=== PATIENT | male | born 1980 | race Two or more races ===

== ENCOUNTER 2020-10-25 01:21 | Emergency (ER) | payer MEDICAID, SELFPAY ==
[2020-10-25 01:48] VITALS: BP 99/63; PULSE 76; RESP 16; TEMP 36.9; O2SAT 97; BMI 26.5
--- NOTE | 2020-10-25 02:20 | ED.LOWEXIN ---
HPI - Extremity Injury (Lower) General Chief Complaint: Extremity Injury, Lower Stated Complaint: FOOT PAIN Time Seen by Provider: 10/25/20 02:20 Source: patient History of Present Illness HPI Narrative: This is a 40-year-old male with chronic issues but appears to be a fungal infection involving toes 3 through 5 at the plantar base. He denies any fevers, chills. Related Data Allergies Allergy/AdvReac Type Severity Reaction Status Date / Time No Known Allergies Allergy Unverified 07/12/20 15:32 [No Known Allergies*] Review of Systems Review of Systems: Pertinent positives and negatives as stated in the HPI and 10pt ROS is otherwise negative. PMFSH Past Medical History Source: nursing notes reviewed Medical History No known health problems Social History Social History Alcohol intake: never Smoking Status: Never smoker Use of substances other than those prescribed or required for medical reasons: No Advance Directives: No Physical Exam Vital Signs: Vital Signs: Last Vital Signs Temp 98.4 F 10/25/20 01:48 Pulse 76 10/25/20 01:48 Resp 16 10/25/20 01:48 BP 99/63 10/25/20 01:48 Pulse Ox 97 10/25/20 01:48 Body Mass Index 26.5 Vital Signs: Reviewed GEN: NAD PULM: CTAB, no wheeze, no tachypnea CVS: RRR, no murmurs noted ABD: soft, non-tender, non-distended MSK: no deformities, swelling RIGHT FOOT: neurovasculalrly intact, capillary refill <3s, skin breakdown between and at base of toes 3-5 Course Course Course Narrative: 40M with fungal infection that will require aggressive treatment. Notified by nursing that patient left. Discharge Plan Discharge Clinical Impression: Fungal infection right foot Patient Disposition: Elopement Interventions: ED Discharge Assessment Last Done: 10/25/20 04:19 Discharge Date/Time: 10/25/20 04:10
== END 2020-10-25 04:10 | disposition left against medical advice (07) ==
PROVIDERS: Emergency Provider Student in an Organized Health Care Education/Training Program; PCP Internal Medicine
DX: B35.3 Tinea pedis (principal); M79.671 Pain in right foot
CPT/HCPCS: 99284

== ENCOUNTER 2020-12-03 19:33 | Emergency (ER) | payer MEDICAID, SELFPAY ==
--- NOTE | ~2020-12-03 | XR_ITS ---
EXAMINATION: XR CHEST CLINICAL INFORMATION: Chest pain COMPARISON: None TECHNIQUE: Frontal view of the chest was obtained. FINDINGS: Azygos lobe and fissure. Lungs are clear. No focal consolidation or mass. Normal pulmonary vascularity. No pleural effusion or pneumothorax. Normal heart size. No acute osseous abnormality. XR/XR chest 1V IMPRESSION: No acute pulmonary disease.
--- NOTE | ~2020-12-03 | XR_ITS ---
EXAMINATION: SHOULDER 4 VIEWS, LEFT CLINICAL INFORMATION: Left shoulder pain. COMPARISON: 11/14/2018.. TECHNIQUE: AP views of the left shoulder were obtained in internal and external rotation. In addition, axillary and Y views were obtained. FINDINGS: There are no fractures or dislocations. The humeral head is seated within a well-formed glenoid. The AC joint is intact. XR/XR shoulder LT min 2V IMPRESSION: Unremarkable left shoulder radiographs.
--- NOTE | ~2020-12-03 | CT_ITS ---
EXAMINATION: CT HEAD WITHOUT CONTRAST CLINICAL INFORMATION: Multiple TIA episodes. COMPARISON: 11/28/2018. TECHNIQUE: Contiguous helical images of the brain were obtained without IV contrast. Multiplanar reconstructions were performed. DLP: 711 mGy-cm. FINDINGS: There are no pathologic extra-axial fluid collections. The lateral, third, fourth ventricles are nondilated and concordant with the appearance of the sulci. There is no evidence for acute intraparenchymal hemorrhage or infarct. There is neither mass nor mass effect. There is no shift of midline structures. The paranasal sinuses and mastoid air cells are clear. There are no osseous lesions. CT/CT head/brain wo con IMPRESSION: No evidence for acute intracranial injury. Automated exposure control (Care Dose) Adjustment of the mA and/or kv according to patient size (this includes techniques or standardized protocols for targeted exams where dose is matched to indication / reason for exam; i.e. extremities or head).
[2020-12-03 19:45] VITALS: BP 120/79; PULSE 75; RESP 18; TEMP 36.8; O2SAT 98; BMI 24.7
--- NOTE | 2020-12-03 19:52 | ECG_ITS ---
Test Reason : SEIZURE Blood Pressure : / mmHG Vent. Rate : 067 BPM Atrial Rate : 067 BPM P-R Int : 136 ms QRS Dur : 092 ms QT Int : 388 ms P-R-T Axes : 063 018 025 degrees QTc Int : 409 ms Normal sinus rhythm with sinus arrhythmia Normal ECG When compared with ECG of 29-DEC-2012 00:01, No significant change was found Referred By: Generic ED Physician Electronically Signed By:JOHNNIE MCCARTHY
[2020-12-04 01:22] VITALS: BP 154/85; PULSE 65; RESP 18; TEMP 36.4; O2SAT 100
--- NOTE | 2020-12-04 02:21 | PC.NURSE ---
PT REPORTS THAT LAST YEAR HE HAD AN EPISODE OF RIGHT SIDED NUMBNESS THAT DROPPED HIM TO HIS KNEES, LASTING 1 MINUTE. PT WAS NEVER EVALUATED BY A NEUROLOGIST, AND IS NOT ON ANY SEIZURE MEDICATIONS. THE PAST FEW DAYS, PT HAS EXPERIENCED REPEAT EPISODES OF UNILATERAL WEAKNESS/PARALYSIS, LASTING 1 MINUTE. PT AMBULATORY TO ROOM 11 FROM WAITING ROOM WITH STEADY GAIT. PT SPEAKING IN FULL SENTENCES AND IN NO DISTRESS. PT DENIES HEADACHE OR DYSPNEA. PT HAS STRONG AND EQUAL HAND GRASPS AND PLANTAR FLEXION. EQUAL FACIAL MUSCLES WHEN ASKED TO SMILE, NO FACIAL DROOP.
[2020-12-04 02:36] VITALS: BP 133/95; PULSE 62; RESP 18; O2SAT 100
[2020-12-04 02:40] LABS: Basophils Percent Auto 0.4 % (0-2); Eosinophils Absolute Auto 0.1 X10*3/uL (0.0-0.4); Eosinophils Percent Auto 1.3 % (0-4); Hematocrit 42.5 % (42-52); Hemoglobin 14.2 g/dl (14.0-18.0); Imm Gran Abs Auto 0.02 X10*3/uL (0.00-0.03); Imm Gran Pct Auto 0.4 % (0.0-0.4); Lymphocytes Absolute Auto 1.5 X10*3/uL (1.2-4.9); Lymphocytes Percent Auto 26.4 % (20-40); MANUAL DIFF FLAG NO; Mean Corpuscular HGB Conc 33.4 g/dl (31.0-36.0); Mean Corpuscular Volume 86.7 fL (80-98); Mean Platelet Volume 10.7 fL (9.4-12.4); Monocytes Absolute Auto 0.5 X10*3/uL (0.1-1.2); Monocytes Percent Auto 8.5 % (2-11); Neutrophils Absolute Auto 3.5 X10*3/uL (2.0-8.3); Platelet Count 227 X10*3/uL (160-400); White Blood Count 5.5 X10*3/uL (4.8-10.8)
--- NOTE | 2020-12-04 02:44 | ED.NEUROSD ---
HPI - Neuro Symptoms/Deficit General Chief Complaint: Neuro Symptoms/Deficit Stated Complaint: SEIZURES Time Seen by Provider: 12/04/20 02:33 Source: patient Mode of arrival: ambulatory Limitations: no limitations History of Present Illness HPI Narrative: Patient comes to emergency room complaining of multiple episodes of right upper arm and lower extremity locking and unable to move it. Patient states that he has had multiple episodes over last year, sometimes several times per day, however they usually happen once a day. For the last 3 days, he has had 1 episode per day. Patient states that the patient is under a lot of stress, works for the [employer], works 07:00 to 21:00 almost every day. Patient states these episodes usually last for about 2-3 minutes, then self resolve. At this time, patient states that he feels completely normal. Patient states that earlier today, he had another episode of upper and lower extremity locking, fell on his left shoulder, complaining of localized pain especially in the posterior aspect of the shoulder. Patient states the locking episodes usually happen the right side, but today happened on the left side Related Data Allergies Allergy/AdvReac Type Severity Reaction Status Date / Time No Known Allergies Allergy Verified 12/03/20 19:45 [No Known Allergies*] Review of Systems Review of Systems: Constitutional : No Weight loss, No Fever, No Chills, No Night Sweats, No Fatigue, No Malaise ENT/Mouth : No Hearing loss, No Ear Pain, No Nasal Congestion, No Sinus Pain, No Hoarseness, No sore throat, No Rhinorrhea, No Swallowing Difficulty Eyes: No Eye Pain, No Swelling, No Redness, No Foreign Body, No Discharge, No Vision Changes Cardiovascular : No Chest Pain, No SOB, No Dyspnea on Exertion, No Orthopnea, No Edema, No Palpitations Respiratory : No Cough, No Sputum, No Wheezing, No Smoke Exposure, No Dyspnea Gastrointestinal : No Nausea, No Vomiting, No Diarrhea, No Constipation, occasional right upper quadrant abdominal Pain, No Hematochezia, No Melena Genitourinary : no irregular bleeding, No Dysuria, No Urinary Frequency, No Hematuria, No Urinary Incontinence, No Urgency, No Flank Pain, No Urinary Flow Changes, No Hesitancy Musculoskeletal : Left shoulder pain, No Myalgias, No Joint Swelling Skin : No Skin Lesions, No rash Neuro : No Weakness, No Numbness, multiple episodes of right arm and right leg locking, sometimes left side Psych : History of severe anxiety, No Depression, No SI/HI/AH/VH, No Social Issues, Heme/Lymph: No Bruising, No Bleeding,No Lymphadenopathy Endocrine : No Polyuria, No Polydipsia, No Temperature Intolerance PMF Past Medical History Medical History Anxiety Depression Social History Social History Alcohol intake: current Alcohol intake frequency: a few times a month Smoking Status: Never smoker Use of substances other than those prescribed or required for medical reasons: No Advance Directives: No Advance Directives Information Provided: No Physical Exam Vital Signs: Vital Signs: Last Vital Signs Temp 97.5 F 12/04/20 01:22 Pulse 62 12/04/20 02:36 Resp 18 12/04/20 02:36 BP 133/95 H 12/04/20 02:36 Pulse Ox 100 12/04/20 02:36 Body Mass Index 24.7 Appearance: Alert. Oriented X3. No acute distress. Eyes: Pupils equal, round and reactive to light. ENT: Pharynx normal. Neck: Normal inspection. Neck supple. No lymph nodes noted. No crepitus CVS: Normal heart rate and rhythm. Pulses normal. Normal S1 and S2 Respiratory: No respiratory distress. Breath sounds normal. No Wheezing. No rales Abdomen: Soft and nontender. No rigidity. No distention. good BS x4 Skin: Skin warm and dry. Normal skin color. Normal skin turgor. Extremities: No lower extremity edema. No lower extremity edema. No Lacerations. No Rash. Patient able to flex and extend bilateral extremities, able to abduct both arms/shoulders, mild to moderate pain to palpation over the posterior aspect of the left shoulder Neuro: Oriented X 3. No motor deficit. No sensory deficit. Moving all extermities. No slurred speech. Course Course Course Narrative: I discussed with the patient that his episodes arm locking is likely secondary to anxiety, as they happen along with abdominal pain that starts and resolved at the same time then the locking episodes. Patient does not lose function of his extremities or weakness, only a locking sensation. In the emergency room, patient is completely asymptomatic. Patient started follow-up with his primary care physician. The CT scan is within normal limits, there are no signs of pre views CVA's. Differential diagnosis includes TIA, CVA, but low suspicion for both at this time. Symptoms likely related to anxiety/panic attack MDM - Neuro Symptoms/Deficit Lab Data Result diagrams: 12/04/20 02:30 12/04/20 02:30 Labs: Lab Results 12/04/20 12/04/20 12/04/20 Range/Units 02:30 02:30 02:30 WBC 5.5 (4.8-10.8) X10*3/uL RBC 4.90 (4.60-5.80) X10*6/uL Hgb 14.2 (14.0-18.0) g/dl Hct 42.5 (42-52) % MCV 86.7 (80-98) fL MCH 29.0 (27.0-33.0) pg MCHC 33.4 (31.0-36.0) g/dl RDW 12.0 (11.0-16.0) % Plt Count 227 (160-400) X10*3/uL MPV 10.7 (9.4-12.4) fL Immature Gran % (Auto) 0.4 (0.0-0.4) % Neut % (Auto) 63.0 (45-73) % Lymph % (Auto) 26.4 (20-40) % [place] % (Auto) 8.5 (2-11) % Eos % (Auto) 1.3 (0-4) % Baso % (Auto) 0.4 (0-2) % Lymph # (Auto) 1.5 (1.2-4.9) X10*3/uL [place] # (Auto) 0.5 (0.1-1.2) X10*3/uL Eos # (Auto) 0.1 (0.0-0.4) X10*3/uL Baso # (Auto) 0.0 (0.0-0.2) X10*3/uL Abs Immat Gran (auto) 0.02 (0.00-0.03) X10*3/uL Absolute Neuts (auto) 3.5 (2.0-8.3) X10*3/uL Absolute Nucleated RBC 0.000 (0.0-0.012) X10*3/uL Nucleated RBC % (auto) 0.0 (0.0-0.2) /100WBC Hold Blue Top SEE NOTE Sodium 139 (135-145) mmol/L Potassium 3.9 (3.3-5.1) mmol/L Chloride 104 (96-108) mmol/L Carbon Dioxide 23 (22-29) mmol/L Anion Gap 16 (12-20) BUN 16 (9-16) mg/dL Creatinine 0.86 (0.5-1.4) mg/dL Estim Creat Clear Calc 93.7 Estimated GFR > 60 Random Glucose 96 (60-115) mg/dL Calcium 9.0 (8.4-10.2) mg/dL Troponin I High Sens (<3.5-35.0) ng/L 12/04/20 Range/Units 02:34 WBC (4.8-10.8) X10*3/uL RBC (4.60-5.80) X10*6/uL Hgb (14.0-18.0) g/dl Hct (42-52) % MCV (80-98) fL MCH (27.0-33.0) pg MCHC (31.0-36.0) g/dl RDW (11.0-16.0) % Plt Count (160-400) X10*3/uL MPV (9.4-12.4) fL Immature Gran % (Auto) (0.0-0.4) % Neut % (Auto) (45-73) % Lymph % (Auto) (20-40) % [place] % (Auto) (2-11) % Eos % (Auto) (0-4) % Baso % (Auto) (0-2) % Lymph # (Auto) (1.2-4.9) X10*3/uL [place] # (Auto) (0.1-1.2) X10*3/uL Eos # (Auto) (0.0-0.4) X10*3/uL Baso # (Auto) (0.0-0.2) X10*3/uL Abs Immat Gran (auto) (0.00-0.03) X10*3/uL Absolute Neuts (auto) (2.0-8.3) X10*3/uL Absolute Nucleated RBC (0.0-0.012) X10*3/uL Nucleated RBC % (auto) (0.0-0.2) /100WBC Hold Blue Top Sodium (135-145) mmol/L Potassium (3.3-5.1) mmol/L Chloride (96-108) mmol/L Carbon Dioxide (22-29) mmol/L Anion Gap (12-20) BUN (9-16) mg/dL Creatinine (0.5-1.4) mg/dL Estim Creat Clear Calc Estimated GFR Random Glucose (60-115) mg/dL Calcium (8.4-10.2) mg/dL Troponin I High Sens < 3.5 (<3.5-35.0) ng/L Imaging Data Chest x-ray: Radiologist's impression: Azygos lobe and fissure. Lungs are clear. No focal consolidation or mass. Normal pulmonary vascularity. No pleural effusion or pneumothorax. Normal heart size. No acute osseous abnormality. XR/XR chest 1V IMPRESSION: No acute pulmonary disease. CT scan - head: Radiologist's impression: There are no pathologic extra-axial fluid collections. The lateral, third, fourth ventricles are nondilated and concordant with the appearance of the sulci. There is no evidence for acute intraparenchymal hemorrhage or infarct. There is neither mass nor mass effect. There is no shift of midline structures. The paranasal sinuses and mastoid air cells are clear. There are no osseous lesions. CT/CT head/brain wo con IMPRESSION: No evidence for acute intracranial injury Shoulder x-ray: Radiologist's impression: FINDINGS: There are no fractures or dislocations. The humeral head is seated within a well-formed glenoid. The AC joint is intact. XR/XR shoulder LT min 2V IMPRESSION: Unremarkable left shoulder radiographs. ECG Data Attestation: I personally reviewed and interpreted this ECG as follows: (Sinus rhythm, heart rate 67, no ST segment depression revision, no T-wave inversion. QTC 409) NIH Stroke Scale Level of Consciousness: Alert Level of Consciousness Questions: Answers both questions correctly Level of Consciousness Commands: Performs both tasks correctly Best Gaze: Normal Visual: No visual loss Facial Palsy: Normal Motor Arm (Right): No drift Motor Arm (Left): No drift Motor Leg (Right): No drift Motor Leg (Left): No drift Limb Ataxia: Absent Sensory: Normal Best Language: No aphasia Dysarthia: Normal Extinction and Inattention: No abnormality Score: 0 Discharge Plan Discharge Clinical Impression: Anxiety, Acute pain of left shoulder Patient Disposition: Home, Self-Care Instructions: Anxiety (ED), Shoulder Pain (ED) Additional Instructions: Please follow-up with your primary care physician tomorrow. If you have any worsening or new symptoms, please return to the emergency room or call 911
[2020-12-04 03:07] LABS: Troponin-I High Sensitivity < 3.5 ng/L (<3.5-35.0)
[2020-12-04 03:20] LABS: Anion Gap 16 (12-20); Blood Urea Nitrogen 16 mg/dL (9-16); Carbon Dioxide 23 mmol/L (22-29); Chloride 104 mmol/L (96-108); Creatinine Clr Calc Pharmacy 93.7; Estimated Glomerular Filt Rate > 60; Glucose Random 96 mg/dL (60-115); Potassium 3.9 mmol/L (3.3-5.1); Sodium 139 mmol/L (135-145)
== END 2020-12-04 04:29 | disposition home or self-care (01) ==
PROVIDERS: Emergency Provider Emergency Medicine; PCP Internal Medicine
DX: R56.9 Unspecified convulsions (principal); M25.512 Pain in left shoulder; F41.1 Generalized anxiety disorder; F43.0 Acute stress reaction
CPT/HCPCS: 36415; 70450; 71045; 73030; 80048; 84484; 85025; 93005; 99284

== ENCOUNTER 2020-12-18 11:10 | Outpatient (REF) | payer MEDICAID, SELFPAY ==
[2020-12-18 13:26] LABS: Erythrocyte Sedimentation Rate 2 MM/HR (0-15)
[2020-12-19 07:40] LABS: Syphilis Screen Nonreactive (Nonreactive)
[2020-12-19 09:16] LABS: Lyme Abs Screen <0.90 index
[2020-12-19 14:52] LABS: Anti Nuclear Antibody Screen NEGATIVE (NEGATIVE)
[2020-12-21 06:27] LABS: Aldolase 4.4 U/L (<=8.1)
== END 2020-12-18 11:11 | disposition home or self-care (01) ==
LOC: HO.LAB 11:10
PROVIDERS: PCP Internal Medicine; Visit Provider Psychiatry & Neurology Neurology
DX: G93.40 Encephalopathy, unspecified (principal)
CPT/HCPCS: 36415; 82085; 82550; 85652; 86038; 86039; 86618; 86780

== ENCOUNTER → 2021-01-01 08:54 | Outpatient (BNVA) | payer MEDICAID, SELFPAY | PROVIDERS: PCP Internal Medicine; Visit Provider Physician Assistant ==

== ENCOUNTER 2021-01-03 12:52 | Outpatient (REF) | payer MEDICAID, SELFPAY ==
[2021-01-03 14:44] LABS: Alanine Aminotransferase 34 U/L (0-40); Albumin Level 4.7 g/dL (3.5-5.0); Alkaline Phosphatase 70 U/L (39-117); Anion Gap 11 (12-20); Aspartate Amino Transferase 33 U/L (5-37); Bilirubin Total 0.2 mg/dL (0.0-1.0); Blood Urea Nitrogen 8 mg/dL (9-16); Calcium 9.6 mg/dL (8.4-10.2); Carbon Dioxide 31 mmol/L (22-29); Chloride 102 mmol/L (96-108); Estimated Glomerular Filt Rate > 60; Glucose Random 92 mg/dL (60-115); Phosphorus 3.3 mg/dL (2.7-4.5); Potassium 4.6 mmol/L (3.3-5.1); Sodium 139 mmol/L (135-145); Total Protein 7.2 g/dL (6.5-8.0)
[2021-01-03 15:06] LABS: Vitamin D 25-OH Total 17.7 ng/mL (>30)
[2021-01-04 13:57] LABS: Immunoglobulin A 262 mg/dL (47-310)
[2021-01-04 22:42] LABS: Transglutaminase Ab IgG 1 U/mL
[2021-01-05 10:31] LABS: Calcium (PTHI) 9.8 mg/dL (8.6-10.3); PTHI 53 pg/mL (14-64)
[2021-01-10 15:17] LABS: Endomysial IgA Antibody Negative (Negative)
== END 2021-01-03 12:53 | disposition home or self-care (01) ==
LOC: HO.LAB 12:52
PROVIDERS: PCP Internal Medicine; Visit Provider Internal Medicine
DX: E55.9 Vitamin D deficiency, unspecified (principal); F31.9 Bipolar disorder, unspecified; Z79.899 Other long term (current) drug therapy
CPT/HCPCS: 36415; 80053; 82306; 82784; 83516; 83970; 84100; 86255; 86256; 99202

== ENCOUNTER 2021-01-23 11:28 | Day surgery (SDC) | payer MEDICAID, SELFPAY ==
[2021-01-18 10:20] VITALS: BMI 23.7
--- NOTE | 2021-01-22 08:59 | HO.ANESPROP2 ---
Documented by User: Ludivina Madden 01/22/21 09:00 HPI - Anesthesia Eval Consult details Narrative: 40yo M for Colonoscopy PMFSH Active Problems Active Problems: All Active Problems (Updated 01/03/21 @ 13:24 by Christie Miller DO) Vitamin D deficiency (Acute) Rectal bleeding (Acute) Past Medical History Medical History Anxiety Depression Rectal bleeding Vitamin D deficiency Family History Family History Maternal Grandmother Diabetes Surgical History Surgical History History of surgery on arm Social History Social History Household Members: Family Alcohol intake: never Smoking Status: Never smoker Use of substances other than those prescribed or required for medical reasons: No Advance Directives: No Advance Directives Information Provided: No Current occupational status: employed Current occupation: [employer] Allergies Allergy/AdvReac Type Severity Reaction Status Date / Time No Known Allergies Allergy Verified 01/03/21 13:34 [No Known Allergies*] Home Medications Medication Instructions Recorded Confirmed Last Taken Type cholecalciferol (vitamin D3) 1,250 1,250 mcg PO QWEEK 01/01/21 01/03/21 Unknown History mcg (50,000 unit) capsule gabapentin 100 mg capsule 100 mg PO DAILY 01/01/21 01/03/21 Unknown History hydroxyzine HCl 50 mg tablet 50 mg PO BEDTIME 01/01/21 01/03/21 Unknown History sertraline 25 mg tablet 25 mg PO DAILY 01/01/21 01/03/21 Unknown History topiramate 25 mg tablet 25 mg PO DAILY 01/01/21 01/03/21 Unknown History zolpidem 10 mg tablet 10 mg PO BEDTIME PRN 01/01/21 01/03/21 Unknown History Exam Exam Date and Time: January 22, 2021 0859 Height,Weight and Vital Signs: Height 5 ft 3 in Weight 60.781 kg Narrative Narrative: EKG Vent. Rate : 067 BPM Atrial Rate : 067 BPM P-R Int : 136 ms QRS Dur : 092 ms QT Int : 388 ms P-R-T Axes : 063 018 025 degrees QTc Int : 409 ms Normal sinus rhythm with sinus arrhythmia Normal ECG When compared with ECG of 29-DEC-2012 00:01, No significant change was found Assessment and Plan Assessment Anesthesia Assessment: Chart Reviewed Documented by User: Char mSith 01/23/21 12:11 PMF Past Medical History Medical History Anxiety Depression Rectal bleeding Vitamin D deficiency Family History Family History Maternal Grandmother Diabetes Surgical History Surgical History History of surgery on arm Social History Social History Household Members: Family Alcohol intake: never Smoking Status: Never smoker Use of substances other than those prescribed or required for medical reasons: No Advance Directives: No Advance Directives Information Provided: No Current occupational status: employed Current occupation: [employer] Meds Allergies Allergy/AdvReac Type Severity Reaction Status Date / Time No Known Allergies Allergy Verified 01/03/21 13:34 [No Known Allergies*] Home Medications Medication Instructions Recorded Confirmed Last Taken Type cholecalciferol (vitamin D3) 1,250 1,250 mcg PO QWEEK 01/01/21 01/03/21 Unknown History mcg (50,000 unit) capsule gabapentin 100 mg capsule 100 mg PO DAILY 01/01/21 01/03/21 Unknown History hydroxyzine HCl 50 mg tablet 50 mg PO BEDTIME 01/01/21 01/03/21 Unknown History sertraline 25 mg tablet 25 mg PO DAILY 01/01/21 01/03/21 Unknown History topiramate 25 mg tablet 25 mg PO DAILY 01/01/21 01/03/21 Unknown History zolpidem 10 mg tablet 10 mg PO BEDTIME PRN 01/01/21 01/03/21 Unknown History Exam Airway Mallampati Class: II TM Dist: >3cm Neck ROM: Full Heart: RRr Lungs: CTA Bl Assessment and Plan Assessment Anesthesia Assessment: Anesthesia Plan Discussed and Chart Reviewed Final Anesthetic Review NPO: Yes ASA Class: II Final Preanesthetic Review: No Changes in Pt Med Stat and Consent Obtained/Reviewed Patient Risk: Intermediate Procedure Risk: Intermediate Anesthetic Plan Anesthetic Plan: MAC: Disposition: Standard PACU
[2021-01-23 11:51] VITALS: BP 106/58; PULSE 63; RESP 18; TEMP 36.3; O2SAT 97
[2021-01-23] MEDS: Lactated Ringers 1,000 ML 100 ML IVCONT (12:04)
--- NOTE | 2021-01-23 13:29 | MHC.SHP ---
Pre-Procedural Eval Section B Chief Complaint: bleeding Relevant Family History (Specify if Yes): No Relevant Social History: None Present Medications: see Short Stay Collaborative assessment Medical History: Significant History (Anxiety Depression Rectal bleeding Vitamin D deficiency) History of Previous Operations: Relevant previous surgery/procedure and date(s) (arm surgery) Allergies: Allergies Allergy/AdvReac Type Severity Reaction Status Date / Time No Known Allergies Allergy Verified 01/23/21 13:21 [No Known Allergies*] Review of Systems Sugical H&P ROS: Negative: Constitution, Cardiovascular, Respiratory, Neurological, Psychiatric, Hem-Onc, Allergic/Immunologic, Gastrointestinal, Genitourinary, Musculoskeletal, Integumentary, Endocrine and Eyes/Ears/Nose/Throat Exam Surgical H&P Exam: Normal: HEENT, Normal: Heart, Normal: Lungs, Normal: Extremities, Normal: Abdomen, Normal: Skin and Normal: Neurological Plan Diagnosis/Plan: Unchanged I have reviewed the history and physical and performed a pertinent physical examination on my patient. No changes have occurred unless specified.
--- NOTE | 2021-01-23 14:01 | PM.OP ---
Brief Operative Note Date of Service: 01/23/21 Pre-op diagnosis: rectal bleeding, anal fissure Post-op diagnosis: same Procedure: see op note Surgeon: Cheryl Gr MD Anesthesia: MAC Estimated blood loss (mL): 0 Condition: stable Disposition: PACU
--- NOTE | 2021-01-23 14:02 | W.PM.OPN ---
Operative Note Operative Note Date of Service: 01/23/21 Narrative: Operative Information Procedure Description: Colonoscopy COLONOSCOPY Instrument: Olympus variable stiffness pediatric scope 190L Colonoscopy Monitoring: Vital signs and clinical assessment, continuous EKG monitoring, Pulse oximetry, Carbon Dioxide monitoring and blood pressure monitoring were done throughout the procedure. Colon withdrawal time was [] minutes. Procedure: The patient was placed in the left lateral decubitis position and pre-procedure medications were administered. After a digital rectal examination of the ano-rectum, the video colonoscope was inserted into the rectum and advanced through the colon to the cecum/TI. The colonoscope was slowly withdrawn in a retrograde panoramic fashion and the colon mucosa was carefully examined including a retroflexed view of the rectum. Findings and interventions are described below. Procedure Difficulty:easy Findings: Terminal Ileum-normal, bx taken Cecum:normal Ascending Colon: 15-18 mm semi pedunculated polyp removed with cold snare and x1 clip applied to defect, retrieved with net. Transverse Colon -normal Descending Colon:normal Sigmoid Colon: 10 mm sessile polyp removed with cold snare but not retrieved Rectum: Retroflexion with small internal hemorrhoids, grade I with some red fernando bx taken from right colon, left colon and rectum in different jars Anorectum - normal Colon preparation: [place] Bowel Preparation Scale Right colon; 2 Transverse colon: 2 Left colon; 2 (0 = Unprepared colon segment with mucosa not seen due to solid stool that cannot be cleared. 1 = Portion of mucosa of the colon segment seen, but other areas of the colon segment not well seen due to staining, residual stool and/or opaque liquid. 2 = Minor amount of residual staining, small fragments of stool and/or opaque liquid, but mucosa of colon segment seen well. 3 = Entire mucosa of colon segment seen well with no residual staining, small fragments of stool or opaque liquid) Impression and Post Procedure Diagnosis: polyps internal hemorrhoids Plan: High fiber diet leaflet Avoid straining at stool, epsom salts and sitz bath, anusol supps or cream as needed Repeat Colonoscopy in 1-2 years or earlier if clinically indicated Above findings were reviewed with the patient and relevant handouts were provided if indicated.
[2021-01-23 14:05] VITALS: BP 92/49; PULSE 65; RESP 16; TEMP 36.2; O2SAT 97
[2021-01-23 14:10] VITALS: BP 89/56
[2021-01-23 14:20] VITALS: BP 91/58; PULSE 56; RESP 18; O2SAT 100
[2021-01-23 14:33] VITALS: BP 105/74; PULSE 60; RESP 18; O2SAT 100
== END 2021-01-23 15:00 | disposition home or self-care (01) ==
PROVIDERS: PCP Internal Medicine; Visit Provider Internal Medicine Gastroenterology
PROC: 0DJD8ZZ Inspection of Lower Intestinal Tract, Via Natural or Artificial Opening Endoscopic (ICD-10-PCS; CPT 45378; principal; 2021-01-23 13:10)
DX: K62.5 Hemorrhage of anus and rectum (principal); D12.2 Benign neoplasm of ascending colon; K64.0 First degree hemorrhoids; E55.9 Vitamin D deficiency, unspecified; Z79.899 Other long term (current) drug therapy
CPT/HCPCS: 45385; 45380; 88305

== ENCOUNTER → 2021-02-06 10:37 | Outpatient (BNVA) | payer MEDICAID, SELFPAY | PROVIDERS: PCP Internal Medicine; Visit Provider Physician Assistant ==

== ENCOUNTER → 2021-02-27 09:24 | Outpatient (BNVA) | payer MEDICAID, SELFPAY | PROVIDERS: PCP Internal Medicine; Visit Provider Internal Medicine ==

== ENCOUNTER 2021-03-18 00:02 | Emergency (ER) | payer MEDICAID, SELFPAY ==
--- NOTE | ~2021-03-18 | XR_ITS ---
EXAMINATION: XR SHOULDER, LEFT XR HUMERUS, LEFT CLINICAL INFORMATION: Fall, unable to abduct, mid humerus pain on flexion COMPARISON: 12/04/2020 TECHNIQUE: 3 views of the left shoulder. 2 views of the left humerus. FINDINGS: Glenohumeral alignment is anatomic. No acute fracture is seen. The acromioclavicular joint is intact. Alignment at the elbow appears maintained on these views. No significant focal soft tissue abnormality identified. XR/XR shoulder LT min 2V IMPRESSION: No acute findings identified in the left shoulder or humerus.
--- NOTE | ~2021-03-18 | XR_ITS ---
EXAMINATION: XR FACIAL BONES CLINICAL INFORMATION: Hematoma to left cheek COMPARISON: None TECHNIQUE: 4 views of the facial bones were obtained. FINDINGS: No displaced fracture is seen. Paranasal sinuses and mastoid air cells appear well-aerated. XR/XR facial bones <3V IMPRESSION: No fracture identified.
--- NOTE | ~2021-03-18 | XR_ITS ---
EXAMINATION: XR SHOULDER, LEFT XR HUMERUS, LEFT CLINICAL INFORMATION: Fall, unable to abduct, mid humerus pain on flexion COMPARISON: 12/04/2020 TECHNIQUE: 3 views of the left shoulder. 2 views of the left humerus. FINDINGS: Glenohumeral alignment is anatomic. No acute fracture is seen. The acromioclavicular joint is intact. Alignment at the elbow appears maintained on these views. No significant focal soft tissue abnormality identified. XR/XR humerus LT IMPRESSION: No acute findings identified in the left shoulder or humerus.
[2021-03-18 00:11] VITALS: BP 116/80; PULSE 52; RESP 18; TEMP 36.6; O2SAT 97; BMI 25.7
[2021-03-18 00:38] VITALS: BP 112/78; PULSE 59; RESP 16; TEMP 37.1; O2SAT 100
--- NOTE | 2021-03-18 01:15 | ED_ITS ---
HPI - Fall General Chief Complaint: Fall Stated Complaint: fall @ 630pm Source: patient Mode of arrival: ambulatory Limitations: no limitations History of Present Illness HPI Narrative: 41-year-old male presents with injury sustained from a fall into a [place]. He has scratches on his face, and neck, hematoma to the left cheek and has pain to that left shoulder. He is unable to abduct and adduct and has pain on flexion and extension of the elbow. He does not know when his last Tdap vaccine was given, does not report losing consciousness. States that he was cleaning out his yd and fell over. He does not describe any other injuries or symptoms. MD complaint: fall Onset (ago): hour(s) (6:30 p.m.) Fall from: standing Fall witnessed: yes, by family Place fall occurred: home Loss of consciousness: none Prolonged down time: no Symptoms prior to fall: none Context: tripped/slipped Location of injury: head, face and neck Location of injury - extremities: left: shoulder Severity: moderate Severity scale (1-10): 7 Quality: aching and throbbing Associated symptoms (after fall): denies Related Data Home Medications Medication Instructions Recorded Confirmed gabapentin 100 mg capsule 100 mg PO DAILY 01/01/21 02/27/21 sertraline 25 mg tablet 25 mg PO DAILY 01/01/21 02/27/21 topiramate 25 mg tablet 25 mg PO DAILY 01/01/21 02/27/21 zolpidem 10 mg tablet 10 mg PO BEDTIME PRN 01/01/21 02/27/21 docusate sodium 100 mg capsule 200 mg PO BEDTIME PRN cap 02/27/21 hydroxyzine HCl 50 mg tablet 50 mg PO BEDTIME PRN 02/27/21 02/27/21 methylcellulose (laxative) 500 mg 500 mg PO BID PRN tab 02/27/21 tablet quetiapine 25 mg tablet 25 mg PO BEDTIME 02/27/21 02/27/21 Previous Rx's Medication Instructions Recorded hydrocortisone 2.5 % topical cream 1 appl RI BID PRN #30 g 01/01/21 with perineal applicator cholecalciferol (vitamin D3) 1,250 1,250 mcg PO QWEEK 56 Days #8 cap 02/27/21 mcg (50,000 unit) capsule cholecalciferol (vitamin D3) 50 50 mcg PO DAILY 30 Days #30 cap 02/27/21 mcg (2,000 unit) capsule Allergies Allergy/AdvReac Type Severity Reaction Status Date / Time No Known Allergies Allergy Verified 02/27/21 09:48 [No Known Allergies*] Review of Systems Review of Systems: Constitutional: No Fever, No Chills ENT/Mouth: No Ear Pain, No Hoarseness, No sore throat Eyes: No Eye Pain, No Swelling, No Redness, No Foreign Body Cardiovascular: No Chest Pain, No SOB Respiratory: No Cough, No Dyspnea Gastrointestinal: No Nausea, No Vomiting, No Diarrhea, No abdominal Pain Genitourinary: No Dysuria, No Hematuria Musculoskeletal: positive left shoulder and humerus pain, No Myalgias, No Joint Swelling Skin: Multiple superficial abrasions to face and neck, No deep Skin lacerations, No rash Neuro: No Weakness, No Numbness, No Paresthesias, No Loss of Consciousness, No Dizziness, No Headache Psych: No Anxiety/Panic, No Depression Heme/Lymph: no easy bruising, no Lymphadenopathy Endocrine: No Polyuria, No Polydipsia Yes all other systems are reviewed and are negative [facility] Past Medical History Attestation statement: The following information was validated with the patient. Source: old records reviewed Medical History Anxiety Depression Rectal bleeding Vitamin D deficiency Surgical History H/O colonoscopy History of surgery on arm Family History Family History Maternal Grandmother Diabetes Social History Social History Household Members: Family Alcohol intake: current Alcohol intake frequency: does not drink Smoking Status: Never smoker Advance Directives: No Advance Directives Information Provided: No Current occupational status: employed Current occupation: [employer] Physical Exam Vital Signs: Vital Signs: Last Vital Signs Temp 98.7 F 03/18/21 00:38 Pulse 59 03/18/21 00:38 Resp 16 03/18/21 00:38 BP 112/78 03/18/21 00:38 Pulse Ox 100 03/18/21 00:38 Body Mass Index 25.7 Appearance: Alert. Oriented X3. No acute distress. Head: Hematoma to left cheek, multiple superficial abrasions to face and neck. Normocephalic. No Boo signs noted. Eyes: PERRLA. EOMI. Conjunctiva and sclera normal. Eyelids normal. ENT: TM's Normal. Pharynx normal. Uvula midline. Moist mucous membranes. No trismus noted. No drooling noted. No muffled voice noted. Neck: Normal inspection. Neck supple. No adenopathy. Thyroid Normal. No meningeal signs. No neck mass noted. CVS: Normal heart rate and rhythm. Heart sound normal. No murmurs noted. Pulses equal to all extremities. Respiratory: No respiratory distress. Painless inspiration. Breath sounds normal. No wheezes/rales/rhonchi noted. Chest nontender. No accessory muscle usage noted or decreased air movement noted. Abdomen: Soft and nontender. Bowel sounds normal in all 4 quadrants. No distention noted. No organomegaly noted. No visible injury noted. Back: No CVA tenderness. Full range of motion noted. Skin: Skin warm and dry. Normal skin color. Normal skin turgor. No rashes/lesions/lacerations noted. Extremities: Patient unable to abduct adduct flex and extend left shoulder, has pain on flexion and extension of the elbow, unable to perform passive range of motion. Full range of motion to all other extremities. No injuries noted to the chest or abdomen. Brisk capillary refill and equal pulses to all extr emities Neuro: cranial nerves 2-12 intact, no focal neural deficits, strength 5/5 to all extremities, No motor deficit. No sensory deficit. Course Course Course Narrative: 41-year-old male with no significant past medical history presents with multiple injuries sustained from falling into a [place]. Will order x-rays of facial bones and left shoulder and left humerus. Will update Tdap vaccine and will apply topical antibiotic ointment to superficial abrasions to the face and neck. X-rays negative for acute findings requiring emergent intervention. Highly suspicious physical exam for rotator cuff tear or injury. Will apply sling and have patient follow-up with orthopedics for evaluation of a rotator cuff injury or tear. Patient verbalized understanding of and agrees to plan of care discharge home. MDM - Fall [facility] Narrative Medical decision making narrative: Rotator cuff tear, labrum tear, shoulder dislocation Medical Records Attestation: I reviewed the patient's medical records. Imaging Data Shoulder x-ray: Attestation: I personally reviewed and interpreted this imaging study as follows: Facial bones: Attestation: I personally reviewed and interpreted this imaging study as follows: Discharge Plan Discharge Clinical Impression: Contusion of face Qualifiers: Encounter type: initial encounter Qualified Code(s): S00.83XA - Contusion of other part of head, initial encounter Rotator cuff disorder Qualifiers: Laterality: left Qualified Code(s): M67.912 - Unspecified disorder of synovium and tendon, left shoulder Patient Disposition: Home, Self-Care Instructions: Rotator Cuff Injury (ED), R.I.C.E. Treatment (ED), Facial Contusion (ED) Additional Instructions: You were evaluated for injuries sustained from a fall. X-rays are negative for fracture and dislocation of the left shoulder, x-rays are negative for fracture of the facial bones. Your symptoms are consistent with a rotator cuff injury. Please keep sling in place until you see orthopedics. Please call Orthopedics in the morning and request an appointment for suspected rotator cuff tear. Use Tylenol and Motrin as needed for pain management. Apply ice to help reduce pain and swelling. Thank you for choosing this emergency department for evaluation. Please follow-up with primary care physician as needed. Return to the emergency department for any new, concerning, or worsening symptoms. Prescriptions: No Action zolpidem [Ambien] 10 mg tablet 10 mg PO BEDTIME PRNRF: 0 gabapentin 100 mg capsule 100 mg PO DAILY RF: 0 topiramate 25 mg tablet 25 mg PO DAILY RF: 0 sertraline 25 mg tablet 25 mg PO DAILY RF: 0 hydrocortisone [Proctozone-HC] 2.5 % cream with perineal applicator 1 appl RI BID PRN (Reason: hemorrhoids) Qty: 30 RF: 3 hydroxyzine HCl 50 mg tablet 50 mg PO BEDTIME PRNRF: 0 quetiapine 25 mg tablet 25 mg PO BEDTIME RF: 0 docusate sodium [Colace] 100 mg capsule 200 mg PO BEDTIME PRNRF: 0 Citrucel 500 mg tablet 500 mg PO BID PRNRF: 0 cholecalciferol (vitamin D3) 50 mcg (2,000 unit) capsule 50 mcg PO DAILY 30 Days Qty: 30 RF: 11 cholecalciferol (vitamin D3) 1,250 mcg (50,000 unit) capsule 1,250 mcg PO QWEEK 56 Days Qty: 8 RF: 0 Referrals: Amelia Alvarez PA-C [[facility]] - 2 days (Left rotator cuff injury)
--- NOTE | 2021-03-18 01:46 | PC.NURSE ---
emc closed report given to brenda rhodes. pt waiting imaging pt A+Ox3 PT HAS CALL [facility] IN PLACE.
[2021-03-18] MEDS: Diphth,Pertus(ACell),Tet Adult 0.5 ML SYRINGE IM (01:53)
[2021-03-18] MEDS: Ibuprofen 600 MG TABLET PO (02:10)
== END 2021-03-18 02:22 | disposition home or self-care (01) ==
PROVIDERS: Emergency Provider Student in an Organized Health Care Education/Training Program; PCP Internal Medicine
DX: S00.83XA Contusion of other part of head, initial encounter (principal); S00.81XA Abrasion of other part of head, initial encounter; S10.91XA Abrasion of unspecified part of neck, initial encounter; W17.89XA Other fall from one level to another, initial encounter; M67.912 Unspecified disorder of synovium and tendon, left shoulder; Y93.H2 Activity, gardening and landscaping; Y92.017 Garden or yard in single-family (private) house as the place of occurrence of the external cause; Y99.9 Unspecified external cause status
CPT/HCPCS: 70140; 73030; 73060; 90471; 90715; 99284

== ENCOUNTER 2021-03-21 01:27 | Emergency (ER) | payer MEDICAID, SELFPAY ==
[2021-03-21 01:43] VITALS: BP 116/76; PULSE 73; RESP 20; TEMP 36.2; O2SAT 97; BMI 25.6
--- NOTE | 2021-03-21 02:43 | ED.WEAKNESS ---
HPI - Weakness General Chief complaint: Weakness Stated complaint: Weakness Time Seen by Provider: 03/21/21 02:32 Source: patient Mode of arrival: ambulatory Limitations: no limitations History of Present Illness HPI Narrative: Patient comes emergency room complaining of weakness and diffuse joint pain. Patient states he has been having chronic weakness for several years and diffuse joint pain as well. Patient states that he has been seen multiple times by his primary care physician, Endocrinology, and has an appointment pending with rheumatology. Patient states that the reason he came today was because he could not sleep due to the pain. Patient states that all his joints hurt. Patient denies fever or chills. Related Data Home Medications Medication Instructions Recorded Confirmed gabapentin 100 mg capsule 100 mg PO DAILY 01/01/21 02/27/21 sertraline 25 mg tablet 25 mg PO DAILY 01/01/21 02/27/21 topiramate 25 mg tablet 25 mg PO DAILY 01/01/21 02/27/21 zolpidem 10 mg tablet 10 mg PO BEDTIME PRN 01/01/21 02/27/21 docusate sodium 100 mg capsule 200 mg PO BEDTIME PRN cap 02/27/21 hydroxyzine HCl 50 mg tablet 50 mg PO BEDTIME PRN 02/27/21 02/27/21 methylcellulose (laxative) 500 mg 500 mg PO BID PRN tab 02/27/21 tablet quetiapine 25 mg tablet 25 mg PO BEDTIME 02/27/21 02/27/21 Previous Rx's Medication Instructions Recorded hydrocortisone 2.5 % topical cream 1 appl [place] BID PRN #30 g 01/01/21 with perineal applicator cholecalciferol (vitamin D3) 1,250 1,250 mcg PO QWEEK 56 Days #8 cap 02/27/21 mcg (50,000 unit) capsule cholecalciferol (vitamin D3) 50 50 mcg PO DAILY 30 Days #30 cap 02/27/21 mcg (2,000 unit) capsule Allergies Allergy/AdvReac Type Severity Reaction Status Date / Time No Known Allergies Allergy Verified 03/21/21 01:48 [No Known Allergies*] Review of Systems Review of Systems: Constitutional : No Weight loss, No Fever, No Chills, No Night Sweats, No Fatigue, No Malaise ENT/Mouth : No Hearing loss, No Ear Pain, No Nasal Congestion, No Sinus Pain, No Hoarseness, No sore throat, No Rhinorrhea, No Swallowing Difficulty Eyes: No Eye Pain, No Swelling, No Redness, No Foreign Body, No Discharge, No Vision Changes Cardiovascular : No Chest Pain, No SOB, No Dyspnea on Exertion, No Orthopnea, No Edema, No Palpitations Respiratory : No Cough, No Sputum, No Wheezing, No Smoke Exposure, No Dyspnea Gastrointestinal : No Nausea, No Vomiting, No Diarrhea, No Constipation, No abdominal Pain, No Hematochezia, No Melena Genitourinary : no irregular bleeding, No Dysuria, No Urinary Frequency, No Hematuria, No Urinary Incontinence, No Urgency, No Flank Pain, No Urinary Flow Changes, No Hesitancy Musculoskeletal : Complaining of diffuse joint pain and diffuse muscular pain Skin : No Skin Lesions, No rash Neuro : No Weakness, No Numbness, No Paresthesias, No Loss of Consciousness, No Dizziness, No Headache Psych : No Anxiety/Panic, No Depression, No SI/HI/AH/VH, No Social Issues, Heme/Lymph: No Bruising, No Bleeding,No Lymphadenopathy Endocrine : No Polyuria, No Polydipsia, No Temperature Intolerance [facility] Past Medical History Medical History Anxiety Depression Fibromyalgia Insomnia Rectal bleeding Vitamin D deficiency Surgical History H/O colonoscopy History of surgery on arm Family History Family History Maternal Grandmother Diabetes Social History Social History Household Members: Family Alcohol intake: never Patient Tobacco Use Status: Never used Tobacco Use of substances other than those prescribed or required for medical reasons: No Advance Directives: No Advance Directives Information Provided: No Current occupational status: employed Current occupation: [employer] Physical Exam Vital Signs: Vital Signs: Last Vital Signs Temp 97.2 F 03/21/21 01:43 Pulse 73 03/21/21 01:43 Resp 20 03/21/21 01:43 BP 116/76 03/21/21 01:43 Pulse Ox 97 03/21/21 01:43 Body Mass Index 25.6 Appearance: Alert. Oriented X3. No acute distress. Eyes: Pupils equal, round and reactive to light. ENT: Pharynx normal. Neck: Normal inspection. Neck supple. No lymph nodes noted. No crepitus CVS: Normal heart rate and rhythm. Pulses normal. Normal S1 and S2 Respiratory: No respiratory distress. Breath sounds normal. No Wheezing. No rales Abdomen: Soft and nontender. No rigidity. No distention. good BS x4 Skin: Skin warm and dry. Normal skin color. Normal skin turgor. Extremities: No lower extremity edema. Patient is able to move all of his extremities, normal range of motion. Patient states that moving any joint hurts Neuro: Oriented X 3. No motor deficit. No sensory deficit. Moving all extermities. No slurred speech. Course Course Course Narrative: I discussed the labs with the patient, no acute findings. I also discussed with the patient that once he sees Rheumatology next week, they will likely order more specialized test, it is likely that patient may have a rheumatology condition, and once he has a diagnosis, a more targeted treatment can be given to him. Patient states that he is tired of taking tablets that are not helping him. I offered to increase his dose of gabapentin, patient declined. Patient states that he will wait for his rheumatology consult MDM - Weakness Lab Data Result diagrams: 03/21/21 02:52 03/21/21 02:52 Labs: Lab Results 03/21/21 03/21/21 Range/Units 02:52 02:52 WBC 5.1 (4.8-10.8) X10*3/uL RBC 4.90 (4.60-5.80) X10*6/uL Hgb 14.2 (14.0-18.0) g/dl Hct 41.7 L (42-52) % MCV 85.1 (80-98) fL MCH 29.0 (27.0-33.0) pg MCHC 34.1 (31.0-36.0) g/dl RDW 11.8 (11.0-16.0) % Plt Count 233 (160-400) X10*3/uL MPV 10.4 (9.4-12.4) fL Immature Gran % (Auto) 0.2 (0.0-0.4) % Neut % (Auto) 52.9 (45-73) % Lymph % (Auto) 32.0 (20-40) % Fountain % (Auto) 11.6 H (2-11) % Eos % (Auto) 2.7 (0-4) % Baso % (Auto) 0.6 (0-2) % Lymph # (Auto) 1.6 (1.2-4.9) X10*3/uL Fountain # (Auto) 0.6 (0.1-1.2) X10*3/uL Eos # (Auto) 0.1 (0.0-0.4) X10*3/uL Baso # (Auto) 0.0 (0.0-0.2) X10*3/uL Abs Immat Gran (auto) 0.01 (0.00-0.03) X10*3/uL Absolute Neuts (auto) 2.7 (2.0-8.3) X10*3/uL Absolute Nucleated RBC 0.000 (0.0-0.012) X10*3/uL Nucleated RBC % (auto) 0.0 (0.0-0.2) /100WBC Sodium 139 (135-145) mmol/L Potassium 3.9 (3.3-5.1) mmol/L Chloride 102 (96-108) mmol/L Carbon Dioxide 26 (22-29) mmol/L Anion Gap 15 (12-20) BUN 11 (9-16) mg/dL Creatinine 0.85 (0.5-1.4) mg/dL Estim Creat Clear Calc 90.1 Estimated GFR > 60 Random Glucose 89 (60-115) mg/dL Calcium 9.4 (8.4-10.2) mg/dL Total Bilirubin 0.6 (0.0-1.0) mg/dL Direct Bilirubin 0.3 (0.0-0.5) mg/dL AST 28 (5-37) U/L ALT 19 (0-40) U/L Alkaline Phosphatase 82 (39-117) U/L Total Protein 7.6 (6.5-8.0) g/dL Albumin 4.7 (3.5-5.0) g/dL Discharge Plan Discharge Clinical Impression: Joint pain Qualifiers: Joint pain location: unspecified Qualified Code(s): M25.50 - Pain in unspecified joint Patient Disposition: Home, Self-Care Instructions: Arthralgia (ED) Additional Instructions: Please follow-up with your primary care physician tomorrow. If you have any worsening or new symptoms, please return to the emergency room or call 911 Prescriptions: No Action zolpidem [Ambien] 10 mg tablet 10 mg PO BEDTIME PRNRF: 0 gabapentin 100 mg capsule 100 mg PO DAILY RF: 0 topiramate 25 mg tablet 25 mg PO DAILY RF: 0 sertraline 25 mg tablet 25 mg PO DAILY RF: 0 hydrocortisone [Proctozone-HC] 2.5 % cream with perineal applicator 1 appl UT BID PRN (Reason: hemorrhoids) Qty: 30 RF: 3 hydroxyzine HCl 50 mg tablet 50 mg PO BEDTIME PRNRF: 0 quetiapine 25 mg tablet 25 mg PO BEDTIME RF: 0 docusate sodium [Colace] 100 mg capsule 200 mg PO BEDTIME PRNRF: 0 Citrucel 500 mg tablet 500 mg PO BID PRNRF: 0 cholecalciferol (vitamin D3) 50 mcg (2,000 unit) capsule 50 mcg PO DAILY 30 Days Qty: 30 RF: 11 cholecalciferol (vitamin D3) 1,250 mcg (50,000 unit) capsule 1,250 mcg PO QWEEK 56 Days Qty: 8 RF: 0
[2021-03-21 02:56] LABS: MANUAL DIFF FLAG NO
[2021-03-21 02:57] LABS: Basophils Percent Auto 0.6 % (0-2); Eosinophils Absolute Auto 0.1 X10*3/uL (0.0-0.4); Eosinophils Percent Auto 2.7 % (0-4); Hematocrit 41.7 % (42-52); Hemoglobin 14.2 g/dl (14.0-18.0); Imm Gran Abs Auto 0.01 X10*3/uL (0.00-0.03); Imm Gran Pct Auto 0.2 % (0.0-0.4); Lymphocytes Absolute Auto 1.6 X10*3/uL (1.2-4.9); Mean Corpuscular HGB Conc 34.1 g/dl (31.0-36.0); Mean Corpuscular Volume 85.1 fL (80-98); Mean Platelet Volume 10.4 fL (9.4-12.4); Monocytes Absolute Auto 0.6 X10*3/uL (0.1-1.2); Monocytes Percent Auto 11.6 % (2-11); Neutrophils Absolute Auto 2.7 X10*3/uL (2.0-8.3); Neutrophils Percent Auto 52.9 % (45-73); Platelet Count 233 X10*3/uL (160-400); Red Cell Distribution Width 11.8 % (11.0-16.0); White Blood Count 5.1 X10*3/uL (4.8-10.8)
[2021-03-21 03:43] LABS: Alanine Aminotransferase 19 U/L (0-40); Albumin Level 4.7 g/dL (3.5-5.0); Alkaline Phosphatase 82 U/L (39-117); Anion Gap 15 (12-20); Aspartate Amino Transferase 28 U/L (5-37); Bilirubin Direct 0.3 mg/dL (0.0-0.5); Bilirubin Total 0.6 mg/dL (0.0-1.0); Blood Urea Nitrogen 11 mg/dL (9-16); Calcium 9.4 mg/dL (8.4-10.2); Carbon Dioxide 26 mmol/L (22-29); Chloride 102 mmol/L (96-108); Creatinine Clr Calc Pharmacy 90.1; Estimated Glomerular Filt Rate > 60; Glucose Random 89 mg/dL (60-115); Potassium 3.9 mmol/L (3.3-5.1); Sodium 139 mmol/L (135-145); Total Protein 7.6 g/dL (6.5-8.0)
[2021-03-21] MEDS: traMADoL HCL 50 MG TABLET PO (05:32)
[2021-03-22 05:56] LABS: Lyme Abs Screen <0.90 index
== END 2021-03-21 06:10 | disposition home or self-care (01) ==
PROVIDERS: Emergency Provider Emergency Medicine; PCP Internal Medicine
DX: M25.50 Pain in unspecified joint (principal); R53.1 Weakness; Z79.899 Other long term (current) drug therapy
CPT/HCPCS: 36415; 80048; 80076; 85025; 86617; 86618; 99284

== ENCOUNTER 2021-03-29 10:15 | Outpatient (REF) | payer MEDICAID, SELFPAY ==
[2021-03-29 11:30] LABS: MANUAL DIFF FLAG NO
[2021-03-29 11:42] LABS: Basophils Percent Auto 0.8 % (0-2); Eosinophils Absolute Auto 0.2 X10*3/uL (0.0-0.4); Eosinophils Percent Auto 3.1 % (0-4); Hematocrit 39.9 % (42-52); Hemoglobin 13.1 g/dl (14.0-18.0); Imm Gran Abs Auto 0.02 X10*3/uL (0.00-0.03); Imm Gran Pct Auto 0.4 % (0.0-0.4); Lymphocytes Absolute Auto 1.2 X10*3/uL (1.2-4.9); Lymphocytes Percent Auto 24.1 % (20-40); Mean Corpuscular HGB Conc 32.8 g/dl (31.0-36.0); Mean Corpuscular Volume 88.3 fL (80-98); Mean Platelet Volume 10.9 fL (9.4-12.4); Monocytes Absolute Auto 0.4 X10*3/uL (0.1-1.2); Monocytes Percent Auto 8.3 % (2-11); Neutrophils Percent Auto 63.3 % (45-73); Platelet Count 219 X10*3/uL (160-400); Red Blood Count 4.52 X10*6/uL (4.60-5.80); Red Cell Distribution Width 11.6 % (11.0-16.0); White Blood Count 4.8 X10*3/uL (4.8-10.8)
[2021-03-29 12:02] LABS: Alanine Aminotransferase 23 U/L (0-40); Albumin Level 4.2 g/dL (3.5-5.0); Alkaline Phosphatase 64 U/L (39-117); Anion Gap 13 (12-20); Aspartate Amino Transferase 28 U/L (5-37); Bilirubin Total 0.3 mg/dL (0.0-1.0); Blood Urea Nitrogen 11 mg/dL (9-16); C Reactive Protein 0.04 mg/dL (< or = 0.50); Calcium 9.1 mg/dL (8.4-10.2); Carbon Dioxide 27 mmol/L (22-29); Chloride 105 mmol/L (96-108); Estimated Glomerular Filt Rate > 60; Glucose Random 91 mg/dL (60-115); Potassium 4.5 mmol/L (3.3-5.1); Rheumatoid Factor < 15.0 IU/mL (<15.0); Sodium 140 mmol/L (135-145); Total Protein 6.6 g/dL (6.5-8.0)
[2021-03-29 12:24] LABS: Erythrocyte Sedimentation Rate 2 MM/HR (0-15)
[2021-03-30 06:37] LABS: Lyme Abs Screen <0.90 index
[2021-03-31 23:02] LABS: Cyclic Citrullinated Peptide <16 UNITS
[2021-04-03 13:41] LABS: Anti Nuclear Antibody Screen NEGATIVE (NEGATIVE)
== END 2021-03-29 10:16 | disposition home or self-care (01) ==
LOC: HO.LAB 10:15
PROVIDERS: PCP Internal Medicine; Visit Provider Student in an Organized Health Care Education/Training Program
DX: M25.50 Pain in unspecified joint (principal); M75.82 Other shoulder lesions, left shoulder; Z79.899 Other long term (current) drug therapy
CPT/HCPCS: 36415; 80053; 85025; 85652; 86038; 86039; 86140; 86200; 86431; 86617; 86618; 99202

== ENCOUNTER → 2021-04-05 09:22 | Outpatient (BNVA) | payer MEDICAID, SELFPAY | PROVIDERS: PCP Internal Medicine; Visit Provider Internal Medicine Gastroenterology ==

== ENCOUNTER → 2021-05-02 08:46 | Outpatient (BNVA) | payer MEDICAID, SELFPAY | PROVIDERS: PCP Internal Medicine; Visit Provider Student in an Organized Health Care Education/Training Program | DX: M25.50 Pain in unspecified joint (principal); M79.7 Fibromyalgia | CPT/HCPCS: 99212 ==

== ENCOUNTER 2021-07-03 20:58 | Emergency (ER) | payer MEDICAID, SELFPAY ==
[2021-07-03 21:32] VITALS: BP 117/91; PULSE 62; RESP 18; TEMP 36.8; O2SAT 98; BMI 27.4
--- NOTE | 2021-07-03 22:33 | ED.HA ---
HPI - Headache General Chief Complaint: Headache Stated Complaint: Migraine Source: patient Mode of arrival: ambulatory Limitations: no limitations History of Present Illness HPI Narrative: 41-year-old male presents with multiple complaints. States that he has had migraines and increased pain for approximately a week or more. 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 Does see multiple specialists, pain management, Gastroenterology, Neurology, and was recently diagnosed with fibromyalgia. He has not taking any of the medications that have been prescribed him today because he was at work. MD elicited complaint: headache and migraine Pertinent past history: migraines Onset (ago): week(s) (Several) Onset description: gradually Severity: moderate Quality & Timing: aching, throbbing and progressively worsening Exacerbating factors: exertion Relieving factors: nothing Associated symptoms: neck stiffness and malaise Treatments prior to arrival: none Related Data Home Medications Medication Instructions Recorded Confirmed gabapentin 100 mg capsule 100 mg PO DAILY 01/01/21 05/02/21 sertraline 25 mg tablet 25 mg PO DAILY 01/01/21 05/02/21 topiramate 25 mg tablet 25 mg PO DAILY 01/01/21 05/02/21 zolpidem 10 mg tablet (Ambien) 10 mg PO BEDTIME PRN 01/01/21 05/02/21 docusate sodium 100 mg capsule 200 mg PO BEDTIME PRN cap 02/27/21 05/02/21 (Colace) hydroxyzine HCl 50 mg tablet 50 mg PO BEDTIME PRN 02/27/21 05/02/21 methylcellulose (laxative) 500 mg 500 mg PO BID PRN tab 02/27/21 05/02/21 tablet (Citrucel) quetiapine 25 mg tablet 25 mg PO BEDTIME 02/27/21 05/02/21 gabapentin 600 mg tablet 600 mg PO TID 05/02/21 05/02/21 quetiapine 150 mg tablet,extended 150 mg PO BEDTIME 05/02/21 05/02/21 release 24 hr (Seroquel XR) Previous Rx's Medication Instructions Recorded hydrocortisone 2.5 % topical cream 1 appl [place] BID PRN #30 g 01/01/21 with perineal applicator (Proctozone-HC) cholecalciferol (vitamin D3) 1,250 1,250 mcg PO QWEEK 56 Days #8 cap 02/27/21 mcg (50,000 unit) capsule cholecalciferol (vitamin D3) 50 50 mcg PO DAILY 30 Days #30 cap 02/27/21 mcg (2,000 unit) capsule diclofenac sodium 1 % topical gel 2 g TOPICAL BID PRN #100 g 06/11/21 [id number]-[id number]-[id number] 1 cap PO Q6H PRN #14 cap 07/04/21 50 mg-300 mg-40 mg capsule (Fioricet) Allergies Allergy/AdvReac Type Severity Reaction Status Date / Time No Known Allergies Allergy Verified 07/03/21 21:32 [No Known Allergies*] Review of Systems Review of Systems: Constitutional: No Fever, No Chills ENT/Mouth: No Ear Pain, No Hoarseness, No sore throat Eyes: No Eye Pain, No Swelling, No Redness, No Foreign Body Cardiovascular: No Chest Pain, No SOB Respiratory: No Cough, No Dyspnea Gastrointestinal: No Nausea, No Vomiting, No Diarrhea, No abdominal Pain Genitourinary: No Dysuria, No Hematuria Musculoskeletal: positive diffuse body pain, No Myalgias, No Joint Swelling Skin: No Skin lacerations, No rash Neuro: No Weakness, No Numbness, No Paresthesias, No Loss of Consciousness, No Dizziness, positive Headache Psych: No Anxiety/Panic, No Depression Heme/Lymph: no easy bruising, no Lymphadenopathy Endocrine: No Polyuria, No Polydipsia Yes all other systems are reviewed and are negative [facility] Past Medical History Attestation statement: The following information was validated with the patient. Source: old records reviewed Medical History Anxiety Depression Fibromyalgia Insomnia No known health problems Rectal bleeding Vitamin D deficiency Surgical History H/O colonoscopy History of surgery on arm Family History Family History Maternal Grandmother Diabetes Social History Social History Household Members: Family Alcohol intake: never Patient Tobacco Use Status: Never used Tobacco e-Cigarette/Vaping Use: Never Used Advance Directives: No Advance Directives Information Provided: Yes Current occupational status: employed Current occupation: [employer] Physical Exam Vital Signs: Vital Signs: Last Vital Signs Temp 97.7 F 07/03/21 23:43 Pulse 62 07/04/21 01:01 Resp 16 07/04/21 01:01 BP 108/49 L 07/04/21 01:01 Pulse Ox 99 07/04/21 01:01 Body Mass Index 27.4 Appearance: Alert. Oriented X3. No acute distress. Head: Normal external exam. Normocephalic. Atraumatic. No Boo signs noted. No raccoon eyes noted Eyes: PERRLA. EOMI. Conjunctiva and sclera normal. Eyelids normal. ENT: TM's Normal. Pharynx normal. Uvula midline. Moist mucous membranes. No trismus noted. No drooling noted. No muffled voice noted. Neck: Normal inspection. Neck supple. No adenopathy. Thyroid Normal. No meningeal signs. No neck mass noted. CVS: Normal heart rate and rhythm. Heart sound normal. No murmurs noted. Pulses equal to all extremities. Respiratory: No respiratory distress. Painless inspiration. Breath sounds normal. No wheezes/rales/rhonchi noted. Chest nontender. No accessory muscle usage noted or decreased air movement noted. Abdomen: Soft and nontender. Bowel sounds normal in all 4 quadrants. No distention noted. No organomegaly noted. No visible injury noted. Back: No CVA tenderness. Full range of motion noted. Skin: Skin warm and dry. Normal skin color. Normal skin turgor. No rashes/lesions/lacerations noted. Extremities: No lower extremity edema. Extremities exhibit normal range of motion. Extremities nontender. Neuro: cranial nerves 2-12 intact, no focal neural deficits, strength 5/5 to all extremities, No motor deficit. No sensory deficit. Course Course Course Narrative: 41-year-old male presents with multiple complaints too numerous to list. States that he has had multiple appointments with specialists, Gastroenterology, Neurology, Pain Management, all with no significant findings. Reported that he was recently diagnosed with fibromyalgia, foot fungus, and insomnia. States that stresses of his job have exacerbated his pain, right now describes pain in every part of his body. While he does have significant complaints, every direction towards his chief complaint headache that he has had over the past 2 weeks. He has had multiple CT scans in the past with negative findings, I do not feel that he requires repeat imaging at this time as he does not have any neurological deficits. He does not have any signs or indication of meningitis, no nuchal rigidity, afebrile, and appears nontoxic. Will treat with Toradol, sumatriptan, and fluid resuscitation. Patient states that the treatment was ineffective, will give Fioricet for his headache. Multiple discussions with patient regarding plan, will discharge home and have patient continue to follow-up with specialists as an outpatient. Patient verbalized understanding of and agrees to plan of care discharge home. MDM - Headache Differential Diagnosis Differential diagnosis: Likely migraine, tension headache and headache Medical Records Attestation: I reviewed the patient's medical records. Discharge Plan Discharge Clinical Impression: Fibromyalgia Migraine Qualifiers: Migraine type: unspecified Status migrainosus presence: without status migrainosus Intractability: intractable Qualified Code(s): G43.919 - Migraine, unspecified, intractable, without status migrainosus Patient Disposition: Home, Self-Care Instructions: Migraine Headache (ED), Fibromyalgia (ED) Additional Instructions: Please continue to follow-up with your specialists as an outpatient. Thank you for choosing this emergency department for evaluation. Please follow-up with primary care physician as needed. Return to the emergency department for any new, concerning, or worsening symptoms. Prescriptions: New lsjuluyizn-bylrvuccinveb-jhnu [Fioricet] 50-300-40 mg capsule 1 cap PO Q6H PRN (Reason: migraine headache) Qty: 14 RF: 0 No Action diclofenac sodium 1 % gel 2 g topical BID PRN (Reason: pain) Qty: 100 RF: 1 zolpidem [Ambien] 10 mg tablet 10 mg PO BEDTIME PRNRF: 0 gabapentin 100 mg capsule 100 mg PO DAILY RF: 0 topiramate 25 mg tablet 25 mg PO DAILY RF: 0 sertraline 25 mg tablet 25 mg PO DAILY RF: 0 hydrocortisone [Proctozone-HC] 2.5 % cream with perineal applicator 1 appl [place] BID PRN (Reason: hemorrhoids) Qty: 30 RF: 3 hydroxyzine HCl 50 mg tablet 50 mg PO BEDTIME PRNRF: 0 quetiapine 25 mg tablet 25 mg PO BEDTIME RF: 0 docusate sodium [Colace] 100 mg capsule 200 mg PO BEDTIME PRNRF: 0 Citrucel 500 mg tablet 500 mg PO BID PRNRF: 0 cholecalciferol (vitamin D3) 50 mcg (2,000 unit) capsule 50 mcg PO DAILY 30 Days Qty: 30 RF: 11 cholecalciferol (vitamin D3) 1,250 mcg (50,000 unit) capsule 1,250 mcg PO QWEEK 56 Days Qty: 8 RF: 0 gabapentin 600 mg tablet 600 mg PO TID RF: 0 quetiapine [Seroquel XR] 150 mg tablet extended release 24 hr 150 mg PO BEDTIME RF: 0 Referrals: Jd Marques MD [Physician] - 2 days (Chronic headaches) Stand Alone Forms: Work/School Release
[2021-07-03 23:43] VITALS: BP 121/82; PULSE 62; RESP 17; TEMP 36.5; O2SAT 99
[2021-07-03] MEDS: Ketorolac Tromethamine 15 MG/ML VIAL 30 MG IVPUSH (23:51)
[2021-07-03] MEDS: 0.9 % Sodium Chloride 1,000 ML 999 ML IVCONT (23:52)
--- NOTE | 2021-07-04 00:53 | PC.NURSE ---
Pt c/o bilateral bottom of foot pain and reports his PCP dx him with a fungal infection. Pt requesting possible medication for this. This RN notified DIONY Flores of pt's concerns/requests. Sandra reports pt informed her of this previously.
[2021-07-04] MEDS: Butalb/Acetamin/Caff 50/325/40 TABLET 1 TAB PO (01:00)
[2021-07-04 01:01] VITALS: BP 108/49; PULSE 62; RESP 16; O2SAT 99
== END 2021-07-04 01:51 | disposition home or self-care (01) ==
PROVIDERS: Emergency Provider Internal Medicine; PCP Internal Medicine
DX: G43.919 Migraine, unspecified, intractable, without status migrainosus (principal); M79.7 Fibromyalgia; Z79.899 Other long term (current) drug therapy
CPT/HCPCS: 96361; 96372; 96374; 99284; J1885; J3030

== ENCOUNTER 2021-07-21 20:06 | Emergency (ER) | payer MEDICAID, SELFPAY ==
[2021-07-21 20:10] VITALS: BP 128/75; PULSE 82; RESP 18; TEMP 36.8; O2SAT 98; BMI 23.0
[2021-07-21 20:39] VITALS: BP 104/76; PULSE 82; RESP 18; TEMP 36.6; O2SAT 98
--- NOTE | 2021-07-21 20:39 | ED_ITS ---
HPI - Headache General Chief Complaint: Headache Stated Complaint: Migraine Time Seen by Provider: 07/21/21 20:18 Source: patient and old records reviewed History of Present Illness HPI Narrative: Patient with a history of migraine headaches as well as fibromyalgia, anxiety, insomnia, presents with a headache which has been intractable all day. He states he has been having issues with sleep walking secondary to his zolpidem. 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 It is similar to multiple prior migraines. He was seen here last week and treated with IV fluids and Toradol and sumatriptan without effect. He was eventually given Fioricet which apparently helped. He denies vomiting but does describe nausea and photophobia. No recent fevers chills or illnesses. He has multiple specialists including Rheumatology, Neurology, and the pain specialist at [facility]. He has a therapist. He has a primary. He denies any recent changes in medications. No recent illnesses. No triggers or causative factors that he can think of He has had multiple tests in the past including CT scans and EEGs. All of which have been normal Related Data Home Medications Medication Instructions Recorded Confirmed gabapentin 100 mg capsule 100 mg PO DAILY 01/01/21 05/02/21 sertraline 25 mg tablet 25 mg PO DAILY 01/01/21 05/02/21 topiramate 25 mg tablet 25 mg PO DAILY 01/01/21 05/02/21 zolpidem 10 mg tablet (Ambien) 10 mg PO BEDTIME PRN 01/01/21 05/02/21 docusate sodium 100 mg capsule 200 mg PO BEDTIME PRN cap 02/27/21 05/02/21 (Colace) hydroxyzine HCl 50 mg tablet 50 mg PO BEDTIME PRN 02/27/21 05/02/21 methylcellulose (laxative) 500 mg 500 mg PO BID PRN tab 02/27/21 05/02/21 tablet (Citrucel) quetiapine 25 mg tablet 25 mg PO BEDTIME 02/27/21 05/02/21 gabapentin 600 mg tablet 600 mg PO TID 05/02/21 05/02/21 quetiapine 150 mg tablet,extended 150 mg PO BEDTIME 05/02/21 05/02/21 release 24 hr (Seroquel XR) Previous Rx's Medication Instructions Recorded hydrocortisone 2.5 % topical cream 1 appl [place] BID PRN #30 g 01/01/21 with perineal applicator (Proctozone-HC) cholecalciferol (vitamin D3) 1,250 1,250 mcg PO QWEEK 56 Days #8 cap 02/27/21 mcg (50,000 unit) capsule cholecalciferol (vitamin D3) 50 50 mcg PO DAILY 30 Days #30 cap 02/27/21 mcg (2,000 unit) capsule diclofenac sodium 1 % topical gel 2 g TOPICAL BID PRN #100 g 06/11/21 [id number]-zsvqzhcnalgdj-tbnanzsd 1 cap PO Q6H PRN #14 cap 07/04/21 50 mg-300 mg-40 mg capsule (Fioricet) Allergies Allergy/AdvReac Type Severity Reaction Status Date / Time No Known Allergies Allergy Verified 07/21/21 20:10 [No Known Allergies*] Review of Systems Constitutional: Constitutional: Reports anorexia Eyes: Comments: Photophobia Cardiovascular: Comments: Chest pain Gastrointestinal: Comments: Nausea no vomiting Musculoskeletal: Comments: Left-sided shoulder neck back pain. Left arm pain Neurologic: Comments: Headache without focal weakness numbness or paresthesias Psychiatric: Comments: Anxiety PMFSH Past Medical History Medical History Anxiety Depression Fibromyalgia Insomnia No known health problems Rectal bleeding Vitamin D deficiency Surgical History H/O colonoscopy History of surgery on arm Family History Family History Maternal Grandmother Diabetes Social History Social History Household Members: Family Alcohol intake: never Patient Tobacco Use Status: Never used Tobacco e-Cigarette/Vaping Use: Never Used Advance Directives: No Advance Directives Information Provided: No Current occupational status: employed Current occupation: [employer] Physical Exam Vital Signs: Vital Signs: Last Vital Signs Temp 98 F 07/21/21 22:03 Pulse 82 07/21/21 22:03 Resp 18 07/21/21 22:03 BP 108/68 07/21/21 22:03 Pulse Ox 98 07/21/21 22:03 Body Mass Index 23.0 Const: Other: Awake and alert and anxious. Nontoxic appearing. HENMT: Other: Normocephalic atraumatic Eyes: Other: Pupils equal round reactive to light with extraocular muscles intact Neck: Other: Full range of motion Back/Spine/Pelvis: Other: Left paraspinous muscle spasm and tenderness, especially trapezius Skin: Other: Warm and dry Neuro: Other: Nonfocal Course Course Course Narrative: Migraine headache. Fibromyalgia Given past history of imaging, intracranial pathology has been ruled out. Will treat with IV fluids, IV Toradol, IV Benadryl, IV Reglan. 11:11 p.m.. Patient is feeling much better after treatment. Stable for discharge home Discharge Plan Discharge Clinical Impression: Migraine Patient Disposition: Home, Self-Care Instructions: Migraine Headache (ED) Prescriptions: No Action diclofenac sodium 1 % gel 2 g topical BID PRN (Reason: pain) Qty: 100 RF: 1 devzvfbymy-uuzkswqgiwvdr-wcqc [Fioricet] 50-300-40 mg capsule 1 cap PO Q6H PRN (Reason: migraine headache) Qty: 14 RF: 0 zolpidem [Ambien] 10 mg tablet 10 mg PO BEDTIME PRNRF: 0 gabapentin 100 mg capsule 100 mg PO DAILY RF: 0 topiramate 25 mg tablet 25 mg PO DAILY RF: 0 sertraline 25 mg tablet 25 mg PO DAILY RF: 0 hydrocortisone [Proctozone-HC] 2.5 % cream with perineal applicator 1 appl [place] BID PRN (Reason: hemorrhoids) Qty: 30 RF: 3 hydroxyzine HCl 50 mg tablet 50 mg PO BEDTIME PRNRF: 0 quetiapine 25 mg tablet 25 mg PO BEDTIME RF: 0 docusate sodium [Colace] 100 mg capsule 200 mg PO BEDTIME PRNRF: 0 Citrucel 500 mg tablet 500 mg PO BID PRNRF: 0 cholecalciferol (vitamin D3) 50 mcg (2,000 unit) capsule 50 mcg PO DAILY 30 Days Qty: 30 RF: 11 cholecalciferol (vitamin D3) 1,250 mcg (50,000 unit) capsule 1,250 mcg PO QWEEK 56 Days Qty: 8 RF: 0 gabapentin 600 mg tablet 600 mg PO TID RF: 0 quetiapine [Seroquel XR] 150 mg tablet extended release 24 hr 150 mg PO BEDTIME RF: 0
[2021-07-21] MEDS: Ketorolac Tromethamine 15 MG/ML VIAL 30 MG IVPUSH (20:47)
[2021-07-21] MEDS: 0.9 % Sodium Chloride 1,000 ML 999 ML IV (20:47)
[2021-07-21] MEDS: Metoclopramide HCl 10 MG/2 ML VIAL IVPUSH (20:48)
[2021-07-21] MEDS: diphenhydrAMINE HCL 50 MG/ML VIAL 25 MG IVPUSH (20:49)
--- NOTE | 2021-07-21 20:56 | PC.NURSE ---
Patient arrives to ED with c/o headache. States he has a history of migraines. Patient A+Ox4. IV placed and flushed, meds given per DEC.
[2021-07-21 22:03] VITALS: BP 108/68; PULSE 82; RESP 18; TEMP 36.6; O2SAT 98
--- NOTE | 2021-07-21 23:27 | PC.NURSE ---
pt a&O, no sob or chest pain. Pt reports improvement of headache at this time.
== END 2021-07-21 23:40 | disposition home or self-care (01) ==
PROVIDERS: Emergency Provider Emergency Medicine; PCP Internal Medicine
DX: G43.909 Migraine, unspecified, not intractable, without status migrainosus (principal); M79.7 Fibromyalgia; Z79.899 Other long term (current) drug therapy
CPT/HCPCS: 96361; 96374; 96375; 99284; J1200; J1885; J2765

== ENCOUNTER 2022-01-17 22:05 | Emergency (ER) | payer MEDICAID, SELFPAY ==
--- NOTE | ~2022-01-17 | XR_ITS ---
EXAMINATION: XR LUMBOSACRAL SPINE CLINICAL INFORMATION: Back pain. COMPARISON: 11/24/2019 TECHNIQUE: Three views of the lumbosacral spine. FINDINGS: Mild degenerative disc disease is noted at L4-5 and L5-S1. There is grade 1 anterolisthesis of L5 5 on S1. L5 pars defects bilaterally. No acute fractures. SI joints and hips are unremarkable. Soft tissues are normal. XR/XR lumbar spine 2-3V IMPRESSION: Mild degenerative disc disease in the lower lumbar spine at L4-5 and L5-S1. Grade 1 anterolisthesis of L5 on S1 with bilateral pars defects
--- NOTE | ~2022-01-17 | XR_ITS ---
EXAMINATION: XR SHOULDER, LEFT CLINICAL INFORMATION: Shoulder pain COMPARISON: 03/18/2021 TECHNIQUE: Four views of the left shoulder. FINDINGS: The bones and soft tissues are normal. No fracture. Glenohumeral and acromioclavicular alignment is anatomic with normal joint space. No abnormal soft tissue calcifications. Grashey views are slightly limited by overlying structures including the mandible. XR/XR shoulder LT min 2V IMPRESSION: No acute findings are identified in the left shoulder. Joints appear well-preserved.
--- NOTE | ~2022-01-17 | XR_ITS ---
EXAMINATION: XR WRIST, LEFT CLINICAL INFORMATION: Wrist pain COMPARISON: None TECHNIQUE: PA, lateral, oblique, and scaphoid views of the left wrist. FINDINGS: Mild first CMC osteoarthritis. Nonunited ulnar styloid fracture, chronic. No acute fracture. Alignment is anatomic.. No erosions or abnormal soft tissue calcifications. XR/XR wrist LT 2V IMPRESSION: No acute osseous findings. Mild first CMC osteoarthritis.
[2022-01-17 22:07] VITALS: BP 104/77; PULSE 84; RESP 18; TEMP 36.8; O2SAT 97; BMI 23.0
--- NOTE | 2022-01-17 23:11 | ED.EXTPRO ---
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 States to have left shoulder, left wrist, and lower back pain. MD Complaint: extremity pain Onset (ago): hour(s) (Several hours prior to arrival) Pain Consistency: constant Location: left, upper extremity and other (Lumbar back) Severity scale (1-10): 9 Quality: aching and constant Radiation: none Relieving factors: nothing Exacerbating factors: range of motion, walking, exertion and palpation Associated symptoms: denies other symptoms Related Data Home Medications Medication Instructions Recorded Confirmed gabapentin 100 mg capsule 100 mg PO DAILY 01/01/21 05/02/21 sertraline 25 mg tablet 25 mg PO DAILY 01/01/21 05/02/21 topiramate 25 mg tablet 25 mg PO DAILY 01/01/21 05/02/21 zolpidem 10 mg tablet (Ambien) 10 mg PO BEDTIME PRN 01/01/21 05/02/21 docusate sodium 100 mg capsule 200 mg PO BEDTIME PRN cap 02/27/21 05/02/21 (Colace) hydroxyzine HCl 50 mg tablet 50 mg PO BEDTIME PRN 02/27/21 05/02/21 methylcellulose (laxative) 500 mg 500 mg PO BID PRN tab 02/27/21 05/02/21 tablet (Citrucel) quetiapine 25 mg tablet 25 mg PO BEDTIME 02/27/21 05/02/21 gabapentin 600 mg tablet 600 mg PO TID 05/02/21 05/02/21 quetiapine 150 mg tablet,extended 150 mg PO BEDTIME 05/02/21 05/02/21 release 24 hr (Seroquel XR) Previous Rx's Medication Instructions Recorded hydrocortisone 2.5 % topical cream 1 appl [place] BID PRN #30 g 01/01/21 with perineal applicator (Proctozone-HC) cholecalciferol (vitamin D3) 1,250 1,250 mcg PO QWEEK 56 Days #8 cap 02/27/21 mcg (50,000 unit) capsule cholecalciferol (vitamin D3) 50 50 mcg PO DAILY 30 Days #30 cap 02/27/21 mcg (2,000 unit) capsule diclofenac sodium 1 % topical gel 2 g TOPICAL BID PRN #100 g 06/11/21 aasltrzfkz-vetvcnqgupbgg-aymdcbaw 1 cap PO Q6H PRN #14 cap 07/04/21 50 mg-300 mg-40 mg capsule (Fioricet) cyclobenzaprine 10 mg tablet 10 mg PO TID PRN #14 tab 01/18/22 Allergies Allergy/AdvReac Type Severity Reaction Status Date / Time No Known Allergies Allergy Verified 01/17/22 22:07 [No Known Allergies*] Review of Systems Review of Systems: Constitutional: No Fever, No Chills ENT/Mouth: No Ear Pain, No Hoarseness, No sore throat Eyes: No Eye Pain, No Swelling, No Redness, No Foreign Body Cardiovascular: No Chest Pain, No SOB Respiratory: No Cough, No Dyspnea Gastrointestinal: No Nausea, No Vomiting, No Diarrhea, No abdominal Pain Genitourinary: No Dysuria, No Hematuria Musculoskeletal: positive left shoulder, left arm, and lower back pain, No Myalgias, No Joint Swelling Skin: No Skin lacerations, No rash Neuro: No Weakness, No Numbness, No Paresthesias, No Loss of Consciousness, No Dizziness, No Headache Psych: No Anxiety/Panic, No Depression Heme/Lymph: no easy bruising, no Lymphadenopathy Endocrine: No Polyuria, No Polydipsia Yes all other systems are reviewed and are negative [facility] Past Medical History Attestation statement: The following information was validated with the patient. Source: old records reviewed Medical History Anxiety Depression Fibromyalgia Insomnia No known health problems Rectal bleeding Vitamin D deficiency Surgical History H/O colonoscopy History of surgery on arm Family History Family History Maternal Grandmother Diabetes Social History Social History Household Members: Family Alcohol intake: never Patient Tobacco Use Status: Never used Tobacco e-Cigarette/Vaping Use: Never Used Advance Directives: No Advance Directives Information Provided: No Current occupational status: employed Current occupation: [employer] Physical Exam Vital Signs: Vital Signs: Last Vital Signs Temp 98.2 F 01/17/22 22:07 Pulse 84 01/17/22 22:07 Resp 18 01/17/22 22:07 BP 104/77 01/17/22 22:07 Pulse Ox 97 01/17/22 22:07 BMI result Body Mass Index 23.0 Appearance: Alert. Oriented X3. Moderate distress. Eyes: Pupils equal, round and reactive to light. EOMI. ENT: Pharynx normal. Moist mucous membranes. Neck: Normal inspection. Neck supple. CVS: Normal heart rate and rhythm. Pulses normal. Respiratory: No respiratory distress. Breath sounds normal. Abdomen: Soft and nontender. Skin: Skin warm and dry. Normal skin color. Normal skin turgor. Extremities: No lower extremity edema. Moves all extremities against resistance. Tenderness to the left acromion process and left wrist. Lumbar latissimus Dorsi tenderness bilaterally. Neuro: No motor deficit. No sensory deficit. Cranial nerves 2-12 intact. Course Course Course Narrative: 41-year-old male presents with injury sustained at work. He is taking but soon off the ground and injured his left shoulder left wrist and lower back. Patient has full range of motion no indication of cauda equina, is ambulatory. Denies fevers, chills, and any other concerning symptoms. States to have 10/10 pain. Will order x-rays, and Toradol. X-rays are negative for acute findings. Shows chronic findings of arthritis to the lumbar spine. Detailed discussion with patient regarding plan to follow-up with primary care and pain management. Will give prescription for cyclobenzaprine. She is requesting cyclobenzaprine at this time however he needs to find a ride. Patient able to find a ride home. Order for cyclobenzaprine patient verbalized understanding of and agrees to plan of care discharge home. Patient verbalized understanding of signs and symptoms indicating need for emergent intervention. MDM - Extremity (Nontraumatic) MDM Narrative Medical decision making narrative: Musculoskeletal strain, fracture, tendon or ligament injury Medical Records Attestation: I reviewed the patient's medical records. Imaging Data Lumbar spine, shoulder and wrist x-ray: Attestation: I personally reviewed and interpreted this imaging study as follows: Radiologist's impression: EXAMINATION: XR LUMBOSACRAL SPINE CLINICAL INFORMATION: Back pain. COMPARISON: 11/24/2019 TECHNIQUE: Three views of the lumbosacral spine. FINDINGS: Mild degenerative disc disease is noted at L4-5 and L5-S1. There is grade 1 anterolisthesis of L5 5 on S1. L5 pars defects bilaterally. No acute fractures. SI joints and hips are unremarkable. Soft tissues are normal. XR/XR lumbar spine 2-3V IMPRESSION: Mild degenerative disc disease in the lower lumbar spine at L4-5 and L5-S1. ? Grade 1 anterolisthesis of L5 on S1 with bilateral pars defects EXAMINATION: XR SHOULDER, LEFT CLINICAL INFORMATION: Shoulder pain? COMPARISON: 03/18/2021? TECHNIQUE: Four views of the left shoulder. FINDINGS: The bones and soft tissues are normal. No fracture. Glenohumeral and acromioclavicular alignment is anatomic with normal joint space. No abnormal soft tissue calcifications. Grashey views are slightly limited by overlying structures including the mandible. XR/XR shoulder LT min 2V IMPRESSION: No acute findings are identified in the left shoulder. Joints appear well-preserved. EXAMINATION: XR WRIST, LEFT CLINICAL INFORMATION: Wrist pain? COMPARISON: None? TECHNIQUE: PA, lateral, oblique, and scaphoid views of the left wrist. FINDINGS: Mild first CMC osteoarthritis. Nonunited ulnar styloid fracture, chronic. No acute fracture. Alignment is anatomic.. No erosions or abnormal soft tissue calcifications.? XR/XR wrist LT 2V IMPRESSION: No acute osseous findings. Mild first CMC osteoarthritis. Discharge Plan Discharge Clinical Impression: Musculoskeletal strain, Degeneration, intervertebral disc, lumbar Patient Disposition: Home, Self-Care Instructions: Muscle Strain (ED), Acute Low Back Pain (ED), Back Pain (ED) Additional Instructions: Please follow-up with DR Bautista for degenerative disc disease of the spine. You were evaluated for injury sustained at work. Your x-rays are negative for acute findings requiring emergent intervention. There are no dislocations or fractures. You do have musculoskeletal strains as well as arthritis. Please take cyclobenzaprine as directed. This medication is a muscle relaxer. Do not drive or operate machinery while taking this medication. This medication can delay reaction time, increased risk for falls and cause drowsiness. Thank you for choosing this emergency department for evaluation. Please follow-up with primary care physician as needed. Return to the emergency department for any new, concerning, or worsening symptoms. Prescriptions: New cyclobenzaprine 10 mg tablet 10 mg PO TID PRN (Reason: muscle spasm) Qty: 14 0RF No Action diclofenac sodium 1 % gel 2 g topical BID PRN (Reason: pain) Qty: 100 1RF qunuxnsoni-jluqdmlfdrwve-jzzh [Fioricet] 50-300-40 mg capsule 1 cap PO Q6H PRN (Reason: migraine headache) Qty: 14 0RF zolpidem [Ambien] 10 mg tablet 10 mg PO BEDTIME PRN0RF gabapentin 100 mg capsule 100 mg PO DAILY 0RF topiramate 25 mg tablet 25 mg PO DAILY 0RF sertraline 25 mg tablet 25 mg PO DAILY 0RF hydrocortisone [Proctozone-HC] 2.5 % cream with perineal applicator 1 appl NH BID PRN (Reason: hemorrhoids) Qty: 30 3RF Rx Instructions: apply NH BID prn hydroxyzine HCl 50 mg tablet 50 mg PO BEDTIME PRN0RF quetiapine 25 mg tablet 25 mg PO BEDTIME 0RF docusate sodium [Colace] 100 mg capsule 200 mg PO BEDTIME PRN0RF Citrucel 500 mg tablet 500 mg PO BID PRN0RF cholecalciferol (vitamin D3) 50 mcg (2,000 unit) capsule 50 mcg PO DAILY 30 Days Qty: 30 11RF cholecalciferol (vitamin D3) 1,250 mcg (50,000 unit) capsule 1,250 mcg PO QWEEK 56 Days Qty: 8 0RF gabapentin 600 mg tablet 600 mg PO TID 0RF quetiapine [Seroquel XR] 150 mg tablet extended release 24 hr 150 mg PO BEDTIME 0RF Referrals: William Bautista MD [Physician] - 2 days Stand Alone Forms: Work/School Release Interventions: ED Discharge Assessment Last Done: 01/18/22 01:08 Discharge Date/Time: 01/18/22 01:10
[2022-01-17] MEDS: Ketorolac Tromethamine 60 MG/2 ML VIAL IM (23:45)
[2022-01-18] MEDS: Cyclobenzaprine HCl 10 MG TABLET PO (01:04)
== END 2022-01-18 01:10 | disposition home or self-care (01) ==
PROVIDERS: Emergency Provider Internal Medicine; PCP Internal Medicine
DX: S39.012A Strain of muscle, fascia and tendon of lower back, initial encounter (principal); S46.912A Strain of unspecified muscle, fascia and tendon at shoulder and upper arm level, left arm, initial encounter; S66.912A Strain of unspecified muscle, fascia and tendon at wrist and hand level, left hand, initial encounter; X50.9XXA Other and unspecified overexertion or strenuous movements or postures, initial encounter; M51.36 Other intervertebral disc degeneration, lumbar region; Y93.89 Activity, other specified; Y92.219 Unspecified school as the place of occurrence of the external cause; Y99.0 Civilian activity done for income or pay
CPT/HCPCS: 72100; 73030; 73100; 96372; 99283; 99284; J1885

== ENCOUNTER → 2022-01-20 10:28 | Outpatient (BNVA) | payer OTHER, SELFPAY | PROVIDERS: PCP Internal Medicine; Visit Provider Internal Medicine | DX: M25.512 Pain in left shoulder (principal); M54.50 Low back pain, unspecified | CPT/HCPCS: 99203 ==

== ENCOUNTER → 2022-01-28 07:56 | Outpatient (BNVA) | payer OTHER, SELFPAY | PROVIDERS: PCP Internal Medicine; Visit Provider Internal Medicine | DX: M54.50 Low back pain, unspecified (principal); M79.605 Pain in left leg | CPT/HCPCS: 99213 ==

== ENCOUNTER 2022-01-30 19:12 | Outpatient (REF) | payer OTHER, MEDICAID, SELFPAY ==
--- NOTE | ~2022-01-30 | MR_ITS ---
MR LUMBAR SPINE WITHOUT CONTRAST CLINICAL INFORMATION: Fall with severe pain, 10 out of 10. COMPARISON: Lumbar spine radiographs January 17, 2022 and lumbar spine MRI July 06, 2019. TECHNIQUE: MRI of the lumbar spine was obtained using routine sequences without contrast. FINDINGS: Redemonstrated chronic bilateral L5 pars defects associated with stable grade 1 spondylolytic anterolisthesis of L5 on S1. Stable grade 1 retrolisthesis of L4 on L5. Lumbar alignment is otherwise maintained. Modic type II endplate signal changes at L4-L5 and L5-S1. No bone marrow edema. No acute fractures. Chronic vertebral body height loss at L5 is stable. Mild inferior endplate height loss at L4 is stable. Conus terminates at the T12-L1 level. There are no significant extraspinal soft tissue findings. L1-L2: Disc contour is normal. No central canal stenosis and no foraminal stenosis. L2-L3: Small annular disc bulge and mild bilateral facet arthropathy. No central canal stenosis. There is mild foraminal encroachment bilaterally. L3-L4: Diffuse annular disc bulge and mild bilateral facet arthropathy. No central canal stenosis and no foraminal stenosis. L4-L5: Grade 1 retrolisthesis. Diffuse annular disc bulge with a superimposed broad-based central disc protrusion that mildly indents the ventral thecal sac, decreased in size to prior study. Disc osteophyte and facet arthropathy result in stable mild bilateral foraminal encroachment without exiting nerve root compression. L5-S1: Stable grade 1 spondylolytic anterolisthesis in the setting of chronic bilateral L5 pars defects that along with uncovered disc results in stable moderate bilateral foraminal stenosis with probable mass effect on the exiting L5 nerve roots bilaterally. No central canal stenosis. MR/MR lumbar spine wo con IMPRESSION: - At L5-S1, there is stable grade 1 spondylolytic anterolisthesis in the setting of chronic bilateral L5 pars defects that along with uncovered disc results in stable moderate bilateral foraminal stenosis with probable mass effect on the exiting L5 nerve roots bilaterally. - At L4-L5, the previously seen right paracentral disc protrusion is decreased in size, now mildly indenting the ventral thecal sac without definitely contacting the traversing nerve roots. Stable grade 1 retrolisthesis at this level. - No bone marrow edema to suggest an acute fracture.
== END 2022-01-30 19:13 | disposition home or self-care (01) ==
LOC: HO.MRI 19:12
PROVIDERS: PCP Internal Medicine; Visit Provider Internal Medicine
DX: M54.50 Low back pain, unspecified (principal); R20.0 Anesthesia of skin
CPT/HCPCS: 72148

== ENCOUNTER → 2022-02-11 14:37 | Outpatient (BNVA) | payer OTHER, SELFPAY | PROVIDERS: PCP Internal Medicine; Visit Provider Internal Medicine | DX: M54.9 Dorsalgia, unspecified (principal); M79.605 Pain in left leg | CPT/HCPCS: 99214 ==

== ENCOUNTER 2022-02-20 22:22 | Emergency (ER) | payer MEDICAID, SELFPAY ==
[2022-02-21 00:10] VITALS: BP 135/102; PULSE 77; RESP 20; TEMP 36.6; O2SAT 98; BMI 24.3
--- NOTE | 2022-02-21 02:05 | PC.NURSE ---
Pt frustrated with wait time to see MD. Pt requesting to speak with fruit thinner. This RN at bedside explaining to pt that he is next on the list to be seen. Pt states I want a paper saying I was here but didn't see a doctor because I don't want to be billed. This RN explaining to pt that we are unable to control the wait times as it depends on acuity and volume. Despite pt being next to be seen, pt refusing to wait any longer. Pt directed back to the WR.
[2022-02-21 12:10] LABS: Glucose, Whole Blood 115 mg/dL (60-115)
[2022-02-24 07:55] LABS: Glucose, Whole Blood 115 mg/dL (60-115)
== END 2022-02-21 02:08 | disposition left against medical advice (07) ==
PROVIDERS: Emergency Provider Emergency Medicine
DX: G43.909 Migraine, unspecified, not intractable, without status migrainosus (principal); H53.8 Other visual disturbances; Z79.899 Other long term (current) drug therapy
CPT/HCPCS: 82947; 99282; 99283

== ENCOUNTER → 2022-02-24 09:17 | Outpatient (BNVA) | payer OTHER, SELFPAY | PROVIDERS: Visit Provider Internal Medicine | DX: M51.27 Other intervertebral disc displacement, lumbosacral region (principal) | CPT/HCPCS: 99213 ==

== ENCOUNTER → 2022-03-12 10:02 | Outpatient (BNVA) | payer OTHER, SELFPAY | PROVIDERS: PCP Internal Medicine; Visit Provider Nurse Practitioner Family | DX: M43.06 Spondylolysis, lumbar region (principal); M54.16 Radiculopathy, lumbar region; M47.816 Spondylosis without myelopathy or radiculopathy, lumbar region | CPT/HCPCS: 99202 ==

== ENCOUNTER → 2022-03-13 09:22 | Outpatient (BNVA) | payer OTHER, SELFPAY | PROVIDERS: PCP Internal Medicine; Visit Provider Internal Medicine | DX: M51.27 Other intervertebral disc displacement, lumbosacral region (principal) | CPT/HCPCS: 99213 ==

== ENCOUNTER 2022-08-24 09:04 | Emergency (ER) | payer MEDICAID, SELFPAY ==
[2022-08-24 09:07] VITALS: BP 115/77; PULSE 77; RESP 16; TEMP 36.1; O2SAT 99; BMI 23.8
--- OUTSIDE RECORDS SUMMARY | 2022-08-24 09:43 | XMS_ITS | Continuity of Care Document ---
:1980 Author Organization [facility] Address [address] [place] [id number]- Care Team Providers Name Role Phone Dayanara Duarte MD Primary Care Physician [phone] Encounter [facility] [place] Date(s): 10/06/19 - 10/16/19 [facility] [address] [place] [id number]- [facility] Attending Physician: Leigh Ann Kumar Admitting Physician: Leigh Ann Kumar Referring Physician: Admtr, [id number] Allergies, Adverse Reactions, Alerts Substance Reaction Severity Status NKA Active
--- OUTSIDE RECORDS SUMMARY | 2022-08-24 09:43 | XMS_ITS | Continuity of Care Document ---
:1980 Author Organization [facility] Address [address] [place] [id number]- Care Team Providers Name Role Phone Lavinia HUA, Jack Grant Primary Care Physician [place] [facility] [place]s): 04/16/21 - 05/16/21 [facility] [address] [place] [id number] Attending Physician: Leigh Ann Kumar Admitting Physician: Leigh Ann Kumar Referring Physician: Admtr, [id number] Allergies, Adverse Reactions, Alerts Substance Reaction Severity Status NKA Active Medications Ambien 10 mg oral tablet 1 tablet = 10 mg, By Mouth, Daily at bedtime, PRN as needed for insomnia, 0 Refills, Maintenance, 03/13/20 8:57:00 EDT, Tablet Start Date: 03/13/20 Status: OrderedAtivan 0.5 mg oral tablet 0.5 tablet = 0.25 mg, By Mouth, 2 times a day, 0 Refills, Maintenance, 03/13/20 8:58:00 EDT, Tablet Start Date: 03/13/20 Status: OrderedCalcium Acetate = 2,001 mg, By Mouth, 0 Refills, Maintenance, 04/16/21 11:25:00 EDT, Partial fill upon patient request if the prescription is for a schedule II opioid drug. Start Date: 04/16/21 Status: OrderedGabapentin = 600 mg, By Mouth, 3 times a day, 0 Refills, Maintenance, 04/16/21 11:23:00 EDT, Partial fill upon patient request if the prescription is for a schedule II opioid drug. Start Date: 04/16/21 Status: OrderedSeroquel 150 mg, By Mouth, Daily at bedtime, Refills 0, Maintenance, 04/16/21 11:24:00 EDT, Partial fill uponpatient request if the prescription is for a schedule II opioid drug. Start Date: 04/16/21 Status: Ordered Social History Social History Type Response Smoking Status Never (less than 100 in life time) entered on: 03/13/20 Sex
--- OUTSIDE RECORDS SUMMARY | 2022-08-24 09:43 | XMS_ITS | Continuity of Care Document ---
:1980 Author Organization [facility] Address [address] [id number]- Care Team Providers Name Role Phone Felicia HUA, Dayanara Gaffney Primary Care Physician Encounter [facility] [place] Date(s): 07/12/19 - 11/05/19 [facility] [address] [place] [id number]- [facility] Attending Physician: Katie Valles MD Admitting Physician: Katie Valles MD Referring Physician: Jack Kate MD Allergies, Adverse Reactions, Alerts Substance Reaction Severity Status NKA Active
--- OUTSIDE RECORDS SUMMARY | 2022-08-24 09:43 | XMS_ITS | Continuity of Care Document ---
:1980 Author Organization [facility] Address [address] [place] [id number]- Care Team Providers Name Role Phone Lavinia HUA, Jack Grant Primary Care Physician Encounter [facility] [place] Date(s): 12/12/20 - 01/11/21 [facility] [address] [place] [id number] Allergies, Adverse Reactions, Alerts Substance Reaction Severity [...] 8:58:00 EDT, Tablet Start Date: 03/13/20 Status: Ordered Social History Social History Type Response Smoking Status Never (less than 100 in life time) entered on: 03/13/20 Sex
--- OUTSIDE RECORDS SUMMARY | 2022-08-24 09:43 | XMS_ITS | Continuity of Care Document ---
:1980 Author Organization [facility] Address [address] [place] [address]- Care Team Providers Name Role Phone Lavinia HUA, Jack Grant Primary Care Physician [phone] [id number] Date(s): 03/06/21 - 04/18/21 [facility] [address] [place] [id number] Attending Physician: Katie Valles MD Referring Physician: Jack [...]
--- OUTSIDE RECORDS SUMMARY | 2022-08-24 09:43 | XMS_ITS | Continuity of Care Document ---
:1980 Author Organization [facility] Address [address] [place] [phone]- Care Team Providers Name Role Phone Lavinia HUA, Jack Grant Primary Care Physician Encounter [facility] [place] [facility]CT R [id number] Date(s): 03/15/20 - 04/14/20 [facility] [address] [place] [id number]- [facility] Attending Physician: Leigh Ann Kumar Admitting Physician: AdmtrLeigh Ann Referring Physician: Admtr, [id number] Allergies, Adverse Reactions, [...]
--- OUTSIDE RECORDS SUMMARY | 2022-08-24 09:43 | XMS_ITS | Continuity of Care Document ---
:1980 Author Organization [facility] Address [address] [place] [id number]- Care Team Providers Name Role Phone Jack Kate MD Primary Care Physician Encounter [facility] [place] ACCT R [id number] Date(s): 12/01/19 - 03/15/20 [facility] [address] [place] [phone]- [facility] Attending Physician: Kareem Barbosa MD Admitting Physician: Kareem Barbosa MD Referring Physician: Jack Kate MD Allergies, [...]
--- NOTE | 2022-08-24 09:59 | ED_ITS ---
HPI - General Adult General Chief complaint: Extremity Problem Stated complaint: L side of body is numb Time Seen by Provider: 08/24/22 09:50 Source: patient Mode of arrival: ambulatory Limitations: no limitations History of Present Illness HPI narrative: This is a 42 years old male presented to the emergency department with multiple complain including of a left upper extremity pain tingling. 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 He states that he has been evaluated him multiple specialist including orthopedist the neurologist . however he still has the pain. The patient has been seen in this emergency room in the past, he carry a diagnosis of fibromyalgia and a as anxiety disorder. Onset (ago): month(s) Location: left and upper extremity Radiation: non-radiation Severity: moderate Quality: aching Pain Consistency: constant Relieving factors: none Exacerbating factors: none Related Data Home Medications Medication Instructions Recorded Confirmed gabapentin 100 mg capsule 100 mg PO DAILY 01/01/21 05/02/21 sertraline 25 mg tablet 25 mg PO DAILY 01/01/21 05/02/21 topiramate 25 mg tablet 25 mg PO DAILY 01/01/21 05/02/21 zolpidem 10 mg tablet (Ambien) 10 mg PO BEDTIME PRN 01/01/21 05/02/21 docusate sodium 100 mg capsule 200 mg PO BEDTIME PRN 02/27/21 05/02/21 (Colace) hydroxyzine HCl 50 mg tablet 50 mg PO BEDTIME PRN 02/27/21 05/02/21 methylcellulose (laxative) 500 mg 500 mg PO BID PRN 02/27/21 05/02/21 tablet (Citrucel) quetiapine 25 mg tablet 25 mg PO BEDTIME 02/27/21 05/02/21 gabapentin 600 mg tablet 600 mg PO TID 05/02/21 05/02/21 quetiapine 150 mg tablet,extended 150 mg PO BEDTIME 05/02/21 05/02/21 release 24 hr (Seroquel XR) Previous Rx's Medication Instructions Recorded hydrocortisone 2.5 % topical cream 1 appl HI BID PRN hemorrhoids #30 01/01/21 with perineal applicator grams (Proctozone-HC) cholecalciferol (vitamin D3) 1,250 1,250 mcg PO QWEEK 8 weeks #8 caps 02/27/21 mcg (50,000 unit) capsule cholecalciferol (vitamin D3) 50 50 mcg PO DAILY 30 days #30 caps 02/27/21 mcg (2,000 unit) capsule diclofenac sodium 1 % topical gel 2 g topical BID PRN pain #100 grams 06/11/21 skkhkpfazg-iugtigzserdik-ljmlcqsx 1 cap PO Q6H PRN migraine headache 07/04/21 50 mg-300 mg-40 mg capsule #14 caps (Fioricet) cyclobenzaprine 10 mg tablet 10 mg PO TID PRN muscle spasm #14 01/18/22 tabs naproxen 500 mg tablet (Naprosyn) 500 mg PO BID PRN PAIN #20 tabs 08/24/22 Allergies Allergy/AdvReac Type Severity Reaction Status Date / Time No Known Allergies Allergy Verified 03/12/22 10:13 [No Known Allergies*] Review of Systems Constitutional: Constitutional: Denies fever(s) ENT: Denies vertigo and Denies dizziness Cardiovascular: Cardiovascular: Denies chest pain, Denies syncope and Denies dyspnea Respiratory: Respiratory: Denies cough and Denies dyspnea Gastrointestinal: Gastrointestinal: Denies abdominal pain and Denies vomiting Neurologic: Denies confusion, Denies vertigo, Denies dizziness, Denies syncope and Denies seizure-like activity Psychiatric: Psychiatric: Denies confusion PMFSH Past Medical History Medical History Anxiety Depression Fibromyalgia Insomnia No known health problems Rectal bleeding Vitamin D deficiency Surgical History H/O colonoscopy History of surgery on arm Family History Family History Maternal Grandmother Diabetes Social History Social History Household Members: Family Alcohol intake: never Patient Tobacco Use Status: Never used Tobacco e-Cigarette/Vaping Use: Never Used Advance Directives: No Advance Directives Information Provided: No Current occupational status: employed Current occupation: [employer] Physical Exam ED Vital Signs: Vital Signs - 24 hr 08/24/22 09:07 Temperature 96.9 F Pulse Rate 77 Respiratory Rate 16 Blood Pressure 115/77 Pulse Oximetry 99 Oxygen Delivery Method Room Air BMI result Body Mass Index 23.8 Const Other: He looks well is nontoxic appearing General: No confusion Nutritional Appearance: average body habitus Orientation/consciousness: No confusion HENMT Head: Yes normal to inspection Ears: hearing grossly normal bilaterally General nose exam: Normal external nose present Face and sinus: Yes normal facial exam Mouth: Normal oral and palatal mucosa present Throat: Yes posterior oropharynx normal Neck Neck: Yes normal visual inspection Thyroid: Thyroid normal Chest Chest palpation & inspection: normal inspection of the chest Breast/axilla inspection: normal inspection of the breasts Resp Effort & Inspection: normal respiratory effort Auscultation: clear to auscultation bilaterally Cardio Jugular venous distension: no JVD Rate: regular rate Rhythm: regular rhythm GI Inspection: Yes normal to inspection Palpation (GI): Soft to palpation, not firm, nontender and no guarding Skin General skin exam: no rashes or lesions noted and elasticity normal Lesions: no lesions Rashes: no rashes Neuro Other: He is awake alert oriented x3, cranial nerve 2-12 are intact, as no deficit in strength, no deficit in sensation General: No confusion Course Reevaluation(s) Reevaluation #1: Present patient presented with multiple complain including left upper extremity pain and numbness but this symptoms are been going for months. He is neurologically intact, drove to the emergency department, I do not think we need to do any emergent imaging on this patient he does have a primary care physician he is going to call his PCP tomorrow. I am not comfortable to give any narcotic, I going to send him home with po Ketoralac. Time: 10:05 Discharge Plan Discharge Clinical Impression: Arm pain Patient Disposition: Home, Self-Care Instructions: Arm Pain (ED) Additional Instructions: Follow-up with your primary care physician tomorrow return if you worse any concern Prescriptions: New naproxen [Naprosyn] 500 mg tablet 500 mg PO BID PRN (Reason: PAIN) Qty: 20 0RF No Action diclofenac sodium 1 % gel 2 g topical BID PRN (Reason: pain) Qty: 100 1RF pcmzusdfmb-zenleljrfwlto-djal [Fioricet] 50-300-40 mg capsule 1 cap PO Q6H PRN (Reason: migraine headache) Qty: 14 0RF cyclobenzaprine 10 mg tablet 10 mg PO TID PRN (Reason: muscle spasm) Qty: 14 0RF zolpidem [Ambien] 10 mg tablet 10 mg PO BEDTIME PRN gabapentin 100 mg capsule 100 mg PO DAILY topiramate 25 mg tablet 25 mg PO DAILY sertraline 25 mg tablet 25 mg PO DAILY hydrocortisone [Proctozone-HC] 2.5 % cream with perineal applicator 1 appl HI BID PRN (Reason: hemorrhoids) Qty: 30 3RF Rx Instructions: apply HI BID prn hydroxyzine HCl 50 mg tablet 50 mg PO BEDTIME PRN quetiapine 25 mg tablet 25 mg PO BEDTIME docusate sodium [Colace] 100 mg capsule 200 mg PO BEDTIME PRN Citrucel 500 mg tablet 500 mg PO BID PRN cholecalciferol (vitamin D3) 50 mcg (2,000 unit) capsule 50 mcg PO DAILY 30 Days Qty: 30 11RF cholecalciferol (vitamin D3) 1,250 mcg (50,000 unit) capsule 1,250 mcg PO QWEEK 56 Days Qty: 8 0RF gabapentin 600 mg tablet 600 mg PO TID quetiapine [Seroquel XR] 150 mg tablet extended release 24 hr 150 mg PO BEDTIME Referrals: Jack Kate MD [Primary Care Provider] - 1 day Interventions: ED Discharge Assessment Last Done: 08/24/22 10:41 Discharge Date/Time: 08/24/22 10:47
== END 2022-08-24 10:47 | disposition home or self-care (01) ==
PROVIDERS: Emergency Provider Emergency Medicine; PCP Internal Medicine
DX: M79.602 Pain in left arm (principal); R20.0 Anesthesia of skin
CPT/HCPCS: 99282; 99283

== ENCOUNTER 2022-09-01 16:20 | Outpatient (REF) | payer MEDICAID, SELFPAY ==
--- NOTE | ~2022-09-01 | XR_ITS ---
EXAMINATION: XR SHOULDER, LEFT CLINICAL INFORMATION: Pain. COMPARISON: Radiograph of the left shoulder 01/17/2022. TECHNIQUE: AP external rotation, Grashey, scapular Y, and axillary views of the left shoulder. FINDINGS: The bones and soft tissues are normal. No fracture. Glenohumeral and acromioclavicular alignment is anatomic with normal joint space. No abnormal soft tissue calcifications. XR/XR shoulder LT min 2V IMPRESSION: Normal left shoulder.
== END 2022-09-01 16:21 | disposition home or self-care (01) ==
LOC: HO.XRAY 16:20
PROVIDERS: Visit Provider Emergency Medicine
DX: M25.512 Pain in left shoulder (principal)
CPT/HCPCS: 73030

== ENCOUNTER 2022-09-11 21:42 | Emergency (ER) | payer MEDICAID, SELFPAY ==
--- NOTE | 2022-09-11 | ECG_ITS ---
Test Reason : rib pain Blood Pressure : / mmHG Vent. Rate : 068 BPM Atrial Rate : 068 BPM P-R Int : 138 ms QRS Dur : 084 ms QT Int : 372 ms P-R-T Axes : 071 033 040 degrees QTc Int : 395 ms Normal sinus rhythm with sinus arrhythmia Normal ECG No significant changes seen Referred By: Generic ED Physician Electronically Signed By:BLAINE BURGESS MD
--- NOTE | ~2022-09-11 | XR_ITS ---
EXAMINATION: XR CHEST CLINICAL INFORMATION: Chest pain. COMPARISON: Chest radiograph 12/03/2020. TECHNIQUE: 2 views of the chest were obtained. FINDINGS: No significant abnormality is noted involving the heart, lungs, mediastinum, bony thorax or soft tissues. XR/XR chest 2V IMPRESSION: Unremarkable examination.
[2022-09-11 21:45] VITALS: BP 114/64; PULSE 69; RESP 18; TEMP 36.2; O2SAT 98; BMI 21.0
[2022-09-11 22:05] LABS: MANUAL DIFF FLAG NO
[2022-09-11 22:06] LABS: Basophils Percent Auto 0.4 % (0-2); Eosinophils Absolute Auto 0.1 X10*3/uL (0.0-0.4); Eosinophils Percent Auto 0.8 % (0-4); Hematocrit 40.9 % (42.0-52.0); Hemoglobin 13.8 g/dl (14.0-18.0); Imm Gran Abs Auto 0.01 X10*3/uL (0.00-0.03); Imm Gran Pct Auto 0.1 % (0.0-0.4); Lymphocytes Absolute Auto 1.7 X10*3/uL (1.2-4.9); Lymphocytes Percent Auto 21.8 % (20-40); Mean Corpuscular HGB Conc 33.7 g/dl (31.0-36.0); Mean Corpuscular Hemoglobin 29.3 pg (27.0-33.0); Mean Corpuscular Volume 86.8 fL (80.0-98.0); Mean Platelet Volume 10.3 fL (9.4-12.4); Monocytes Absolute Auto 0.6 X10*3/uL (0.1-1.2); Monocytes Percent Auto 7.7 % (2-11); Neutrophils Absolute Auto 5.2 x10*3/uL (2.0-8.3); Neutrophils Percent Auto 69.2 % (45-73); Platelet Count 291 X10*3/uL (160-400); Red Blood Count 4.71 X10*6/uL (4.60-5.80); White Blood Count 7.6 X10*3/uL (4.8-10.8)
[2022-09-11 22:23] LABS: Alanine Aminotransferase 15 U/L (0-40); Albumin Level 4.6 g/dL (3.5-5.0); Alkaline Phosphatase 57 U/L (39-117); Anion Gap 13 (12-20); Aspartate Amino Transferase 28 U/L (5-37); Bilirubin Total 0.6 mg/dL (0.0-1.0); Blood Urea Nitrogen 16 mg/dL (9-16); Calcium 9.5 mg/dL (8.4-10.2); Carbon Dioxide 26 mmol/L (22-29); Chloride 105 mmol/L (96-108); Creatinine Clr Calc Pharmacy 78.7; Estimated Glomerular Filt Rate > 60; Glucose Random 98 mg/dL (60-115); Potassium 4.1 mmol/L (3.3-5.1); Sodium 140 mmol/L (135-145); Total Protein 7.2 g/dL (6.5-8.0)
[2022-09-11 22:26] LABS: Troponin-I High Sensitivity < 3.5 ng/L (<3.5-35.0)
[2022-09-12 00:21] VITALS: BP 111/76; PULSE 66; RESP 12; TEMP 36.4; O2SAT 98
[2022-09-12] MEDS: Ketorolac Tromethamine 60 MG/2 ML VIAL IM (00:56)
--- NOTE | 2022-09-12 00:58 | ED_ITS ---
HPI - Chest Pain General Chief Complaint: Chest Pain Stated Complaint: left side rib and back pain Time Seen by Provider: 09/12/22 00:40 Source: patient Mode of arrival: ambulatory Limitations: no limitations History of Present Illness HPI narrative: Patient comes to the emergency room complaining of rib pain. Patient denies coughing, no fever chills, no injury. Patient states that he has a lot of chronic pain. Patient states that he has seen multiple specialists and pain management doctors and his pain is still present. Related Data Home Medications Medication Instructions Recorded Confirmed gabapentin 100 mg capsule 100 mg PO DAILY 01/01/21 05/02/21 sertraline 25 mg tablet 25 mg PO DAILY 01/01/21 05/02/21 topiramate 25 mg tablet 25 mg PO DAILY 01/01/21 05/02/21 zolpidem 10 mg tablet (Ambien) 10 mg PO BEDTIME PRN 01/01/21 05/02/21 docusate sodium 100 mg capsule 200 mg PO BEDTIME PRN 02/27/21 05/02/21 (Colace) hydroxyzine HCl 50 mg tablet 50 mg PO BEDTIME PRN 02/27/21 05/02/21 methylcellulose (laxative) 500 mg 500 mg PO BID PRN 02/27/21 05/02/21 tablet (Citrucel) quetiapine 25 mg tablet 25 mg PO BEDTIME 02/27/21 05/02/21 gabapentin 600 mg tablet 600 mg PO TID 05/02/21 05/02/21 quetiapine 150 mg tablet,extended 150 mg PO BEDTIME 05/02/21 05/02/21 release 24 hr (Seroquel XR) Previous Rx's Medication Instructions Recorded hydrocortisone 2.5 % topical cream 1 appl [place] BID PRN hemorrhoids #30 01/01/21 with perineal applicator grams (Proctozone-HC) cholecalciferol (vitamin D3) 1,250 1,250 mcg PO QWEEK 8 weeks #8 caps 02/27/21 mcg (50,000 unit) capsule cholecalciferol (vitamin D3) 50 50 mcg PO DAILY 30 days #30 caps 02/27/21 mcg (2,000 unit) capsule diclofenac sodium 1 % topical gel 2 g topical BID PRN pain #100 grams 06/11/21 mrmxrldxsu-seiznvnsifues-jjdxvxkp 1 cap PO Q6H PRN migraine headache 07/04/21 50 mg-300 mg-40 mg capsule #14 caps (Fioricet) cyclobenzaprine 10 mg tablet 10 mg PO TID PRN muscle spasm #14 01/18/22 tabs naproxen 500 mg tablet (Naprosyn) 500 mg PO BID PRN PAIN #20 tabs 08/24/22 Allergies Allergy/AdvReac Type Severity Reaction Status Date / Time No Known Allergies Allergy Verified 03/12/22 10:13 [No Known Allergies*] Review of Systems Review of Systems: Constitutional : No Weight loss, No Fever, No Chills, No Night Sweats, No Fatigue, No Malaise ENT/Mouth : No Hearing loss, No Ear Pain, No Nasal Congestion, No Sinus Pain, No Hoarseness, No sore throat, No Rhinorrhea, No Swallowing Difficulty Eyes: No Eye Pain, No Swelling, No Redness, No Foreign Body, No Discharge, No Vision Changes Cardiovascular : No Chest Pain, No SOB, No Dyspnea on Exertion, No Orthopnea, No Edema, No Palpitations Respiratory : No Cough, No Sputum, No Wheezing, No Smoke Exposure, No Dyspnea Gastrointestinal : No Nausea, No Vomiting, No Diarrhea, No Constipation, No abdominal Pain, No Hematochezia, No Melena Genitourinary : no irregular bleeding, No Dysuria, No Urinary Frequency, No He maturia, No Urinary Incontinence, No Urgency, No Flank Pain, No Urinary Flow Changes, No Hesitancy Musculoskeletal : No joint pain, No Myalgias, No Joint Swelling, complaining of left-sided rib Skin : No Skin Lesions, No rash Neuro : No Weakness, No Numbness, No Paresthesias, No Loss of Consciousness, No Dizziness, No Headache Psych : No Anxiety/Panic, No Depression, No SI/HI/AH/VH, No Social Issues, Heme/Lymph: No Bruising, No Bleeding,No Lymphadenopathy Endocrine : No Polyuria, No Polydipsia, No Temperature Intolerance [facility] Past Medical History Medical History Anxiety Depression Fibromyalgia Insomnia No known health problems Rectal bleeding Vitamin D deficiency Surgical History H/O colonoscopy History of surgery on arm Family History Family History Maternal Grandmother Diabetes Social History Social History Household Members: Family Alcohol intake: never Patient Tobacco Use Status: Never used Tobacco e-Cigarette/Vaping Use: Never Used Advance Directives: No Advance Directives Information Provided: Yes Current occupational status: employed Current occupation: [employer] Physical Exam Vital Signs: Vital Signs: Last Vital Signs Temp 97.5 F 09/12/22 00:21 Pulse 66 09/12/22 00:21 Resp 12 09/12/22 00:21 BP 111/76 09/12/22 00:21 Pulse Ox 98 09/12/22 00:21 O2 Del Method 09/12/22 00:21 BMI result Body Mass Index 21.0 Const: Other: Appearance: Alert. Oriented X3. No acute distress. Eyes: Pupils equal, round and reactive to light. ENT: Pharynx normal. Neck: Normal inspection. Neck supple. No lymph nodes noted. No crepitus CVS: Normal heart rate and rhythm. Pulses normal. Normal S1 and S2 Respiratory: No respiratory distress. Breath sounds normal. No Wheezing. No rales reproducible pain to palpation on the left side of the ribs Abdomen: Soft and nontender. No rigidity. No distention. Skin: Skin warm and dry. Normal skin color. Normal skin turgor. Extremities: No lower extremity edema. No Lacerations. No Rash Neuro: Oriented X 3. No motor deficit. No sensory deficit. Moving all extremities. No slurred speech. CN 2 through 12 grossly intact Psych: calm, cooperative, normal affect Course Course Course Narrative: Patient's pain likely musculoskeletal, troponin negative, EKG negative, chest x- ray negative. Patient was given 1 dose of IM Toradol. Medications Administered Discontinued Medications Generic Name Dose Route Start Last Admin Trade Name Freq PRN Reason Stop Dose Admin Ketorolac Tromethamine 60 mg 09/12/22 00:50 09/12/22 00:56 Ketorolac Tromethamine 60 Mg/2 Ml Vial IM 09/12/22 00:51 60 mg ONCE ONE Administration MDM - Chest Pain Lab Data Result diagrams: 09/11/22 21:58 09/11/22 21:58 Labs: Lab Results 09/11/22 09/11/22 09/11/22 Range/Units 21:58 21:58 21:58 WBC 7.6 (4.8-10.8) X10*3/uL RBC 4.71 (4.60-5.80) X10*6/uL Hgb 13.8 L (14.0-18.0) g/dl Hct 40.9 L (42.0-52.0) % MCV 86.8 (80.0-98.0) fL MCH 29.3 (27.0-33.0) pg MCHC 33.7 (31.0-36.0) g/dl RDW 12.0 (11.0-16.0) % Plt Count 291 (160-400) X10*3/uL MPV 10.3 (9.4-12.4) fL Immature Gran % (Auto) 0.1 (0.0-0.4) % Neut % (Auto) 69.2 (45-73) % Lymph % (Auto) 21.8 (20-40) % [place] % (Auto) 7.7 (2-11) % Eos % (Auto) 0.8 (0-4) % Baso % (Auto) 0.4 (0-2) % Lymph # (Auto) 1.7 (1.2-4.9) X10*3/uL [place] # (Auto) 0.6 (0.1-1.2) X10*3/uL Eos # (Auto) 0.1 (0.0-0.4) X10*3/uL Baso # (Auto) 0.0 (0.0-0.2) X10*3/uL Abs Immat Gran (auto) 0.01 (0.00-0.03) X10*3/uL Absolute Neuts (auto) 5.2 (2.0-8.3) x10*3/uL Absolute Nucleated RBC 0.000 (0.0-0.012) X10*3/uL Nucleated RBC % (auto) 0.0 (0.0-0.2) /100WBC Sodium 140 (135-145) mmol/L Potassium 4.1 (3.3-5.1) mmol/L Chloride 105 (96-108) mmol/L Carbon Dioxide 26 (22-29) mmol/L Anion Gap 13 (12-20) BUN 16 (9-16) mg/dL Creatinine 0.92 (0.5-1.4) mg/dL Estim Creat Clear Calc 78.7 Estimated GFR > 60 Random Glucose 98 (60-115) mg/dL Calcium 9.5 (8.4-10.2) mg/dL Total Bilirubin 0.6 (0.0-1.0) mg/dL AST 28 (5-37) U/L ALT 15 (0-40) U/L Alkaline Phosphatase 57 (39-117) U/L Troponin I High Sens < 3.5 (<3.5-35.0) ng/L Total Protein 7.2 (6.5-8.0) g/dL Albumin 4.6 (3.5-5.0) g/dL Discharge Plan Discharge Clinical Impression: Costochondritis Patient Disposition: Home, Self-Care Instructions: Costochondritis (ED) Additional Instructions: Please follow-up with your primary care physician tomorrow. If you have any worsening or new symptoms, please return to the emergency room or call 911 Prescriptions: No Action diclofenac sodium 1 % gel 2 g topical BID PRN (Reason: pain) Qty: 100 1RF hhacoyyycr-kvmoxksmmswsv-tyyv [Fioricet] 50-300-40 mg capsule 1 cap PO Q6H PRN (Reason: migraine headache) Qty: 14 0RF cyclobenzaprine 10 mg tablet 10 mg PO TID PRN (Reason: muscle spasm) Qty: 14 0RF naproxen [Naprosyn] 500 mg tablet 500 mg PO BID PRN (Reason: PAIN) Qty: 20 0RF zolpidem [Ambien] 10 mg tablet 10 mg PO BEDTIME PRN gabapentin 100 mg capsule 100 mg PO DAILY topiramate 25 mg tablet 25 mg PO DAILY sertraline 25 mg tablet 25 mg PO DAILY hydrocortisone [Proctozone-HC] 2.5 % cream with perineal applicator 1 appl UT BID PRN (Reason: hemorrhoids) Qty: 30 3RF Rx Instructions: apply [place] BID prn hydroxyzine HCl 50 mg tablet 50 mg PO BEDTIME PRN quetiapine 25 mg tablet 25 mg PO BEDTIME docusate sodium [Colace] 100 mg capsule 200 mg PO BEDTIME PRN Citrucel 500 mg tablet 500 mg PO BID PRN cholecalciferol (vitamin D3) 50 mcg (2,000 unit) capsule 50 mcg PO DAILY 30 Days Qty: 30 11RF cholecalciferol (vitamin D3) 1,250 mcg (50,000 unit) capsule 1,250 mcg PO QWEEK 56 Days Qty: 8 0RF gabapentin 600 mg tablet 600 mg PO TID quetiapine [Seroquel XR] 150 mg tablet extended release 24 hr 150 mg PO BEDTIME
== END 2022-09-12 01:18 | disposition home or self-care (01) ==
PROVIDERS: Emergency Provider Emergency Medicine; PCP Internal Medicine
DX: M94.0 Chondrocostal junction syndrome [Tietze] (principal); R07.81 Pleurodynia; M54.50 Low back pain, unspecified; R07.89 Other chest pain; Z79.899 Other long term (current) drug therapy
CPT/HCPCS: 36415; 71046; 80053; 84484; 85025; 93005; 96372; 99284; J1885

== ENCOUNTER 2022-09-15 16:15 | Emergency (ER) | payer MEDICAID, SELFPAY ==
[2022-09-15 16:42] VITALS: BP 131/77; PULSE 62; RESP 18; TEMP 36.8; O2SAT 99; BMI 21.0
--- NOTE | 2022-09-15 17:59 | ED.GENADULT ---
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 His multiple workup done in the past which was negative no nausea no vomiting no diarrhea no fever Related Data Home Medications Medication Instructions Recorded Confirmed gabapentin 100 mg capsule 100 mg PO DAILY 01/01/21 05/02/21 sertraline 25 mg tablet 25 mg PO DAILY 01/01/21 05/02/21 topiramate 25 mg tablet 25 mg PO DAILY 01/01/21 05/02/21 zolpidem 10 mg tablet (Ambien) 10 mg PO BEDTIME PRN 01/01/21 05/02/21 docusate sodium 100 mg capsule 200 mg PO BEDTIME PRN 02/27/21 05/02/21 (Colace) hydroxyzine HCl 50 mg tablet 50 mg PO BEDTIME PRN 02/27/21 05/02/21 methylcellulose (laxative) 500 mg 500 mg PO BID PRN 02/27/21 05/02/21 tablet (Citrucel) quetiapine 25 mg tablet 25 mg PO BEDTIME 02/27/21 05/02/21 gabapentin 600 mg tablet 600 mg PO TID 05/02/21 05/02/21 quetiapine 150 mg tablet,extended 150 mg PO BEDTIME 05/02/21 05/02/21 release 24 hr (Seroquel XR) Previous Rx's Medication Instructions Recorded hydrocortisone 2.5 % topical cream 1 appl [place] BID PRN hemorrhoids #30 01/01/21 with perineal applicator grams (Proctozone-HC) cholecalciferol (vitamin D3) 1,250 1,250 mcg PO QWEEK 8 weeks #8 caps 02/27/21 mcg (50,000 unit) capsule cholecalciferol (vitamin D3) 50 50 mcg PO DAILY 30 days #30 caps 02/27/21 mcg (2,000 unit) capsule diclofenac sodium 1 % topical gel 2 g topical BID PRN pain #100 grams 06/11/21 lgdoefvdpg-mleytvgkjhuqv-vjsoddpe 1 cap PO Q6H PRN migraine headache 07/04/21 50 mg-300 mg-40 mg capsule #14 caps (Fioricet) cyclobenzaprine 10 mg tablet 10 mg PO TID PRN muscle spasm #14 01/18/22 tabs naproxen 500 mg tablet (Naprosyn) 500 mg PO BID PRN PAIN #20 tabs 08/24/22 Allergies Allergy/AdvReac Type Severity Reaction Status Date / Time No Known Allergies Allergy Verified 03/12/22 10:13 [No Known Allergies*] Review of Systems Review of Systems: Yes all other systems are reviewed and are negative [facility] Past Medical History Medical History Anxiety Depression Fibromyalgia Insomnia No known health problems Rectal bleeding Vitamin D deficiency Surgical History H/O colonoscopy History of surgery on arm Family History Family History Maternal Grandmother Diabetes Social History Social History Household Members: Family Alcohol intake: never Patient Tobacco Use Status: Never used Tobacco e-Cigarette/Vaping Use: Never Used Advance Directives: No Advance Directives Information Provided: Yes Current occupational status: employed Current occupation: [employer] Physical Exam ED Vital Signs: Vital Signs - 24 hr 09/15/22 16:42 09/15/22 20:30 Temperature 98.2 F 98.4 F Pulse Rate 62 68 Respiratory Rate 18 20 Blood Pressure 131/77 119/56 L Pulse Oximetry 99 98 Oxygen Delivery Method Room Air Room Air BMI result Body Mass Index 21.0 Appearance: Alert. Oriented X3. Very dramatic screaming acting up Eyes: PERRLA, No Nystagmus ENT: Pharynx normal. Oral Mucosa moist Neck: Normal inspection. Neck supple. CVS: Normal heart rate and rhythm. Pulses normal. Respiratory: No respiratory distress. Equal air entry bilateral, no wheezing/rales/rhonchi Abdomen: Soft and nontender. Bowel sounds are present, no mass palpable, no CVA tenderness Skin: Skin warm and dry. Normal skin color. Normal skin turgor. Extremities: No lower extremity edema. No calf tenderness Neuro: Oriented X 3. No motor deficit. Medications Administered Discontinued Medications Generic Name Dose Route Start Last Admin Trade Name Freq PRN Reason Stop Dose Admin Dicyclomine HCl 20 mg 09/15/22 18:13 09/15/22 18:42 Dicyclomine Hcl 10 Mg Capsule PO 09/15/22 18:14 20 mg ONCE ONE Administration Lorazepam 1 mg 09/15/22 18:13 09/15/22 18:42 Lorazepam 1 Mg Tablet PO 09/15/22 18:14 1 mg ONCE ONE Administration Medical Decision Making MDM Narrative Medical decision making narrative: Patient responded to p.o. Ativan and Bentyl at time of discharge patient was ambulatory back to normal was upset during stay threatening hospital and staff patient has medication at home and follow with pain clinic had recent labs 09/11 done in the ER which were normal patient advised to follow with pain clinic Lab Data Labs: Lab Results 09/15/22 Range/Units 20:29 Urine Opiates Screen Not Detected (Not Detect) Urine Fentanyl Screen Not Detected (Not Detect) Ur Barbiturates Screen Not Detected (Not Detect) Ur Phencyclidine Scrn Not Detected (Not Detect) Ur Amphetamines Screen Not Detected (Not Detect) U Benzodiazepines Scrn Not Detected (Not Detect) Urine Cocaine Screen Not Detected (Not Detect) U Marijuana (THC) Screen POSITIVE H (Not Detect) Discharge Plan Discharge Clinical Impression: Chronic pain disorder Patient Disposition: Home, Self-Care Instructions: Chronic Pain (ED) Additional Instructions: Continue pain medications as prescribed and follow-up with your pain clinic/PCP Prescriptions: No Action diclofenac sodium 1 % gel 2 g topical BID PRN (Reason: pain) Qty: 100 1RF nedxqoueji-oftwlovaibznp-wrqr [Fioricet] 50-300-40 mg capsule 1 cap PO Q6H PRN (Reason: migraine headache) Qty: 14 0RF cyclobenzaprine 10 mg tablet 10 mg PO TID PRN (Reason: muscle spasm) Qty: 14 0RF naproxen [Naprosyn] 500 mg tablet 500 mg PO BID PRN (Reason: PAIN) Qty: 20 0RF zolpidem [Ambien] 10 mg tablet 10 mg PO BEDTIME PRN gabapentin 100 mg capsule 100 mg PO DAILY topiramate 25 mg tablet 25 mg PO DAILY sertraline 25 mg tablet 25 mg PO DAILY hydrocortisone [Proctozone-HC] 2.5 % cream with perineal applicator 1 appl [place] BID PRN (Reason: hemorrhoids) Qty: 30 3RF Rx Instructions: apply [place] BID prn hydroxyzine HCl 50 mg tablet 50 mg PO BEDTIME PRN quetiapine 25 mg tablet 25 mg PO BEDTIME docusate sodium [Colace] 100 mg capsule 200 mg PO BEDTIME PRN Citrucel 500 mg tablet 500 mg PO BID PRN cholecalciferol (vitamin D3) 50 mcg (2,000 unit) capsule 50 mcg PO DAILY 30 Days Qty: 30 11RF cholecalciferol (vitamin D3) 1,250 mcg (50,000 unit) capsule 1,250 mcg PO QWEEK 56 Days Qty: 8 0RF gabapentin 600 mg tablet 600 mg PO TID quetiapine [Seroquel XR] 150 mg tablet extended release 24 hr 150 mg PO BEDTIME Interventions: ED Discharge Assessment Last Done: 09/15/22 21:19 Discharge Date/Time: 09/15/22 21:20
[2022-09-15] MEDS: LORazepam 1 MG TABLET PO (18:42)
[2022-09-15] MEDS: Dicyclomine HCl 10 MG CAPSULE 20 MG PO (18:42)
--- NOTE | 2022-09-15 18:47 | PC.NURSE ---
pt screaming and threatening about his care , he repetitively was stating this hospital is a joke, im not taking that medication. Security presented to the room secondary to pts aggressive tone and verbal outburts. he eventually took the meds that were prescribed, but required this RN to put them in his mouth as he would not move either arm. he refused water or further care from this am
--- NOTE | 2022-09-15 19:12 | PC.NURSE ---
notified pt was on the floor, provider into assess pt. pt continue to be verbally aggressive with staff and provider. No visible injury. pt is a&o and responding to question appropriately . No Loc
--- NOTE | 2022-09-15 19:14 | PC.NURSE ---
Won Troncoso called reporting pt called 911 and is requesting an ambulance to be transferred to a different facility. MD valderrama.
--- NOTE | 2022-09-15 19:15 | PC.NURSE ---
Pt found on the floor. Registratioin staff reports witnessing pt throw self from the bed. Pt reports unable to move upper extremities or the right leg. Pt reports pain. Aggressive and making verbal threats to staff. MD at the bedside with security and nursing staff. Pt assisted to the bed. Pt reports being injured at work on January 17. 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 Reports I am hurt. at the bedside
--- NOTE | 2022-09-15 19:48 | PC.NURSE ---
Pt ambulating in the bed with no difficulty. Moving all extremities.
--- NOTE | 2022-09-15 19:59 | PC.NURSE ---
Nursing supervisor polishing, Leigh Ann, notified of incident via telephone call.
[2022-09-15 20:30] VITALS: BP 119/56; PULSE 68; RESP 20; TEMP 36.9; O2SAT 98
[2022-09-15 20:57] LABS: Amphetamine Screen Urine Not Detected (Not Detect); Barbiturates, Urine Not Detected (Not Detect); Benzodiazepines Screen Urine Not Detected (Not Detect); Cannabinoid Screen Urine POSITIVE (Not Detect); Cocaine Screen Urine Not Detected (Not Detect); Fentanyl, urine Not Detected (Not Detect); Opiate Screen Urine Not Detected (Not Detect); Phencyclidine Screen Urine Not Detected (Not Detect)
--- NOTE | 2022-09-15 21:18 | PC.NURSE ---
Discharge instructions reviewed with pt. Pt declines to sign discharge documents. Pt ripped discharge packet and threw them all over the room and walked away.
== END 2022-09-15 21:20 | disposition home or self-care (01) ==
PROVIDERS: Emergency Provider Internal Medicine; PCP Internal Medicine
DX: G89.4 Chronic pain syndrome (principal); F12.90 Cannabis use, unspecified, uncomplicated; F41.9 Anxiety disorder, unspecified; Z79.899 Other long term (current) drug therapy
CPT/HCPCS: 80307; 99283

== ENCOUNTER 2022-10-02 08:14 | Outpatient (REF) | payer MEDICAID, SELFPAY ==
--- NOTE | ~2022-10-02 | XR_ITS ---
EXAMINATION: XR SHOULDER, LEFT CLINICAL INFORMATION: Pain COMPARISON: 09/01/2022 TECHNIQUE: Three views of the left shoulder. FINDINGS: No fracture or dislocation. The glenohumeral joint is well aligned. The acromioclavicular joint is intact. The visualized lung is clear. The visualized ribs are intact. XR/XR shoulder LT min 2V IMPRESSION: Normal left shoulder.
== END 2022-10-02 08:15 | disposition home or self-care (01) ==
LOC: HO.HOSX 08:14
PROVIDERS: Visit Provider Physician Assistant
DX: M75.102 Unspecified rotator cuff tear or rupture of left shoulder, not specified as traumatic (principal)
CPT/HCPCS: 73030; 99202

== ENCOUNTER → 2022-10-03 10:55 | Outpatient (BNVA) | payer MEDICAID, SELFPAY | PROVIDERS: PCP Internal Medicine; Referring Provider Internal Medicine; Visit Provider Internal Medicine Gastroenterology | DX: R10.13 Epigastric pain (principal); R63.4 Abnormal weight loss | CPT/HCPCS: 99212 ==

== ENCOUNTER 2022-10-06 09:09 | Outpatient (REF) | payer MEDICAID, SELFPAY ==
[2022-10-06 09:36] LABS: MANUAL DIFF FLAG NO
[2022-10-06 09:46] LABS: Basophils Absolute Auto 0.1 X10*3/uL (0.0-0.2); Basophils Percent Auto 1.1 % (0-2); Eosinophils Absolute Auto 0.3 X10*3/uL (0.0-0.4); Eosinophils Percent Auto 4.9 % (0-4); Hematocrit 43.3 % (42.0-52.0); Hemoglobin 14.2 g/dl (14.0-18.0); Imm Gran Abs Auto 0.01 X10*3/uL (0.00-0.03); Imm Gran Pct Auto 0.2 % (0.0-0.4); Lymphocytes Absolute Auto 1.1 X10*3/uL (1.2-4.9); Mean Corpuscular HGB Conc 32.8 g/dl (31.0-36.0); Mean Corpuscular Hemoglobin 29.3 pg (27.0-33.0); Mean Corpuscular Volume 89.5 fL (80.0-98.0); Mean Platelet Volume 10.4 fL (9.4-12.4); Monocytes Absolute Auto 0.4 X10*3/uL (0.1-1.2); Monocytes Percent Auto 7.1 % (2-11); Neutrophils Absolute Auto 3.7 x10*3/uL (2.0-8.3); Neutrophils Percent Auto 66.7 % (45-73); Platelet Count 258 X10*3/uL (160-400); Red Blood Count 4.84 X10*6/uL (4.60-5.80); Red Cell Distribution Width 12.2 % (11.0-16.0); White Blood Count 5.5 X10*3/uL (4.8-10.8)
[2022-10-06 10:31] LABS: Erythrocyte Sedimentation Rate 2 MM/HR (0-15)
[2022-10-06 10:48] LABS: Appearance Urine Clear; Color Urine Yellow; Glucose Urine UA Negative (Negative); Leukocyte Esterase Urine Negative (Negative); Nitrite Urine Negative (Negative); PH 6.5 (5.0-9.0); Urine Blood Negative (Negative); Urine Ketones Negative (Negative); Urine Protein Negative (Neg-Trace)
[2022-10-06 11:04] LABS: Alanine Aminotransferase 24 U/L (0-40); Albumin Level 4.8 g/dL (3.5-5.0); Alkaline Phosphatase 75 U/L (39-117); Anion Gap 10 (12-20); Aspartate Amino Transferase 23 U/L (5-37); Bilirubin Total 0.6 mg/dL (0.0-1.0); Blood Urea Nitrogen 10 mg/dL (9-16); C Reactive Protein < 0.10 mg/dL (< or = 0.50); Calcium 9.5 mg/dL (8.4-10.2); Carbon Dioxide 29 mmol/L (22-29); Chloride 104 mmol/L (96-108); Estimated Glomerular Filt Rate > 60; Ferritin 63 ng/mL (20-250); Glucose Random 88 mg/dL (60-115); HBS Num1 0.49 mIU/mL (0-7.99); HBc Num1 0.09 S/CO (0.00-0.79); HBsAGNum1 0.34 S/CO (0.00-0.99); Hepatitis A Antibody IgM 0.15 Index (0-0.79); Hepatitis B Core Antibody Nonreactive (Nonreactive); Hepatitis B Surface Antigen Negative (Negative); Lipase 15 U/L (8-78); PSA,Total (Free>4and<10) 0.73 ng/mL (0.00-4.00); Potassium 4.4 mmol/L (3.3-5.1); Sodium 139 mmol/L (135-145); TSH reflex Free T4 0.61 uIU/mL (0.32-4.0); Total Protein 7.3 g/dL (6.5-8.0); Vitamin D 25-OH Total 11.8 ng/mL (>30); ~HepC Num1 0.06 S/CO (0.00-0.79); ~Hepatitis A Antibody IgM Nonreactive (Nonreactive); ~Hepatitis B Surface Antibody NONREACTIVE (Nonreactive); ~Hepatitis C Antibody Nonreactive (Nonreactive)
[2022-10-06 11:11] LABS: Vitamin B12 272 pg/mL (200-900)
[2022-10-06 12:15] LABS: Folate 15.7 ng/mL (> or = 4.0)
[2022-10-07 20:39] LABS: Gliadin Deamidated IgA Ab <1.0 U/mL; Gliadin Deamidated IgG Ab 3.3 U/mL
[2022-10-08 14:38] LABS: Immunoglobulin G 996 mg/dL (600-1640)
[2022-10-09 10:53] LABS: Vitamin K1 155 pg/mL (130-1500)
[2022-10-09 17:14] LABS: Nicotinamide 20 ng/mL; Vit B3 - Nicotinic Acid <20 ng/mL
[2022-10-09 17:29] LABS: Vitamin C 0.7 mg/dL (0.2-2.1)
[2022-10-09 22:19] LABS: Vitamin B5 (Pantothenic Acid) 50 ng/mL (<275)
[2022-10-10 14:39] LABS: Zinc 77 mcg/dL (60-130)
[2022-10-10 17:13] LABS: Histamine Plasma <1.5 ng/mL (< OR = 1.8)
[2022-10-10 20:48] LABS: Vitamin A 56 mcg/dL (38-98)
[2022-10-10 20:53] LABS: Alpha-Tocopherol 11.1 mg/L (5.7-19.9); Beta-Gamma Tocopherol <1.0 mg/L (<=4.3)
[2022-10-12 14:43] LABS: Vitamin B1 9 nmol/L (8-30)
== END 2022-10-06 09:10 | disposition home or self-care (01) ==
LOC: HO.LAB 09:09
PROVIDERS: PCP Internal Medicine; Visit Provider Internal Medicine Gastroenterology
DX: R63.4 Abnormal weight loss (principal); R10.13 Epigastric pain; R30.0 Dysuria; R19.7 Diarrhea, unspecified; K75.81 Nonalcoholic steatohepatitis (NASH); K52.839 Microscopic colitis, unspecified; Z12.5 Encounter for screening for malignant neoplasm of prostate
CPT/HCPCS: 36415; 80053; 81003; 82180; 82306; 82550; 82607; 82728; 82746; 82784; 83088; 83520; 83690; 84153; 84207; 84425; 84443; 84446; 84590; 84591; 84597; 84630; 85025; 85652; 86140; 86258; 86704; 86706; 86709; 86803; 87340

== ENCOUNTER 2022-10-09 10:03 | Day surgery (SDC) | payer MEDICAID, SELFPAY ==
--- NOTE | 2022-10-08 13:54 | P.CONAN_ITS ---
Documented by User: Ludivina Madden NP 10/08/22 13:56 HPI - Anesthesia Eval Consult details Narrative: 42yo M for Upper Endoscopy and Colonoscopy [facility] Active Problems Active Problems: All Active Problems (Updated 10/03/22 @ 11:35 by Cheryl Gr MD) Epigastric abdominal pain (Acute) Weight loss, abnormal (Acute) Painful arc syndrome of left shoulder (Acute) Spondylosis of lumbar spine (Acute) Bilateral lumbar radiculopathy (Acute) Pars defect of lumbar spine (Acute) Rectal bleeding (Acute) Vitamin D deficiency (Acute) Tubular adenoma (Acute) Hemorrhoids (Acute) Polyarthralgia (Acute) Tendinitis of left rotator cuff (Acute) Fibromyalgia (Acute) Past Medical History Medical History (Updated 10/09/22 @ 06:02 by Perla Deleon RN) Anxiety Depression Fibromyalgia Insomnia Rectal bleeding Vitamin D deficiency Family History Family History Maternal Grandmother Diabetes Surgical History Surgical History H/O colonoscopy History of surgery on arm Social History Social History (Updated 10/02/22 @ 09:41 by Radha Webster) Household Members: Family Alcohol intake: never Patient Tobacco Use Status: Never used Tobacco e-Cigarette/Vaping Use: Never Used Are you DNR?: No Advance Directives: No Advance Directives Information Provided: Yes Current occupational status: employed Current occupation: [employer]/ right hand dominant Meds Allergies Allergy/AdvReac Type Severity Reaction Status Date / Time No Known Allergies Allergy Verified 10/03/22 11:03 [No Known Allergies*] Home Medications Medication Instructions Recorded Confirmed Last Taken Type sertraline 25 mg tablet 25 mg PO DAILY 01/01/21 05/02/21 Unknown History topiramate 25 mg tablet 25 mg PO DAILY 01/01/21 05/02/21 Unknown History zolpidem 10 mg tablet (Ambien) 10 mg PO BEDTIME PRN 01/01/21 05/02/21 Unknown History docusate sodium 100 mg capsule 200 mg PO BEDTIME PRN 02/27/21 05/02/21 Unknown History (Colace) hydroxyzine HCl 50 mg tablet 50 mg PO BEDTIME PRN 02/27/21 05/02/21 Unknown History methylcellulose (laxative) 500 mg 500 mg PO BID PRN 02/27/21 05/02/21 Unknown History tablet (Citrucel) gabapentin 600 mg tablet 600 mg PO TID 05/02/21 05/02/21 Unknown History quetiapine 150 mg tablet,extended 150 mg PO BEDTIME 05/02/21 05/02/21 Unknown History release 24 hr (Seroquel XR) baclofen 10 mg tablet 10 mg PO BID PRN muscle spasm 10/03/22 Unknown History clotrimazole 1 % topical cream appl topical 10/03/22 Unknown History duloxetine 30 mg capsule,delayed 30 mg PO DAILY 10/03/22 Unknown History release famotidine 20 mg tablet 20 mg PO BEDTIME 10/03/22 Unknown History methylprednisolone 4 mg tablets in 4 mg PO DIRECTED 10/03/22 Unknown History a dose pack pregabalin 75 mg capsule 75 mg PO BID 10/03/22 Unknown History ramelteon 8 mg tablet (Rozerem) 8 mg PO BEDTIME PRN insomnia 10/03/22 Unknown History sucralfate 1 gram tablet 1 g PO BID 10/03/22 Unknown History terbinafine HCl 250 mg tablet 250 mg PO DAILY 10/03/22 Unknown History Exam Exam Date and Time: October 08, 2022 1354 Pertinent Lab Results Pertinent Lab Results: Laboratory Tests 10/06/22 10/06/22 09:33 09:33 WBC 5.5 Hgb 14.2 Hct 43.3 Plt Count 258 Sodium 139 Potassium 4.4 Chloride 104 Carbon Dioxide 29 BUN 10 Creatinine 0.83 Narrative Narrative: EKG 08/2022 Vent. Rate : 068 BPM ? ? Atrial Rate : 068 BPM ?? P-R Int : 138 ms? QRS Dur : 084 ms ? ? QT Int : 372 ms ? ? ? P-R-T Axes : 071 033 040 degrees ?? QTc Int : 395 ms ? Normal sinus rhythm with sinus arrhythmia Normal ECG No significant changes seen Assessment and Plan Assessment Anesthesia Assessment: Chart Reviewed Documented by User: Araceli Huston MD 10/09/22 10:16 [facility] Past Medical History Medical History (Updated 10/09/22 @ 06:02 by Perla Deleon RN) Anxiety Depression Fibromyalgia Insomnia Rectal bleeding Vitamin D deficiency Functional capacity: independent ambulation Family History Family History Maternal Grandmother Diabetes Family history of problems with anesthesia: No Surgical History Surgical History H/O colonoscopy History of surgery on arm History of Problems with Anesthesia: No Social History Social History (Updated 10/02/22 @ 09:41 by Radha Webster) Household Members: Family Alcohol intake: never Patient Tobacco Use Status: Never used Tobacco e-Cigarette/Vaping Use: Never Used Are you DNR?: No Advance Directives: No Advance Directives Information Provided: Yes Current occupational status: employed Current occupation: [employer]/ right hand dominant Meds Allergies Allergy/AdvReac Type Severity Reaction Status Date / Time No Known Allergies Allergy Verified 10/03/22 11:03 [No Known Allergies*] Home Medications Medication Instructions Recorded Confirmed Last Taken Type sertraline 25 mg tablet 25 mg PO DAILY 01/01/21 05/02/21 Unknown History topiramate 25 mg tablet 25 mg PO DAILY 01/01/21 05/02/21 Unknown History zolpidem 10 mg tablet (Ambien) 10 mg PO BEDTIME PRN 01/01/21 05/02/21 Unknown History docusate sodium 100 mg capsule 200 mg PO BEDTIME PRN 02/27/21 05/02/21 Unknown History (Colace) hydroxyzine HCl 50 mg tablet 50 mg PO BEDTIME PRN 02/27/21 05/02/21 Unknown History methylcellulose (laxative) 500 mg 500 mg PO BID PRN 02/27/21 05/02/21 Unknown History tablet (Citrucel) gabapentin 600 mg tablet 600 mg PO TID 05/02/21 05/02/21 Unknown History quetiapine 150 mg tablet,extended 150 mg PO BEDTIME 05/02/21 05/02/21 Unknown History release 24 hr (Seroquel XR) baclofen 10 mg tablet 10 mg PO BID PRN muscle spasm 10/03/22 Unknown History clotrimazole 1 % topical cream appl topical 10/03/22 Unknown History duloxetine 30 mg capsule,delayed 30 mg PO DAILY 10/03/22 Unknown History release famotidine 20 mg tablet 20 mg PO BEDTIME 10/03/22 Unknown History methylprednisolone 4 mg tablets in 4 mg PO DIRECTED 10/03/22 Unknown History a dose pack pregabalin 75 mg capsule 75 mg PO BID 10/03/22 Unknown History ramelteon 8 mg tablet (Rozerem) 8 mg PO BEDTIME PRN insomnia 10/03/22 Unknown History sucralfate 1 gram tablet 1 g PO BID 10/03/22 Unknown History terbinafine HCl 250 mg tablet 250 mg PO DAILY 10/03/22 Unknown History Exam Airway Mallampati Class: II TM Dist: >3cm Neck ROM: Full Loose/Missing/Broken Teeth: No Heart: RR Lungs: CTA Assessment and Plan Final Anesthetic Review Family History of Problems with Anesthesia: No History of Problems with Anesthesia: No ASA Class: II Final Preanesthetic Review: No Changes in Pt Med Stat and Consent O btained/Reviewed Patient Risk: Low Procedure Risk: Low Anesthetic Plan Anesthetic Plan: MAC: Disposition: Standard PACU
[2022-10-09 10:12] VITALS: BMI 21.0
[2022-10-09] MEDS: Lactated Ringers 1,000 ML 100 ML IVCONT (10:22)
[2022-10-09 10:31] VITALS: BP 116/67; PULSE 85; RESP 18; TEMP 36.7; O2SAT 97
--- NOTE | 2022-10-09 10:53 | MHC.SHP ---
Pre-Procedural Eval Section A Date of Service: 10/09/22 The patient is an INPATIENT: No The History & Physical has been completed within 30 days and I have reviewed it.: Yes Section B Chief Complaint: Abnormal weight loss,Epigastric pain Allergies: Allergies Allergy/AdvReac Type Severity Reaction Status Date / Time No Known Allergies Allergy Verified 10/03/22 11:03 [No Known Allergies*] Plan Diagnosis/Plan: Unchanged I have reviewed the history and physical and performed a pertinent physical examination on my patient. No changes have occurred unless specified.egd, colonoscopy Time Spent With Patient Time: Total time managing care of this patient today ____ minutes.
--- NOTE | 2022-10-09 10:53 | W.PM.OPN ---
Operative Note Operative Note Date of Service: 10/09/22 Narrative: Operative Information Procedure Description: EGD, Colonoscopy Indication: weight loss, abdominal pain Anesthesia: MAC FLEXIBLE TRANSORAL UPPER GASTROINTESTINAL ENDOSCOPY AND COLONOSCOPY PROCEDURE NOTE UPPER ENDOSCOPY Consent: Indications for the procedure and potential complications of bleeding, perforation, reaction to medications and missed diagnosis were discussed with the patient and informed consent was obtained. Instrument: Olympus GIF H 190 J mid size upper endoscope Monitoring: Vital signs and clinical assessment, continuous EKG monitoring, Pulse oximetry, Carbon Dioxide monitoring and blood pressure monitoring were done throughout the procedure. Procedure: The patient was placed in the left lateral decubitis position and pre-procedure medications were administered and a bite block was placed. The endoscope was inserted into the mouth and advanced under direct vision to the third part of duodenum. A careful inspection was made as the upper endoscope was withdrawn including a retroflexed examination of the proximal stomach; Findings and interventions are described below. Findings: Larynx:normal Esophagus: GE junction at 40 cm, diaphragm hiatus at 40 cm, mild esophagitis, bx taken from GEJ and distal esophagus Stomach: Patchy streaky erythema. Biopsies were obtained. Grade 2 flap valve on retroflexed examination of the cardia. Duodenum: Moderate severe erosive duodenitis, bx taken Intervention: Biopsies as noted above COLONOSCOPY Instrument: Olympus variable stiffness pediatric scope 190L Colonoscopy Monitoring: Vital signs and clinical assessment, continuous EKG monitoring, Pulse oximetry, Carbon Dioxide monitoring and blood pressure monitoring were done throughout the procedure. Colon withdrawal time was 8 minutes. Procedure: The patient was placed in the left lateral decubitis position and pre-procedure medications were administered. After a digital rectal examination of the ano-rectum, the video colonoscope was inserted into the rectum and advanced through the colon to the cecum/TI. The colonoscope was slowly withdrawn in a retrograde panoramic fashion and the colon mucosa was carefully examined including a retroflexed view of the rectum. Findings and interventions are described below. Procedure Difficulty:easy Findings: Terminal Ileum-normal, bx taken random colon bx taken Cecum:normal Ascending Colon: normal Transverse Colon -normal Descending Colon:normal Sigmoid Colon: normal Rectum: Retroflexion with small internal hemorrhoids, grade I, 6-8 mm sessile polyp removed with cold forceps Anorectum - normal Colon preparation: [place] Bowel Preparation Scale Right colon; 2 Transverse colon: 2 Left colon; 3 (0 = Unprepared colon segment with mucosa not seen due to solid stool that cannot be cleared. 1 = Portion of mucosa of the colon segment seen, but other areas of the colon segment not well seen due to staining, residual stool and/or opaque liquid. 2 = Minor amount of residual staining, small fragments of stool and/or opaque liquid, but mucosa of colon segment seen well. 3 = Entire mucosa of colon segment seen well with no residual staining, small fragments of stool or opaque liquid) Impression and Post Procedure Diagnosis: Endoscopy Findings: erosive duodenitis gastritis esophagitis Colonoscopy Findings: polyp internal hemorrhoids Plan: Await Pathology results Repeat Colonoscopy in 5 years if adenomatous polyp, 10 yrs if hyperplastic or earlier if clinically indicated High fiber diet leaflet avoid straining at stool, epsom salts and sitz bath, anusol supps or cream trial of PPI If H pylori pos then treat Above findings were reviewed with the patient and relevant handouts were provided if indicated.
--- NOTE | 2022-10-09 10:54 | PC.NURSE ---
patient states he has stopped all medications months ago, due to persistent symptoms and side effects. Will be removed from list.
[2022-10-09 11:37] VITALS: BP 93/54; PULSE 70; RESP 21; TEMP 36.4; O2SAT 98
[2022-10-09 11:52] VITALS: BP 107/64; PULSE 67; RESP 20; TEMP 36.3; O2SAT 99
== END 2022-10-09 12:35 | disposition home or self-care (01) ==
PROVIDERS: PCP Internal Medicine; Visit Provider Internal Medicine Gastroenterology
PROC: (CPT 45380; principal; 2022-10-09 11:40)
DX: R19.4 Change in bowel habit (principal); R63.4 Abnormal weight loss; Z68.23 Body mass index [BMI] 23.0-23.9, adult; K62.1 Rectal polyp; K64.0 First degree hemorrhoids; K59.00 Constipation, unspecified; K62.5 Hemorrhage of anus and rectum; R10.13 Epigastric pain; K29.50 Unspecified chronic gastritis without bleeding; B96.81 Helicobacter pylori [H. pylori] as the cause of diseases classified elsewhere; K29.80 Duodenitis without bleeding; K20.80 Other esophagitis without bleeding; K44.9 Diaphragmatic hernia without obstruction or gangrene; M79.7 Fibromyalgia; G47.00 Insomnia, unspecified; E55.9 Vitamin D deficiency, unspecified
CPT/HCPCS: 45380; 43239; 88305; 88342

== ENCOUNTER 2022-10-15 10:40 | Outpatient (REF) | payer MEDICAID, SELFPAY | END 2022-10-15 10:41 | disposition home or self-care (01) | LOC: HO.CT 10:40 | PROVIDERS: PCP Internal Medicine; Visit Provider Internal Medicine Gastroenterology | DX: Z13.89 Encounter for screening for other disorder (principal) ==

== ENCOUNTER 2022-11-12 07:00 | Outpatient (RCR) | payer MEDICAID, SELFPAY | END 2023-04-07 14:05 | disposition home or self-care (01) | LOC: HO.PT 07:00 | PROVIDERS: PCP Internal Medicine; Visit Provider Physician Assistant | DX: M75.102 Unspecified rotator cuff tear or rupture of left shoulder, not specified as traumatic (principal) | CPT/HCPCS: 97110; 97161 ==

== ENCOUNTER → 2022-11-13 13:28 | Outpatient (BNVA) | payer MEDICAID, SELFPAY | PROVIDERS: PCP Internal Medicine; Visit Provider Physician Assistant | DX: M75.102 Unspecified rotator cuff tear or rupture of left shoulder, not specified as traumatic (principal) | CPT/HCPCS: 99212 ==

== ENCOUNTER 2022-11-14 08:50 | Outpatient (REF) | payer MEDICAID, SELFPAY ==
--- NOTE | ~2022-11-14 | MR_ITS ---
MR CERVICAL SPINE WITHOUT CONTRAST CLINICAL INFORMATION: Left-sided neck pain radiating to the left shoulder and arm. COMPARISON: None available. TECHNIQUE: MRI of the cervical spine was obtained using routine sequences without contrast. FINDINGS: Cervical alignment is normal. The vertebral body heights are maintained. There is mild disc volume loss at C5-C6. There is no bone marrow edema. There are no acute fractures. The craniocervical junction is unremarkable. Cervical arterial flow voids are maintained. There are no significant extraspinal soft tissue findings. There are no cord signal changes. Partially imaged posterior fossa is unremarkable. C2-C3: Disc contour is normal. No central canal stenosis and no foraminal stenosis. C3-C4: Uncovertebral joint spurring and facet arthropathy result in mild left-sided foraminal encroachment. Shallow disc protrusion mildly narrows the central canal. No right foraminal stenosis. C4-C5: A shallow disc protrusion mildly narrows the central canal. Proximal left foraminal disc protrusion results in mild to moderate left-sided foraminal encroachment. C5-C6: Uncovertebral joint spurring and hypertrophic facet arthropathy result in moderate bilateral foraminal stenosis. No central canal stenosis. C6-C7: Slight annular disc bulge. Left-sided uncovertebral joint spurring and hypertrophic facet arthropathy result in moderate left-sided foraminal stenosis. C7-T1: Disc contour is normal. No central canal stenosis and no foraminal stenosis. MR/MR cervical spine wo con IMPRESSION: Multilevel cervical spondylosis: - At C4-C5, a shallow proximal left foraminal disc protrusion results in mild to moderate proximal left-sided foraminal stenosis and a shallow right paracentral disc protrusion mildly narrows the central canal. - At C5-C6, spondylitic changes result in moderate bilateral foraminal stenosis. - At C6-C7, spondylitic changes result in moderate left-sided foraminal stenosis.
== END 2022-11-14 08:51 | disposition home or self-care (01) ==
LOC: HO.MRI 08:50
PROVIDERS: PCP Internal Medicine; Visit Provider Internal Medicine
DX: R20.0 Anesthesia of skin (principal); M54.2 Cervicalgia; M79.7 Fibromyalgia; M54.42 Lumbago with sciatica, left side; M25.512 Pain in left shoulder; Z87.820 Personal history of traumatic brain injury
CPT/HCPCS: 72141

== ENCOUNTER 2022-11-20 19:13 | Outpatient (REF) | payer MEDICAID, SELFPAY | END 2022-11-20 19:14 | disposition home or self-care (01) | LOC: HO.MRI 19:13 | PROVIDERS: Visit Provider Physician Assistant | DX: Z13.89 Encounter for screening for other disorder (principal) ==

== ENCOUNTER → 2022-11-28 09:25 | Outpatient (BNVA) | payer MEDICAID, SELFPAY | PROVIDERS: PCP Internal Medicine; Referring Provider Internal Medicine; Visit Provider Internal Medicine Gastroenterology | DX: K29.80 Duodenitis without bleeding (principal); K29.70 Gastritis, unspecified, without bleeding; K20.90 Esophagitis, unspecified without bleeding; K64.8 Other hemorrhoids; Z86.010 Personal history of colon polyps; Z86.19 Personal history of other infectious and parasitic diseases; Z98.890 Other specified postprocedural states | CPT/HCPCS: 99212 ==

== ENCOUNTER 2022-12-02 18:00 | Outpatient (REF) | payer MEDICAID, SELFPAY ==
--- NOTE | ~2022-12-02 | MR_ITS ---
EXAMINATION: MRI SHOULDER WITHOUT CONTRAST, LEFT CLINICAL INFORMATION: Left shoulder pain. Limited range of motion. COMPARISON: Multiple prior left shoulder radiographs, most recent dated 10/02/2022. TECHNIQUE: Multisequence MR imaging of the left shoulder was obtained without contrast on a high-field strength scanner. FINDINGS: ROTATOR CUFF: Mild supraspinatus and infraspinatus tendinosis without a measurable rotator cuff tendon tear. Degenerative cystic change and marrow edema within the underlying greater tuberosity adjacent to the junctional fibers. No muscle atrophy or fatty infiltration. BICEPS: Normal. CORACOACROMIAL ARCH: The undersurface of the acromion is flat with no subacromial spur. The acromioclavicular joint is normal. LABRUM/CAPSULE: No displaced labral tear. Intact joint capsule. GLENOHUMERAL JOINT/MARROW: Intact articular cartilage. No acute glenohumeral osseous injury. MR/MR shoulder LT wo con IMPRESSION: Mild supraspinatus and infraspinatus tendinosis without a measurable rotator cuff tendon tear. Degenerative cystic change and marrow edema within the underlying greater tuberosity. No displaced labral tear.
== END 2022-12-02 18:01 | disposition home or self-care (01) ==
LOC: HO.MRI 18:00
PROVIDERS: Visit Provider Physician Assistant
DX: M75.82 Other shoulder lesions, left shoulder (principal); M75.102 Unspecified rotator cuff tear or rupture of left shoulder, not specified as traumatic
CPT/HCPCS: 73221

== ENCOUNTER → 2022-12-12 09:32 | Outpatient (BNVA) | payer MEDICAID, SELFPAY | PROVIDERS: PCP Internal Medicine; Visit Provider Physician Assistant | DX: M47.812 Spondylosis without myelopathy or radiculopathy, cervical region (principal) | CPT/HCPCS: 99212 ==

== ENCOUNTER 2022-12-16 08:13 | Outpatient (REF) | payer MEDICAID, SELFPAY ==
[2022-12-17 14:13] LABS: H Pylori Breath Test Negative (Negative)
== END 2022-12-16 08:14 | disposition home or self-care (01) ==
LOC: HO.LNP 08:13
PROVIDERS: PCP Internal Medicine; Referring Provider Internal Medicine; Visit Provider Internal Medicine Gastroenterology
DX: Z11.2 Encounter for screening for other bacterial diseases (principal)
CPT/HCPCS: 83013

== ENCOUNTER → 2023-01-01 09:32 | Outpatient (BNVA) | payer MEDICAID, SELFPAY | PROVIDERS: PCP Internal Medicine; Visit Provider Nurse Practitioner Family | DX: M47.812 Spondylosis without myelopathy or radiculopathy, cervical region (principal); M54.12 Radiculopathy, cervical region; M62.838 Other muscle spasm; M79.7 Fibromyalgia; M43.06 Spondylolysis, lumbar region; M47.816 Spondylosis without myelopathy or radiculopathy, lumbar region; H53.8 Other visual disturbances | CPT/HCPCS: 99212 ==

== ENCOUNTER 2023-01-03 09:18 | Emergency (ER) | payer MEDICAID, SELFPAY ==
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
[2023-01-03 09:19] VITALS: BP 136/96; PULSE 92; RESP 18; TEMP 36.7; O2SAT 97; BMI 25.6
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
--- NOTE | 2023-01-03 10:05 | ECG_ITS ---
Test Reason : pre-syncope Blood Pressure : / mmHG Vent. Rate : 075 BPM Atrial Rate : 075 BPM P-R Int : 140 ms QRS Dur : 094 ms QT Int : 374 ms P-R-T Axes : 067 017 020 degrees QTc Int : 417 ms Normal sinus rhythm Normal ECG When compared with ECG of 11-SEP-2022 21:49, No significant change was found Referred By: Kaur Jacob Electronically Signed By:JOHNNIE MCCARTHY
[2023-01-03] MEDS: diazePAM 2 MG TABLET 5 MG PO (10:16)
[2023-01-03] MEDS: Tetracaine HCl/PF 0.5% Oph Sol 4 ML DROPS 1 DROP EYE-RIGHT (10:17)
[2023-01-03] MEDS: Fluorescein Sodium STRIP 1 STRIP EYE-RIGHT (10:17)
[2023-01-03 10:41] LABS: MANUAL DIFF FLAG NO
[2023-01-03 10:42] LABS: Basophils Percent Auto 0.5 % (0-2); Eosinophils Absolute Auto 0.1 X10*3/uL (0.0-0.4); Eosinophils Percent Auto 0.7 % (0-4); Hematocrit 38.3 % (42.0-52.0); Hemoglobin 12.9 g/dl (14.0-18.0); Imm Gran Abs Auto 0.02 X10*3/uL (0.00-0.03); Imm Gran Pct Auto 0.2 % (0.0-0.4); Lymphocytes Percent Auto 11.6 % (20-40); Mean Corpuscular HGB Conc 33.7 g/dl (31.0-36.0); Mean Corpuscular Hemoglobin 29.3 pg (27.0-33.0); Mean Platelet Volume 10.1 fL (9.4-12.4); Monocytes Absolute Auto 0.7 X10*3/uL (0.1-1.2); Monocytes Percent Auto 7.8 % (2-11); Neutrophils Absolute Auto 6.8 x10*3/uL (2.0-8.3); Neutrophils Percent Auto 79.2 % (45-73); Platelet Count 253 X10*3/uL (160-400); Red Cell Distribution Width 11.5 % (11.0-16.0); White Blood Count 8.6 X10*3/uL (4.8-10.8)
[2023-01-03 10:47] LABS: INTERNATIONAL NORM RATIO 0.9 (0.9-1.1); Prothrombin Time 10.7 SEC (10.0-13.1)
[2023-01-03 11:04] LABS: Troponin-I High Sensitivity 3.7 ng/L (<3.5-35.0)
[2023-01-03 12:08] LABS: Alanine Aminotransferase 18 U/L (0-40); Albumin Level 4.1 g/dL (3.5-5.0); Alkaline Phosphatase 72 U/L (39-117); Anion Gap 16 (12-20); Aspartate Amino Transferase 25 U/L (5-37); Bilirubin Direct 0.2 mg/dL (0.0-0.5); Bilirubin Total 0.5 mg/dL (0.0-1.0); Blood Urea Nitrogen 15 mg/dL (9-16); Calcium 8.9 mg/dL (8.4-10.2); Carbon Dioxide 22 mmol/L (22-29); Chloride 105 mmol/L (96-108); Creatinine Clr Calc Pharmacy 89.2; Estimated Glomerular Filt Rate > 60; Glucose Random 73 mg/dL (60-115); Potassium 4.8 mmol/L (3.3-5.1); Sodium 138 mmol/L (135-145); Total Protein 6.5 g/dL (6.5-8.0)
[2023-01-03] MEDS: iohexoL 350 MG/ML 100 ML INFUS..BTL IV (14:06)
[2023-01-03 14:44] VITALS: BP 133/83; PULSE 76; RESP 16; TEMP 37.3; O2SAT 100
[2023-01-03] MEDS: Acetaminophen 325 MG TABLET 650 MG PO (15:28)
[2023-01-03] MEDS: oxyCODONE HCl Immed Release 5 MG TABLET PO (15:28)
== END 2023-01-03 19:01 | disposition home or self-care (01) ==
PROVIDERS: Physician Assistant; Emergency Provider Emergency Medicine; PCP Internal Medicine
DX: S02.2XXA Fracture of nasal bones, initial encounter for closed fracture (principal); S02.40DA Maxillary fracture, left side, initial encounter for closed fracture; S02.842A Fracture of lateral orbital wall, left side, initial encounter for closed fracture; Y04.2XXA Assault by strike against or bumped into by another person, initial encounter; Y93.89 Activity, other specified; Y92.9 Unspecified place or not applicable; Y99.9 Unspecified external cause status
CPT/HCPCS: 36415; 70486; 70496; 70498; 80048; 80076; 84484; 85025; 85610; 93005; 99284; Q9967

== ENCOUNTER 2023-01-05 12:43 | Emergency (ER) | payer MEDICAID, SELFPAY ==
--- NOTE | ~2023-01-05 | CT_ITS ---
EXAMINATION: CT FACIAL BONES WITHOUT CONTRAST CLINICAL INFORMATION: Left facial numbness. Nasal congestion. COMPARISON: 01/03/2023 TECHNIQUE: Multidetector volumetric imaging of the facial bones performed without IV contrast. Coronal and sagittal reformatted images are obtained and reviewed. This CT examination was performed using dose optimization techniques as appropriate, variously including the following: *Automated exposure control *Adjustment of mA and/or kV according to patient size (this includes techniques or standardized protocols for targeted exams where dose is matched to indication/reason for exam; i.e. extremities or head) *Use of iterative reconstruction technique DLP: 143 mGy-cm FINDINGS: Redemonstration of the nondisplaced fracture at the left aspect of the nasal bone. The fracture along the anterior wall of the left maxillary sinus/left orbital floor is not well seen. No displacement. No new maxillofacial fracture. There is near complete opacification of the left maxillary sinus, similar to the prior. Partially opacified left ethmoid air cells, similar to prior. Occluded left infundibulum. The middle meatus remains patent on the left. Layering fluid in the left sphenoid sinus, similar to prior. The remaining paranasal sinuses appear aerated. Leftward deviation of the nasal septum. The mandibular heads are well-seated in the condylar fossa. The orbits demonstrate a normal appearance bilaterally. The globes are intact, and there are no suspicious findings to suggest retrobulbar hemorrhage. CT/CT facial bones wo IV con IMPRESSION: 1. Redemonstration of the nondisplaced left nasal bone fracture. No new maxillofacial fracture. 2. Unchanged appearance of the paranasal sinuses with near complete opacification of the left maxillary sinus and partial opacification of the left ethmoid air cells and left sphenoid sinus.
[2023-01-05 13:32] VITALS: BP 129/87; PULSE 60; RESP 18; TEMP 36.4; O2SAT 98
--- NOTE | 2023-01-05 13:32 | ED.GENADULT ---
HPI - General Adult General Chief complaint: General Medical Stated complaint: trouble breathing, L side of face numb Time Seen by Provider: 01/05/23 15:09 Source: patient Mode of arrival: ambulatory Limitations: no limitations History of Present Illness HPI narrative: 42yoM who was seen here on 01/03/2023 and diagnosed with nondisplaced fracture involving the left nasal bone and nondisplaced fracture involving the anterior wall/floor of the left maxillary sinuses with opacification of the left ethmoid, maxillary and ethmoid sinuses who is presenting to the ER with complaints of worsening facial pain, nasal congestion, trouble breathing and left facial numbness over the past few days worse today. Reports he is taking his prescribed Tylenol, naproxen, Flexeril and Vicodin although no symptomatic relief. Denies any other injuries complaints or concerns. MD complaint: Persistent facial pain/nasal congestion/trouble breathing from the nose Related Data Home Medications Medication Instructions Recorded Confirmed cholecalciferol (vitamin D3) 50 50 mcg PO DAILY 11/28/22 mcg (2,000 unit) capsule (Vitamin D3) Previous Rx's Medication Instructions Recorded sucralfate 100 mg/mL oral 10 ml PO QID #1,000 mL 11/28/22 suspension (Carafate) acetaminophen 500 mg tablet 500 mg PO Q6H PRN fever or pain 01/03/23 (Tylenol Extra Strength) #14 tabs cyclobenzaprine 5 mg tablet 5 mg PO Q8H PRN pain (scale score 01/03/23 7-10) 5 days #14 tabs hydrocodone 5 mg-acetaminophen 325 1 tab PO Q8H PRN pain #9 tabs 01/03/23 mg tablet lidocaine 5 % topical patch 1 patch topical DAILY PRN pain #30 01/03/23 (Lidoderm) ea naproxen 500 mg tablet 500 mg PO BID PRN pain 10 days #20 01/03/23 tabs hydrocodone 5 mg-acetaminophen 325 1 tab PO Q8H PRN severe pain 01/04/23 mg tablet (scale score 7-10) #9 tabs amoxicillin 875 mg-potassium 1 tab PO BID 10 days #20 tabs 01/05/23 clavulanate 125 mg tablet oxycodone 5 mg tablet 5 mg PO Q6H PRN pain #14 tabs 01/05/23 Allergies Allergy/AdvReac Type Severity Reaction Status Date / Time No Known Allergies Allergy Verified 01/05/23 13:31 [No Known Allergies*] Review of Systems Review of Systems: Constitutional : No Weight loss, No Fever, No Chills, No Night Sweats, No Fatigue, No Malaise ENT/Mouth : No Hearing loss, No Ear Pain, + Nasal Congestion, No Sinus Pain, No Hoarseness, No sore throat, + Rhinorrhea, No Swallowing Difficulty Eyes: No Eye Pain, No Swelling, No Redness, No Foreign Body, No Discharge, No Vision Changes Cardiovascular : No Chest Pain, No SOB, No Dyspnea on Exertion, No Orthopnea, No Edema, No Palpitations Respiratory : No Cough, No Sputum, No Wheezing, No Smoke Exposure, No Dyspnea Gastrointestinal : No Nausea, No Vomiting, No Diarrhea, No Constipation, No abdominal Pain, No Hematochezia, No Melena Genitourinary : no irregular bleeding, No Dysuria, No Urinary Frequency, No Hematuria, No Urinary Incontinence, No Urgency, No Flank Pain, No Urinary Flow Changes, No Hesitancy Musculoskeletal : + facial pain, No joint pain, No Myalgias, No Joint Swelling Skin : No Skin Lesions, No rash Neuro : No Weakness, No Numbness, No Paresthesias, No Loss of Consciousness, No Dizziness, No Headache Psych : No Anxiety/Panic, No Depression, No SI/HI/AH/VH, No Social Issues, Heme/Lymph: No Bruising, No Bleeding,No Lymphadenopathy Endocrine : No Polyuria, No Polydipsia, No Temperature Intolerance Yes all other systems are reviewed and are negative [facility] Past Medical History Attestation statement: The following information was validated with the patient. Source: old records reviewed and nursing notes reviewed Medical History Anxiety Depression Fibromyalgia Insomnia Rectal bleeding Vitamin D deficiency Surgical History H/O colonoscopy History of esophagogastroduodenoscopy (EGD) History of surgery on arm Family History Family History Maternal Grandmother Diabetes Social History Social History Household Members: Family Alcohol intake: never Patient Tobacco Use Status: Never used Tobacco e-Cigarette/Vaping Use: Never Used Current occupational status: employed Current occupation: [employer]/ right hand dominant Physical Exam ED Vital Signs: Vital Signs - 24 hr 01/05/23 13:32 01/05/23 15:11 Temperature 97.5 F 97.0 F Pulse Rate 60 57 Respiratory Rate 18 18 Blood Pressure 129/87 121/87 Pulse Oximetry 98 99 Oxygen Delivery Method Room Air Room Air BMI result Body Mass Index 20.0 vital signs have been reviewed as normal and appeared to be correct. Blood pressure normal. Heart rate normal. Respiration rate normal. Temperature normal. Oxygen saturation normal. Appearance: Alert. Oriented X3. No acute distress. Head: Patient with tenderness palpation over the facial bones/sinuses with soft tissue swelling and ecchymosis noted. The rest of the external exam is within normal limits. No Boo signs or raccoon eyes are noted. Eyes: PERRLA. EOMI. Conjunctiva and sclera normal. Eyelids normal. ENT: EAC normal. TM's Normal. No septal hematoma noted. No hemotympanum noted. Pharynx normal. Uvula midline. Moist mucous membranes. No lesions/ulcerations or masses noted on the tongue. Normal voice. No trismus noted. No drooling noted. No muffled voice noted. Neck: Normal inspection. Neck supple. FROM. No adenopathy. Thyroid Normal. No tracheal deviation noted. No crepitus is noted. No meningeal signs. No neck mass noted. No signs of trauma noted. CVS: Normal heart rate and rhythm. Heart sound normal. Pulses normal throughout. No murmurs/rales/gallops. Respiratory: No respiratory distress. Painless inspiration. Breath sounds normal. No wheezes/rales/rhonchi noted. Chest nontender. No crepitus is noted. No signs of trauma noted. No accessory muscle usage noted or decreased air movement noted. No signs of trauma. Abdomen: Soft and nontender. Bowel sounds normal in all 4 quadrants. No distention noted. No organomegaly noted. No visible injury noted. Back: No CVA tenderness. Full range of motion noted. Nontender. No signs of trauma. Patient neuro intact bilaterally and distally on all 4 extremities. Patient's reflexes intact bilaterally and distally on all 4 extremities. No rashes/lesion/induration/fluctuance or signs of infection noted. Skin: Skin warm and dry. Normal skin color. Normal skin turgor. No rashes/lesions/lacerations noted. Extremities: No lower extremity edema. No calf tenderness is noted. Extremities exhibit normal range of motion and nontender. Neuro: Oriented X 3. No motor deficit. No sensory deficit. Reflexes normal. Normal steady gait. No focal neuro deficits noted. CN's II-XII intact bilaterally? Vascular: + radial pulses/+ 2 distal pedal pulses/+2 dorsalis pedis b/l. Normal cap refill. No cyanosis noted to upper extremity nails and lower extremity toes nails. Course Course Course Narrative: [id number] 42yoM who was seen here on 01/03/2023 and diagnosed with nondisplaced fracture involving the left nasal bone and nondisplaced fracture involving the anterior wall/floor of the left maxillary sinuses with opacification of the left ethmoid, maxillary and ethmoid sinuses who is presenting to the ER with complaints of worsening facial pain, nasal congestion, trouble breathing and left facial numbness over the past few days worse today. Reports he is taking his prescribed Tylenol, naproxen, Flexeril and Vicodin although no symptomatic relief. Denies any other injuries complaints or concerns. Plan: Will obtain CT scan of facial bones. Patient will be sent back to the waiting room to be evaluated in [facility]. Reevaluation(s) Reevaluation #1: Repeat CT scans revealed redemonstration of nondisplaced left nasal bone fracture no new maxillary facial fracture. Along with sinuses with near complete opacification of the left maxillary sinus and partial opacification of the left ethmoid air cells and left sphenoid sinus. Extraocular movements are intact. Therefore at this time will DC home with oxycodone and Augmentin for pain and possible sinusitis with instructions to follow up with maxillofacial surgeon he has an appointment on and instructions return if any new or worsening symptoms. Patient understands agrees with this plan. Time: 15:15 Medical Decision Making Independent Interpretation I performed an independent interpretation of an: CT Scan (I reviewed the CT scan facial bone results myself and scan and agreeable radiologist report patient understands as well) Radiology Impression Discussion of test interpretation with radiology: I have reviewed the radiologist's reading. Radiologist Impression: DLP: 143 mGy-cm FINDINGS: Redemonstration of the nondisplaced fracture at the left aspect of the nasal bone. The fracture along the anterior wall of the left maxillary sinus/left orbital floor is not well seen. No displacement. No new maxillofacial fracture. There is near complete opacification of the left maxillary sinus, similar to the prior. Partially opacified left ethmoid air cells, similar to prior. Occluded left infundibulum. The middle meatus remains patent on the left. Layering fluid in the left sphenoid sinus, similar to prior. The remaining paranasal sinuses appear aerated. Leftward deviation of the nasal septum. The mandibular heads are well-seated in the condylar fossa. The orbits demonstrate a normal appearance bilaterally. The globes are intact, and there are no suspicious findings to suggest retrobulbar hemorrhage. CT/CT facial bones wo IV con IMPRESSION: 1.? Redemonstration of the nondisplaced left nasal bone fracture.? No new maxillofacial fracture. 2.? Unchanged appearance of the paranasal sinuses with near complete opacification of the left maxillary sinus and partial opacification of the left ethmoid air cells and left sphenoid sinus. ? External Record Review Prior ED record visits reviewed and CT imaging. Prescription Management I considered prescription management with: Pain Medication and Antibiotic Will DC home oxycodone and Augmentin for pain and possible sinusitis Discharge Plan Discharge Clinical Impression: Closed fracture nasal bone, Maxillary fracture, Sinusitis Patient Disposition: Home, Self-Care Instructions: Nasal Fracture (ED), Facial Fracture (ED), Sinusitis (ED) Prescriptions: New amoxicillin-pot clavulanate 875-125 mg tablet 1 tab PO BID 10 Days Qty: 20 0RF oxycodone 5 mg tablet 5 mg PO Q6H PRN (Reason: pain) Qty: 14 0RF Rx Instructions: Partial Fill upon patient request. No Action acetaminophen [Tylenol Extra Strength] 500 mg tablet 500 mg PO Q6H PRN (Reason: fever or pain) Qty: 14 0RF lidocaine [Lidoderm] 5 % adhesive patch,medicated 1 patch topical DAILY MDD remove after 12 hours PRN (Reason: pain) Qty: 30 0RF Rx Instructions: leave on most painful area for up to 12 hrs naproxen 500 mg tablet 500 mg PO BID PRN (Reason: pain) 10 Days Qty: 20 0RF cyclobenzaprine 5 mg tablet 5 mg PO Q8H PRN (Reason: pain (scale score 7-10)) 5 Days Qty: 14 0RF hydrocodone-acetaminophen 5-325 mg tablet 1 tab PO Q8H PRN (Reason: pain) Qty: 9 0RF Rx Instructions: Partial Fill upon patient request. hydrocodone-acetaminophen 5-325 mg tablet 1 tab PO Q8H PRN (Reason: severe pain (scale score 7-10)) Qty: 9 0RF Rx Instructions: Partial Fill upon patient request. cholecalciferol (vitamin D3) [Vitamin D3] 50 mcg (2,000 unit) capsule 50 mcg PO DAILY sucralfate [Carafate] 100 mg/mL suspension 10 ml PO QID Qty: 1000 1RF Rx Instructions: swish in mouth and swallow; use after food/drink Referrals: Jack Kate MD [Primary Care Provider] - 1 day
[2023-01-05 15:11] VITALS: BP 121/87; PULSE 57; RESP 18; TEMP 36.1; O2SAT 99
== END 2023-01-05 15:21 | disposition home or self-care (01) ==
LOC: HO.ED 15:20
PROVIDERS: Emergency Provider Student in an Organized Health Care Education/Training Program; PCP Internal Medicine
DX: S02.2XXA Fracture of nasal bones, initial encounter for closed fracture (principal); S02.40DA Maxillary fracture, left side, initial encounter for closed fracture; R06.02 Shortness of breath; J32.0 Chronic maxillary sinusitis; X58.XXXA Exposure to other specified factors, initial encounter; Y93.9 Activity, unspecified; Y92.9 Unspecified place or not applicable; Y99.9 Unspecified external cause status; Z79.899 Other long term (current) drug therapy
CPT/HCPCS: 70486; 99282; 99284

== ENCOUNTER 2023-01-11 19:13 | Emergency (ER) | payer MEDICAID, SELFPAY ==
--- NOTE | ~2023-01-11 | XR_ITS ---
EXAMINATION: XR HAND, LEFT CLINICAL INFORMATION: Pain in the middle digit. COMPARISON: Left wrist 01/17/2022. Left hand and wrist 03/02/2013 TECHNIQUE: PA, lateral, and oblique views of the left hand. FINDINGS: No acute osseous abnormality. No acute fracture or dislocation. 2 mm periarticular calcification at the DIP joint of the middle digit at the radial side of the bone is chronic. 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 No soft tissue abnormality. XR/XR hand LT 2V IMPRESSION: 1. No acute abnormality of the hand. 2. Chronic periarticular calcification at the DIP joint of the middle digit.
[2023-01-11 19:15] VITALS: BP 144/83; PULSE 66; RESP 18; TEMP 36.5; O2SAT 100; BMI 25.6
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
== END 2023-01-11 19:37 | disposition home or self-care (01) ==
LOC: HO.ED 19:37
PROVIDERS: Emergency Provider Emergency Medicine Emergency Medical Services
DX: S62.603A Fracture of unspecified phalanx of left middle finger, initial encounter for closed fracture (principal); M79.642 Pain in left hand; Y04.8XXA Assault by other bodily force, initial encounter; Y93.9 Activity, unspecified; Y92.9 Unspecified place or not applicable; Y99.9 Unspecified external cause status; Z79.899 Other long term (current) drug therapy
CPT/HCPCS: 29130; 73120; 99282; 99283

== ENCOUNTER → 2023-01-20 14:09 | Outpatient (BNVA) | payer MEDICAID, SELFPAY | PROVIDERS: Visit Provider Physician Assistant | DX: S62.632A Displaced fracture of distal phalanx of right middle finger, initial encounter for closed fracture (principal) | CPT/HCPCS: 99212 ==

== ENCOUNTER 2023-01-28 12:03 | Outpatient (REF) | payer MEDICAID, SELFPAY ==
--- NOTE | 2023-01-28 08:45 | EMG_ITS ---
Please see scanned EMG / Nerve Conduction Report. MTDD
== END 2023-01-28 12:04 | disposition home or self-care (01) ==
LOC: HO.NEURO 12:03
PROVIDERS: Visit Provider Nurse Practitioner Family
DX: M54.12 Radiculopathy, cervical region (principal)
CPT/HCPCS: 95886; 95910

== ENCOUNTER → 2023-02-13 13:26 | Outpatient (BNVA) | payer MEDICAID, SELFPAY | PROVIDERS: Visit Provider Physician Assistant | DX: M54.12 Radiculopathy, cervical region (principal) | CPT/HCPCS: 99202 ==

== ENCOUNTER → 2023-04-17 08:58 | Outpatient (BNVA) | payer MEDICAID, SELFPAY | PROVIDERS: Visit Provider Internal Medicine Gastroenterology | DX: K64.9 Unspecified hemorrhoids (principal); D36.9 Benign neoplasm, unspecified site | CPT/HCPCS: 99212 ==

== ENCOUNTER → 2023-04-27 09:19 | Outpatient (BNVA) | payer MEDICAID, SELFPAY | PROVIDERS: Visit Provider Anesthesiology | DX: M47.812 Spondylosis without myelopathy or radiculopathy, cervical region (principal); M54.12 Radiculopathy, cervical region; M62.838 Other muscle spasm; M79.7 Fibromyalgia; M43.06 Spondylolysis, lumbar region; M47.816 Spondylosis without myelopathy or radiculopathy, lumbar region | CPT/HCPCS: 99212 ==

== ENCOUNTER 2023-05-03 07:17 | Emergency (ER) | payer MEDICAID, SELFPAY ==
[2023-05-03 07:41] VITALS: BP 111/35; PULSE 53; RESP 18; TEMP 36.1; O2SAT 98; BMI 24.8
--- NOTE | 2023-05-03 08:13 | ED.BACK ---
HPI - Back Pain/Injury General Chief Complaint: Back Pain/Injury Stated Complaint: back pain/ finger fractured? Time Seen by Provider: 05/03/23 08:00 Source: patient Mode of arrival: ambulatory Limitations: no limitations History of Present Illness HPI Narrative: 43-year-old male came in for evaluation of left middle finger pain and back pain. Patient is complaining of lower back pain radiates down to the left lower extremities which is an old work-related injury, the patient had MRI/x-ray of the lumbar back which showed L4/L5 protruded disc, patient declined any strenuous activity or heavy lifting, able still to ambulate with left side pain and numbness, able to ambulate on both toes and heels, no urinary or stool incontinence patient stated that ever since he hurt his back he had time when the pain is exacerbated then improve after 2-3 days. Patient also injured his left middle finger 2 weeks ago now is complaining of left middle finger pain specially when he make a fist with the left hand. Related Data Home Medications Medication Instructions Recorded Confirmed cetirizine 10 mg tablet 10 mg PO QAM 04/17/23 terbinafine HCl 250 mg tablet 250 mg PO DAILY 04/17/23 Previous Rx's Medication Instructions Recorded acetaminophen 500 mg tablet 500 mg PO Q6H PRN fever or pain 01/03/23 (Tylenol Extra Strength) #14 tabs cyclobenzaprine 5 mg tablet 5 mg PO Q8H PRN pain (scale score 01/03/23 7-10) 5 days #14 tabs hydrocodone 5 mg-acetaminophen 325 1 tab PO Q8H PRN pain #9 tabs 01/03/23 mg tablet lidocaine 5 % topical patch 1 patch topical DAILY PRN pain #30 01/03/23 (Lidoderm) ea naproxen 500 mg tablet 500 mg PO BID PRN pain 10 days #20 01/03/23 tabs hydrocodone 5 mg-acetaminophen 325 1 tab PO Q8H PRN severe pain 01/04/23 mg tablet (scale score 7-10) #9 tabs oxycodone 5 mg tablet 5 mg PO Q6H PRN pain #14 tabs 01/05/23 cholecalciferol (vitamin D3) 50 50 mcg PO DAILY #90 caps 04/17/23 mcg (2,000 unit) capsule (Vitamin D3) psyllium husk 3.4 gram/5.4 gram 1 tbsp PO BID #660 grams 04/17/23 oral powder (Metamucil) Allergies Allergy/AdvReac Type Severity Reaction Status Date / Time No Known Allergies Allergy Verified 05/03/23 07:56 [No Known Allergies*] Review of Systems Review of Systems: All other systems are reviewed and are negative Constitutional: Reports as per HPI and Reports no additional constitutional complaints Eyes: Reports as per HPI and Reports no additional eye complaints Reports system reviewed and no additional complaints, except as documented Cardiovascular: Reports as per HPI and Reports no additional cardiovascular complaints Respiratory: Reports as per HPI and Reports no additional respiratory complaints Gastrointestinal: Reports as per HPI and Reports no additional gastrointestinal complaints Genitourinary: Reports no additional female genitourinary complaints Musculoskeletal: Reports no additional musculoskeletal complaints Skin/Breast: Reports system reviewed and no additional complaints, except as docu Psychiatric: Reports no additional psychiatric complaints Endocrine: Reports no additional endocrine complaints Hematologic/Lymphatic: Reports no additional hematologic/lymphatic complaints Allergic/Immunologic: Reports no additional allergic/immunologic complaints Reports system reviewed and no additional complaints, except as documented and Reports Abnormal speech present [facility] Past Medical History Medical History Anxiety Depression Fibromyalgia Insomnia Rectal bleeding Vitamin D deficiency Surgical History H/O colonoscopy History of esophagogastroduodenoscopy (EGD) History of surgery on arm Family History Family History Maternal Grandmother Diabetes Colon cancer Maternal Aunt Colon cancer Sister Colon polyp Social History Social History Household Members: Family Alcohol intake: never Patient Tobacco Use Status: Never used Tobacco Smoked in Last 30 Days: No e-Cigarette/Vaping Use: Never Used Use of substances other than those prescribed or required for medical reasons: No Advance Directives: No Advance Directives Information Provided: Yes Current occupational status: employed Current occupation: [employer]/ right hand dominant Physical Exam Vital Signs: Vital Signs: Last Vital Signs Temp 97.9 F 05/03/23 08:36 Pulse 62 05/03/23 08:36 Resp 17 05/03/23 08:36 BP 113/72 05/03/23 08:36 Pulse Ox 99 05/03/23 08:36 O2 Del Method Room Air 05/03/23 08:36 BMI result Body Mass Index 24.8 Vital signs have been reviewed as appeared to be correct. Blood pressure normal. Heart rate normal. Respiration rate normal. Temperature normal. Oxygen saturation normal. Appearance: Alert. Oriented X3. No acute distress. Head: Normal external exam. Normocephalic. Atraumatic. No Boo signs noted. No raccoon eyes noted Eyes: PERRLA. EOMI. Conjunctiva and sclera normal. Eyelids normal. ENT: TM's Normal. Pharynx normal. Uvula midline. Moist mucous membranes. No trismus noted. No drooling noted. No muffled voice noted. Neck: Normal inspection. Neck supple. FROM. No adenopathy. Thyroid Normal. No meningeal signs. No neck mass noted. CVS: Normal heart rate and rhythm. Heart sound normal. No murmurs noted. Pulses normal throughout. Respiratory: No respiratory distress. Painless inspiration. Breath sounds normal. No wheezes/rales/rhonchi noted. Chest nontender. No accessory muscle usage noted or decreased air movement noted. Abdomen: Soft and nontender. Bowel sounds normal in all 4 quadrants. No distention noted. No organomegaly noted. No visible injury noted. Back: No CVA tenderness. Full range of motion noted. Skin: Skin warm and dry. Normal skin color. Normal skin turgor. No rashes/lesions/lacerations noted. Extremities: Left hand: No deformity or step-off, mild tenderness over proximal phalanx. Neuro: Oriented X 3. Cranial nerve exam: II-XII are grossly intact No motor deficit. No sensory deficit. Reflexes normal. Able to ambulate on both toes and heels. Course Course Course Narrative: 1. Left middle finger fracture (old) patient was advised to follow-up with Dr. Rob. 2. Lumbar radiculopathy with no neuro deficit, no symptoms consistent with cauda equina syndrome. Medications Administered Discontinued Medications Generic Name Dose Route Start Last Admin Trade Name Freq PRN Reason Stop Dose Admin Ketorolac Tromethamine 30 mg 05/03/23 08:10 05/03/23 08:19 Ketorolac Tromethamine 30 Mg/Ml Vial IM 05/03/23 08:11 30 mg ONCE ONE Administration Morphine Sulfate 2 mg 05/03/23 08:10 05/03/23 08:19 Morphine Sulfate 2 Mg/Ml Cartridge IM 05/03/23 08:11 2 mg ONCE ONE Administration Protocol Prednisone 40 mg 05/03/23 08:10 05/03/23 08:20 Prednisone 20 Mg Tablet PO 05/03/23 08:11 40 mg ONCE ONE Administration Medical Decision Making Differential Diagnosis Differential Diagnoses: The differential diagnosis associated with the presentation includes (Lumbar radiculopathy, muscular pain, cauda equina, left middle finger fracture.) Independent Interpretation I performed an independent interpretation of an: Plain X-Ray (Left hand:1. Small avulsion fracture fragment along the proximal end distal phalanx third digit. 2. There is an old ulnar styloid process fracture. ) Radiology Impression Discussion of test interpretation with radiology: I have reviewed the radiologist's reading. Discharge Plan Discharge Clinical Impression: Fracture of distal phalanx of left middle finger, Acute lumbar radiculopathy Patient Disposition: Home, Self-Care Instructions: Lumbar Radiculopathy (ED) Prescriptions: No Action acetaminophen [Tylenol Extra Strength] 500 mg tablet 500 mg PO Q6H PRN (Reason: fever or pain) Qty: 14 0RF lidocaine [Lidoderm] 5 % adhesive patch,medicated 1 patch topical DAILY MDD remove after 12 hours PRN (Reason: pain) Qty: 30 0RF Rx Instructions: leave on most painful area for up to 12 hrs naproxen 500 mg tablet 500 mg PO BID PRN (Reason: pain) 10 Days Qty: 20 0RF cyclobenzaprine 5 mg tablet 5 mg PO Q8H PRN (Reason: pain (scale score 7-10)) 5 Days Qty: 14 0RF hydrocodone-acetaminophen 5-325 mg tablet 1 tab PO Q8H PRN (Reason: pain) Qty: 9 0RF Rx Instructions: Partial Fill upon patient request. hydrocodone-acetaminophen 5-325 mg tablet 1 tab PO Q8H PRN (Reason: severe pain (scale score 7-10)) Qty: 9 0RF Rx Instructions: Partial Fill upon patient request. oxycodone 5 mg tablet 5 mg PO Q6H PRN (Reason: pain) Qty: 14 0RF Rx Instructions: Partial Fill upon patient request. terbinafine HCl 250 mg tablet 250 mg PO DAILY cetirizine 10 mg tablet 10 mg PO QAM cholecalciferol (vitamin D3) [Vitamin D3] 50 mcg (2,000 unit) capsule 50 mcg PO DAILY Qty: 90 2RF Metamucil 3.4 gram/5.4 gram powder 1 tbsp PO BID Qty: 660 3RF Rx Instructions: mix into at least 8 oz of water or juice before administering Referrals: Jack Kate MD [Primary Care Provider] - Desiree Rob MD [Physician] -
[2023-05-03 08:36] VITALS: BP 113/72; PULSE 62; RESP 17; TEMP 36.6; O2SAT 99
== END 2023-05-03 09:12 | disposition home or self-care (01) ==
PROVIDERS: Emergency Provider Emergency Medicine; PCP Internal Medicine
DX: S62.633A Displaced fracture of distal phalanx of left middle finger, initial encounter for closed fracture (principal); M54.16 Radiculopathy, lumbar region; X50.0XXA Overexertion from strenuous movement or load, initial encounter; X50.9XXA Other and unspecified overexertion or strenuous movements or postures, initial encounter; Y93.9 Activity, unspecified; Y92.9 Unspecified place or not applicable; Y99.9 Unspecified external cause status; Z79.899 Other long term (current) drug therapy
CPT/HCPCS: 29130; 73130; 96372; 99284; J1885; J2270

== ENCOUNTER 2023-05-05 07:06 | Outpatient (REF) | payer MEDICAID, SELFPAY ==
--- NOTE | ~2023-05-05 | FL_ITS ---
EXAMINATION: XR FLUOROSCOPY WITH IMAGES CLINICAL INFORMATION: Spondylosis without myelopathy COMPARISON: None available. TECHNIQUE: Fluoroscopy Supervised By: Dr. William Bautista. Fluoroscopy Time: 0.5 minutes. Cumulative Dose: 7.83 mGy. DAP: 0.0835 Gycm2. Images: 6. FINDINGS: Images demonstrate needles superimposing over the region of the articular pillars in the cervical spine. Images demonstrate contrast over the lateral aspect of the cervical spine FL/FL guidance in treatment room IMPRESSION: Imaging assistance provided during a fluoroscopic procedure
== END 2023-05-05 07:07 | disposition home or self-care (01) ==
LOC: CF 07:06
PROVIDERS: PCP Internal Medicine; Visit Provider Anesthesiology
DX: M47.812 Spondylosis without myelopathy or radiculopathy, cervical region (principal); M54.12 Radiculopathy, cervical region; M62.838 Other muscle spasm
CPT/HCPCS: 64490; 64491; J3301

== ENCOUNTER 2023-05-05 09:55 | Outpatient (AMB) | payer MEDICAID, SELFPAY ==
--- NOTE | 2023-05-05 10:00 | MHC.OFFVIS ---
Intake Vital Signs 05/05/23 10:01 05/05/23 12:00 Height 5 ft 2 in 5 ft 2 in Weight 140 lb 140 lb BMI 25.6 25.6 BP 104/80 110/74 Blood Pressure Location Lt brachial Lt brachial Position Sitting Sitting Respiration 16 16 Pulse 57 84 Pulse Source Pulse Oximeter Pulse Oximeter Pulse Oximetry (%) 98 99 Oxygen Delivery Method Room Air Room Air Comment Pre-op Post-op Intake Visit Reasons: L C3-C4-C5-C6 THERAPEUTIC MBB/LOCAL Allergies No Known Allergies [No Known Allergies*] Allergy (Verified 05/05/23 10:00) PFSH Medical History Anxiety Depression Fibromyalgia Insomnia Rectal bleeding Vitamin D deficiency Surgical History H/O colonoscopy History of esophagogastroduodenoscopy (EGD) History of surgery on arm Family History Maternal Grandmother Diabetes Colon cancer Maternal Aunt Colon cancer Sister Colon polyp Social History Household Members: Family Alcohol intake: never Patient Tobacco Use Status: Never used Tobacco e-Cigarette/Vaping Use: Never Used Current occupational status: employed Current occupation: [employer]/ right hand dominant Physical Exam Vital Signs: Last Vital Signs Pulse 84 05/05/23 12:00 Resp 16 05/05/23 12:00 BP 110/74 05/05/23 12:00 Pulse Ox 99 05/05/23 12:00 Oxygen Delivery Method Room Air 05/05/23 12:00 BMI result Body Mass Index 25.6 Results Reviewed Results Reviewed: 05/05/23 10:03 Lidocaine HCl 2 % MPF [Xylocaine 2 % MPF] 5 ml .ROUTE .STK-MED ONE Triamcinolone Acetonide [Kenalog-40] 40 mg .ROUTE .STK-MED ONE Assessment & Plan Assessment & Plan (1) Cervical spondylosis: Code(s): M47.812 - Spondylosis without myelopathy or radiculopathy, cervical region (2) Cervical radiculopathy: Code(s): M54.12 - Radiculopathy, cervical region (3) Muscle spasms of neck: Code(s): M62.838 - Other muscle spasm (4) Fibromyalgia: Code(s): M79.7 - Fibromyalgia (5) Pars defect of lumbar spine: Code(s): M43.06 - Spondylolysis, lumbar region (6) Spondylosis of lumbar spine: Code(s): M47.816 - Spondylosis without myelopathy or radiculopathy, lumbar region (7) Spondylosis of cervical region without myelopathy or radiculopathy: Code(s): M47.812 - Spondylosis without myelopathy or radiculopathy, cervical region Plan: Left C3- C4- C5- C6 therapeutic medial branch block. ?Informed consent was explained to the patient. All questions were explained and answered.? The patient was taken inside the operating room where he was positioned prone on the operating table. Time-out was performed delineating correct site, side, the nature of the procedure, patient's allergy, preoperative antibiotic if needed.? All operating room staff was participating in OR time-out procedure. The back of the neck and upper thorax were prepped with ChloraPrep and draped with sterile towels.? ? Sterilely draped C-arm was brought over the operating field and sq picture of? C3-C4-C5- C6 vertebrae were delineated on the screen.? Points of interest were delineated as lateral masses on the left of the vertebrae as above. The waste of each lateral mass was chosen as the target of the tip of the needles on AP view, lateral veiw was used as a safety view for the tips of the needles position.?? The projections of the point of interest to the skin were injected with the small amount of local anesthetic lidocaine 2% 1-1.5 cc.? After that 22 gauge 3and 1/2 inch? spinal needles were driven to the point of interest in tunnel vision fashion. After needles gently contacted the bone at the point of interests the needle was injected with small amount of the contrast .No intravascular spread was detected the injection did not demonstrate intravascular or intrathecal spread. Injection of ropivacaine 0.5%-1cc mixed with kenalog was performed at each needle location. Total dose of kenalog was 40 mg. ? Upon completion of the injections the needles were removed and sterile dressing was applied, the patient was taken? outside of the operating room to recovery room where he recovered uneventfully. Plan Patient is being referred back to Dr. Ortez at [facility] per his request to further evaluate for cervical spondylosis with left sided radiculopathy. He declined all interventional treatment options through our office today. Patient is very upset and frustrated for dealing with his chronic pain that has been exacerbated by work related injury last year and year long awaiting for back surgery approval from his Worker's Comp insurance. I recommended this patient to have C3-C4- C5-C6 left-sided medial branch block. Conversation was prolonged and very tense. The patient was frequently interrupting and raising his voice. However finally he agreed to go for the injection he was offered by me. We will seek insurance approval for this procedure. This will not be workman's comp insurance. Orders: Orders FL guidance in treatment room Today M47.812 - Spondylosis without myelopathy or radiculopathy, cervical region Coding Level of Care Code Procedure Only Diagnoses Cervical spondylosis M47.812 Cervical radiculopathy M54.12 Muscle spasms of neck M62.838 Fibromyalgia M79.7 Pars defect of lumbar spine M43.06 Spondylosis of lumbar spine M47.816 Spondylosis of cervical region without myelopathy or radiculopathy M47.812
[2023-05-05 10:01] VITALS: BP 104/80; PULSE 57; RESP 16; O2SAT 98; BMI 25.6
[2023-05-05 12:00] VITALS: BP 110/74; PULSE 84; RESP 16; O2SAT 99; BMI 25.6
== END 2023-05-05 11:25 | disposition home or self-care (01) ==
LOC: HO.PMCPRC 09:55
PROVIDERS: PCP Internal Medicine; Visit Provider Anesthesiology
DX: M47.812 Spondylosis without myelopathy or radiculopathy, cervical region (principal)
CPT/HCPCS: 64490; 64491

== ENCOUNTER 2023-05-11 11:17 | Outpatient (AMB) | payer MEDICAID, SELFPAY ==
[2023-05-11 11:21] VITALS: BP 115/66; PULSE 53; BMI 24.9
--- NOTE | 2023-05-11 11:21 | A.OFFVIS_ITS ---
Intake Vital Signs 05/11/23 11:21 Height 5 ft 2 in Weight 136 lb BMI 24.9 BP 115/66 Blood Pressure Location Rt brachial Position Sitting Pulse 53 Intake Visit Reasons: Hemorrhoids Intake Note: Patient referred for bleeding hemorrhoids. Patient gets yearly colonoscopies and hx of polyps. Patient has noticed bleeding gets worse when drinks beers. Recent H.pilori test was negative. Reports family hx of colon ca. [employer] Supervisor Required: No Accompanied by: Self / Same As Patient Allergies No Known Allergies [No Known Allergies*] Allergy (Verified 05/11/23 11:24) HPI HPI Comments History of Present Illness Details Patient complains of anorectal discomfort and bright red blood per rectum. He has had recent colonoscopy demonstrating internal hemorrhoids and a tubular polyp which was excised . Because of persistence of symptoms, he presents here for further evaluation. Patient is tolerating his diet. He is having otherwise regular bowel habits although he is occasionally constipated. He denies any anal receptive practices. Chart was reviewed patient evaluated [facility] Medical History Anxiety Depression Fibromyalgia Insomnia Rectal bleeding Vitamin D deficiency Surgical History H/O colonoscopy History of esophagogastroduodenoscopy (EGD) History of surgery on arm Family History Maternal Grandmother Diabetes Colon cancer Maternal Aunt Colon cancer Sister Colon polyp Social History Household Members: Family Alcohol intake: never Patient Tobacco Use Status: Never used Tobacco e-Cigarette/Vaping Use: Never Used Current occupational status: employed Current occupation: [employer]/ right hand dominant Physical Exam Vital Signs: Last Vital Signs Pulse 53 05/11/23 11:21 BP 115/66 05/11/23 11:21 BMI result Body Mass Index 24.9 Chest Other: Chest breath sounds bilaterally, HS 1 in 2 GI Other: Abdomen soft, benign. Rectal exam demonstrates internal and hemorrhoids. Rectal exam was deferred secondary to patient's discomfort. No fissures or other pathology demonstrated Auscultation: normoactive bowel sounds Assessment & Plan Assessment & Plan (1) Rectal bleeding: Comment: High-fiber diet avoid straining- stool softeners, Proctozone Code(s): K62.5 - Hemorrhage of anus and rectum Plan Risks, benefits, alternatives were hemorrhoidectomy reviewed with the patient a nd included but not limited to bleeding, infection, recurrence, numbness, pain, scarring, incontinence and the patient wishes to proceed. All questions were answered. Arrangements will be made for this. He will receive a mini bowel prep day prior. Coding Level of Care Code New Pt Level 4 (85290) Diagnoses Rectal bleeding K62.5
== END 2023-05-11 11:51 | disposition home or self-care (01) ==
PROVIDERS: PCP Internal Medicine; Referring Provider Internal Medicine Gastroenterology; Visit Provider Surgery
DX: K62.5 Hemorrhage of anus and rectum (principal)
CPT/HCPCS: 99204

== ENCOUNTER → 2023-05-11 11:17 | Outpatient (BNVA) | payer MEDICAID, SELFPAY | PROVIDERS: PCP Internal Medicine; Referring Provider Internal Medicine Gastroenterology; Visit Provider Surgery | DX: K62.5 Hemorrhage of anus and rectum (principal); K64.4 Residual hemorrhoidal skin tags; K64.8 Other hemorrhoids | CPT/HCPCS: 99202 ==

== ENCOUNTER 2023-05-15 13:58 | Outpatient (AMB) | payer MEDICAID, SELFPAY ==
[2023-05-15 14:01] VITALS: BMI 24.9
--- NOTE | 2023-05-15 14:01 | A.OFFVIS_ITS ---
Intake Vital Signs 05/15/23 14:01 Height 5 ft 2 in Weight 136 lb BMI 24.9 Intake Visit Reasons: FC-Fx of distal phalanx of left middle finger Intake Note: Isis 43 year old right hand dominant male who presents today for an ER follow up of left middle finger. Patient reports being seen for a his finger here and was referred to OT. He was not able to attend OT due to work schedule. He recently pinched his finger in a drawer at work. He has constant pain with numbness and tingling. He will have swelling at his PIP joint. He is not able to bend at DIP and partially bend at his PIP joint. Hx of fibromyalgia. Allergies No Known Allergies [No Known Allergies*] Allergy (Verified 05/15/23 14:10) HPI FC-Fx of distal phalanx of left middle finger HPI Details 43-year-old male who presents to the office today for an ER follow-up of left middle finger injury. He states a few months ago he had a fracture along the DIP joint and recently he smacked his finger on a hard object and c/o worsening pain and swelling with increased activity. He was working with OT when he initially injured the finger but states the ROM never full came back. He returns today for re-eval . [facility], [facility] Medical History Anxiety Depression Fibromyalgia Insomnia Vitamin D deficiency Surgical History H/O colonoscopy History of esophagogastroduodenoscopy (EGD) History of surgery on arm Family History Maternal Grandmother Diabetes Colon cancer Maternal Aunt Colon cancer Sister Colon polyp Social History Household Members: Family Alcohol intake: never Patient Tobacco Use Status: Never used Tobacco e-Cigarette/Vaping Use: Never Used Current occupational status: employed Current occupation: [employer]/ right hand dominant Review of Systems Const All systems reviewed & are unremarkable except as noted in HPI and below Physical Exam Vital Signs: BMI result Body Mass Index 24.9 Extrem Other: Left middle finger: Normal to inspection. He does have some tenderness over the middle phalanx but he does not have any swelling, no open wounds. He can bend the ring finger 90 degrees at MCP, 90 degrees at the PIP but he does have difficulty bringing DIP into flexion. NVI. Results Reviewed Results Reviewed: xrays of the left hand obtained in the ED negative for acute fracture or dislocation. Assessment & Plan Assessment & Plan (1) Fracture of distal phalanx of left middle finger: Code(s): S62.633A - Displaced fracture of distal phalanx of left middle finger, initial encounter for closed fracture Plan He did have x-rays of his left hand on May 03 which did not show obvious fracture of the left middle finger. I did offer him new x-rays today due to his pain but he deferred on this today. I did encourage him to work on ROM exercises. We did demonstrate this in the office today and he can increase activity as tolerated and see me back if symptoms are a concern to him. He is content with this plan. Orders: Orders XR hand LT min 3V 05/15/23 M79.642 - Pain in left hand Patient Instructions: Scribed for Jorge Bermudez PA-C, by Med [facility] medical secretary, on 05/15/2023 at 2:00 PM SHELLY. Heather, Jorge Bermudez PA-C, have personally reviewed and agree with the information entered by the scribe. Coding Level of Care Code Est Pt Level 3 (08983) Diagnoses Fracture of distal phalanx of left middle finger S62.633A
== END 2023-05-15 15:10 | disposition home or self-care (01) ==
PROVIDERS: PCP Internal Medicine; Visit Provider Physician Assistant
DX: S62.633A Displaced fracture of distal phalanx of left middle finger, initial encounter for closed fracture (principal)
CPT/HCPCS: 99213

== ENCOUNTER 2023-05-15 13:58 | Outpatient (REF) | payer MEDICAID, SELFPAY | END 2023-05-15 13:59 | disposition home or self-care (01) | LOC: HO.HOSX 13:58 | PROVIDERS: PCP Internal Medicine; Visit Provider Physician Assistant | DX: S62.633A Displaced fracture of distal phalanx of left middle finger, initial encounter for closed fracture (principal) | CPT/HCPCS: 99213 ==

== ENCOUNTER 2023-06-10 15:47 | Emergency (ER) | payer MEDICAID, SELFPAY ==
--- NOTE | ~2023-06-10 | XR_ITS ---
EXAMINATION: XR CHEST CLINICAL INFORMATION: Shortness of breath. COMPARISON: 09/11/2022 TECHNIQUE: 2 views of the chest were obtained. FINDINGS: The cardiomediastinal silhouette is normal. There is no focal lung consolidation or pleural effusion. The bony structures and soft tissues are unremarkable. XR/XR chest 2V IMPRESSION: No active cardiopulmonary disease.
--- NOTE | ~2023-06-10 | CT_ITS ---
EXAMINATION: CT ABDOMEN AND PELVIS WITHOUT CONTRAST CLINICAL INFORMATION: Right lower chest/flank pain. Rule out kidney stone. COMPARISON: 11/24/2019 TECHNIQUE: Multidetector volumetric imaging was performed from the superior aspect of the liver through the pubic symphysis. Sagittal and coronal reformatted images were obtained on the technologist's workstation. This CT examination was performed using dose optimization techniques as appropriate, variously including the following: *Automated exposure control *Adjustment of mA and/or kV according to patient size (this includes techniques or standardized protocols for targeted exams where dose is matched to indication/reason for exam; i.e. extremities or head) *Use of iterative reconstruction technique DLP: 353 mGy-cm FINDINGS: LUNG BASES: The visualized lung bases are unremarkable. LIVER, GALLBLADDER, AND BILIARY TREE: The liver is normal in size, shape, and attenuation. No focal hepatic lesion or biliary ductal dilatation is present. The gallbladder is unremarkable with no evidence of radiopaque gallstones, gallbladder wall thickening, or obvious pericholecystic inflammatory changes. PANCREAS: Unremarkable. SPLEEN: Unremarkable. ADRENAL GLANDS: Unremarkable. KIDNEYS AND URETERS: The kidneys are normal in size, shape, and attenuation. No hydronephrosis or hydroureter. Right midpole 0.2 cm calculus is 8 cm from the posterior axillary line. Left upper pole 0.3 cm calculus is 5.5 cm from the posterior axillary line. BLADDER: Unremarkable. GASTROINTESTINAL TRACT: The stomach is unremarkable. Normal caliber of the small bowel. There is no obstruction. Mild wall thickening of the proximal small bowel in the left upper quadrant. No colonic wall thickening or inflammation. Normal appendix. No free air or free fluid. ABDOMINAL WALL: No significant hernia is appreciated. LYMPH NODES: Normal. VASCULAR: Unremarkable. PELVIC VISCERA: The prostate and seminal vesicles are unremarkable. OSSEOUS STRUCTURES: No acute or suspicious osseous abnormality. Bilateral L5 pars defects with grade 1 anterolisthesis of L5 on S1. CT/CT abdomen pelvis wo IV con IMPRESSION: 1. No hydronephrosis. Nonobstructing bilateral renal calculi. 2. Mild wall thickening of the proximal small bowel in the left upper quadrant, suggestive of enteritis. Fleischner guidelines were followed.
[2023-06-10 16:39] VITALS: BP 128/78; PULSE 68; RESP 16; TEMP 36.8; O2SAT 98; BMI 24.8
--- NOTE | 2023-06-10 16:39 | ED.ABDPAIN ---
HPI - Abdominal Pain General Chief Complaint: General Medical Stated Complaint: flank pain Time Seen by Provider: 06/10/23 20:41 Source: patient Mode of arrival: ambulatory Limitations: no limitations History of Present Illness HPI narrative: 43-year-old male patient history of fibromyalgia, depression, anxiety left sided nerve compression status post recent nerve block who presents emergency department for evaluation of sudden onset right lower chest and flank pain which began last night . Patient states that he was awoken from sleep last night secondary to pain in his right lower chest and right upper abdominal area he states the pain was a sharp, stabbing pain which was intermittent. He states the pain would last 30-60 minutes resolved and then come back after about 30 minutes. He states the pain was 10/10 at its worst. Patient also developed a nonproductive cough since onset of the pain. He had associated nausea but he states that he has chronic nausea secondary to H pylori. He denied vomiting. He has noted urinary hesitancy but no frequency urgency or dysuria patient states this is 1st episode of this type of pain. Related Data Home Medications Medication Instructions Recorded Confirmed cetirizine 10 mg tablet 10 mg PO QAM 04/17/23 terbinafine HCl 250 mg tablet 250 mg PO DAILY 04/17/23 Previous Rx's Medication Instructions Recorded acetaminophen 500 mg tablet 500 mg PO Q6H PRN fever or pain 01/03/23 (Tylenol Extra Strength) #14 tabs cyclobenzaprine 5 mg tablet 5 mg PO Q8H PRN pain (scale score 01/03/23 7-10) 5 days #14 tabs lidocaine 5 % topical patch 1 patch topical DAILY PRN pain #30 01/03/23 (Lidoderm) ea cholecalciferol (vitamin D3) 50 50 mcg PO DAILY #90 caps 04/17/23 mcg (2,000 unit) capsule (Vitamin D3) psyllium husk 3.4 gram/5.4 gram 1 tbsp PO BID #660 grams 04/17/23 oral powder (Metamucil) Allergies Allergy/AdvReac Type Severity Reaction Status Date / Time No Known Allergies Allergy Verified 05/15/23 14:10 [No Known Allergies*] Review of Systems Review of Systems Yes all other systems are reviewed and are negative PMFSH Past Medical History PMFSH Narrative: Past medical history: Reviewed below, left neck ?pinched nerve ?status post recent nerve block. 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 He states that he vapes marijuana to help control his chronic pain. Medical History Anxiety Depression Fibromyalgia Insomnia Vitamin D deficiency Surgical History H/O colonoscopy History of esophagogastroduodenoscopy (EGD) History of surgery on arm Rectal bleeding Family History Family History Maternal Grandmother Diabetes Colon cancer Maternal Aunt Colon cancer Sister Colon polyp Social History Social History Household Members: Family Alcohol intake: never Patient Tobacco Use Status: Never used Tobacco e-Cigarette/Vaping Use: Never Used Advance Directives: No Advance Directives Information Provided: No Current occupational status: employed Current occupation: [employer]/ right hand dominant Physical Exam ED Vital Signs: Vital Signs - 24 hr 06/10/23 16:39 06/10/23 20:00 06/10/23 22:00 Temperature 98.3 F 98.4 F 97.8 F Pulse Rate 68 77 58 Respiratory Rate 16 16 16 Blood Pressure 128/78 122/85 100/68 Pulse Oximetry 98 100 99 Oxygen Delivery Method Room Air Room Air Room Air BMI result Body Mass Index 24.8 Vital signs were normal Exam: General: Awake, alert in no distress Head: Normocephalic, atraumatic EENT: PERRL, Lids normal, sclera normal, conjunctiva normal, nose normal , ears normal, throat without erythema or exudates Neck: Supple, no adenopathy, trachea midline and nontender Lung: breath sounds symmetric, no wheezing, rales or rhonchi Chest: symmetric movement, nontender Heart: regular rate and rhythm, normal S1, S2 no murmurs or rubs Abdomen: soft, right upper quadrant tender, nondistended, normal bowel sounds Back: no vertebral tenderness, moderate right CVAT Extremities: no deformities, moves all extremities symmetrically Skin: no rashes, no lesion, normal color and warmth Neuro: Awake, alert, oriented, normal speech, cranial nerves intact, moves all extremities symmetrically Psych: Pleasant, cooperative Course Course Course Narrative: RME: 43yo M w/PMHx fibromyalgia, c/o SOB this morning w/chest congestion and feeling like he cant catch his breath. Admits to right side/flank pain. Also reports bloody BMs x years, is currently be worked up for this, gets yearly colonoscopies. denies N/V, hematuria. EKG, labs, UA, CXR ordered Full HPI, ROS and PE to be performed by primary ED provider. Medical Decision Making Medical Decision Making [facility] Narrative: 43-year-old male with history of fibromyalgia, depression, anxiety, chronic neck pain who presents emergency department for evaluation of sudden onset left lower chest/flank pain that began last night, pain woke him up from sleep. The pain is been intermittent , she and severe pain. Patient also developed a nonproductive cough at the same time as the onset of the pain. Patient's vital signs were unremarkable. Physical exam did reveal right-sided CVA tenderness and right upper quadrant tenderness. Following evaluation was ordered: CBC, CMP, lipase, urinalysis, chest x-ray, CT scan of the abdomen pelvis without IV contrast. The patient states that at this time he does not need any pain medications, he did take some ibuprofen prior to coming to emergency department. 2256: Patient's laboratory evaluation was unremarkable. Chest x-ray revealed no findings to explain the patient's chest pain or shortness of breath CT scan of the abdomen pelvis with IV contrast did not reveal a clear cause of his pain, there is no evidence for renal colic or ureteral stones. There was a reading of enteritis but this does not fit the clinical picture-the patient has no nausea, vomiting, fever, chills or diarrhea. Patient's pain is most likely caused by pleurisy this with the patient. I try to discuss this with the patient but he refused to listen and stated the following below: He is very upset that he waited a long time and there was no definitive answer on the studies. He told me that he hates this hospital and then every time he comes this hospital we can find anything wrong with him. He also states that many people got into the emergency department before him any knows that the replying favor its. I tried to discuss this with the patient but he became upset and just demanded his discharge instructions and states that it probably back later tonight with the same symptoms and we will be able to help him. The patient refused to wait for his paperwork and left the emergency department. Differential Diagnosis Differential Diagnoses: The differential diagnosis associated with the presentation includes Differential diagnosis includes was not limited to pneumonia, pneumothorax, renal colic, ureteral stone, herpes zoster, cholecystitis, appendicitis, UTI Admission/Observation Consideration of admission/observation: Escalation of care including admission/observation considered Lab Data MDM Lab Attestation statement: I reviewed the patient's lab results. My interpretation patient's laboratory evaluation is as follows: CBC was normal. CMP was normal. Lipase was normal. Urinalysis was negative . PT/INR was normal 06/10/23 17:08 06/10/23 17:08 Labs: Lab Results 06/10/23 06/10/23 06/10/23 Range/Units 17:08 17:08 17:08 WBC 6.8 (4.8-10.8) X10*3/uL RBC 4.72 (4.60-5.80) X10*6/uL Hgb 13.9 L (14.0-18.0) g/dl Hct 42.1 (42.0-52.0) % MCV 89.2 (80.0-98.0) fL MCH 29.4 (27.0-33.0) pg MCHC 33.0 (31.0-36.0) g/dl RDW 12.3 (11.0-16.0) % Plt Count 270 (160-400) X10*3/uL MPV 10.0 (9.4-12.4) fL Immature Gran % (Auto) 0.3 (0.0-0.4) % Neut % (Auto) 67.0 (45-73) % Lymph % (Auto) 23.4 (20-40) % [place] % (Auto) 7.9 (2-11) % Eos % (Auto) 1.0 (0-4) % Baso % (Auto) 0.4 (0-2) % Lymph # (Auto) 1.6 (1.2-4.9) X10*3/uL [place] # (Auto) 0.5 (0.1-1.2) X10*3/uL Eos # (Auto) 0.1 (0.0-0.4) X10*3/uL Baso # (Auto) 0.0 (0.0-0.2) X10*3/uL Abs Immat Gran (auto) 0.02 (0.00-0.03) X10*3/uL Absolute Neuts (auto) 4.5 (2.0-8.3) x10*3/uL Absolute Nucleated RBC 0.000 (0.0-0.012) X10*3/uL Nucleated RBC % (auto) 0.0 (0.0-0.2) /100WBC PT 10.8 L (11.1-13.3) SEC INR 0.9 (0.9-1.1) Sodium 141 (135-145) mmol/L Potassium 4.5 (3.3-5.1) mmol/L Chloride 107 (96-108) mmol/L Carbon Dioxide 28 (22-29) mmol/L Anion Gap 11 L (12-20) BUN 13 (9-16) mg/dL Creatinine 0.94 (0.5-1.4) mg/dL Estim Creat Clear Calc 83.2 Estimated GFR > 60 Random Glucose 87 (60-115) mg/dL Calcium 9.9 D (8.4-10.2) mg/dL Total Bilirubin 0.4 (0.0-1.0) mg/dL Direct Bilirubin 0.1 (0.0-0.5) mg/dL AST 28 (5-37) U/L ALT 20 (0-40) U/L Alkaline Phosphatase 57 (39-117) U/L Troponin I High Sens (<3.5-35.0) ng/L Total Protein 7.5 (6.5-8.0) g/dL Albumin 4.6 (3.5-5.0) g/dL Lipase 20 (8-78) U/L Urine Color Urine Appearance Urine pH (5.0-9.0) Ur Specific Sherman (1.005-1.025) Urine Protein (Neg-Trace) mg/dL Urine Glucose (UA) (Negative) mg/dL Urine Ketones (Negative) mg/dL Urine Blood (Negative) Urine Nitrite (Negative) Ur Leukocyte Esterase (Negative) 06/10/23 06/10/23 Range/Units 17:08 17:08 WBC (4.8-10.8) X10*3/uL RBC (4.60-5.80) X10*6/uL Hgb (14.0-18.0) g/dl Hct (42.0-52.0) % MCV (80.0-98.0) fL MCH (27.0-33.0) pg MCHC (31.0-36.0) g/dl RDW (11.0-16.0) % Plt Count (160-400) X10*3/uL MPV (9.4-12.4) fL Immature Gran % (Auto) (0.0-0.4) % Neut % (Auto) (45-73) % Lymph % (Auto) (20-40) % [place] % (Auto) (2-11) % Eos % (Auto) (0-4) % Baso % (Auto) (0-2) % Lymph # (Auto) (1.2-4.9) X10*3/uL [place] # (Auto) (0.1-1.2) X10*3/uL Eos # (Auto) (0.0-0.4) X10*3/uL Baso # (Auto) (0.0-0.2) X10*3/uL Abs Immat Gran (auto) (0.00-0.03) X10*3/uL Absolute Neuts (auto) (2.0-8.3) x10*3/uL Absolute Nucleated RBC (0.0-0.012) X10*3/uL Nucleated RBC % (auto) (0.0-0.2) /100WBC PT (11.1-13.3) SEC INR (0.9-1.1) Sodium (135-145) mmol/L Potassium (3.3-5.1) mmol/L Chloride (96-108) mmol/L Carbon Dioxide (22-29) mmol/L Anion Gap (12-20) BUN (9-16) mg/dL Creatinine (0.5-1.4) mg/dL Estim Creat Clear Calc Estimated GFR Random Glucose (60-115) mg/dL Calcium (8.4-10.2) mg/dL Total Bilirubin (0.0-1.0) mg/dL Direct Bilirubin (0.0-0.5) mg/dL AST (5-37) U/L ALT (0-40) U/L Alkaline Phosphatase (39-117) U/L Troponin I High Sens 6.1 D (<3.5-35.0) ng/L Total Protein (6.5-8.0) g/dL Albumin (3.5-5.0) g/dL Lipase (8-78) U/L Urine Color Yellow Urine Appearance Clear Urine pH 6.5 (5.0-9.0) Ur Specific Sherman >= 1.030 H (1.005-1.025) Urine Protein Trace (Neg-Trace) mg/dL Urine Glucose (UA) Negative (Negative) mg/dL Urine Ketones Trace (Negative) mg/dL Urine Blood Negative (Negative) Urine Nitrite Negative (Negative) Ur Leukocyte Esterase Negative (Negative) Independent Interpretation I performed an independent interpretation of an: Plain X-Ray Radiology Impression Discussion of test interpretation with radiology: I have reviewed the radiologist's reading. Radiologist Impression: R chest 2V IMPRESSION: No active cardiopulmonary disease. Dictated By:Lobo Nielson CT abdomen pelvis wo IV con IMPRESSION: 1. No hydronephrosis. Nonobstructing bilateral renal calculi. 2. Mild wall thickening of the proximal small bowel in the left upper quadrant, suggestive of enteritis. Fleischner guidelines were followed. Dictated By:Benito Pena MD Discharge Plan Discharge Clinical Impression: Pleurisy Patient Disposition: Home, Self-Care Instructions: Pleurisy (ED) Additional Instructions: Your complete blood count, comprehensive metabolic panel, urinalysis and lipase were all normal. Your chest x-ray revealed no findings to explain your right-sided chest pain or shortness of breath. The CT scan of your abdomen pelvis was normal as well, you had an incidental finding enteritis your left side of your abdomen, this is not significant since you do not have fever, chills, nausea, vomiting or diarrhea. Your presentation is consistent with pleurisy which is inflammation of the lining of the lungs. This makes short of breath and gives you chest pain. This is usually treated with anti-inflammatory medicines such as ibuprofen and Tylenol. Take ibuprofen 200 mg pills, 2 pills every 6 hours as needed for pain or fever. Take Tylenol (acetaminophen) 500 mg pills, 2 pills every 6 hours as needed for pain or fever. Follow-up with your doctor in 2 days. Please return to the emergency department if your symptoms get worse or if you develop any symptoms that are concerning to you. Prescriptions: No Action acetaminophen [Tylenol Extra Strength] 500 mg tablet 500 mg PO Q6H PRN (Reason: fever or pain) Qty: 14 0RF lidocaine [Lidoderm] 5 % adhesive patch,medicated 1 patch topical DAILY MDD remove after 12 hours PRN (Reason: pain) Qty: 30 0RF Rx Instructions: leave on most painful area for up to 12 hrs cyclobenzaprine 5 mg tablet 5 mg PO Q8H PRN (Reason: pain (scale score 7-10)) 5 Days Qty: 14 0RF terbinafine HCl 250 mg tablet 250 mg PO DAILY cetirizine 10 mg tablet 10 mg PO QAM cholecalciferol (vitamin D3) [Vitamin D3] 50 mcg (2,000 unit) capsule 50 mcg PO DAILY Qty: 90 2RF Metamucil 3.4 gram/5.4 gram powder 1 tbsp PO BID Qty: 660 3RF Rx Instructions: mix into at least 8 oz of water or juice before administering
--- NOTE | 2023-06-10 16:44 | ECG_ITS ---
Test Reason : FLANK PAIN Blood Pressure : / mmHG Vent. Rate : 071 BPM Atrial Rate : 071 BPM P-R Int : 140 ms QRS Dur : 080 ms QT Int : 412 ms P-R-T Axes : 078 035 041 degrees QTc Int : 447 ms Poor data quality, interpretation may be adversely affected Normal sinus rhythm Normal ECG When compared with ECG of 03-JAN-2023 10:25, No significant change was found Referred By: Kaur Jacob Electronically Signed By:ARIELLA MARTIN
--- NOTE | 2023-06-10 17:13 | MHC.EDTECH ---
PATIENT EKG TAKEN AND WAS READ BY PROVIDER ,URINE SAMPLE COLLECTED AND BLOOD DRAWN SENT TO LAB .
[2023-06-10 17:15] LABS: MANUAL DIFF FLAG NO
[2023-06-10 17:18] LABS: Basophils Percent Auto 0.4 % (0-2); Eosinophils Absolute Auto 0.1 X10*3/uL (0.0-0.4); Hematocrit 42.1 % (42.0-52.0); Hemoglobin 13.9 g/dl (14.0-18.0); Imm Gran Abs Auto 0.02 X10*3/uL (0.00-0.03); Imm Gran Pct Auto 0.3 % (0.0-0.4); Lymphocytes Absolute Auto 1.6 X10*3/uL (1.2-4.9); Lymphocytes Percent Auto 23.4 % (20-40); Mean Corpuscular Hemoglobin 29.4 pg (27.0-33.0); Mean Corpuscular Volume 89.2 fL (80.0-98.0); Monocytes Absolute Auto 0.5 X10*3/uL (0.1-1.2); Monocytes Percent Auto 7.9 % (2-11); Neutrophils Absolute Auto 4.5 x10*3/uL (2.0-8.3); Platelet Count 270 X10*3/uL (160-400); Red Blood Count 4.72 X10*6/uL (4.60-5.80); Red Cell Distribution Width 12.3 % (11.0-16.0); White Blood Count 6.8 X10*3/uL (4.8-10.8)
[2023-06-10 17:22] LABS: Appearance Urine Clear; Color Urine Yellow; Glucose Urine UA Negative (Negative); INTERNATIONAL NORM RATIO 0.9 (0.9-1.1); Leukocyte Esterase Urine Negative (Negative); Nitrite Urine Negative (Negative); PH 6.5 (5.0-9.0); Prothrombin Time 10.8 SEC (11.1-13.3); Specific Gravity - Urine >= 1.030 (1.005-1.025); Urine Blood Negative (Negative); Urine Ketones Trace mg/dL (Negative); Urine Protein Trace mg/dL (Neg-Trace)
[2023-06-10 17:32] LABS: Alanine Aminotransferase 20 U/L (0-40); Albumin Level 4.6 g/dL (3.5-5.0); Alkaline Phosphatase 57 U/L (39-117); Anion Gap 11 (12-20); Aspartate Amino Transferase 28 U/L (5-37); Bilirubin Direct 0.1 mg/dL (0.0-0.5); Bilirubin Total 0.4 mg/dL (0.0-1.0); Blood Urea Nitrogen 13 mg/dL (9-16); Calcium 9.9 mg/dL (8.4-10.2); Carbon Dioxide 28 mmol/L (22-29); Chloride 107 mmol/L (96-108); Creatinine Clr Calc Pharmacy 83.2; Estimated Glomerular Filt Rate > 60; Glucose Random 87 mg/dL (60-115); Lipase 20 U/L (8-78); Potassium 4.5 mmol/L (3.3-5.1); Sodium 141 mmol/L (135-145); Total Protein 7.5 g/dL (6.5-8.0)
[2023-06-10 17:40] LABS: Troponin-I High Sensitivity 6.1 ng/L (<3.5-35.0)
[2023-06-10 20:00] VITALS: BP 122/85; PULSE 77; RESP 16; TEMP 36.9; O2SAT 100
[2023-06-10 22:00] VITALS: BP 100/68; PULSE 58; RESP 16; TEMP 36.6; O2SAT 99
== END 2023-06-10 23:20 | disposition home or self-care (01) ==
PROVIDERS: Physician Assistant; Emergency Provider Emergency Medicine Emergency Medical Services; PCP Internal Medicine
DX: R09.1 Pleurisy (principal); R10.9 Unspecified abdominal pain; R07.89 Other chest pain; Z79.899 Other long term (current) drug therapy
CPT/HCPCS: 36415; 71046; 74176; 80048; 80076; 81003; 83690; 84484; 85025; 85610; 93005; 99284

== ENCOUNTER 2023-06-13 10:18 | Emergency (ER) | payer MEDICAID, SELFPAY ==
[2023-06-13 10:25] VITALS: BP 104/73; PULSE 90; RESP 26; TEMP 36.4; O2SAT 100; BMI 21.3
--- NOTE | 2023-06-13 10:31 | ED_ITS ---
HPI - SOB/Dyspnea General Chief Complaint: Dyspnea Stated Complaint: cough diff breathing Time Seen by Provider: 06/13/23 10:24 Source: patient and old records reviewed Mode of arrival: ambulatory Limitations: no limitations History of Present Illness HPI Narrative: 43 yo male wiht PMH of anxiety, depression, bipolar, fibromyalgia who notes he takes no medications right now and is getting established with prescriber after seeing [facility] he was seen here on 06/10 for dyspnea with R sided pain - normal EKG, negative CXR and negative CT scan other than enteritis - trop was flat and labs stable. He comes back with persistent dyspnea but no fevers/cough/chest pain and feels very anxious that he cannot catch his breath or take a full breath. He has not traveled or had clots before and he states his anxiety is through the roof. No hx of asthma does not smoke. He also has a hx of hemorrhoids and notes bleeding and some clots with BM just had CT scan and normal CBC MD elicited complaint: shortness of breath and anxiety Onset (ago): week(s) (1) Context: other (stress) Timing: constant Severity: severe Exacerbating factors: stress Relieving factors: nothing Known history of: other (anxiety) Associated symptoms: other (blood in stools) Treatment prior to arrival: none Related Data Home Medications Medication Instructions Recorded Confirmed cetirizine 10 mg tablet 10 mg PO QAM 04/17/23 terbinafine HCl 250 mg tablet 250 mg PO DAILY 04/17/23 Previous Rx's Medication Instructions Recorded acetaminophen 500 mg tablet 500 mg PO Q6H PRN fever or pain 01/03/23 (Tylenol Extra Strength) #14 tabs cyclobenzaprine 5 mg tablet 5 mg PO Q8H PRN pain (scale score 01/03/23 7-10) 5 days #14 tabs lidocaine 5 % topical patch 1 patch topical DAILY PRN pain #30 01/03/23 (Lidoderm) ea cholecalciferol (vitamin D3) 50 50 mcg PO DAILY #90 caps 04/17/23 mcg (2,000 unit) capsule (Vitamin D3) psyllium husk 3.4 gram/5.4 gram 1 tbsp PO BID #660 grams 04/17/23 oral powder (Metamucil) hydroxyzine HCl 50 mg tablet 50 mg PO TID PRN anxiety #30 tabs 06/13/23 Allergies Allergy/AdvReac Type Severity Reaction Status Date / Time No Known Allergies Allergy Verified 05/15/23 14:10 [No Known Allergies*] Review of Systems Review of Systems: Constitutional : No Fever, No Chills ENT/Mouth : No sore throat, No Rhinorrhea, No Swallowing Difficulty Eyes: No Eye Pain, No Swelling, No Redness Cardiovascular : No Chest Pain, positive SOB, No Orthopnea, no Edema Respiratory : No Cough, No Sputum, No Wheezing, positive dyspnea Gastrointestinal : No Nausea, No Vomiting, No Diarrhea, No abdominal Pain, pos Hematochezia, No Melena Genitourinary : No Dysuria, No Urinary Frequency, No Hematuria Musculoskeletal : No joint pain, No Myalgias Skin : No Skin Lesions, No rash Neuro : No Weakness, No Numbness, No Dizziness, No Headache Psych : pos Anxiety/Panic, No Depression All other systems reviewed and are negative [facility] Past Medical History Attestation statement: The following information was validated with the patient. Medical History Anxiety Depression Fibromyalgia Insomnia Vitamin D deficiency Surgical History H/O colonoscopy History of esophagogastroduodenoscopy (EGD) History of surgery on arm Rectal bleeding Family History Family History Maternal Grandmother Diabetes Colon cancer Maternal Aunt Colon cancer Sister Colon polyp Social History Social History Household Members: Family Alcohol intake: never Patient Tobacco Use Status: Never used Tobacco Smoked in Last 30 Days: No e-Cigarette/Vaping Use: Never Used Use of substances other than those prescribed or required for medical reasons: No Advance Directives: No Advance Directives Information Provided: No Current occupational status: employed Current occupation: [employer]/ right hand dominant Physical Exam Vital Signs: Vital Signs: Last Vital Signs Temp 97.5 F 06/13/23 10:25 Pulse 90 06/13/23 10:25 Resp 26 H 06/13/23 10:25 BP 104/73 06/13/23 10:25 Pulse Ox 100 06/13/23 10:25 O2 Del Method Room Air 06/13/23 10:25 BMI result Body Mass Index 21.3 Appearance: Alert. Oriented X3. Mild acute distress. very anxious, almost tearful Eyes: Pupils equal, round and reactive to light. ENT: Pharynx normal. Neck: Normal inspection. Neck supple. CVS: Normal heart rate and rhythm. Pulses normal. Respiratory: No respiratory distress. Breath sounds normal. hyperventilating 100% RA Abdomen: Soft and nontender. Skin: Skin warm and dry. Normal skin color. Normal skin turgor. Extremities: No lower extremity edema. No calf ttp Neuro: Oriented X 3. No motor deficit. No sensory deficit. Course Course Course Narrative: H/H stable much more calm feels better stable for DC Medications Administered Discontinued Medications Generic Name Dose Route Start Last Admin Trade Name Freq PRN Reason Stop Dose Admin Hydroxyzine HCl 25 mg 06/13/23 10:30 06/13/23 10:36 Hydroxyzine Hcl 25 Mg Tablet PO 06/13/23 10:31 25 mg ONCE ONE Administration Lorazepam 1 mg 06/13/23 10:30 06/13/23 10:36 Lorazepam 1 Mg Tablet PO 06/13/23 10:31 1 mg ONCE ONE Administration Medical Decision Making Medical Decision Making [facility] Narrative: 43 yo male wiht PMH of anxiety, depression, bipolar, fibromyalgia here with c/o anxiety and feels he cannot catch his breath just had ACS workup that was negative and CXR that was negative he denies infectious symptoms he is PERC negative doubt VTE, he also c/o blood in stool with BM hx of hemorrhoids just had CT scan and CBC will repeat CBC - his symptoms seem more anxiety driven will dose with ativan and atarax and reassess he has a prescriber appointment getting set up and is involved with [facility]. Differential Diagnosis Differential Diagnoses: The differential diagnosis associated with the presentation includes anxiety, clear lungs doubt asthma, just had full ACS workup no CP, just had normal CXR doubt pneumonia, PERC negative doubt PE, PO medications ordered. Admission/Observation Consideration of admission/observation: Escalation of care including admission/observation considered H/H stable, medications worked can follow up as outpatient Lab Data [facility] Lab Attestation statement: I reviewed the patient's lab results. 06/13/23 11:23 Labs: Lab Results 06/13/23 Range/Units 11:23 WBC 3.9 L (4.8-10.8) X10*3/uL RBC 4.60 (4.60-5.80) X10*6/uL Hgb 13.8 L (14.0-18.0) g/dl Hct 40.5 L (42.0-52.0) % MCV 88.0 (80.0-98.0) fL MCH 30.0 (27.0-33.0) pg MCHC 34.1 (31.0-36.0) g/dl RDW 12.2 (11.0-16.0) % Plt Count 246 (160-400) X10*3/uL MPV 9.8 (9.4-12.4) fL Absolute Nucleated RBC 0.000 (0.0-0.012) X10*3/uL Nucleated RBC % (auto) 0.0 (0.0-0.2) /100WBC Radiology Impression Discussion of test interpretation with radiology: I have reviewed the radiologist's reading. External Record Review External record reviewed: Inpatient record and Office record Prescription Management I considered prescription management with: Other Discharge Plan Discharge Clinical Impression: Panic attack, Bleeding hemorrhoids Patient Disposition: Home, Self-Care Instructions: Hemorrhoids (ED), Panic Attack (ED) Additional Instructions: please follow up with your primary care doctor about your bleeding - make sure you are using a stool softener over the counter - return for pain, dizziness, worsening bleeding please follow up with your mental health providers this week the medications might make you sleepy do not swim or drive while taking the medication Prescriptions: New hydroxyzine HCl 50 mg tablet 50 mg PO TID PRN (Reason: anxiety) Qty: 30 0RF No Action acetaminophen [Tylenol Extra Strength] 500 mg tablet 500 mg PO Q6H PRN (Reason: fever or pain) Qty: 14 0RF lidocaine [Lidoderm] 5 % adhesive patch,medicated 1 patch topical DAILY MDD remove after 12 hours PRN (Reason: pain) Qty: 30 0RF Rx Instructions: leave on most painful area for up to 12 hrs cyclobenzaprine 5 mg tablet 5 mg PO Q8H PRN (Reason: pain (scale score 7-10)) 5 Days Qty: 14 0RF terbinafine HCl 250 mg tablet 250 mg PO DAILY cetirizine 10 mg tablet 10 mg PO QAM cholecalciferol (vitamin D3) [Vitamin D3] 50 mcg (2,000 unit) capsule 50 mcg PO DAILY Qty: 90 2RF Metamucil 3.4 gram/5.4 gram powder 1 tbsp PO BID Qty: 660 3RF Rx Instructions: mix into at least 8 oz of water or juice before administering
[2023-06-13] MEDS: LORazepam 1 MG TABLET PO (10:36)
[2023-06-13] MEDS: hydrOXYzine HCL 25 MG TABLET PO (10:36)
--- NOTE | 2023-06-13 11:25 | PC.NURSE ---
pt comes back from the waiting room with difficulty breathing/SOB. reports that this has been going on for three days and he was treated here three days ago for the same thing. pt reports a hx of BPD and that yesterday at their PCP appt their doc said they were in a manic stage. Pt was unable to catch his breath, PO ativan and atarax given which resulted in decrease in diff breathing and pt was able to rest. blood draw pending
[2023-06-13 11:27] LABS: Hematocrit 40.5 % (42.0-52.0); Hemoglobin 13.8 g/dl (14.0-18.0); Mean Corpuscular HGB Conc 34.1 g/dl (31.0-36.0); Mean Platelet Volume 9.8 fL (9.4-12.4); Platelet Count 246 X10*3/uL (160-400); Red Cell Distribution Width 12.2 % (11.0-16.0); White Blood Count 3.9 X10*3/uL (4.8-10.8)
== END 2023-06-13 12:21 | disposition home or self-care (01) ==
PROVIDERS: Emergency Provider Emergency Medicine; PCP Internal Medicine
DX: F41.0 Panic disorder [episodic paroxysmal anxiety] (principal); K64.9 Unspecified hemorrhoids; R06.02 Shortness of breath; F41.9 Anxiety disorder, unspecified; Z79.899 Other long term (current) drug therapy
CPT/HCPCS: 36415; 85027; 99283

== ENCOUNTER 2023-06-25 07:21 | Day surgery (SDC) | payer MEDICAID, SELFPAY ==
--- NOTE | 2023-06-24 09:36 | HO.ANESPROP2 ---
Documented by User: Ludivina Madden NP 06/24/23 09:40 HPI - Anesthesia Eval Consult details Narrative: 43yo M for EUA,Hemorrhoidectomy,lithotomy [facility] [place] ED 05/2023 with SOB r/t anxiety. [facility] Active Problems Active Problems: All Active Problems (Updated 06/14/23 @ 00:06 by Background Daemon) Spondylosis of cervical region without myelopathy or radiculopathy (Acute) Closed fracture of distal phalanx of middle finger (Acute) Blurred vision, left eye (Acute) Muscle spasms of neck (Acute) Cervical radiculopathy (Acute) Cervical spondylosis (Acute) Tubular adenoma (Acute) Hemorrhoids (Acute) Polyarthralgia (Acute) Tendinitis of left rotator cuff (Acute) Fibromyalgia (Acute) Pars defect of lumbar spine (Acute) Bilateral lumbar radiculopathy (Acute) Spondylosis of lumbar spine (Acute) Painful arc syndrome of left shoulder (Acute) Weight loss, abnormal (Acute) Epigastric abdominal pain (Acute) Rectal bleeding (Acute) Vitamin D deficiency (Acute) Past Medical History Medical History Anxiety Depression Fibromyalgia Hx of bipolar disorder Insomnia Left varicocele Vitamin D deficiency Family History Family History Maternal Grandmother Diabetes Colon cancer Maternal Aunt Colon cancer Sister Colon polyp Family history of problems with anesthesia: No Surgical History Surgical History H/O colonoscopy History of esophagogastroduodenoscopy (EGD) History of surgery on arm Rectal bleeding History of Problems with Anesthesia: No Social History Social History Household Members: Family Alcohol intake: never Patient Tobacco Use Status: Never used Tobacco e-Cigarette/Vaping Use: Never Used Use of substances other than those prescribed or required for medical reasons: No Are you DNR?: No Advance Directives: No Advance Directives Information Provided: Yes Current occupational status: employed Current occupation: [employer]/ right hand dominant Meds Allergies Allergy/AdvReac Type Severity Reaction Status Date / Time No Known Allergies Allergy Verified 06/25/23 07:51 [No Known Allergies*] Home Medications Medication Instructions Recorded Confirmed Last Taken Type cetirizine 10 mg tablet 10 mg PO QAM 04/17/23 06/25/23 Unknown History melatonin 3 mg tablet 6 mg PO DAILY 06/25/23 06/25/23 Unknown History risperidone 0.5 mg tablet 0.5 mg PO BID 06/25/23 06/25/23 Unknown History Exam Exam Date and Time: June 24, 2023 0936 Pertinent Lab Results Pertinent Lab Results: Laboratory Tests 06/10/23 06/13/23 17:08 11:23 WBC 3.9 L Hgb 13.8 L Hct 40.5 L Plt Count 246 Sodium 141 Potassium 4.5 Chloride 107 Carbon Dioxide 28 BUN 13 Creatinine 0.94 Narrative Narrative: EKG 06/10/23 Vent. Rate : 071 BPM ? ? Atrial Rate : 071 BPM ?? P-R Int : 140 ms? QRS Dur : 080 ms ? ? QT Int : 412 ms ? ? ? P-R-T Axes : 078 035 041 degrees ?? QTc Int : 447 ms ? Poor data quality, interpretation may be adversely affected Normal sinus rhythm Normal ECG When compared with ECG of 03-JAN-2023 10:25, No significant change was found Assessment and Plan Assessment Anesthesia Assessment: Chart Reviewed Final Anesthetic Review Family History of Problems with Anesthesia: No History of Problems with Anesthesia: No Documented by User: Taz Kaamra MD 06/25/23 08:30 [facility] Past Medical History Medical History Anxiety Depression Fibromyalgia Hx of bipolar disorder Insomnia Left varicocele Vitamin D deficiency Family History Family History Maternal Grandmother Diabetes Colon cancer Maternal Aunt Colon cancer Sister Colon polyp Surgical History Surgical History H/O colonoscopy History of esophagogastroduodenoscopy (EGD) History of surgery on arm Rectal bleeding Social History Social History Household Members: Family Alcohol intake: never Patient Tobacco Use Status: Never used Tobacco e-Cigarette/Vaping Use: Never Used Use of substances other than those prescribed or required for medical reasons: No Are you DNR?: No Advance Directives: No Advance Directives Information Provided: Yes Current occupational status: employed Current occupation: [employer]/ right hand dominant Meds Allergies Allergy/AdvReac Type Severity Reaction Status Date / Time No Known Allergies Allergy Verified 06/25/23 07:51 [No Known Allergies*] Home Medications Medication Instructions Recorded Confirmed Last Taken Type cetirizine 10 mg tablet 10 mg PO QAM 04/17/23 06/25/23 Unknown History melatonin 3 mg tablet 6 mg PO DAILY 06/25/23 06/25/23 Unknown History risperidone 0.5 mg tablet 0.5 mg PO BID 06/25/23 06/25/23 Unknown History Exam Airway Mallampati Class: I TM Dist: >3cm Neck ROM: Full Loose/Missing/Broken Teeth: Yes Assessment and Plan Assessment Anesthesia Assessment: Anesthesia Plan Discussed Final Anesthetic Review NPO: Yes ASA Class: II Final Preanesthetic Review: No Changes in Pt Med Stat, Meds/Allgs Chart Reviewed, Consent Obtained/Reviewed and Anes Risks/Benef Reviewed Patient Risk: Low Procedure Risk: Low Anesthetic Plan Anesthetic Plan: MAC: Disposition: Standard PACU
--- NOTE | 2023-06-24 20:42 | MHC.SHP ---
Pre-Procedural Eval Section A Date of Service: 06/24/23 The patient is an INPATIENT: No Changes since office visit: No Cold of Flu in the past 2 weeks, No New Medical Problems, No Changes in Medication and No Patient answered all questions The History & Physical has been completed within 30 days and I have reviewed it.: Yes Section B Chief Complaint: Hemorrhage of anus and rectum Allergies: Allergies Allergy/AdvReac Type Severity Reaction Status Date / Time No Known Allergies Allergy Verified 05/15/23 14:10 [No Known Allergies*] Plan I have reviewed the history and physical and performed a pertinent physical examination on my patient. No changes have occurred unless specified. Time Spent With Patient Time: Total time managing care of this patient today ____ minutes.
[2023-06-25] VITALS (7 sets, daily range): BP systolic 104–120; BP diastolic 60–79; PULSE 63–72; RESP 15–19; TEMP 36.1–36.4; O2SAT 98–100; BMI 22.1
[2023-06-25] MEDS: Lactated Ringers 1,000 ML 100 ML IVCONT (08:22)
--- NOTE | 2023-06-25 09:21 | P.OP_ITS ---
Operative Note Operative Note Date of Service: 06/25/23 Narrative: Preoperative diagnosis: [] Symptomatic hemorrhoids Postop diagnosis: [] Same Procedure [] hemorrhoidectomy Surgeon: [] [employer]: [] Type of Anesthesia: [] General Indication for surgery: [] Symptomatic hemorrhoids. Intraoperative findings demonstrated a moderately sized and internal and external hemorrhoids. Also in the right lateral position, there is a question of a soft tissue swelling/mass which was also excised suggestive of a lipoma. Findings: [] Patient brought to the operating room, placed on the operative table in supine position, after adequate level of general anesthesia was induced , patient was placed in lithotomy position, and the anorectal area was prepped and draped in usual sterile fashion. Rectal exam followed by anal retractor were placed. Hemorrhoidal areas of the cyst for 7 o'clock position were infiltrated with 1% lidocaine/0.5% Marcaine with epinephrine and uneventfully double fire ligature transected. Further exam under anesthesia demonstrated the left lateral distal rectal submucosal mass. This measured approximately 2 x 2 cm. This is also uneventfully excised using double firing of ligature and sent to pathology for permanent specimen taken. Wounds were irrigated, secured hemostasis, and sterile dressing followed by mesh underwear were placed. Sponge, needle, and instrument counts reported correct. Patient tolerated the procedure well and emerged anesthesia stable condition. EBL minimal
[2023-06-25] MEDS: Acetaminophen 325 MG TABLET 975 MG PO (09:39)
[2023-06-25] MEDS: oxyCODONE HCl Immed Release 5 MG TABLET PO (09:39)
== END 2023-06-25 10:45 | disposition home or self-care (01) ==
PROVIDERS: PCP Internal Medicine; Visit Provider Surgery
PROC: (CPT 46946; principal; 2023-06-25 08:30)
DX: K64.8 Other hemorrhoids (principal); K64.4 Residual hemorrhoidal skin tags; K62.89 Other specified diseases of anus and rectum; Z86.010 Personal history of colon polyps; Z83.71 Family history of colonic polyps; E55.9 Vitamin D deficiency, unspecified; F32.A Depression, unspecified; F41.1 Generalized anxiety disorder; Z79.899 Other long term (current) drug therapy
CPT/HCPCS: 46946; 45171; 88304; J0690; J1100; J2250; J2405; J3010

== ENCOUNTER → 2023-06-25 07:21 | Outpatient (BNV) | payer MEDICAID, SELFPAY | PROVIDERS: PCP Internal Medicine; Visit Provider Surgery | DX: K64.8 Other hemorrhoids (principal) | CPT/HCPCS: 46255 ==

== ENCOUNTER 2023-06-26 20:29 | Emergency (ER) | payer MEDICAID, SELFPAY ==
[2023-06-26 20:52] VITALS: BP 96/61; PULSE 87; RESP 18; TEMP 36.3; O2SAT 95; BMI 22.1
--- NOTE | 2023-06-26 23:54 | ED_ITS ---
HPI - General Adult General Chief complaint: General Medical Stated complaint: Pain post op Time Seen by Provider: 06/26/23 23:38 Source: patient Limitations: no limitations History of Present Illness HPI narrative: Patient presents with rectal pain. Patient had a hemorrhoidectomy yesterday. Since then he has had severe pain. Pain medication prescribed as not been providing with any relief. He is taking stool softeners. The pain is worse with movement, sitting, palpation. The pain does not radiate. Not associated with nausea vomiting. Pain is sharp and severe Related Data Home Medications Medication Instructions Recorded Confirmed cetirizine 10 mg tablet 10 mg PO QAM 04/17/23 06/25/23 melatonin 3 mg tablet 6 mg PO DAILY 06/25/23 06/25/23 risperidone 0.5 mg tablet 0.5 mg PO BID 06/25/23 06/25/23 Previous Rx's Medication Instructions Recorded acetaminophen 500 mg tablet 500 mg PO Q6H PRN fever or pain 01/03/23 (Tylenol Extra Strength) #14 tabs cyclobenzaprine 5 mg tablet 5 mg PO Q8H PRN pain (scale score 01/03/23 7-10) 5 days #14 tabs lidocaine 5 % topical patch 1 patch topical DAILY PRN pain #30 01/03/23 (Lidoderm) ea cholecalciferol (vitamin D3) 50 50 mcg PO DAILY #90 caps 04/17/23 mcg (2,000 unit) capsule (Vitamin D3) hydroxyzine HCl 50 mg tablet 50 mg PO TID PRN anxiety #30 tabs 06/13/23 hydrocodone 5 mg-acetaminophen 325 1 tab PO Q4-6H PRN pain #30 tabs 06/25/23 mg tablet hydromorphone 2 mg tablet 2 mg PO Q6H PRN pain #10 tabs 06/26/23 (Dilaudid) Allergies Allergy/AdvReac Type Severity Reaction Status Date / Time No Known Allergies Allergy Verified 06/25/23 07:51 [No Known Allergies*] Review of Systems Review of Systems: CONSTITUTIONAL: Denies weight loss, fever and chills. HEENT: Denies changes in vision and hearing. RESPIRATORY: Denies SOB and cough. CV: Denies palpitations no CP. GI: Denies abdominal pain, nausea, vomiting and diarrhea. : Denies dysuria and urinary frequency. MSK: Denies myalgia and joint pain. SKIN: Denies rash and pruritus. NEUROLOGICAL: Denies headache and syncope. PSYCHIATRIC: Denies recent changes in mood. Denies anxiety and depression. All other ROS are negative unless in HPI PMFSH Past Medical History Medical History Anxiety Depression Fibromyalgia Hx of bipolar disorder Insomnia Left varicocele Vitamin D deficiency Surgical History H/O colonoscopy History of esophagogastroduodenoscopy (EGD) History of surgery on arm Rectal bleeding Family History Family History Maternal Grandmother Diabetes Colon cancer Maternal Aunt Colon cancer Sister Colon polyp Social History Social History Household Members: Family Alcohol intake: never Patient Tobacco Use Status: Never used Tobacco e-Cigarette/Vaping Use: Never Used Advance Directives: No Advance Directives Information Provided: Yes Current occupational status: employed Current occupation: [employer]/ right hand dominant Physical Exam ED Vital Signs: Vital Signs - 24 hr 06/26/23 20:52 Temperature 97.4 F Pulse Rate 87 Respiratory Rate 18 Blood Pressure 96/61 Pulse Oximetry 95 Oxygen Delivery Method Room Air BMI result Body Mass Index 22.1 GEN: Well developed, no acute distress, alert, oriented HEENT: Normocephalic, atraumatic, normal external ears, nose appears normal Eyes: Normal to appearance Neck: Supple, no lymphadenopathy Respiratory: Talks in complete sentences, no respiratory distress Extremities: No clubbing cyanosis or edema Neurologic: No focal neurologic deficits, cranial nerves 2-12 intact, gait normal Skin: No rash Medical Decision Making Medical Decision Making MDM Narrative: Patient presents with postoperative rectal pain from hemorrhoidectomy. Will switch him to Dilaudid orally. He will continue stool softeners. Will follow up with his surgeon early next week. It is too early for postoperative infection. He is aware that pain will be severe postoperatively. External Record Review External record reviewed: Other (Surgical record) Prescription Management I considered prescription management with: Pain Medication and Antibiotic Discharge Plan Discharge Clinical Impression: Anal or rectal pain Patient Disposition: Home, Self-Care Instructions: Rectal Pain (ED) Prescriptions: New hydromorphone [Dilaudid] 2 mg tablet 2 mg PO Q6H PRN (Reason: pain) Qty: 10 0RF Rx Instructions: Partial Fill upon patient request. No Action acetaminophen [Tylenol Extra Strength] 500 mg tablet 500 mg PO Q6H PRN (Reason: fever or pain) Qty: 14 0RF lidocaine [Lidoderm] 5 % adhesive patch,medicated 1 patch topical DAILY MDD remove after 12 hours PRN (Reason: pain) Qty: 30 0RF Rx Instructions: leave on most painful area for up to 12 hrs cyclobenzaprine 5 mg tablet 5 mg PO Q8H PRN (Reason: pain (scale score 7-10)) 5 Days Qty: 14 0RF hydroxyzine HCl 50 mg tablet 50 mg PO TID PRN (Reason: anxiety) Qty: 30 0RF risperidone 0.5 mg Tablet 0.5 mg PO BID melatonin 3 mg Tablet 6 mg PO DAILY hydrocodone-acetaminophen 5-325 mg tablet 1 tab PO Q4-6H PRN (Reason: pain) Qty: 30 0RF Rx Instructions: Partial Fill upon patient request. cetirizine 10 mg tablet 10 mg PO QAM cholecalciferol (vitamin D3) [Vitamin D3] 50 mcg (2,000 unit) capsule 50 mcg PO DAILY Qty: 90 2RF Referrals: Shashank Abarca MD [Physician] - 3 days
[2023-06-27] MEDS: HYDROmorphone HCl 2 MG TABLET PO
== END 2023-06-27 00:02 | disposition home or self-care (01) ==
PROVIDERS: Emergency Provider Emergency Medicine; PCP Internal Medicine
DX: K62.89 Other specified diseases of anus and rectum (principal); G89.18 Other acute postprocedural pain; Z79.899 Other long term (current) drug therapy
CPT/HCPCS: 99283

== ENCOUNTER 2023-06-30 08:27 | Outpatient (AMB) | payer MEDICAID, SELFPAY ==
--- NOTE | 2023-06-30 08:35 | A.OFFVIS_ITS ---
Intake Vital Signs 06/30/23 08:39 Height 5 ft 3 in Weight 129 lb BMI 22.8 BP 120/79 Blood Pressure Location Rt brachial Position Standing Pulse 80 Intake Visit Reasons: S/P hemorrhoidectomy, pain post op Intake Note: Patient walked in this morning. Hemorrhoidectomy on 06-25-23. C/o severe pain. Rx pain meds not helping. C/o constipation. Had a bleeding episode this morning while trying to have a BM. Reports currently taking colace and miralax. Unable to sit or lay. Hasn't been able to sleep for the past 3days with pain. Would like to get stronger pain meds. 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 Required: No Accompanied by: Self / Same As Patient Allergies No Known Allergies [No Known Allergies*] Allergy (Verified 06/30/23 08:42) Medication List - Last Reconciled 06/30/23 by Shashank Abarca MD acetaminophen (Tylenol Extra Strength) 500 mg PO Q6H PRN cetirizine 10 mg PO QAM cholecalciferol (vitamin D3) (Vitamin D3) 50 mcg PO DAILY cyclobenzaprine 5 mg PO Q8H PRN 5 days hydrocodone-acetaminophen 5-325 mg 1 tab PO Q4-6H PRN hydromorphone (Dilaudid) 2 mg PO Q6H PRN hydroxyzine HCl 50 mg PO TID PRN lidocaine 5% (Lidoderm) 1 patch topical DAILY PRN MDD remove after 12 hours melatonin 6 mg PO DAILY risperidone 0.5 mg PO BID HPI HPI Comments History of Present Illness Details Patient presents for follow-up. He is having marked incisional discomfort but otherwise doing okay. He is increasing his activity level. Advancing his diet. Had some hard stool which he is taking stool softeners [facility] Medical History Anxiety Depression Fibromyalgia Hx of bipolar disorder Insomnia Left varicocele Vitamin D deficiency Surgical History (Updated 06/30/23 @ 09:12 by Shashank Abarca MD) H/O colonoscopy History of esophagogastroduodenoscopy (EGD) History of hemorrhoidectomy (06/25/23) History of surgery on arm Rectal bleeding Family History Maternal Grandmother Diabetes Colon cancer Maternal Aunt Colon cancer Sister Colon polyp Social History Household Members: Family Alcohol intake: never Patient Tobacco Use Status: Never used Tobacco e-Cigarette/Vaping Use: Never Used Current occupational status: employed Current occupation: [employer]/ right hand dominant Physical Exam Vital Signs: Last Vital Signs Pulse 80 06/30/23 08:39 BP 120/79 06/30/23 08:39 BMI result Body Mass Index 22.8 GI Other: Abdomen soft. Hemorrhoidal wounds healing uneventfully. No evidence of any infection. Assessment & Plan Assessment & Plan (1) Hemorrhoids: Comment: Likely cause for rectal bleeding, Maintain high-fiber diet, avoid straining, Anusol cream Code(s): K64.9 - Unspecified hemorrhoids Plan Patient has been given local instructions including Sitz baths, stool softeners, analgesics, and will see me as directed or p.r.n.. Medications: New hydromorphone (Dilaudid) Partial Fill upon patient request. 2 mg PO Q4-6H PRN 60 tabs 0RF pain Coding Level of Care Code Global (63119) Diagnoses Hemorrhoids K64.9
[2023-06-30 08:39] VITALS: BP 120/79; PULSE 80; BMI 22.8
== END 2023-06-30 09:00 | disposition home or self-care (01) ==
PROVIDERS: PCP Internal Medicine; Visit Provider Surgery
DX: K64.9 Unspecified hemorrhoids (principal)
CPT/HCPCS: 99024

== ENCOUNTER → 2023-06-30 08:27 | Outpatient (BNVA) | payer MEDICAID, SELFPAY | PROVIDERS: PCP Internal Medicine; Visit Provider Surgery ==

== ENCOUNTER 2023-07-07 09:03 | Outpatient (AMB) | payer MEDICAID, SELFPAY ==
[2023-07-07 09:11] VITALS: BP 120/73; BMI 22.8
--- NOTE | 2023-07-07 09:11 | MHC.OFFVIS ---
Intake Vital Signs 07/07/23 09:11 Height 5 ft 3 in Weight 129 lb BMI 22.8 BP 120/73 Blood Pressure Location Rt brachial Position Sitting Intake Visit Reasons: S/P hemorrrhoidectomy Intake Note: Patient here s/o hemorrhoidectomy. Was seen at the ER yesterday due to severe pain. C/o pain that sometimes feels like stabbing. Taking rx pain med as needed. Epson salt bath helped last night. 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 Required: No Accompanied by: Self / Same As Patient Allergies No Known Allergies [No Known Allergies*] Allergy (Verified 07/07/23 09:13) Medication List - Last Reconciled 07/07/23 by Shashank Abarca MD acetaminophen (Tylenol Extra Strength) 500 mg PO Q6H PRN cetirizine 10 mg PO QAM cholecalciferol (vitamin D3) (Vitamin D3) 50 mcg PO DAILY cyclobenzaprine 5 mg PO Q8H PRN 5 days docusate sodium (Colace) 100 mg PO BID hydrocodone-acetaminophen 5-325 mg 1 tab PO Q4-6H PRN hydromorphone (Dilaudid) 2 mg PO Q6H PRN hydromorphone (Dilaudid) 2 mg PO Q4-6H PRN hydromorphone (Dilaudid) 2 mg PO Q4-6H PRN hydroxyzine HCl 50 mg PO TID PRN lidocaine 5% (Lidoderm) 1 patch topical DAILY PRN MDD remove after 12 hours melatonin 6 mg PO DAILY polyethylene glycol 3350 (Miralax) 17 grams PO BID risperidone 0.5 mg PO BID HPI HPI Comments History of Present Illness Details Patient presents status post an episode of very hard/constipated stool passing through and developing severe incisional pain at his hemorrhoidectomy site. He had no bleeding or any other associated symptoms. In the meantime he was tolerating his diet. This was his only episode of hard stool. He was seen by his primary care physician and no acute pathology was demonstrated on their evaluation. He was given local instructions including Sitz baths and topical xylocaine PFSH Medical History Left varicocele Hx of bipolar disorder Insomnia Fibromyalgia Vitamin D deficiency Anxiety Depression Surgical History History of hemorrhoidectomy (06/25/23) History of esophagogastroduodenoscopy (EGD) H/O colonoscopy History of surgery on arm Rectal bleeding Family History Maternal Grandmother Diabetes Colon cancer Maternal Aunt Colon cancer Sister Colon polyp Social History Household Members: Family Alcohol intake: never Patient Tobacco Use Status: Never used Tobacco e-Cigarette/Vaping Use: Never Used Current occupational status: employed Current occupation: [employer] (formerly [employer])/ right hand dominant Physical Exam Vital Signs: Last Vital Signs BP 120/73 07/07/23 09:11 BMI result Body Mass Index 22.8 GI Other: Abdomen soft benign. Rectal exam demonstrates well-healed hemorrhoid wounds. No evidence of any infection , discharge or purulence. Assessment & Plan Assessment & Plan (1) Hemorrhoids: Comment: Likely cause for rectal bleeding, Maintain high-fiber diet, avoid straining, Anusol cream Code(s): K64.9 - Unspecified hemorrhoids Plan Patient was reassured. We are trying to wean off narcotics and will give him a script for Motrin 800 mg. He has been given local instructions which he should continue. Patient will follow-up p.r.n.. Medications: New ibuprofen 800 mg PO Q8H PRN 40 tabs 0RF pain Coding Level of Care Code Global (73001) Diagnoses Hemorrhoids K64.9
== END 2023-07-07 09:20 | disposition home or self-care (01) ==
PROVIDERS: PCP Internal Medicine; Visit Provider Surgery
DX: K64.9 Unspecified hemorrhoids (principal)
CPT/HCPCS: 99024

== ENCOUNTER → 2023-07-07 09:03 | Outpatient (BNVA) | payer MEDICAID, SELFPAY | PROVIDERS: PCP Internal Medicine; Visit Provider Surgery ==

== ENCOUNTER 2023-07-08 13:22 | Outpatient (AMB) | payer MEDICAID, SELFPAY ==
--- NOTE | 2023-07-08 13:48 | A.OFFVIS_ITS ---
Intake Vital Signs 07/08/23 13:51 Height 5 ft 3 in Weight 132 lb BMI 23.4 BP 109/64 Blood Pressure Location Rt brachial Position Sitting Respiration 16 Pulse 78 Pulse Source Pulse Oximeter Pulse Oximetry (%) 98 Oxygen Delivery Method Room Air Intake Visit Reasons: Post op Allergies No Known Allergies [No Known Allergies*] Allergy (Verified 07/08/23 13:52) HPI HPI Comments History of Present Illness Details Jorgito is back in my office after therapeutic C3-C4 C5-C6 left-sided medial branch block which resulted in no pain improvement he reported that after the injection the pain became slightly better for few days however came back to the baseline soon after the procedure. I explained to the patient that I am willing to form transforaminal epidural steroid injection C6-C7 as it was recommended by his neurosurgeon. I answered him that personally I did not see the reason to perform such a procedure however if he feels that it is necessary I will be willing to complete this injection. Alternatively to treat this patient's pain I offered him to perform a trial of spinal cord stimulation. Psychological evaluation will be required if he decides to go for the trial. I am contemplating [employer] device for this patient. He will give us a call about his decision. Prior: presents in my office with complains on cervicalgia with pain radiating into the right shoulder and upper forearm but not below the level of the elbow. He denies pain radiation into the forearm wrist hand or fingers. He denies weakness or numbness in the left upper extremity. He was referred to this office with the recommendations to perform C6-C7 transforaminal epidural steroid injection. He went for EMG after the referral and the EMG demonstrated normal nerve conduction which is - impossible with radiculopathy. On physical exam also there was significant evidence of facet joint arthropathy is below and no evidence of radiculopathy: Spurling test is negative and Lhermitte test is negative. At the same time attention is attracted with pressurized speech of the patient, agitated facial expression, frequent interruptions during conversation and raising his voice. I was present in the office with my central office maintainer Elana Lay to document this patient's behavior. Prior: history of chronic pain syndrome with L5 pars defect with mass effect and bilateral L5 nerve roots, presents with left sided neck pain with radiculopathy. Patient was initially seen in our office by Evelyn DELA CRUZ last year in February and was recently referred for cervical spine evaluation by our orthopedic colleagues. 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 Patient presents today very upset and frustrating with dealing chronic daily pain and awaiting for Worker?s Comp to approve for his back surgery per neurosurgical consultation with Dr. Ortez at [facility] since last year. Patient reports multiple visits to ER and pain management specialists and continues to be in significant pain. During today's visit, patient was very upset, aggressive, and hyperventilating with increased anxiety and hostility as he states he has been to multiple different ERs and this has been very ineffective and very dramatic for him. Patient reports vision changes on the left side with blurry vision and pain with chewing for the past 3 days. 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 Patient presents with limited neck movements on the left side with pain radiating to her left shoulder and left lateral upper arm with numbness and tingling sensations. Reports significant muscle spasms and tenderness that radiates up to his left side of his head and face. He denies shoulder pain but has difficulty reaching his back side pocket and slight pain with overhead reaches. Denies bladder or bowel incontinence or saddle anesthesia. Reports left upper arm pain with decreased senior cytotechnologist strength. Patient completed 4 sessions of physical therapy with minimal improvement. We briefly discussed interventional treatment options, including diagnostic vs therapeutic injections for potential longer term options to manage his cervical axial and radicular pain. Patient refused interventional treatments options, declined injections, reports ?I had injections in the past, they don?t work. I need you to fix me, fix me now. I am tired of living in pain like this.? 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 I cannot go on living like this.? Reports depressive thoughts without SI/HI. Patient conveyed to me that he has an upcoming appointment with a psychologist or mental health therapist. Patient has tried to manage his pain in the past with diclofenac gel, Fioricet, cyclobenzaprine, naproxen, gabapentin, Tylenol and toradol with continued pain. He reports most of these medications he tried only for a few days and he stopped them due to ineffectiveness. Cervical spine MRI was completed on 11/14/22 and is noted below. Results were discussed with patient. Patient requests referral to Dr. Ortez at this time. [facility] 03/12/22: Jorgito is a very pleasant 42 year old male who presents to the office with complaints of low back pain. He is accompanied by his . He reports a history of chronic intermittent back pain which was exacerbated after a work related injury that occurred about two months ago. He was referred for a possible injection after an evaluation through workman's comp. He also reports that he was referred to Dr. Ortez at [facility] for evaluation. He reports low back pain which travels across the low back and travels laterally down BLE into feet, L>R, with associated numbness and tingling. He feels as though his left leg constantly falls asleep . He reports an occasional limp with the LLE and associated weakness when pain is severe. He denies any saddle anesthesia or bowel/bladder dysfunction. He reports pain onset was sudden, constant and rates the pain a 4-10/10. He states the pain is interfering with sleep, activities of daily living and he cannot function normally. He reports modifying his activity due to pain especially limiting the amount he lifts. He reports walking quite frequently while at work which also exacerbates his pain. The patient reports the pain in terms of tissue damage as throbbing, sharp, cramping, tingling as well as heavy, tiring and tight. He has tried oral prednisone, flexeril, gabapentin, NSAIDS, heat/ice and tylenol with minimal effect. Denies any previous back injections or surgery. He had a lumbar spine xray and MRI, report dictated below. [facility] Medical History Left varicocele Hx of bipolar disorder Insomnia Fibromyalgia Vitamin D deficiency Anxiety Depression Surgical History History of hemorrhoidectomy (06/25/23) History of esophagogastroduodenoscopy (EGD) H/O colonoscopy History of surgery on arm Rectal bleeding Family History Maternal Grandmother Diabetes Colon cancer Maternal Aunt Colon cancer Sister Colon polyp Social History Household Members: Family Alcohol intake: never Patient Tobacco Use Status: Never used Tobacco e-Cigarette/Vaping Use: Never Used Current occupational status: employed Current occupation: [employer]/ right hand dominant Review of Systems Const All systems reviewed & are unremarkable except as noted in HPI and below Neuro Denies confusion Psych Denies confusion Physical Exam Vital Signs: Last Vital Signs Pulse 78 07/08/23 13:51 Resp 16 07/08/23 13:51 BP 109/64 07/08/23 13:51 Pulse Ox 98 07/08/23 13:51 Oxygen Delivery Method Room Air 07/08/23 13:51 BMI result Body Mass Index 23.4 Const General: healthy appearing, no acute distress, alert, awake, anxious and well groomed; No cooperative or confusion Nutritional Appearance: average body habitus and well nourished Orientation/consciousness: patient oriented x3 and No confusion HEENT Head: Yes normal to inspection, Yes normocephalic and Yes atraumatic Ears: hearing grossly normal bilaterally Face and sinus: Yes normal facial exam and Yes face symmetric Eyes General: appearance normal, both eyes and all related structures Visual Donald: normal visual donald by confrontation Pupils: Equal, round and reactive pupils present EOM: EOMs intact bilaterally Neck Other: Limited exam due to patient's uncooperative and dismissive attitude. Patient presents decreased cervical ROM in all planes/especially with left lateral rotation. Reports increased pain with cervical extension and flexion. Patient demonstrated 5/5 right and 4/5 right motor strength of bilateral upper extremities. 2 + radial pulses. Significant tightness throughout left upper trapezius as well as TTP throughout bilateral upper trapezius muscles. Neck: Yes normal visual inspection, Yes supple and Yes no JVD Resp Effort & Inspection: normal respiratory effort, able to speak in complete sentences and no audible wheezes Neuro General: patient oriented x3, moves all extremities, Normal light touch and pain sensation and No confusion Cranial nerves: Yes Equal, round and reactive pupils present, Yes Bilaterally intact EOM present and Yes Nystagmus not present Gait exam (Neuro): Normal gait present Motor exam (neuro): no tremor noted, Normal motor muscle tone present throughout and Motor abnormalities not present Extrem General: Yes capillary refill normal, Yes no clubbing, cyanosis or edema and Yes no calf tenderness Psych Appearance: grossly normal and well kempt Speech and movement: Normal speech and movement present and Clear speech present Affect: normal affect Attitude: cooperative Thought process: Normal thought process present Thought content: Normal thought content present, suicidality and Depressive thoughts present Insight: Fair insight present (Psych) Judgement: Fair judgement present (Psych) Results Reviewed Results Reviewed: ELECTROMYOGRAPHY 01/28/2023. All nerve conduction studies are within normal limits. The muscle scoring table definition stored in the current test does not match the sentence generator set up. The sentence caudad not been generated. Impression: Normal motor and sensory nerve conduction study in the left upper extremity with no evidence of carpal tunnel syndrome or ulnar nerve entrapment. Normal EMG of the left C5-T1 innervated muscles. MR CERVICAL SPINE WITHOUT CONTRAST 11/14/22 CLINICAL INFORMATION: Left-sided neck pain radiating to the left shoulder and arm. FINDINGS: Cervical alignment is normal. The vertebral body heights are maintained. There is mild disc volume loss at C5-C6. There is no bone marrow edema. There are no acute fractures. The craniocervical junction is unremarkable. Cervical arterial flow voids are maintained. There are no significant extraspinal soft tissue findings. There are no cord signal changes. Partially imaged posterior fossa is unremarkable. C2-C3: Disc contour is normal. No central canal stenosis and no foraminal stenosis. C3-C4: Uncovertebral joint spurring and facet arthropathy result in mild left-sided foraminal encroachment. Shallow disc protrusion mildly narrows the central canal. No right foraminal stenosis. C4-C5: A shallow disc protrusion mildly narrows the central canal. Proximal left foraminal disc protrusion results in mild to moderate left-sided foraminal encroachment. C5-C6: Uncovertebral joint spurring and hypertrophic facet arthropathy result in moderate bilateral foraminal stenosis. No central canal stenosis. C6-C7: Slight annular disc bulge. Left-sided uncovertebral joint spurring and hypertrophic facet arthropathy result in moderate left-sided foraminal stenosis. C7-T1: Disc contour is normal. No central canal stenosis and no foraminal stenosis. IMPRESSION: Multilevel cervical spondylosis: - At C4-C5, a shallow proximal left foraminal disc protrusion results in mild to moderate proximal left-sided foraminal stenosis and a shallow right paracentral disc protrusion mildly narrows the central canal. - At C5-C6, spondylitic changes result in moderate bilateral foraminal stenosis. - At C6-C7, spondylitic changes result in moderate left-sided foraminal stenosis. MRI of the left shoulder, obtained 12/02/2022 1. Mild supraspinatus and infraspinatus tendinosis without a measurable rotator cuff tendon tear. Degenerative cystic change and marrow edema within the underlying greater tuberosity. 2. No displaced labral tear. Assessment & Plan Assessment & Plan (1) Cervical spondylosis: Code(s): M47.812 - Spondylosis without myelopathy or radiculopathy, cervical region (2) Cervical radiculopathy: Code(s): M54.12 - Radiculopathy, cervical region (3) Muscle spasms of neck: Code(s): M62.838 - Other muscle spasm (4) Fibromyalgia: Code(s): M79.7 - Fibromyalgia (5) Pars defect of lumbar spine: Code(s): M43.06 - Spondylolysis, lumbar region (6) Spondylosis of lumbar spine: Code(s): M47.816 - Spondylosis without myelopathy or radiculopathy, lumbar region (7) Spondylosis of cervical region without myelopathy or radiculopathy: Code(s): M47.812 - Spondylosis without myelopathy or radiculopathy, cervical region Plan: Plan Patient is being referred back to Dr. Ortez at [facility] per his request to further evaluate for cervical spondylosis with left sided radiculopathy. He declined all interventional treatment options through our office today. Patient is frustrated for dealing with his chronic pain that has been exacerbated by work related injury last year and year long awaiting for back surgery approval from his Worker's Comp insurance. Instead I offered him left C3-C4- C5_C6 medial branch block. Unfortunately patient reported very minimal pain relief for 1st today's after the procedure. I explained to the patient that if he wants to I can perform C6-C7 transforaminal epidural steroid injection on the left even though the EMG is negative for radiculopathy. He has MRI is not also very impressive with only moderate cervical foraminal stenosis at the level of C6-C7. That will be decision for him to consider. He will give us a call and report which IV new he wants to pursue. I warned him that his ability to withstand the trial of spinal cord stimulator Get Fractal depends on his ability to pass through psychological evaluation. He is currently under care of psychologist and psychiatrist and he will request his psychiatrist to issue for him the summary of his psychiatric care. Coding Level of Care Code Est Pt Level 4 (42720) Diagnoses Cervical spondylosis M47.812 Cervical radiculopathy M54.12 Muscle spasms of neck M62.838 Fibromyalgia M79.7 Pars defect of lumbar spine M43.06 Spondylosis of lumbar spine M47.816 Spondylosis of cervical region without myelopathy or radiculopathy M47.812
[2023-07-08 13:51] VITALS: BP 109/64; PULSE 78; RESP 16; O2SAT 98; BMI 23.4
== END 2023-07-08 14:26 | disposition home or self-care (01) ==
PROVIDERS: PCP Internal Medicine; Visit Provider Anesthesiology
DX: M47.812 Spondylosis without myelopathy or radiculopathy, cervical region (principal); M54.12 Radiculopathy, cervical region; M62.838 Other muscle spasm; M79.7 Fibromyalgia; M43.06 Spondylolysis, lumbar region; M47.816 Spondylosis without myelopathy or radiculopathy, lumbar region
CPT/HCPCS: 99214

== ENCOUNTER → 2023-07-08 13:22 | Outpatient (BNVA) | payer MEDICAID, SELFPAY | PROVIDERS: PCP Internal Medicine; Visit Provider Anesthesiology | DX: M47.812 Spondylosis without myelopathy or radiculopathy, cervical region (principal); M54.12 Radiculopathy, cervical region; M62.838 Other muscle spasm; M79.7 Fibromyalgia; M43.06 Spondylolysis, lumbar region; M47.816 Spondylosis without myelopathy or radiculopathy, lumbar region | CPT/HCPCS: 99212 ==

== ENCOUNTER 2023-12-25 08:22 | Outpatient (REF) | payer MEDICAID, SELFPAY ==
--- NOTE | ~2023-12-25 | XR_ITS ---
EXAMINATION: XR ELBOW, LEFT CLINICAL INFORMATION: Pain in left elbow COMPARISON: None available. TECHNIQUE: AP, lateral, and oblique views of the left elbow. FINDINGS: The bones are intact. No fracture or joint effusion. Alignment is anatomic. Joint spaces are maintained. There is mild soft tissue swelling over the olecranon which could represent olecranon bursitis.. XR/XR elbow LT min 3V IMPRESSION: 1. No bony abnormality. 2. Question of mild olecranon bursitis.
== END 2023-12-25 08:23 | disposition home or self-care (01) ==
LOC: HO.HOSX 08:22
PROVIDERS: PCP Internal Medicine; Visit Provider Physician Assistant
DX: M25.522 Pain in left elbow (principal); M79.642 Pain in left hand; R22.32 Localized swelling, mass and lump, left upper limb
CPT/HCPCS: 73080; 99212

== ENCOUNTER 2023-12-25 08:22 | Outpatient (AMB) | payer MEDICAID, SELFPAY ==
--- NOTE | 2023-12-25 08:28 | MHC.OFFVIS ---
Intake Vital Signs 12/25/23 08:40 Height 5 ft 3 in Weight 132 lb BMI 23.4 Intake Visit Reasons: New Prob- left hand and elbow pain Intake Note: Isis 43 year old right hand dominant male presents today for an evaluation of left elbow pain. Patient reports ongoing elbow pain that has been getting worse. States pain radiates up his arm into his shoulder as well as numbness in his hand. He has a lump on elbow that is tender to the touch. Limited ROM. Denies any traumatic injury. No other tx. 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 Allergies No Known Allergies [No Known Allergies*] Allergy (Verified 12/25/23 08:40) HPI New Prob- left hand and elbow pain HPI Details 43-year-old right hand dominant male who presents to the office today for evaluation of left hand and elbow pain. He states he has severe worsening pain and limited ROM in his elbow which radiates up to his arm and shoulder. He also c/o numbness and tenderness to touch in his left hand. He also experiences difficulty moving his hand. He denies any traumatic injury and has not had any treatment in the past. He has a history of fibromyalgia and compressed nerve in his back. [facility], [facility] Medical History Left varicocele Hx of bipolar disorder Insomnia Fibromyalgia Vitamin D deficiency Anxiety Depression Surgical History History of hemorrhoidectomy (06/25/23) History of esophagogastroduodenoscopy (EGD) H/O colonoscopy History of surgery on arm Rectal bleeding Family History Maternal Grandmother Diabetes Colon cancer Maternal Aunt Colon cancer Sister Colon polyp Social History Household Members: Family Alcohol intake: never Patient Tobacco Use Status: Never used Tobacco e-Cigarette/Vaping Use: Never Used Current occupational status: employed Current occupation: [employer]/ right hand dominant Review of Systems Const All systems reviewed & are unremarkable except as noted in HPI and below Physical Exam Vital Signs: BMI result Body Mass Index 23.4 Const General: cooperative and no acute distress Orientation/consciousness: patient oriented x3 Resp Effort & Inspection: normal respiratory effort and able to speak in complete sentences Cardio Peripheral pulses: Peripheral pulses 2+ throughout Neuro General: patient oriented x3 Extrem Other: Left elbow: Normal to inspection. He has full ROM. No pain with supination or pronation. [place] sized mass with tenderness over the lateral epicondyle of the elbow of unknown origin. NVI. Results Reviewed Results Reviewed: X-rays of the left elbow obtained in the office today are negative for any acute or chronic abnormalities. Assessment & Plan Assessment & Plan (1) Mass of left elbow: Code(s): R22.32 - Localized swelling, mass and lump, left upper limb Plan I did discuss with the patient the recommendations from the pain management and neurospine about their recommendations to help with his numbness and tingling; which he is not interested in at this time. I also ordered an MRI of the left elbow to further evaluate the etiology of the mass to determine the next step in her treatment. He is content with this plan. Orders: Orders XR elbow LT min 3V 12/25/23 M25.522 - Pain in left elbow MR elbow LT wo/w con 12/25/23 R22.32 - Localized swelling, mass and lump, left upper limb Patient Instructions: Scribed for Jorge Bermudez PA-C, by [facility] medical management trainer, on 12/25/2023 at 8:30 AM SHELLY. Jorge Romero PA-C, have personally reviewed and agree with the information entered by the scribe. Coding Level of Care Code New Pt Level 3 (12662) Diagnoses Mass of left elbow R22.32
[2023-12-25 08:40] VITALS: BMI 23.4
== END 2023-12-25 09:15 | disposition home or self-care (01) ==
PROVIDERS: PCP Internal Medicine; Visit Provider Physician Assistant
DX: R22.32 Localized swelling, mass and lump, left upper limb (principal)
CPT/HCPCS: 99213

== ENCOUNTER 2024-01-04 08:03 | Outpatient (REF) | payer MEDICAID, SELFPAY ==
--- NOTE | ~2024-01-04 | MR_ITS ---
EXAMINATION: MR ELBOW WITHOUT AND WITH CONTRAST, LEFT CLINICAL INFORMATION: Left elbow lump/mass. Localized swelling. COMPARISON: Left elbow radiographs dated 12/25/2023. TECHNIQUE: Multisequence MR imaging of the left elbow was obtained before and after the IV administration of 6 mL Gadavist contrast on a high-field strength scanner. FINDINGS: ULNAR COLLATERAL LIGAMENT: Intact. COMMON FLEXOR TENDON: Intact. RADIAL COLLATERAL LIGAMENT: Intact. COMMON EXTENSOR TENDON: Intact. BICEPS/TRICEPS TENDON: Intact distal biceps tendon. Minimal distal triceps tendinosis without a measurable tear. ARTICULAR CARTILAGE/BONE: No marrow edema or evidence of acute osseous injury. No fracture or dislocation. Intact articular cartilage. No osteochondral lesion. No post contrast marrow enhancement. ULNAR NERVE: Intact. JOINT FLUID/SOFT TISSUES: No soft tissue mass or fluid collection. Specifically, no mass or fluid collection in the region of the overlying skin marker. No evidence of olecranon bursitis. MR/MR elbow LT wo/w con IMPRESSION: 1. No soft tissue mass, fluid collection, or post contrast enhancement in the region of the overlying skin marker. No evidence of olecranon bursitis. 2. Minimal distal triceps tendinosis without a measurable tendon tear.
[2024-01-04] MEDS: gadobutroL 7.5 ML VIAL IVPUSH (08:54)
== END 2024-01-04 08:04 | disposition home or self-care (01) ==
LOC: HO.MRI 08:03
PROVIDERS: PCP Internal Medicine; Visit Provider Physician Assistant
DX: R22.32 Localized swelling, mass and lump, left upper limb (principal)
CPT/HCPCS: 73223; A9585

== ENCOUNTER 2024-01-15 08:31 | Outpatient (AMB) | payer MEDICAID, SELFPAY ==
--- NOTE | 2024-01-15 08:32 | A.OFFVIS_ITS ---
Intake Intake Visit Reasons: tele- MRI review lt elbow Intake Note: Isis 43 year old male scheduled for a telephone visit to discuss MRI of left elbow. Patient reports no change in symptoms, states constant pain that is always there. Allergies No Known Allergies [No Known Allergies*] Allergy (Verified 01/15/24 08:35) HPI tele- MRI review lt elbow HPI Details 43 yo male presents via telehealth for M RI review left elbow. He states the pain is constant and interferes with his daily activities. He likes to stay active because it helps with his fibromyalgia. [facility] Medical History Left varicocele Hx of bipolar disorder Insomnia Fibromyalgia Vitamin D deficiency Anxiety Depression Surgical History History of hemorrhoidectomy (06/25/23) History of esophagogastroduodenoscopy (EGD) H/O colonoscopy History of surgery on arm Rectal bleeding Family History Maternal Grandmother Diabetes Colon cancer Maternal Aunt Colon cancer Sister Colon polyp Social History Household Members: Family Alcohol intake: never Patient Tobacco Use Status: Never used Tobacco e-Cigarette/Vaping Use: Never Used Current occupational status: employed Current occupation: [employer]/ right hand dominant Physical Exam Resp Effort & Inspection: normal respiratory effort and able to speak in complete sentences Results Reviewed Results Reviewed: MR elbow LT wo/w con IMPRESSION: 1. No soft tissue mass, fluid collection, or post contrast enhancement in the region of the overlying skin marker. No evidence of olecranon bursitis. 2. Minimal distal triceps tendinosis without a measurable tendon tear. Assessment & Plan Assessment & Plan (1) Left elbow tendonitis: Code(s): M77.8 - Other enthesopathies, not elsewhere classified Plan: We discussed findings on the MRI which are negative for lipoma or mass of the elbow. I feel this is primarily tendonitis in nature. We discussed modification of activity which he states is difficult for him. I offered an injection to the left elbow which he is interested in but I did explain he should take two weeks at least, of avoiding pushing or pulling activities of the left elbow. He can still work out, but avoid aggrivating factors. He is content with this plan and will make a f/u appt to discuss injection further. Telehealth Telehealth Location of provider rendering services: practice address Location of patient: address on file Patient Identification confirmed using: Name, : Yes Telehealth method: voice only Patient verbally consented to treatment: Yes Patient verbally consented to billing insurance company: Yes Patient informed of any privacy concerns related to visit: Yes Minutes spent on Phone/Video with Pt.: 12 Coding Level of Care Code Tele Est Pt Level 3 (32337) Diagnoses Left elbow tendonitis M77.8
== END 2024-01-15 08:52 | disposition home or self-care (01) ==
LOC: HO.HOS 08:31
PROVIDERS: PCP Internal Medicine; Visit Provider Physician Assistant
DX: M77.8 Other enthesopathies, not elsewhere classified (principal)
CPT/HCPCS: 99213

== ENCOUNTER → 2024-01-15 08:31 | Outpatient (BNVA) | payer MEDICAID, SELFPAY | PROVIDERS: PCP Internal Medicine; Visit Provider Physician Assistant ==

== ENCOUNTER 2024-01-27 23:47 | Emergency (ER) | payer MEDICAID, SELFPAY ==
--- NOTE | ~2024-01-27 | CT_ITS ---
EXAMINATION: CT ABDOMEN AND PELVIS WITHOUT CONTRAST CLINICAL INFORMATION: Abdominal pain. COMPARISON: None available. TECHNIQUE: Multidetector volumetric imaging was performed from the superior aspect of the liver through the pubic symphysis. Sagittal and coronal reformatted images were obtained on the technologist's workstation. This CT examination was performed using dose optimization techniques as appropriate, variously including the following: *Automated exposure control *Adjustment of mA and/or kV according to patient size (this includes techniques or standardized protocols for targeted exams where dose is matched to indication/reason for exam; i.e. extremities or head) *Use of iterative reconstruction technique DLP: 428 mGy-cm FINDINGS: LUNG BASES: There is mild scarring at the right lung base. LIVER, GALLBLADDER, AND BILIARY TREE: The liver is normal in size, shape, and attenuation. No focal hepatic lesion or biliary ductal dilatation is present. The gallbladder is unremarkable with no evidence of radiopaque gallstones, gallbladder wall thickening, or obvious pericholecystic inflammatory changes. PANCREAS: Unremarkable. SPLEEN: Unremarkable. ADRENAL GLANDS: Unremarkable. KIDNEYS AND URETERS: The kidneys are normal in size, shape, and attenuation. There are 1 to 2 mm calculi upper pole left kidney and midpole right kidney. There is no hydronephrosis. BLADDER: Unremarkable. GASTROINTESTINAL TRACT: The small and large bowel are unremarkable. The appendix is unremarkable. ABDOMINAL WALL: No significant hernia is appreciated. LYMPH NODES: Normal. VASCULAR: Unremarkable. PELVIC VISCERA: Unremarkable. OSSEOUS STRUCTURES: There is moderate L4-L5 disc degenerative change. There is grade 1 anterolisthesis L5 over S1 with bilateral L5 spondylolysis. There is [id number] L4-L5 and L5-S1 neuroforaminal narrowing. CT/CT abdomen pelvis wo IV con IMPRESSION: 1. There are tiny bilateral renal calculi. There is no hydronephrosis. 2. No acute intra-abdominal process. 3. There is grade 1 anterolisthesis L5 over S1 with bilateral L5 spondylolysis. There is moderate L4-L5 disc degenerative change. Fleischner guidelines were followed.
[2024-01-27 23:50] VITALS: BP 128/57; PULSE 66; RESP 20; TEMP 36.6; O2SAT 99; BMI 24.8
[2024-01-28 00:18] LABS: Basophils Absolute Auto 0.1 X10*3/uL (0.0-0.2); Eosinophils Absolute Auto 0.1 X10*3/uL (0.0-0.4); Eosinophils Percent Auto 2.6 % (0-4); Hematocrit 40.7 % (42.0-52.0); Hemoglobin 13.4 g/dl (14.0-18.0); Imm Gran Abs Auto 0.01 X10*3/uL (0.00-0.03); Imm Gran Pct Auto 0.2 % (0.0-0.4); Lymphocytes Percent Auto 39.1 % (20-40); MANUAL DIFF FLAG NO; Mean Corpuscular HGB Conc 32.9 g/dl (31.0-36.0); Mean Corpuscular Hemoglobin 28.7 pg (27.0-33.0); Mean Corpuscular Volume 87.2 fL (80.0-98.0); Mean Platelet Volume 9.7 fL (9.4-12.4); Monocytes Absolute Auto 0.4 X10*3/uL (0.1-1.2); Monocytes Percent Auto 7.7 % (2-11); Neutrophils Absolute Auto 2.5 x10*3/uL (2.0-8.3); Neutrophils Percent Auto 49.4 % (45-73); Platelet Count 232 X10*3/uL (160-400); Red Blood Count 4.67 X10*6/uL (4.60-5.80); Red Cell Distribution Width 12.2 % (11.0-16.0); White Blood Count 5.1 X10*3/uL (4.8-10.8)
[2024-01-28 00:33] LABS: Alanine Aminotransferase 16 U/L (0-40); Albumin Level 4.2 g/dL (3.5-5.0); Alkaline Phosphatase 70 U/L (39-117); Anion Gap 10 (12-20); Aspartate Amino Transferase 20 U/L (5-37); Bilirubin Direct 0.1 mg/dL (0.0-0.5); Bilirubin Total 0.3 mg/dL (0.0-1.0); Blood Urea Nitrogen 15 mg/dL (9-16); Calcium 9.6 mg/dL (8.4-10.2); Carbon Dioxide 29 mmol/L (22-29); Chloride 107 mmol/L (96-108); Creatinine Clr Calc Pharmacy 66.3; Estimated Glomerular Filt Rate > 60; Glucose Random 97 mg/dL (60-115); Potassium 3.9 mmol/L (3.3-5.1); Sodium 142 mmol/L (135-145); Total Protein 7.4 g/dL (6.5-8.0)
--- NOTE | 2024-01-28 00:52 | ED_ITS ---
HPI - Abdominal Pain General Chief Complaint: Abdominal Pain Stated Complaint: Abd pain Time Seen by Provider: 01/28/24 00:37 Source: patient Mode of arrival: ambulatory Limitations: no limitations History of Present Illness HPI narrative: 43-year-old male came in for evaluation of left-sided abdominal pain since early this morning. Pain is mostly on the left lower quadrant radiates to the left flank and down to the left testicle, no hematuria or dark urine but having difficulty urinating all day today, patient had similar pain in the past with history of kidney stone, no nausea, no vomiting, no fever, no chills. Reports no surgical abdominal history. Related Data Home Medications ?Medication ?Instructions ?Recorded ?Confirmed cetirizine 10 mg tablet 10 mg PO QAM 04/17/23 06/25/23 melatonin 3 mg tablet 6 mg PO DAILY 06/25/23 06/25/23 risperidone 0.5 mg tablet 0.5 mg PO BID 06/25/23 06/25/23 dextroamphetamine-amphetamine 5 mg 1 tab PO QAM 01/15/24 tablet Previous Rx's ?Medication ?Instructions ?Recorded acetaminophen 500 mg tablet 500 mg PO Q6H PRN fever or pain 01/03/23 (Tylenol Extra Strength) #14 tabs cyclobenzaprine 5 mg tablet 5 mg PO Q8H PRN pain (scale score 01/03/23 7-10) 5 days #14 tabs lidocaine 5 % topical patch 1 patch topical DAILY PRN pain #30 01/03/23 (Lidoderm) ea cholecalciferol (vitamin D3) 50 50 mcg PO DAILY #90 caps 04/17/23 mcg (2,000 unit) capsule (Vitamin D3) hydroxyzine HCl 50 mg tablet 50 mg PO TID PRN anxiety #30 tabs 06/13/23 hydrocodone 5 mg-acetaminophen 325 1 tab PO Q4-6H PRN pain #30 tabs 06/25/23 mg tablet docusate sodium 100 mg capsule 100 mg PO BID #60 caps 06/30/23 (Colace) hydromorphone 2 mg tablet 2 mg PO Q4-6H PRN pain #30 tabs 06/30/23 (Dilaudid) hydromorphone 2 mg tablet 2 mg PO Q4-6H PRN pain #60 tabs 06/30/23 (Dilaudid) polyethylene glycol 3350 17 gram 17 g PO BID #100 ea 06/30/23 oral powder packet (Miralax) ibuprofen 800 mg tablet 800 mg PO Q8H PRN pain #40 tabs 07/07/23 ibuprofen 800 mg tablet 800 mg PO Q8H PRN pain #14 tabs 01/28/24 oxycodone 5 mg tablet 5 mg PO Q8H PRN pain #7 tabs 01/28/24 Allergies Allergy/AdvReac Type Severity Reaction Status Date / Time No Known Allergies Allergy Verified 01/27/24 23:50 [No Known Allergies*] Review of Systems Review of Systems All other systems are reviewed and are negative Constitutional: Reports as per HPI and Reports no additional constitutional complaints Eyes: Reports as per HPI and Reports no additional eye complaints Reports system reviewed and no additional complaints, except as documented Cardiovascular: Reports as per HPI and Reports no additional cardiovascular complaints Respiratory: Reports as per HPI and Reports no additional respiratory complaints Gastrointestinal: Reports as per HPI and Reports no additional gastrointestinal complaints Genitourinary: Reports no additional female genitourinary complaints Musculoskeletal: Reports no additional musculoskeletal complaints Skin/Breast: Reports system reviewed and no additional complaints, except as docu Psychiatric: Reports no additional psychiatric complaints Endocrine: Reports no additional endocrine complaints Hematologic/Lymphatic: Reports no additional hematologic/lymphatic complaints Allergic/Immunologic: Reports no additional allergic/immunologic complaints Reports system reviewed and no additional complaints, except as documented and Reports Abnormal speech present [facility] Past Medical History Medical History Left varicocele Hx of bipolar disorder Insomnia Fibromyalgia Vitamin D deficiency Anxiety Depression Surgical History History of hemorrhoidectomy (06/25/23) History of esophagogastroduodenoscopy (EGD) H/O colonoscopy History of surgery on arm Rectal bleeding Family History Family History Maternal Grandmother Diabetes Colon cancer Maternal Aunt Colon cancer Sister Colon polyp Social History Social History Household Members: Family Alcohol intake: never Patient Tobacco Use Status: Never used Tobacco e-Cigarette/Vaping Use: Never Used Advance Directives: No Advance Directives Information Provided: No Current occupational status: employed Current occupation: [employer]/ right hand dominant Physical Exam ED Vital Signs: Vital Signs - 24 hr 01/27/24 23:50 Temperature 98 F Pulse Rate 66 Respiratory Rate 20 Blood Pressure 128/57 L Pulse Oximetry 99 Oxygen Delivery Method Room Air BMI result Body Mass Index 24.8 Vital signs have been reviewed and appear to be correct. Blood pressure elevated. Heart rate normal. Respiratory rate normal. Temperature normal. Oxygen saturation normal. Appearance: Alert. Oriented X3. No acute distress. Head: Normal external exam. Normocephalic. Atraumatic. No Boo signs noted. No raccoon eyes noted Eyes: PERRLA. EOMI. Conjunctiva and sclera normal. Eyelids normal. ENT: TM's Normal. Pharynx normal. Uvula midline. Moist mucous membranes. No trismus noted. No drooling noted. No muffled voice noted. Neck: Normal inspection. Neck supple. FROM. No adenopathy. Thyroid Normal. No meningeal signs. No neck mass noted. CVS: Normal heart rate and rhythm. Heart sound normal. No murmurs noted. Pulses normal throughout. Respiratory: No respiratory distress. Painless inspiration. Breath sounds normal. No wheezes/rales/rhonchi noted. Chest nontender. No accessory muscle usage noted or decreased air movement noted. Abdomen: Soft, left lower quadrant abdominal tenderness, no rebound tenderness, no guarding. Bowel sounds normal in all 4 quadrants. No distention noted. No organomegaly noted. No visible injury noted. Back: L CVA tenderness. Full range of motion noted. exam: No testicular swelling or tenderness, intact cremasteric reflex bilaterally. Skin: Skin warm and dry. Normal skin color. Normal skin turgor. No rashes/lesions/lacerations noted. Extremities: No lower extremity edema. Extremities exhibit normal range of motion. Extremities nontender. Neuro: Oriented X 3. Cranial nerve exam: II-XII are grossly intact No motor deficit. No sensory deficit. Reflexes normal. Course Reevaluation(s) Reevaluation #1: Feels better with IV fluids, morphine, Toradol, CT is revealing no kidney stone or hydronephrosis may have passed it while in the ED. Time: 02:08 Medical Decision Making Differential Diagnosis Differential Diagnoses: The differential diagnosis associated with the presentation includes (Acute appendicitis, acute colitis, acute diverticulitis, renal colic, kidney stones, electrolyte derangement, severe anemia, UTI, pyelonephritis.) Admission/Observation Consideration of admission/observation: Escalation of care including admission/observation considered Lab Data MDM Lab Attestation statement: I reviewed the patient's lab results. 01/28/24 00:14 01/28/24 00:14 Labs: Lab Results 01/28/24 01/28/24 Range/Units 00:14 01:02 WBC 5.1 (4.8-10.8) X10*3/uL RBC 4.67 (4.60-5.80) X10*6/uL Hgb 13.4 L (14.0-18.0) g/dl Hct 40.7 L (42.0-52.0) % MCV 87.2 (80.0-98.0) fL MCH 28.7 (27.0-33.0) pg MCHC 32.9 (31.0-36.0) g/dl RDW 12.2 (11.0-16.0) % Plt Count 232 (160-400) X10*3/uL MPV 9.7 (9.4-12.4) fL Immature Gran % (Auto) 0.2 (0.0-0.4) % Neut % (Auto) 49.4 (45-73) % Lymph % (Auto) 39.1 (20-40) % [place] % (Auto) 7.7 (2-11) % Eos % (Auto) 2.6 (0-4) % Baso % (Auto) 1.0 (0-2) % Lymph # (Auto) 2.0 (1.2-4.9) X10*3/uL [place] # (Auto) 0.4 (0.1-1.2) X10*3/uL Eos # (Auto) 0.1 (0.0-0.4) X10*3/uL Baso # (Auto) 0.1 (0.0-0.2) X10*3/uL Abs Immat Gran (auto) 0.01 (0.00-0.03) X10*3/uL Absolute Neuts (auto) 2.5 (2.0-8.3) x10*3/uL Absolute Nucleated RBC 0.000 (0.0-0.012) X10*3/uL Nucleated RBC % (auto) 0.0 (0.0-0.2) /100WBC Sodium 142 (135-145) mmol/L Potassium 3.9 (3.3-5.1) mmol/L Chloride 107 (96-108) mmol/L Carbon Dioxide 29 (22-29) mmol/L Anion Gap 10 L (12-20) BUN 15 (9-16) mg/dL Creatinine 1.18 (0.5-1.4) mg/dL Estim Creat Clear Calc 66.3 Estimated GFR > 60 Random Glucose 97 (60-115) mg/dL Calcium 9.6 (8.4-10.2) mg/dL Total Bilirubin 0.3 (0.0-1.0) mg/dL Direct Bilirubin 0.1 (0.0-0.5) mg/dL AST 20 (5-37) U/L ALT 16 (0-40) U/L Alkaline Phosphatase 70 (39-117) U/L Total Protein 7.4 (6.5-8.0) g/dL Albumin 4.2 (3.5-5.0) g/dL Urine Color Yellow Urine Appearance Clear Urine pH 6.0 (5.0-9.0) Ur Specific [place] 1.025 (1.005-1.025) Urine Protein Trace (Neg-Trace) mg/dL Urine Glucose (UA) Negative (Negative) mg/dL Urine Ketones Negative (Negative) mg/dL Urine Blood Large (3+) H (Negative) Urine Nitrite Negative (Negative) Ur Leukocyte Esterase Negative (Negative) Urine RBC >20 H (0-2) /HPF Urine WBC 0-5 (0-5) /HPF Ur Squamous Epith Cells 0-2 (0-2) /HPF Urine Bacteria None Seen (None Seen) Hyaline Casts 0-2 (0-2) /LPF Independent Interpretation I performed an independent interpretation of an: CT Scan (Abdomen pelvis:1. There are tiny bilateral renal calculi. There is no hydronephrosis. 2. No acute intra-abdominal process. 3. There is grade 1 anterolisthesis L5 over S1 with bilateral L5 spondylolysis. There is moderate L4-L5 disc degenerative change. ) Radiology Impression Discussion of test interpretation with radiology: I have reviewed the radiologist's reading. Medications Administered Discontinued Medications Generic Name Dose Route Start Last Admin Trade Name Freq PRN Reason Stop Dose Admin Sodium Chloride 1,000 mls @ 999 mls/hr 01/28/24 02:08 01/28/24 02:21 Ns IV 01/28/24 03:08 999 mls/hr .Q1H1M ONE Administration Ketorolac Tromethamine 30 mg 01/28/24 00:46 01/28/24 01:45 Ketorolac Tromethamine 30 Mg/Ml Vial IVPUSH 01/28/24 00:47 30 mg ONCE ONE Administration Morphine Sulfate 1 mg 01/28/24 00:46 01/28/24 01:45 Morphine Sulfate 2 Mg/Ml Cartridge IVPUSH 01/28/24 00:47 1 mg ONCE ONE Administration Protocol Discharge Plan Discharge Clinical Impression: Hematuria, Acute left flank pain Patient Disposition: Home, Self-Care Instructions: Flank Pain (ED) Prescriptions: New ibuprofen 800 mg tablet 800 mg PO Q8H PRN (Reason: pain) Qty: 14 0RF oxycodone 5 mg tablet 5 mg PO Q8H PRN (Reason: pain) Qty: 7 0RF Rx Instructions: Partial Fill upon patient request. No Action polyethylene glycol 3350 [Miralax] 17 gram powder in packet 17 g PO BID Qty: 100 0RF docusate sodium [Colace] 100 mg capsule 100 mg PO BID Qty: 60 0RF acetaminophen [Tylenol Extra Strength] 500 mg tablet 500 mg PO Q6H PRN (Reason: fever or pain) Qty: 14 0RF lidocaine [Lidoderm] 5 % adhesive patch,medicated 1 patch topical DAILY MDD remove after 12 hours PRN (Reason: pain) Qty: 30 0RF Rx Instructions: leave on most painful area for up to 12 hrs cyclobenzaprine 5 mg tablet 5 mg PO Q8H PRN (Reason: pain (scale score 7-10)) 5 Days Qty: 14 0RF hydroxyzine HCl 50 mg tablet 50 mg PO TID PRN (Reason: anxiety) Qty: 30 0RF risperidone 0.5 mg Tablet 0.5 mg PO BID melatonin 3 mg Tablet 6 mg PO DAILY hydrocodone-acetaminophen 5-325 mg tablet 1 tab PO Q4-6H PRN (Reason: pain) Qty: 30 0RF Rx Instructions: Partial Fill upon patient request. cetirizine 10 mg tablet 10 mg PO QAM cholecalciferol (vitamin D3) [Vitamin D3] 50 mcg (2,000 unit) capsule 50 mcg PO DAILY Qty: 90 2RF ibuprofen 800 mg tablet 800 mg PO Q8H PRN (Reason: pain) Qty: 40 0RF hydromorphone [Dilaudid] 2 mg tablet 2 mg PO Q4-6H PRN (Reason: pain) Qty: 60 0RF Rx Instructions: Partial Fill upon patient request. hydromorphone [Dilaudid] 2 mg tablet 2 mg PO Q4-6H PRN (Reason: pain) Qty: 30 0RF Rx Instructions: Partial Fill upon patient request. dextroamphetamine-amphetamine 5 mg tablet 1 tab PO QAM Referrals: Jack Kate MD [Primary Care Provider] - Print Language: Bulgarian
[2024-01-28 01:09] LABS: Appearance Urine Clear; Color Urine Yellow; Glucose Urine UA Negative (Negative); Leukocyte Esterase Urine Negative (Negative); Nitrite Urine Negative (Negative); Specific Gravity - Urine 1.025 (1.005-1.025); UMIC TRIGGER UACC YES; Urine Blood Large (3+) (Negative); Urine Ketones Negative (Negative); Urine Protein Trace mg/dL (Neg-Trace)
[2024-01-28 01:14] LABS: Bacteria Urine None Seen (None Seen); Hyaline Casts Urine 0-2 /LPF (0-2); RBC Urine >20 /HPF (0-2); Squamous Epithelial Cell Urine 0-2 /HPF (0-2); WBC Urine 0-5 /HPF (0-5)
[2024-01-28] MEDS: Ketorolac Tromethamine 30 MG/ML VIAL IVPUSH (01:45)
[2024-01-28] MEDS: Morphine Sulfate 2 MG/ML CARTRIDGE 1 MG IVPUSH (01:45)
[2024-01-28] MEDS: 0.9 % Sodium Chloride 1,000 ML 999 ML IV (02:21)
[2024-01-28 06:09] VITALS: BP 116/79; PULSE 60; RESP 14; TEMP 36.5; O2SAT 97
[2024-01-28 06:43] VITALS: BP 116/79; PULSE 60; RESP 14; TEMP 36.5; O2SAT 97
== END 2024-01-28 06:45 | disposition home or self-care (01) ==
PROVIDERS: Emergency Provider Emergency Medicine; PCP Internal Medicine
DX: R10.9 Unspecified abdominal pain (principal); R31.9 Hematuria, unspecified
CPT/HCPCS: 36415; 74176; 80048; 80076; 81001; 85025; 96361; 96374; 96375; 99284; 99285; J1885; J2270

== ENCOUNTER 2024-02-04 17:40 | Emergency (ER) | payer MEDICAID, SELFPAY ==
--- NOTE | ~2024-02-04 | XR_ITS ---
EXAMINATION: XR SHOULDER, LEFT CLINICAL INFORMATION: Shoulder pain with limited range of motion COMPARISON: 10/02/2022 TECHNIQUE: AP external rotation, Grashey, scapular Y, and axillary views of the left shoulder. FINDINGS: The bones and soft tissues are normal. No fracture. Glenohumeral and acromioclavicular alignment is anatomic with normal joint space. No abnormal soft tissue calcifications. XR/XR shoulder LT min 2V IMPRESSION: Normal left shoulder.
[2024-02-04 17:52] VITALS: BP 151/94; PULSE 75; RESP 18; TEMP 36.3; O2SAT 98; BMI 26.7
--- NOTE | 2024-02-04 17:52 | ED.ABDPAIN ---
HPI - Abdominal Pain General Chief Complaint: Abdominal Pain Stated Complaint: Lt arm/neck pain & abd pain Time Seen by Provider: 02/04/24 18:56 Source: patient Mode of arrival: ambulatory Limitations: no limitations History of Present Illness HPI narrative: Patient with chronic flank pain with history of nonobstructive kidney stones was seen here multiple times last visit was 01/28/24 which showed nonobstructive kidney stones prescribed oxycodone since medicines not working also complaining of left shoulder pain which goes back for years had MRI done on 12/18 which showed rotator cuff tendinitis patient denied any pain in the past but has records which showed patient had MRI of the shoulder cervical spine and elbow. Patient has been seen by pain clinic and not happy with their management has seen orthopedics last visit was in December denies any direct trauma no nausea no vomiting Related Data Home Medications ?Medication ?Instructions ?Recorded ?Confirmed cetirizine 10 mg tablet 10 mg PO QAM 04/17/23 06/25/23 melatonin 3 mg tablet 6 mg PO DAILY 06/25/23 06/25/23 risperidone 0.5 mg tablet 0.5 mg PO BID 06/25/23 06/25/23 dextroamphetamine-amphetamine 5 mg 1 tab PO QAM 01/15/24 tablet Previous Rx's ?Medication ?Instructions ?Recorded acetaminophen 500 mg tablet 500 mg PO Q6H PRN fever or pain 01/03/23 (Tylenol Extra Strength) #14 tabs cyclobenzaprine 5 mg tablet 5 mg PO Q8H PRN pain (scale score 01/03/23 7-10) 5 days #14 tabs lidocaine 5 % topical patch 1 patch topical DAILY PRN pain #30 01/03/23 (Lidoderm) ea cholecalciferol (vitamin D3) 50 50 mcg PO DAILY #90 caps 04/17/23 mcg (2,000 unit) capsule (Vitamin D3) hydroxyzine HCl 50 mg tablet 50 mg PO TID PRN anxiety #30 tabs 06/13/23 hydrocodone 5 mg-acetaminophen 325 1 tab PO Q4-6H PRN pain #30 tabs 06/25/23 mg tablet docusate sodium 100 mg capsule 100 mg PO BID #60 caps 06/30/23 (Colace) hydromorphone 2 mg tablet 2 mg PO Q4-6H PRN pain #30 tabs 06/30/23 (Dilaudid) hydromorphone 2 mg tablet 2 mg PO Q4-6H PRN pain #60 tabs 06/30/23 (Dilaudid) polyethylene glycol 3350 17 gram 17 g PO BID #100 ea 06/30/23 oral powder packet (Miralax) ibuprofen 800 mg tablet 800 mg PO Q8H PRN pain #40 tabs 07/07/23 ibuprofen 800 mg tablet 800 mg PO Q8H PRN pain #14 tabs 01/28/24 oxycodone 5 mg tablet 5 mg PO Q8H PRN pain #7 tabs 01/28/24 cyclobenzaprine 10 mg tablet 10 mg PO Q8H #20 tabs 02/04/24 Allergies Allergy/AdvReac Type Severity Reaction Status Date / Time No Known Allergies Allergy Verified 02/04/24 17:52 [No Known Allergies*] Review of Systems Review of Systems Yes all other systems are reviewed and are negative PMFSH Past Medical History Medical History Left varicocele Hx of bipolar disorder Insomnia Fibromyalgia Vitamin D deficiency Anxiety Depression Surgical History History of hemorrhoidectomy (06/25/23) History of esophagogastroduodenoscopy (EGD) H/O colonoscopy History of surgery on arm Rectal bleeding Family History Family History Maternal Grandmother Diabetes Colon cancer Maternal Aunt Colon cancer Sister Colon polyp Social History Social History Household Members: Family Alcohol intake: never Patient Tobacco Use Status: Never used Tobacco Smoked in Last 30 Days: No e-Cigarette/Vaping Use: Never Used Use of substances other than those prescribed or required for medical reasons: No Advance Directives: No Advance Directives Information Provided: No Current occupational status: employed Current occupation: [employer]/ right hand dominant Physical Exam ED Vital Signs: Vital Signs - 24 hr 02/04/24 17:52 02/04/24 19:04 02/04/24 20:03 Temperature 97.4 F 97.8 F 97.8 F Pulse Rate 75 63 63 Respiratory Rate 18 16 16 Blood Pressure 151/94 H 108/80 108/80 Pulse Oximetry 98 100 100 Oxygen Delivery Method Room Air Room Air Room Air BMI result Body Mass Index 26.7 Appearance: Alert. Oriented X3. No acute distress. Eyes: PERRLA, No Nystagmus ENT: Pharynx normal. Oral Mucosa moist Neck: Normal inspection. Neck supple. CVS: Normal heart rate and rhythm. Pulses normal. Respiratory: No respiratory distress. Equal air entry bilateral, no wheezing/rales/rhonchi Abdomen: Soft and nontender. Bowel sounds are present, no mass palpable, no CVA tenderness diffuse lower back tenderness Skin: Skin warm and dry. Normal skin color. Normal skin turgor. Extremities: No lower extremity edema. No calf tenderness left rotator cuff tender to touch increased pain on external rotation and abduction neurovascular intact Neuro: Oriented X 3. No motor deficit. No sensory deficit.No cerebellar signs , cranial nerves II-XII intact Course Course Course Narrative: This is a Rapid Medical Examination (RME) in triage, full HPI, ROS, assessment and plan per primary provider in the Main ED. 43 yo male with history of cervical spondylosis, cervical radiculopathy, fibromyalgia, tendonitis of left rotator cuff who presents to the ER for ongoing pain w/ urination, left sided abdominal pain along with left sided neck pain/left shoulder pain for the last 4 days. He was seen here on 01/[address] scan showing tiny stones within the bilateral kidneys without hydro, +microscopic hematuria. Plan: repeat UA and labs, XR shoulder, limited ROM, seems muscular Medical Decision Making Medical Decision Making [facility] Narrative: Patient has chronic shoulder pain and upper back pain and lower back pain had multiple evaluations by the Orthopedics and a pain clinic at this time patient has musculoskeletal pain will give him sling advised to follow with Orthopedics/physical therapist for further management Patient got upset with the provider and the nursing as no further management was done today all the patient's advised to follow-up with ortho and physical therapy patient asking for stronger pain medication discharge patient home advised to follow with pain clinic narcotic abuse suspected Differential Diagnosis Differential Diagnoses: The differential diagnosis associated with the presentation includes Rotator cuff tendinitis/chronic pain syndrome Lab Data [facility] Lab Attestation statement: I reviewed the patient's lab results. 02/04/24 18:03 02/04/24 18:03 Labs: Lab Results 02/04/24 Range/Units 18:03 WBC 5.6 (4.8-10.8) X10*3/uL RBC 4.64 (4.60-5.80) X10*6/uL Hgb 13.6 L (14.0-18.0) g/dl Hct 39.7 L (42.0-52.0) % MCV 85.6 (80.0-98.0) fL MCH 29.3 (27.0-33.0) pg MCHC 34.3 (31.0-36.0) g/dl RDW 12.1 (11.0-16.0) % Plt Count 231 (160-400) X10*3/uL MPV 10.6 (9.4-12.4) fL Immature Gran % (Auto) 0.4 (0.0-0.4) % Neut % (Auto) 61.2 (45-73) % Lymph % (Auto) 27.5 (20-40) % Mitchell % (Auto) 8.1 (2-11) % Eos % (Auto) 2.3 (0-4) % Baso % (Auto) 0.5 (0-2) % Lymph # (Auto) 1.5 (1.2-4.9) X10*3/uL Mitchell # (Auto) 0.5 (0.1-1.2) X10*3/uL Eos # (Auto) 0.1 (0.0-0.4) X10*3/uL Baso # (Auto) 0.0 (0.0-0.2) X10*3/uL Abs Immat Gran (auto) 0.02 (0.00-0.03) X10*3/uL Absolute Neuts (auto) 3.4 (2.0-8.3) x10*3/uL Absolute Nucleated RBC 0.000 (0.0-0.012) X10*3/uL Nucleated RBC % (auto) 0.0 (0.0-0.2) /100WBC Sodium 141 (135-145) mmol/L Potassium 3.7 (3.3-5.1) mmol/L Chloride 105 (96-108) mmol/L Carbon Dioxide 28 (22-29) mmol/L Anion Gap 12 (12-20) BUN 12 (9-16) mg/dL Creatinine 0.87 (0.5-1.4) mg/dL Estim Creat Clear Calc 97.1 Estimated GFR > 60 Random Glucose 107 (60-115) mg/dL Calcium 9.2 (8.4-10.2) mg/dL Magnesium 2.6 (1.6-2.6) mg/dL Total Bilirubin 0.3 (0.0-1.0) mg/dL Direct Bilirubin 0.1 (0.0-0.5) mg/dL AST 25 (5-37) U/L ALT 26 (0-40) U/L Alkaline Phosphatase 66 (39-117) U/L Total Protein 7.2 (6.5-8.0) g/dL Albumin 4.3 (3.5-5.0) g/dL Medications Administered Discontinued Medications Generic Name Dose Route Start Last Admin Trade Name Freq PRN Reason Stop Dose Admin Cyclobenzaprine HCl 10 mg 02/04/24 19:29 02/04/24 19:49 Cyclobenzaprine Hcl 10 Mg Tablet PO 02/04/24 19:30 Not Given ONCE ONE Ketorolac Tromethamine 60 mg 02/04/24 19:29 02/04/24 19:49 Ketorolac Tromethamine 60 Mg/2 Ml Vial IM 02/04/24 19:30 Not Given ONCE ONE Discharge Plan Discharge Clinical Impression: Tendinitis of left rotator cuff, Chronic flank pain Patient Disposition: Home, Self-Care Instructions: Rotator Cuff Tendinitis (ED), Chronic Pain (ED) Additional Instructions: Your pain in left shoulder is from rotator cuff tendinitis follow with Orthopedics /physical therapy wear the sling for support, apply ice Your pain in the flank areas chronic likely musculoskeletal you had a CT scan done on 01/27 which did not show any obstructive kidney stone You need to follow with your PCP and Pain Clinic Take muscle relaxants as prescribed Prescriptions: New cyclobenzaprine 10 mg tablet 10 mg PO Q8H Qty: 20 0RF No Action polyethylene glycol 3350 [Miralax] 17 gram powder in packet 17 g PO BID Qty: 100 0RF docusate sodium [Colace] 100 mg capsule 100 mg PO BID Qty: 60 0RF acetaminophen [Tylenol Extra Strength] 500 mg tablet 500 mg PO Q6H PRN (Reason: fever or pain) Qty: 14 0RF lidocaine [Lidoderm] 5 % adhesive patch,medicated 1 patch topical DAILY MDD remove after 12 hours PRN (Reason: pain) Qty: 30 0RF Rx Instructions: leave on most painful area for up to 12 hrs cyclobenzaprine 5 mg tablet 5 mg PO Q8H PRN (Reason: pain (scale score 7-10)) 5 Days Qty: 14 0RF hydroxyzine HCl 50 mg tablet 50 mg PO TID PRN (Reason: anxiety) Qty: 30 0RF ibuprofen 800 mg tablet 800 mg PO Q8H PRN (Reason: pain) Qty: 14 0RF oxycodone 5 mg tablet 5 mg PO Q8H PRN (Reason: pain) Qty: 7 0RF Rx Instructions: Partial Fill upon patient request. risperidone 0.5 mg Tablet 0.5 mg PO BID melatonin 3 mg Tablet 6 mg PO DAILY hydrocodone-acetaminophen 5-325 mg tablet 1 tab PO Q4-6H PRN (Reason: pain) Qty: 30 0RF Rx Instructions: Partial Fill upon patient request. cetirizine 10 mg tablet 10 mg PO QAM cholecalciferol (vitamin D3) [Vitamin D3] 50 mcg (2,000 unit) capsule 50 mcg PO DAILY Qty: 90 2RF ibuprofen 800 mg tablet 800 mg PO Q8H PRN (Reason: pain) Qty: 40 0RF hydromorphone [Dilaudid] 2 mg tablet 2 mg PO Q4-6H PRN (Reason: pain) Qty: 60 0RF Rx Instructions: Partial Fill upon patient request. hydromorphone [Dilaudid] 2 mg tablet 2 mg PO Q4-6H PRN (Reason: pain) Qty: 30 0RF Rx Instructions: Partial Fill upon patient request. dextroamphetamine-amphetamine 5 mg tablet 1 tab PO QAM Referrals: Clayton Alfredo MD [Physician] - 1 week Interventions: ED Discharge Assessment Last Done: 02/04/24 20:03 Discharge Date/Time: 02/04/24 20:05 Print Language: [place]ese
[2024-02-04 18:13] LABS: Basophils Percent Auto 0.5 % (0-2); Eosinophils Absolute Auto 0.1 X10*3/uL (0.0-0.4); Eosinophils Percent Auto 2.3 % (0-4); Hematocrit 39.7 % (42.0-52.0); Hemoglobin 13.6 g/dl (14.0-18.0); Imm Gran Abs Auto 0.02 X10*3/uL (0.00-0.03); Imm Gran Pct Auto 0.4 % (0.0-0.4); Lymphocytes Absolute Auto 1.5 X10*3/uL (1.2-4.9); Lymphocytes Percent Auto 27.5 % (20-40); MANUAL DIFF FLAG NO; Mean Corpuscular HGB Conc 34.3 g/dl (31.0-36.0); Mean Corpuscular Hemoglobin 29.3 pg (27.0-33.0); Mean Corpuscular Volume 85.6 fL (80.0-98.0); Mean Platelet Volume 10.6 fL (9.4-12.4); Monocytes Absolute Auto 0.5 X10*3/uL (0.1-1.2); Monocytes Percent Auto 8.1 % (2-11); Neutrophils Absolute Auto 3.4 x10*3/uL (2.0-8.3); Neutrophils Percent Auto 61.2 % (45-73); Platelet Count 231 X10*3/uL (160-400); Red Blood Count 4.64 X10*6/uL (4.60-5.80); Red Cell Distribution Width 12.1 % (11.0-16.0); White Blood Count 5.6 X10*3/uL (4.8-10.8)
[2024-02-04 18:27] LABS: Alanine Aminotransferase 26 U/L (0-40); Albumin Level 4.3 g/dL (3.5-5.0); Alkaline Phosphatase 66 U/L (39-117); Anion Gap 12 (12-20); Aspartate Amino Transferase 25 U/L (5-37); Bilirubin Direct 0.1 mg/dL (0.0-0.5); Bilirubin Total 0.3 mg/dL (0.0-1.0); Blood Urea Nitrogen 12 mg/dL (9-16); Calcium 9.2 mg/dL (8.4-10.2); Carbon Dioxide 28 mmol/L (22-29); Chloride 105 mmol/L (96-108); Creatinine Clr Calc Pharmacy 97.1; Estimated Glomerular Filt Rate > 60; Glucose Random 107 mg/dL (60-115); Magnesium 2.6 mg/dL (1.6-2.6); Potassium 3.7 mmol/L (3.3-5.1); Sodium 141 mmol/L (135-145); Total Protein 7.2 g/dL (6.5-8.0)
[2024-02-04 19:04] VITALS: BP 108/80; PULSE 63; RESP 16; TEMP 36.6; O2SAT 100
--- NOTE | 2024-02-04 19:55 | PC.NURSE ---
Patient is alert and oriented x3, VSS. Patient reports pain in left shoulder 9/10 at present. This RN discussed discharge disposition/instructions with patient who verbalized understanding of discharge instructions including referral to ortho specialist and PT, use of ice and Flexeril to assist in pain m management. This RN attempted to apply a sling and medicate patient with flexeril 10 mg and Toradol IM, patient refused stating that he tried multiple medications in the past including opioids with minimal relief in pain. This RN reminded patient that prescription for Flexeril 10 mg Q 8H sent to his pharmacy. Patient refused to sign discharge paperwork and left. Nancy, charge entry and Dr. Conroy made aware.
[2024-02-04 20:03] VITALS: BP 108/80; PULSE 63; RESP 16; TEMP 36.6; O2SAT 100
== END 2024-02-04 20:05 | disposition home or self-care (01) ==
PROVIDERS: Physician Assistant; Emergency Provider Internal Medicine; PCP Internal Medicine
DX: M75.32 Calcific tendinitis of left shoulder (principal); M25.512 Pain in left shoulder; R10.9 Unspecified abdominal pain; Z79.899 Other long term (current) drug therapy
CPT/HCPCS: 36415; 73030; 80048; 80076; 83735; 85025; 99283; 99284

== ENCOUNTER 2024-02-06 09:10 | Emergency (ER) | payer MEDICAID, SELFPAY ==
--- NOTE | ~2024-02-06 | CT_ITS ---
EXAMINATION: CT CERVICAL SPINE WITHOUT CONTRAST CLINICAL INFORMATION: Neck pain radiating to left arm. COMPARISON: CT imaging of cervical spine from 02/27/2017. MRI cervical spine from 11/14/2022. CT angiography of the neck from 03/05/2023. TECHNIQUE: Noncontrast multidetector CT imaging examination of the cervical spine is performed. The axial images and multiplanar reformatted images are reviewed. This is performed as an emergency examination. This CT examination was performed using dose optimization techniques as appropriate, variously including the following: *Automated exposure control *Adjustment of mA and/or kV according to patient size (this includes techniques or standardized protocols for targeted exams where dose is matched to indication/reason for exam; i.e. extremities or head) *Use of iterative reconstruction technique DLP: 343 mGy-cm FINDINGS: There is normal lordotic curvature and mild levocurvature of the cervical spine. The craniocervical junction is normal. The cervical vertebra have normal density, height and alignment. No fractures in the anterior or posterior elements. No prevertebral edema or soft tissue hematoma. The facet joints are normal. There are no vertebral endplate erosions. No syndesmophyte formation. No evidence of an inflammatory spondyloarthropathy. The dens is intact. C2-C3 and C3-C4 unremarkable. At C4-C5, there appears to be a chronic small central disc protrusion without significant spinal canal or neural foraminal stenosis. At C5-C6, there is [id number]-[id number] degenerative narrowing of the disc height, minimal disc bulge, small vertebral osteophytes and uncovertebral joint hypertrophy resulting in mild left and moderate right neural foraminal stenosis. At C6-C7, there is minimal narrowing of the disc height, small vertebral osteophytes and mild hypertrophy of uncovertebral joints. There is mild left neural foraminal stenosis but no spinal canal stenosis at this level. The C7-T1 level is unremarkable. No evidence of paraspinal fluid collection or soft tissue mass. Thyroid gland is normal. An azygos fissure is seen within the right lung apex. CT/CT cervical spine wo IV con IMPRESSION: * Chronic degenerative arthropathy within the cervical spine. * No acute imaging abnormalities. No fracture or malalignment. No evidence of any significant spinal canal stenosis.
[2024-02-06 09:26] VITALS: BP 124/89; PULSE 81; RESP 16; TEMP 36.5; O2SAT 97; BMI 24.8
--- NOTE | 2024-02-06 09:35 | ED_ITS ---
HPI - Extremity Problem General Chief complaint: Extremity Injury, Upper Stated complaint: l shoulder pain Time Seen by Provider: 02/06/24 09:35 Source: patient Mode of arrival: ambulatory Limitations: no limitations History of Present Illness HPI Narrative: Patient is a 43-year-old male with history of chronic left-sided neck and shoulder pain presenting to the emergency department with ongoing left shoulder pain radiating down left arm since Thursday. He was seen in this emergency department for similar symptoms on and prescribed cyclobenzaprine and oxycodone. Patient states that he has not even taken all of the prescribed medications because they are doing little to relieve his pain. States he is unable to sleep due to pain. Denies any recent fall or other trauma. States he has previously had MRI of C-spine and left shoulder. MD Complaint: joint pain Onset (ago): day(s) Pain Consistency: constant Location: left and upper extremity Severity scale (1-10): 10 Quality: sharp Radiation: distal Relieving factors: nothing Associated symptoms: denies other symptoms Related Data Home Medications ?Medication ?Instructions ?Recorded ?Confirmed cetirizine 10 mg tablet 10 mg PO QAM 04/17/23 06/25/23 melatonin 3 mg tablet 6 mg PO DAILY 06/25/23 06/25/23 risperidone 0.5 mg tablet 0.5 mg PO BID 06/25/23 06/25/23 dextroamphetamine-amphetamine 5 mg 1 tab PO QAM 01/15/24 tablet Previous Rx's ?Medication ?Instructions ?Recorded acetaminophen 500 mg tablet 500 mg PO Q6H PRN fever or pain 01/03/23 (Tylenol Extra Strength) #14 tabs cyclobenzaprine 5 mg tablet 5 mg PO Q8H PRN pain (scale score 01/03/23 7-10) 5 days #14 tabs lidocaine 5 % topical patch 1 patch topical DAILY PRN pain #30 01/03/23 (Lidoderm) ea cholecalciferol (vitamin D3) 50 50 mcg PO DAILY #90 caps 04/17/23 mcg (2,000 unit) capsule (Vitamin D3) hydroxyzine HCl 50 mg tablet 50 mg PO TID PRN anxiety #30 tabs 06/13/23 hydrocodone 5 mg-acetaminophen 325 1 tab PO Q4-6H PRN pain #30 tabs 06/25/23 mg tablet docusate sodium 100 mg capsule 100 mg PO BID #60 caps 06/30/23 (Colace) hydromorphone 2 mg tablet 2 mg PO Q4-6H PRN pain #30 tabs 06/30/23 (Dilaudid) hydromorphone 2 mg tablet 2 mg PO Q4-6H PRN pain #60 tabs 06/30/23 (Dilaudid) polyethylene glycol 3350 17 gram 17 g PO BID #100 ea 06/30/23 oral powder packet (Miralax) ibuprofen 800 mg tablet 800 mg PO Q8H PRN pain #40 tabs 07/07/23 ibuprofen 800 mg tablet 800 mg PO Q8H PRN pain #14 tabs 01/28/24 oxycodone 5 mg tablet 5 mg PO Q8H PRN pain #7 tabs 01/28/24 cyclobenzaprine 10 mg tablet 10 mg PO Q8H #20 tabs 02/04/24 lidocaine 5 % topical patch 1 patch topical DAILY #15 ea 02/06/24 oxycodone 5 mg tablet 5 mg PO Q6H PRN severe pain (scale 02/06/24 score 7-10) #12 tabs prednisone 20 mg tablet 40 mg (2 x 20 mg) PO DAILY #10 tabs 02/06/24 Allergies Allergy/AdvReac Type Severity Reaction Status Date / Time No Known Allergies Allergy Verified 02/06/24 09:29 [No Known Allergies*] Review of Systems Review of Systems: As per HPI. Yes all other systems are reviewed and are negative Constitutional: Constitutional: Reports as per HPI [facility] Past Medical History Medical History Left varicocele Hx of bipolar disorder Insomnia Fibromyalgia Vitamin D deficiency Anxiety Depression Surgical History History of hemorrhoidectomy (06/25/23) History of esophagogastroduodenoscopy (EGD) H/O colonoscopy History of surgery on arm Rectal bleeding Family History Family History Maternal Grandmother Diabetes Colon cancer Maternal Aunt Colon cancer Sister Colon polyp Social History Social History Household Members: Family Alcohol intake: never Patient Tobacco Use Status: Never used Tobacco e-Cigarette/Vaping Use: Never Used Advance Directives: No Advance Directives Information Provided: No Current occupational status: employed Current occupation: [employer]/ right hand dominant Physical Exam Vital Signs: Vital Signs: Last Vital Signs Temp 97.7 F 02/06/24 09:26 Pulse 81 02/06/24 09:26 Resp 16 02/06/24 09:26 BP 124/89 02/06/24 09:26 Pulse Ox 97 02/06/24 09:26 O2 Del Method Room Air 02/06/24 09:26 BMI result Body Mass Index 24.8 Vital signs have been reviewed and appear to be correct. Blood pressure normal. Heart rate normal. Respiratory rate normal. Temperature normal. Oxygen saturation normal. Const: General: cooperative, healthy appearing and no acute distress Orientation/consciousness: oriented to person, oriented to place, oriented to time and patient oriented x3 Limitations: no limitations HEENT: Head: Yes normocephalic and Yes atraumatic Ears: external ears normal General nose exam: Normal external nose present Face and sinus: Yes face symmetric Mouth: oropharynx normal and moist mucous membranes Throat: Yes uvula midline Eyes: Pupils: Equal, round and reactive pupils present Neck: Neck: Yes normal visual inspection and Yes supple Resp: Effort & Inspection: normal respiratory effort and able to speak in complete sentences Auscultation: clear to auscultation bilaterally Cardio: Rate: regular rate Rhythm: regular rhythm Heart sounds: S1 normal heart sound present and S2 normal heart sound present GI: Palpation (GI): Soft to palpation and nontender Auscultation: normoactive bowel sounds : General: Yes no CVA tenderness Back/Spine/Pelvis: Back: no CVA tenderness Cervical Spine: cervical muscular tenderness (left), pain with cervical ROM, cervical spasm (left), No Cervical spine tenderness and No step off deformity Thoracic/Lumbar Spine: thoracic and lumbar spine normal to inspection, No thoracic spinal tenderness and No lumbar spinal tenderness Skin: General skin exam: elasticity normal and turgor normal Neuro: General: oriented to person, oriented to place, oriented to time, patient oriented x3, moves all extremities, no focal motor deficits and CN's II- XI intact bilaterally Cranial nerves: Yes Equal, round and reactive pupils present Cognition (Neuro): normal cognition Motor exam (neuro): 5/5 motor strength present throughout, Normal motor muscle tone present throughout and Motor abnormalities not present Extrem: General: Yes full ROM, Yes normal exam except as noted, Yes no pedal edema and Yes no calf tenderness Left upper extremity: shoulder/upper arm Details: inspection abnormal, axillary nerve sensory function normal and normal ROM Psych: Mental Status: mental status grossly normal Affect: normal affect Thought process: Normal thought process present Medications Administered Discontinued Medications Generic Name Dose Route Start Last Admin Trade Name Iris PRN Reason Stop Dose Admin Ketorolac Tromethamine 30 mg 02/06/24 10:02/06/24 10:23 Ketorolac Tromethamine 30 Mg/Ml Vial IM 02/06/24 10:05 30 mg ONCE ONE Administration Prednisone 50 mg 02/06/24 10:02/06/24 10:24 Prednisone 10 Mg Tablet PO 02/06/24 10:05 50 mg ONCE ONE Administration Medical Decision Making Medical Decision Making [facility] Narrative: Patient is a 43-year-old male with history of chronic left-sided neck and shoulder pain presenting to the emergency department with ongoing left shoulder pain radiating down left arm since Thursday. On exam patient is awake, A+Ox3, VS WNL, afebrile, normal neurological exam without focal deficits, physical exam findings as above. Given reported symptoms and physical exam findings, initial differential includes cervical radiculopathy, degenerative disease, disc protrusion. CT notable for chronic degenerative changes, no acute abnormalities. My interpretation is in agreement with the radiologist's interpretation. Results discussed with patient and all questions answered. Will treat patient with course of prednisone, advised him to alternate Tylenol and ibuprofen in addition to using the cyclobenzaprine and oxycodone previously prescribed. Will prescribe additional short course of oxycodone. Instructed patient to keep follow-up appointment with Orthopedics on the . Return precautions discussed at bedside. Patient verbalized understanding of and agreement with plan. Differential Diagnosis Differential Diagnoses: The differential diagnosis associated with the presentation includes As per MDM Independent Interpretation I performed an independent interpretation of an: CT Scan Interpretation: CT c-spine shows chronic degenerative arthropathy without acute abnormality Radiology Impression Discussion of test interpretation with radiology: I have reviewed the radiologist's reading. Radiologist Impression: CT/CT cervical spine wo IV con IMPRESSION: * Chronic degenerative arthropathy within the cervical spine. * No acute imaging abnormalities. No fracture or malalignment. No evidence of any significant spinal canal stenosis. External Record Review External record reviewed: Inpatient record, Office record and Outpatient record Prescription Management I considered prescription management with: Pain Medication and Other Discharge Plan Discharge Clinical Impression: Cervical radiculopathy Patient Disposition: Home, Self-Care Instructions: Cervical Radiculopathy (ED) Additional Instructions: You were evaluated in the emergency department today for neck and shoulder pain which is chronic in nature. We recommend that you continue taking the previously prescribed cyclobenzaprine and oxycodone. We also recommend that you take 600 mg ibuprofen or 650 mg Tylenol every 6 hours for pain. If necessary, you should alternate these medications every 3 hours. For example, at 9:00 a.m. take Tylenol, then at noon take ibuprofen, then at 3:00 p.m. take Tylenol, then at 6:00 p.m. take ibuprofen, etc.. You are also being prescribed a course of prednisone to decrease inflammation. You are being prescribed topical lidocaine patches which you can wear for up to 12 hours in a 24 hour period. Do not apply heat directly over the patches. Please keep your follow-up appointment with Dr. Alfredo. Return to the emergency department with new weakness, numbness, tingling, fevers or any other concerning symptoms. Prescriptions: New prednisone 20 mg tablet 40 mg PO DAILY Qty: 10 0RF lidocaine 5 % adhesive patch,medicated 1 patch topical DAILY Qty: 15 0RF Rx Instructions: leave on most painful area for up to 12 hrs oxycodone 5 mg tablet 5 mg PO Q6H PRN (Reason: severe pain (scale score 7-10)) Qty: 12 0RF Rx Instructions: Partial Fill upon patient request. No Action polyethylene glycol 3350 [Miralax] 17 gram powder in packet 17 g PO BID Qty: 100 0RF docusate sodium [Colace] 100 mg capsule 100 mg PO BID Qty: 60 0RF acetaminophen [Tylenol Extra Strength] 500 mg tablet 500 mg PO Q6H PRN (Reason: fever or pain) Qty: 14 0RF lidocaine [Lidoderm] 5 % adhesive patch,medicated 1 patch topical DAILY MDD remove after 12 hours PRN (Reason: pain) Qty: 30 0RF Rx Instructions: leave on most painful area for up to 12 hrs cyclobenzaprine 5 mg tablet 5 mg PO Q8H PRN (Reason: pain (scale score 7-10)) 5 Days Qty: 14 0RF hydroxyzine HCl 50 mg tablet 50 mg PO TID PRN (Reason: anxiety) Qty: 30 0RF ibuprofen 800 mg tablet 800 mg PO Q8H PRN (Reason: pain) Qty: 14 0RF oxycodone 5 mg tablet 5 mg PO Q8H PRN (Reason: pain) Qty: 7 0RF Rx Instructions: Partial Fill upon patient request. cyclobenzaprine 10 mg tablet 10 mg PO Q8H Qty: 20 0RF risperidone 0.5 mg Tablet 0.5 mg PO BID melatonin 3 mg Tablet 6 mg PO DAILY hydrocodone-acetaminophen 5-325 mg tablet 1 tab PO Q4-6H PRN (Reason: pain) Qty: 30 0RF Rx Instructions: Partial Fill upon patient request. cetirizine 10 mg tablet 10 mg PO QAM cholecalciferol (vitamin D3) [Vitamin D3] 50 mcg (2,000 unit) capsule 50 mcg PO DAILY Qty: 90 2RF ibuprofen 800 mg tablet 800 mg PO Q8H PRN (Reason: pain) Qty: 40 0RF hydromorphone [Dilaudid] 2 mg tablet 2 mg PO Q4-6H PRN (Reason: pain) Qty: 60 0RF Rx Instructions: Partial Fill upon patient request. hydromorphone [Dilaudid] 2 mg tablet 2 mg PO Q4-6H PRN (Reason: pain) Qty: 30 0RF Rx Instructions: Partial Fill upon patient request. dextroamphetamine-amphetamine 5 mg tablet 1 tab PO QAM Referrals: Clayton Alfredo MD [Physician] - Print Language: Khmer
[2024-02-06] MEDS: Ketorolac Tromethamine 30 MG/ML VIAL IM (10:23)
[2024-02-06] MEDS: predniSONE 10 MG TABLET 50 MG PO (10:24)
[2024-02-06 12:35] VITALS: BP 130/60; PULSE 66; RESP 14; TEMP 36.8; O2SAT 98
== END 2024-02-06 17:10 | disposition home or self-care (01) ==
PROVIDERS: Emergency Provider Emergency Medicine Emergency Medical Services; PCP Internal Medicine
DX: M54.12 Radiculopathy, cervical region (principal); M54.2 Cervicalgia
CPT/HCPCS: 72125; 96372; 99283; 99284; J1885

== ENCOUNTER 2024-02-22 14:22 | Outpatient (AMB) | payer MEDICAID, SELFPAY ==
--- NOTE | 2024-02-22 14:26 | A.OFFVIS_ITS ---
Vital Signs 02/22/24 14:27 Height 5 ft 3 in Weight 140 lb BMI 24.8 Intake Visit Reasons: ov- Tendinitis of left rotator cuff Intake Note: Jorgito is a 42 year old right male who presents today for a follow up of his left shoulder pain. Patient reports still having pain on his left shoulder. Patient reports that he has had pain in the left shoulder that radiates down the arm to the elbow. He has numbness, tingling and weakness in the finger tips. His pain increases with all movement and has limited ROM above the head and behind the back. When he looks to his left with his head/necks and feels a shooting pain down the while arm. He is given muscle relaxer and tramadol in the ED which only helps him fall asleep but once he starts moving he feels the pain . Allergies No Known Allergies [No Known Allergies*] Allergy (Verified 02/06/24 09:29) HPI HPI ov- Tendinitis of left rotator cuff: Details: Jorgito is a 42 year old right male who presents today for a follow up of his left shoulder pain. Patient reports still having pain on his left shoulder. Patient reports that he has had pain in the left shoulder that radiates down the arm to the elbow. He has numbness, tingling and weakness in the finger tips. His pain increases with all movement and has limited ROM above the head and behind the back. When he looks to his left with his head/necks and feels a shooting pain down the while arm. He is given muscle relaxer and tramadol in the ED which only helps him fall asleep but once he starts moving he feels the pain . [facility] Medical History Left varicocele Hx of bipolar disorder Insomnia Fibromyalgia Vitamin D deficiency Anxiety Depression Surgical History History of hemorrhoidectomy (06/25/23) History of esophagogastroduodenoscopy (EGD) H/O colonoscopy History of surgery on arm Rectal bleeding Family History Maternal Grandmother Diabetes Colon cancer Maternal Aunt Colon cancer Sister Colon polyp Social History Household Members: Family Alcohol intake: never Patient Tobacco Use Status: Never used Tobacco e-Cigarette/Vaping Use: Never Used Current occupational status: employed Current occupation: [email or web address]/ right hand dominant Physical Exam Vital Signs: BMI result Body Mass Index 24.8 Extrem Other: + Spurlings left no focal weakness unremarkable shoulder exam Results Reviewed Results Reviewed: I personally reviewed the MR images. - At C4-C5, a shallow proximal left foraminal disc protrusion results in mild to moderate proximal left-sided foraminal stenosis and a shallow right paracentral disc protrusion mildly narrows the central canal. Assessment & Plan Assessment & Plan (1) Cervical spondylosis: Code(s): M47.812 - Spondylosis without myelopathy or radiculopathy, cervical region Category: Medical Plan: Jorgito describes worsening numbness and tingling in the left upper extremity. This is reproducible with Spurling's maneuver. His MRI from 15 months ago shows moderate left-sided foraminal stenosis. I recommend he consult with Dr. Cruz as it appears he is having radicular pain that has been worsening over the past year. Furthermore he reports that cervical spine injections were very helpful but only for a few hours. (2) Cervical radiculopathy: Code(s): M54.12 - Radiculopathy, cervical region Category: Medical Plan: Orders: Referrals Neuro Spine Referral M54.12 - Radiculopathy, cervical region Coding Level of Care Code Est Pt Level 4 (69062) Diagnoses Cervical spondylosis M47.812 Cervical radiculopathy M54.12
[2024-02-22 14:27] VITALS: BMI 24.8
== END 2024-02-22 15:44 | disposition home or self-care (01) ==
PROVIDERS: PCP Internal Medicine; Visit Provider Orthopaedic Surgery
DX: M47.812 Spondylosis without myelopathy or radiculopathy, cervical region (principal); M54.12 Radiculopathy, cervical region
CPT/HCPCS: 99213

== ENCOUNTER → 2024-02-22 14:22 | Outpatient (BNVA) | payer MEDICAID, SELFPAY | PROVIDERS: PCP Internal Medicine; Visit Provider Orthopaedic Surgery | DX: M47.22 Other spondylosis with radiculopathy, cervical region (principal) | CPT/HCPCS: 99212 ==

== ENCOUNTER 2024-02-26 13:51 | Outpatient (AMB) | payer MEDICAID, SELFPAY ==
--- NOTE | 2024-02-26 14:10 | HO.SPINEOV ---
Intake Visit Reasons: Cervical radiculopathy Intake Note: Mr. Valenzuela is here today c/o neck pain. 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 He is a very nice 43-year-old male who presents to the office today for evaluation of left arm pain. The symptoms began last year, and were at the time more subtle and just tolerable. He had underwent an MRI showing some degenerative disc disease. He had some injections done at the pain management Center, underwent PT, acupuncture etc.. Everything was basically manageable but sometime around 4-6 weeks ago the intensity of the pain ramped up significantly. Specifically the pain intensity went from manageable to almost unbearable. Can no longer sleep. If he moves his head even a little bit to the left the pain is like a lightening bolt going down his arm. It goes into his index and middle finger. His whole hand feels numb. He is also getting feelings of weakness in his left arm as well. He is very frustrated because he has been to the emergency room numerous times. He has been trialed on prednisone, anti-inflammatories, muscle relaxers, gabapentin etc. all without any improvement. 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 He is here today to discuss possible surgical options. PMH: He is reasonably healthy, history of fibromyalgia, anxiety depression, PTSD. He had history of surgery on his right arm where he had repair of a tendon at his right elbow. Other than that denies any history of heart attacks, strokes, bleeding disorders, kidney disorders, liver disease, previous cervical spine surgery etc.. Social hx: He does not smoke does not drink use any recreational drugs Medications: Adderall, vitamin-D, rdrd-sew-qtswrww pain medications as needed. Allergies: None Physical exam: He has tremendous amount of pain, positive Spurling sign down the left arm, very difficult to examine his left arm secondary to pain and discomfort. He may have some weakness of his left biceps which I would rate as 4- out of 5. He has an absent biceps reflex and an equivocal left triceps reflex. No Preciado's sign. Imaging review: Cervical MRI done at [place] last year as well as cervical CT done this year were reviewed. Previous cervical MRI did show left-sided foraminal stenosis at C5-6 into a lesser degree C6-7. CT done is nondiagnostic for this purpose, there is some slight crowding of the foramen but there is no way to see if there is a disc herniation. Impression: 43-year-old male with on and off left arm pain for the last year so, with a tremendous increase in the pain level over the last 4-6 weeks. It sounds like a C6 or C7 dermatome distribution. He has done conservative treatment over the last year which unfortunately has not been helpful and he is in worse position than he was even a year ago after all that effort. He is demonstrating some weakness in his arm with reflex changes. I am going to order an urgent MRI because his last 1 was a year old. It sounds like he is got an acute herniated disc. He can not sleep and this is severely affecting his ability to be functional and continue to work. I will call him with the results of the MRI. It sounds like he is going to need surgery. Thank you for allowing us to care for your patient. The total time spent with this visit with this patient was 45 minutes reviewing history, physical exam, cervical CT and MRI imaging review, and implementation of treatment plan or further diagnostic testing Won Cruz MD,PhD [facility] Orders: Orders MR cervical spine wo con Today M54.12 - Radiculopathy, cervical region Coding Level of Care Code New Pt Level 4 (95622) Diagnoses Cervical radiculopathy M54.12
== END 2024-02-26 15:00 | disposition home or self-care (01) ==
PROVIDERS: PCP Internal Medicine; Referring Provider Orthopaedic Surgery; Visit Provider Physician Assistant
DX: M54.12 Radiculopathy, cervical region (principal)
CPT/HCPCS: 99204

== ENCOUNTER → 2024-02-26 13:51 | Outpatient (BNVA) | payer MEDICAID, SELFPAY | PROVIDERS: PCP Internal Medicine; Visit Provider Physician Assistant | DX: M54.12 Radiculopathy, cervical region (principal); M48.02 Spinal stenosis, cervical region | CPT/HCPCS: 99212 ==

== ENCOUNTER 2024-03-02 19:43 | Outpatient (REF) | payer MEDICAID, SELFPAY ==
--- NOTE | ~2024-03-02 | MR_ITS ---
EXAMINATION: MR CERVICAL SPINE WITHOUT CONTRAST CLINICAL INFORMATION: Left arm radiculopathy. COMPARISON: MRI dated 11/14/2022. TECHNIQUE: Multiplanar, multisequential imaging of the cervical spine was performed without contrast. Slightly limited study with motion artifacts. FINDINGS: VERTEBRAL BODIES AND PARASPINAL SOFT TISSUES: The marrow signal is within normal limits. Dazo-pc-kwdrpahr loss of disc height again evident at the C5-C6 and C6-C7 levels with reduced intradiscal signal. No compression fractures or subluxations are seen. The paraspinal soft tissues are normal. The vertebral artery flow-voids are maintained. The imaged lung apices are grossly clear. CERVICOMEDULLARY JUNCTION AND VISUALIZED POSTERIOR FOSSA: The craniovertebral junction and imaged portions of the brain parenchyma appear normal. No cord signal abnormality or syrinx is seen. SPINAL LEVELS: C2-C3: No disc pathology. No central canal stenosis or foraminal narrowing. C3-C4: Very mild disc bulge without central canal stenosis or significant foraminal encroachment. C4-C5: Mild posterior subluxation and disc bulge. Previous small right paracentral disc protrusion has resorbed. No central canal stenosis. Patent neural foramina. C5-C6: Loss of disc height and mild retrosubluxation with a shallow disc-osteophyte complex. Stable mild bilateral foraminal narrowing. C6-C7: Mild disc bulge and uncovertebral joint spurring without central canal stenosis. Severe left foraminal encroachment due to a focal left posterolateral disc protrusion, more conspicuous on the current study compared to previous imaging. C7-T1: No disc pathology. No central canal stenosis or significant foraminal narrowing. MR/MR cervical spine wo con IMPRESSION: Further mild disc degeneration at the C6-C7 level with left-sided uncovertebral joint spurring and a focal left posterolateral disc protrusion resulting in significant left foraminal encroachment, slightly worsened from prior imaging. Mild cervical spondylosis elsewhere is similar to prior imaging. Previous small right paracentral disc protrusion at the C4-C5 level has resorbed.
== END 2024-03-02 19:44 | disposition home or self-care (01) ==
LOC: HO.MRI 19:43
PROVIDERS: PCP Internal Medicine; Visit Provider Physician Assistant
DX: M54.12 Radiculopathy, cervical region (principal)
CPT/HCPCS: 72141

== ENCOUNTER 2024-03-07 14:21 | Outpatient (AMB) | payer MEDICAID, SELFPAY ==
--- NOTE | 2024-03-07 14:30 | A.SPINEOV_ITS ---
Intake Visit Reasons: Discuss Surgery Intake Note: Mr. Valenzuela is here today to discuss suregery. 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 This shows left C6-7 foraminal narrowing secondary to disc osteophyte complex. The patient has been through conservative management in the form of physical therapy, anti-inflammatories and Tylenol. The left arm pain has been getting worse over time. It has been almost a year now he has been trying to wait this out and doing the conservative treatments. I reviewed his imaging with Dr. Cruz, we are willing to offer the patient a C6-7 total disc arthroplasty. Pt was given risk and benefits of surgery including but not limited to infection, hematoma , nerve injury,durotomy, weakness,bowel/bladder injury, persistent pain, vocal hoarseness as well as the option to continue with conservative treatment and patient wishes to proceed with surgery. Pt is aware they should stop their motrin, aspirin 7 days prior to surgery. All questions were answered to the best of our ability. If there is anything about this patients medical history that we have overlooked or concerns you have about us proceeding with surgery we would appreciate any input you can offer. Total amount of time spent in this visit was 20 minutes in discussion of symptoms, cervical imaging results and subsequent plan of care Won Cruz MD,PhD [facility] Coding Level of Care Code Est Pt Level 3 (56627) Diagnoses Cervical radiculopathy M54.12
== END 2024-03-07 15:04 | disposition home or self-care (01) ==
PROVIDERS: PCP Internal Medicine; Visit Provider Physician Assistant
DX: M54.12 Radiculopathy, cervical region (principal)
CPT/HCPCS: 99213

== ENCOUNTER → 2024-03-07 14:21 | Outpatient (BNVA) | payer MEDICAID, SELFPAY | PROVIDERS: PCP Internal Medicine; Visit Provider Physician Assistant | DX: M54.12 Radiculopathy, cervical region (principal) | CPT/HCPCS: 99212 ==

== ENCOUNTER 2024-03-17 06:14 | Day surgery (SDC) | payer MEDICAID, SELFPAY ==
[2024-03-15 12:58] VITALS: BMI 24.8
[2024-03-17] VITALS (8 sets, daily range): BP systolic 113–139; BP diastolic 68–95; PULSE 50–76; RESP 14–18; TEMP 36.1–36.3; O2SAT 96–100
--- NOTE | ~2024-03-17 | FL_ITS ---
EXAMINATION: XR FLUOROSCOPY WITH IMAGES CLINICAL INFORMATION: C6-C7 total cervical disc arthroplasty. COMPARISON: None available. TECHNIQUE: Fluoroscopy Supervised By: Dr. Elan Cruz. Fluoroscopy Time: 7.6 seconds. Cumulative Dose: 3.2600 mGy. DAP: 0.3886 Gy-cm2. Images: 2. FINDINGS: Intraoperative fluoroscopy and spot films were performed during a procedure in the OR. There is an anterior device which appears to be at the C6-C7 level although I cannot be certain of this secondary to coning of the radiographs. Please see Dr. Elan Cruz' report for complete details. FL/FL guidance in OR IMPRESSION: Intraoperative fluoroscopy and spot films were obtained. Please see Dr. Elan Cruz' report for complete details.
[2024-03-17] MEDS: Lactated Ringers 1,000 ML 100 ML IVCONT (06:34)
[2024-03-17] MEDS: Gabapentin 300 MG CAPSULE PO (06:34)
[2024-03-17] MEDS: methocarbamoL 750 MG TABLET PO (06:34)
--- NOTE | 2024-03-17 07:00 | P.HPSUR_ITS ---
Pre-Procedural Eval Section A - 24 Hr Update-Section A only Date of Service: 03/17/24 The patient is an INPATIENT: No Changes since office visit: No Cold of Flu in the past 2 weeks, No New Medical Problems, No Changes in Medication and No Patient answered all questions The patient has been examined within 24 hours of the surgical procedure. The History & Physical has been completed within 30 days and I have reviewed it.: No Section B - Complete if H&P > 30 days Chief Complaint: Radiculopathy, cervical region Allergies: Allergies Allergy/AdvReac Type Severity Reaction Status Date / Time No Known Allergies Allergy Verified 02/26/24 14:10 [No Known Allergies*] Review of Systems Sugical H&P ROS: Negative: Constitution, Cardiovascular, Respiratory, Neurological, Psychiatric, Hem-Onc, Allergic/Immunologic, Gastrointestinal, Genitourinary, Musculoskeletal, Integumentary, Endocrine and Eyes/Ears/ Nose/Throat Exam Surgical H&P Exam: Not Evaluated: HEENT, Not Evaluated: Heart, Not Evaluated: Lungs, Not Evaluated: Extremities, Not Evaluated: Abdomen, Not Evaluated: Skin and Not Evaluated: Neurological Plan Diagnosis/Plan: Unchanged C6-7 total disk arthroplasty Time Spent With Patient Time: Total time managing care of this patient today __6__ minutes.
--- NOTE | 2024-03-17 07:15 | P.CONAN_ITS ---
Documented by User: Ludivina Madden NP 03/16/24 08:37 HPI - Anesthesia Eval Consult details Narrative: 44yo M for C6-7 Total Cervical Disc Arthroplasty s/p 05/2023 hemorrhoidectomy 05/2023 with GA-LMA 4 PMFSH Active Problems Active Problems: All Active Problems Left elbow tendonitis (Acute) Mass of left elbow (Acute) Spondylosis of cervical region without myelopathy or radiculopathy (Acute) Closed fracture of distal phalanx of middle finger (Acute) Blurred vision, left eye (Acute) Muscle spasms of neck (Acute) Cervical radiculopathy (Acute) Cervical spondylosis (Acute) Epigastric abdominal pain (Acute) Weight loss, abnormal (Acute) Painful arc syndrome of left shoulder (Acute) Spondylosis of lumbar spine (Acute) Bilateral lumbar radiculopathy (Acute) Pars defect of lumbar spine (Acute) Fibromyalgia (Acute) Tendinitis of left rotator cuff (Acute) Polyarthralgia (Acute) Hemorrhoids (Acute) Tubular adenoma (Acute) Rectal bleeding (Acute) Vitamin D deficiency (Acute) Past Medical History Medical History (Updated 03/15/24 @ 12:21 by Franny Varela RN) Back pain Arthritis PTSD (post-traumatic stress disorder) Left varicocele Hx of bipolar disorder Insomnia Fibromyalgia Vitamin D deficiency Anxiety Depression Family History Family History Maternal Grandmother Diabetes Colon cancer Maternal Aunt Colon cancer Sister Colon polyp Family history of problems with anesthesia: No Surgical History Surgical History History of hemorrhoidectomy (06/25/23) History of esophagogastroduodenoscopy (EGD) H/O colonoscopy History of surgery on arm Rectal bleeding History of Problems with Anesthesia: No Social History Social History Household Members: Family Are you a primary animal care supervisor to a significant other at home: No Do you presently have visiting nurse or other home services: No Alcohol intake: never Patient Tobacco Use Status: Never used Tobacco e-Cigarette/Vaping Use: Never Used Use of substances other than those prescribed or required for medical reasons: No Are you DNR?: No Advance Directives: No Advance Directives Information Provided: Yes Advance Directives on File: No Recently lost weight without trying: No Eating poorly because of decreased appetite: No Nutrition Risks: No Nutritional Risk Current occupational status: employed Current occupation: [employer]/ right hand dominant Meds Allergies Allergy/AdvReac Type Severity Reaction Status Date / Time No Known Allergies Allergy Verified 02/26/24 14:10 [No Known Allergies*] Home Medications ?Medication ?Instructions ?Recorded ?Confirmed ?Last Taken ?Type dextroamphetamine-amphetamine 5 mg 1 tab PO BID 03/15/24 03/15/24 Unknown History tablet Exam Height,Weight and Vital Signs: Height 5 ft 3 in Weight 63.503 kg Pertinent Lab Results Pertinent Lab Results: Laboratory Tests 02/04/24 18:03 WBC 5.6 Hgb 13.6 L Hct 39.7 L Plt Count 231 Sodium 141 Potassium 3.7 Chloride 105 Carbon Dioxide 28 BUN 12 Creatinine 0.87 Narrative Narrative: EKG 05/2023 Vent. Rate : 071 BPM Atrial Rate : 071 BPM P-R Int : 140 ms QRS Dur : 080 ms QT Int : 412 ms P-R-T Axes : 078 035 041 degrees QTc Int : 447 ms Poor data quality, interpretation may be adversely affected Normal sinus rhythm Normal ECG When compared with ECG of 03-JAN-2023 10:25, No significant change was found Assessment and Plan Assessment Anesthesia Assessment: Chart Reviewed Final Anesthetic Review Family History of Problems with Anesthesia: No History of Problems with Anesthesia: No Documented by User: Nathalie Lopez DO 03/17/24 07:26 [facility] Past Medical History Medical History (Updated 03/15/24 @ 12:21 by Franny Varela RN) Back pain Arthritis PTSD (post-traumatic stress disorder) Left varicocele Hx of bipolar disorder Insomnia Fibromyalgia Vitamin D deficiency Anxiety Depression Family History Family History Maternal Grandmother Diabetes Colon cancer Maternal Aunt Colon cancer Sister Colon polyp Family history of problems with anesthesia: No Surgical History Surgical History History of hemorrhoidectomy (06/25/23) History of esophagogastroduodenoscopy (EGD) H/O colonoscopy History of surgery on arm Rectal bleeding History of Problems with Anesthesia: No Social History Social History Household Members: Family Are you a primary animal care supervisor to a significant other at home: No Do you presently have visiting nurse or other home services: No Alcohol intake: never Patient Tobacco Use Status: Never used Tobacco e-Cigarette/Vaping Use: Never Used Use of substances other than those prescribed or required for medical reasons: No Are you DNR?: No Advance Directives: No Advance Directives Information Provided: Yes Advance Directives on File: No Recently lost weight without trying: No Eating poorly because of decreased appetite: No Nutrition Risks: No Nutritional Risk Current occupational status: employed Current occupation: [employer]/ right hand dominant Meds Allergies Allergy/AdvReac Type Severity Reaction Status Date / Time No Known Allergies Allergy Verified 02/26/24 14:10 [No Known Allergies*] Home Medications ?Medication ?Instructions ?Recorded ?Confirmed ?Last Taken ?Type dextroamphetamine-amphetamine 5 mg 1 tab PO BID 03/15/24 03/15/24 Unknown History tablet Exam Exam Date and Time: March 17, 2024 0715 Height,Weight and Vital Signs: Height 5 ft 3 in Weight 63.503 kg Height 5 ft 3 in Weight 63.503 kg Vital Signs Temperature 97 F 03/17/24 06:18 Pulse Rate 55 03/17/24 06:18 Respiratory Rate 18 03/17/24 06:18 Blood Pressure 113/68 03/17/24 06:18 Pulse Oximetry 97 03/17/24 06:18 Oxygen Delivery Method Room Air 03/17/24 06:18 Temperature 97 F 03/17/24 06:18 Pulse Rate 55 03/17/24 06:18 Respiratory Rate 18 03/17/24 06:18 Blood Pressure 113/68 03/17/24 06:18 Pulse Oximetry 97 03/17/24 06:18 Oxygen Delivery Method Room Air 03/17/24 06:18 Airway Mallampati Class: I TM Dist: >3cm Neck ROM: Limited Loose/Missing/Broken Teeth: No (patient denies any loose or broken teeth) Heart: S1S2 Lungs: CTAB Assessment and Plan Assessment Anesthesia Assessment: Anesthesia Plan Discussed and Chart Reviewed Final Anesthetic Review Family History of Problems with Anesthesia: No History of Problems with Anesthesia: No NPO: Yes ASA Class: II Final Preanesthetic Review: No Changes in Pt Med Stat, Meds/Allgs Chart Reviewed, Consent Obtained/Reviewed and Anes Risks/Benef Reviewed Patient Risk: Low Procedure Risk: Intermediate Anesthetic Plan Anesthetic Plan: GA and Agree w/ Assess. and Plan Disposition: Standard PACU
--- NOTE | 2024-03-17 07:31 | PM.DS ---
DS: Providers Provider Date of Service: 03/17/24 Date of discharge: 03/17/24 Primary care physician: Jack Kate MD Admitting clinician: Elan Cruz DS: Diagnosis Discharge Diagnosis (1) Cervical radiculopathy: Status: Acute DS: Summary Time Attestation Discharge Coordination Time (in mins): 4 Quality: Safe Use of Opioids Does Pt have an Active Cancer Diagnosis on the Problem List?: No Quality: Stroke Does the patient have a stroke diagnosis?: No Physical Exam Vital Signs: Vital Signs: Last Vital Signs Temp 97 F 03/17/24 06:18 Pulse 55 03/17/24 06:18 Resp 18 03/17/24 06:18 BP 113/68 03/17/24 06:18 Pulse Ox 97 03/17/24 06:18 O2 Del Method Room Air 03/17/24 06:18 BMI result Body Mass Index 24.8 Discharge Plan Discharge Patient Disposition: Home, Self-Care Referrals: Jack Kate MD [Primary Care Provider] - 1 Week Discharge Medications: New oxycodone 5 mg tablet 5 mg PO Q4H PRN (Reason: pain) Qty: 20 0RF Rx Instructions: Partial Fill upon patient request. docusate sodium [Colace] 100 mg capsule 100 mg PO BID Qty: 20 0RF Continued dextroamphetamine-amphetamine 5 mg tablet 1 tab PO BID cholecalciferol (vitamin D3) [Vitamin D3] 50 mcg (2,000 unit) capsule 50 mcg PO DAILY Qty: 90 2RF Discharge Orders: Discharge Order (Routine); Ordered 03/17/24 Ordered By: Won Marshall Diet: Advance to usual diet Activity on Discharge: As tolerated Activity Restrictions/Additional Instructions: After your spinal surgery we ask you to observe the following restrictions/guidelines: Activity: It is normal to feel some discomfort as you increase your activity, but that will improve with time. We ask you avoid heavy lifting or acitivities that cause pain. As a general rule, 8lbs is a safe limit for lifting right after surgery. Walk as much as you feel comfortable but not to exhaustion. You will feel extra tired the first few days after surgery. Stay well hydrated. It is OK to walk up and down stairs You may return to driving when you are off narcotics (such as vicodin, oxycodone, dilaudid, etc), and you are back to normal functional capacity. If you have any concerns please check with office before driving. Return to work is specific to each patient and each surgery, so please speak with your doctor/PA at first follow up. Please bring paperwork such as FMLA at that time if you need it filled out. Medications: For optimum pain control, it is best to start with a combination of 500 mg of Tylenol every 4 hours with 600 mg of Motrin every 8 hours, and use narcotics as needed in between for breakthrough pain. We will give you a short supply of narcotics after surgery (usually one weeks worth). If you need more please call the office but do not use more than prescribed. You will need to give our office 48 hours notice if you need narcotics refilled and we do not fill narcotics on weekends or evenings. If you are on a narcotic, it is a good idea to take a stool softener such as colace or senna to avoid constipation If you take blood thinner such as aspirin, Plavix, Coumadin, Effient, Eliquis etc for conditions such as Afib, DVT, Pulmonary embolus, coronary disease, stents etc please speak with your surgeon about specific details as to when you can resume these medications. You can resume NSAIDs on post op day 1 (eg: Motrin, Naproxen, etc). Follow up: Please call the office, , after surgery to arrange a 3 week follow up for wound check. Wound Care: You may remove your dressing on the first day after surgery. ?You may ?leave open to air. Please do not remove the steri strips underneath. they will fall off on their own in one week. IT IS NORMAL FOR THE WOUND TO OOZE OR BE BLOODY FOR A FEW DAYS AFTER SURGERY. ?IF THIS HAPPENS JUST PLACE NEW DRESSING OVER IT TO AVOID STAINING CLOTHES. You may shower on post op day # 1 We ask that you do not let the water soak the wound. If it does get wet, just towel dry lightly. Please do not scrub your incision or place any type of chemical/ointment on the wound. No tub baths, pools or jacuzzis for one month. If you have any leaking or redness from your wound, or fevers, please call office Print Language: Cambodian
--- NOTE | 2024-03-17 08:56 | W.PM.OPN ---
Operative Note Operative Note Date of Service: 03/17/24 Narrative: Preoperative Diagnosis: Cervical radiculopathy, left side Procedure: C6-7 total disc arthropathy Informed Consent was obtained for this operation. I have explained the nature, purpose and benefits of the operation. I have discussed the risks and benefit of the operation including possible complications or adverse events with patient/family. Alternative(s) were discussed with the patient with their relative benefits and risks as well as the consequences of not accepting the operation were included in obtaining consent. Surgeon: BLAISE KO MD, PHD Procedure Assisted By: morteza Ballard Description of Procedure: The patient is suffering from left cervical radiculopathy. MRI shows foraminal stenosis with compression of the C7 nerve root. He was offered a total disc arthropathy. The procedure complications were explained. The patient was consented. The patient was brought to the operating room and endotracheally intubated. The patient was put in supine position with slight extension of the neck. Prep and drape was done followed by timeout. A mid cervical incision was made followed by opening of the platysma. The prevertebral fascia was reached following the natural planes while the physician office administrative assistant provided manual retraction. The prevertebral fascia was opened to expose the disc space. A spinal needle was placed in the disk space to confirm the correct level with xray. The longus colli muscles were released bilaterally and a self retaining retractor was inserted. Two [place] pins were placed in the C6-7 vertebral bodies parallel to the endplate and distraction was give over the interspace. The discectomy was completed toward the posterior annulus of the disc. The microscope was brought in. The remainder of the discectomy was completed. The posterior ligament was opened and resected to expose the underlying dura. A bilateral foraminotomy was done to decompress the exiting nerve roots. A 15 x 14 x 5 mm height trial was inserted an x-ray confirmed correct position. Trial was removed and replaced with the artificial disc from sentinel spine with the following measurements : 15 mm x 40 mm x 5 mm height. Final x-rays in AP and lateral projection showed good position of the implant. The [place] pins were removed. Hemostasis was done. The physician office administrative assistant closed the incision in 2 layers with a 3-0 Vicryl. Steri-Strips used to approximate incision. An OpSite with Tegaderm was used to cover the incision. All sponge and needle counts were correct. Patient was extubated and transported in stable is to recovery room. Anesthesia: General Estimated Blood Loss (ml): Minimal Duration of Surgery: 45 minutes Postoperative Plan: Discharge home Complications: None
[2024-03-17] MEDS: oxyCODONE HCl Immed Release 5 MG TABLET PO (09:35)
== END 2024-03-17 11:05 | disposition home or self-care (01) ==
PROVIDERS: PCP Internal Medicine; Visit Provider Neurological Surgery
PROC: (CPT 22856; principal; 2024-03-17 07:30)
DX: M54.12 Radiculopathy, cervical region (principal)
CPT/HCPCS: 22856; C1776; J0131; J0690; J1100; J1596; J1885; J2250; J2405; J2704; J3010

== ENCOUNTER → 2024-03-17 06:14 | Outpatient (BNV) | payer MEDICAID, SELFPAY | PROVIDERS: PCP Internal Medicine; Visit Provider Physician Assistant | DX: M54.12 Radiculopathy, cervical region (principal) | CPT/HCPCS: 22856; 99499 ==

== ENCOUNTER 2024-04-07 09:44 | Outpatient (AMB) | payer MEDICAID, SELFPAY ==
--- NOTE | 2024-04-07 10:08 | HO.SPINEOV ---
Intake Visit Reasons: 1st post op Intake Note: Mr. Valenzuela is here today for his 1st post-op. Fisher Scallop Required: No Allergies No Known Allergies [No Known Allergies*] Allergy (Verified 02/26/24 14:10) Assessment & Plan Assessment & Plan (1) Status post cervical spinal arthrodesis: Code(s): Z98.1 - Arthrodesis status Category: Surgical Plan Procedure: C6-7 total disc arthroplasty Jorgito comes in today for his 1st postoperative visit. He reports he is satisfied with the surgery and feels much better than he did pre-operatively. The patient reports he is up, walking around, and completing the majority of his ADLs. He reports that he no longer suffers from his left-sided shooting radiculopathy. He still reports mild pain, with good relief with pain medication. He has several questions about returning to work during this visit all of which I answered to the best of my ability. 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 No new neurological deficits. Patient is able to ambulate well, rises from a seated position without difficulty. Incision site is closed, well healing, with no signs of drainage. We will follow-up with the patient in 6 weeks for their 2nd postoperative visit. At that time we will get x-rays to review with the patient. Leoncio Cruz MD,PhD [facility] Coding Level of Care Code Global (77932) Diagnoses Status post cervical spinal arthrodesis Z98.1
== END 2024-04-07 10:54 | disposition home or self-care (01) ==
PROVIDERS: PCP Internal Medicine; Visit Provider Physician Assistant
DX: Z98.1 Arthrodesis status (principal)
CPT/HCPCS: 99024

== ENCOUNTER → 2024-04-07 09:44 | Outpatient (BNVA) | payer MEDICAID, SELFPAY | PROVIDERS: PCP Internal Medicine; Visit Provider Physician Assistant | DX: Z98.1 Arthrodesis status (principal) | CPT/HCPCS: 99212 ==

== ENCOUNTER 2024-04-14 20:29 | Emergency (ER) | payer MEDICAID, SELFPAY ==
--- NOTE | ~2024-04-14 | XR_ITS ---
EXAMINATION: XR HAND, LEFT CLINICAL INFORMATION: Pain and swelling. COMPARISON: None available. TECHNIQUE: PA, lateral, and oblique views of the left hand. FINDINGS: Bony alignment and mineralization are normal. There is a neutral ulnar variance. No fracture or dislocation is seen. There is mild osteoarthritic change of the first carpometacarpal joint. The proximal and distal carpal rows are intact. No focal bone erosion is seen. There is a well-corticated accessory ossification center or chronic avulsion fragment adjacent to the ulnar styloid. No focal soft tissue swelling, gas or foreign body is seen. XR/XR hand LT 2V IMPRESSION: 1. No fracture, dislocation or unusual bony erosion is seen. 2. There is mild osteoarthritic change of the left first carpometacarpal joint.
[2024-04-14 20:34] VITALS: BP 116/76; PULSE 90; RESP 18; TEMP 36.7; O2SAT 98; BMI 23.0
--- NOTE | 2024-04-14 20:36 | ED_ITS ---
HPI - Extremity Injury (Upper) General Chief Complaint: Extremity Injury, Upper Stated Complaint: swollen left thumb Time Seen by Provider: 04/14/24 21:46 Source: patient Mode of arrival: ambulatory Limitations: no limitations History of Present Illness HPI narrative: Patient is a 44-year-old male right-hand dominant who presents emergency department for evaluation of left thumb pain and swelling with onset of symptoms yesterday. Reports gradual progressing. He denies any known precipitating injury. Denies fevers, chills, known insect bites, abrasions, rashes. Related Data Home Medications ?Medication ?Instructions ?Recorded ?Confirmed dextroamphetamine-amphetamine 5 mg 1 tab PO BID 03/15/24 03/15/24 tablet Previous Rx's ?Medication ?Instructions ?Recorded cholecalciferol (vitamin D3) 50 50 mcg PO DAILY #90 caps 04/17/23 mcg (2,000 unit) capsule (Vitamin D3) docusate sodium 100 mg capsule 100 mg PO BID #20 caps 03/17/24 (Colace) oxycodone 5 mg tablet 5 mg PO Q8H PRN pain #10 tabs 04/07/24 Allergies Allergy/AdvReac Type Severity Reaction Status Date / Time No Known Allergies Allergy Verified 04/14/24 20:35 [No Known Allergies*] Review of Systems 2 Review of Systems: Yes all other systems are reviewed and are negative PMFSH Past Medical History Attestation statement: The following information was validated with the patient. Source: old records reviewed Medical History Back pain Arthritis PTSD (post-traumatic stress disorder) Left varicocele Hx of bipolar disorder Insomnia Fibromyalgia Vitamin D deficiency Anxiety Depression Surgical History History of hemorrhoidectomy (06/25/23) History of esophagogastroduodenoscopy (EGD) H/O colonoscopy History of surgery on arm Rectal bleeding Family History Family History Maternal Grandmother Diabetes Colon cancer Maternal Aunt Colon cancer Sister Colon polyp Social History Social History Household Members: Family Are you a primary doggy daycare activities director to a significant other at home: No Do you presently have visiting nurse or other home services: No Alcohol intake: never Patient Tobacco Use Status: Never used Tobacco e-Cigarette/Vaping Use: Never Used Advance Directives: No Advance Directives Information Provided: No Do you have a plan to hurt others: No Plan Current occupational status: employed Current occupation: [employer]/ right hand dominant Physical Exam 2 Vital Signs: Vital Signs: Last Vital Signs Temp 97.8 F 04/14/24 22:27 Pulse 63 04/14/24 22:27 Resp 18 04/14/24 22:27 BP 110/63 04/14/24 22:27 Pulse Ox 98 04/14/24 22:27 O2 Del Method Room Air 04/14/24 22:27 BMI result Body Mass Index 23.0 Appearance: Alert.?Oriented to person, place and time. No acute distress.?Normal affect. Neck: Normal inspection.? Neck supple.?? CVS: Heart sounds normal. Normal heart rate and rhythm.? Pulses normal.?? Respiratory: No respiratory distress.? Lung sounds clear to auscultation bilaterally?? Abdomen: Soft and non-tender. Normoactive bowel sounds. Skin: Skin warm and dry.? Normal skin color.?? Extremities: Localized swelling, mild erythema without warmth to the base of the left thumb. Tenderness upon palpation of the carpometacarpal joint, increased pain with abduction against resistance, decreased range to saddle joint Neuro: Moves all extremities spontaneously. Sensation intact bilaterally. Ambulates with normal steady gait. Course Course Course Narrative: This is a Rapid Medical Exam performed in triage by Kaur Jacob PA-C. Full HPI, ROS and PE to be performed by primary ED provider. 44 year-old M w/ PMHx spinal fusion presenting to the ED c/o left thumb pain and swelling with decreased ROM secondary to pain x today. States it has been gradually worsening. Admits to cleaning pool today & unsure if got bit by something PE: L thumb with swelling & erythema, ttp. mild limited ROM Plan: Labs, XR Medical Decision Making Medical Decision Making MDM Narrative: Patient is a 44-year-old male who presents emergency department for evaluation of left thumb pain as per HPI. Overall he is well-appearing, nontoxic, afebrile without tachycardia. XR revealing degenerative changes of the left thumb carpometacarpal carpal joint where he has localized point tenderness, been he has increased pain with range, I suspect pain secondary to arthritic changes verses tendinitis/tenosynovitis, positive Ken test. There is mild erythema but no warmth, no fevers chills to suggest septic joint. Suspect less likely a gouty arthritis. Discussed conservative treatment including rest, ice, acetaminophen/ibuprofen, thumb spica splint and follow-up with his primary care provider as scheduled in 4 days. Discussed worrisome signs and symptoms that would warrant re-evaluation in the emergency department. All questions answered. Stable for discharge Differential Diagnosis Differential Diagnoses: The differential diagnosis associated with the presentation includes (See narrative above) Lab Data MDM Lab Attestation statement: I reviewed the patient's lab results. CBC is without leukocytosis or left shift. Mild normocytic anemia that does not meet transfusion criteria. CMP within normal range. CRP and ESR within normal range. 04/14/24 21:28 04/14/24 21:28 Labs: Lab Results 04/14/24 Range/Units 21:28 WBC 5.8 (4.8-10.8) X10*3/uL RBC 4.48 L (4.60-5.80) X10*6/uL Hgb 13.3 L (14.0-18.0) g/dl Hct 38.2 L (42.0-52.0) % MCV 85.3 (80.0-98.0) fL MCH 29.7 (27.0-33.0) pg MCHC 34.8 (31.0-36.0) g/dl RDW 11.8 (11.0-16.0) % Plt Count 234 (160-400) X10*3/uL MPV 10.2 (9.4-12.4) fL Immature Gran % (Auto) 0.2 (0.0-0.4) % Neut % (Auto) 60.7 (45-73) % Lymph % (Auto) 29.9 (20-40) % [place] % (Auto) 6.4 (2-11) % Eos % (Auto) 1.9 (0-4) % Baso % (Auto) 0.9 (0-2) % Lymph # (Auto) 1.7 (1.2-4.9) X10*3/uL [place] # (Auto) 0.4 (0.1-1.2) X10*3/uL Eos # (Auto) 0.1 (0.0-0.4) X10*3/uL Baso # (Auto) 0.1 (0.0-0.2) X10*3/uL Abs Immat Gran (auto) 0.01 (0.00-0.03) X10*3/uL Absolute Neuts (auto) 3.5 (2.0-8.3) x10*3/uL Absolute Nucleated RBC 0.000 (0.0-0.012) X10*3/uL Nucleated RBC % (auto) 0.0 (0.0-0.2) /100WBC ESR 4 (0-15) MM/HR Sodium 143 (135-145) mmol/L Potassium 3.8 (3.3-5.1) mmol/L Chloride 106 (96-108) mmol/L Carbon Dioxide 29 (22-29) mmol/L Anion Gap 12 (12-20) BUN 12 (9-16) mg/dL Creatinine 0.88 (0.5-1.4) mg/dL Estim Creat Clear Calc 88.0 Estimated GFR > 60 Random Glucose 81 (60-115) mg/dL Calcium 9.6 (8.4-10.2) mg/dL C-Reactive Protein < 0.10 (< or = 0.50) mg/dL Independent Interpretation I performed an independent interpretation of an: Plain X-Ray (No acute fracture) Radiology Impression Discussion of test interpretation with radiology: I have reviewed the radiologist's reading. Radiologist Impression: XR/XR hand LT 2V IMPRESSION: 1. No fracture, dislocation or unusual bony erosion is seen. 2. There is mild osteoarthritic change of the left first carpometacarpal joint. Prescription Management I considered prescription management with: Pain Medication Discharge Plan Discharge Clinical Impression: Degenerative arthritis of left hand Patient Disposition: Home, Self-Care Instructions: Arthritis (ED) Additional Instructions: As discussed, your imaging today shows arthritis to the joint where your thumb connects to your hand which is the location of your pain. You can take ibuprofen 200 mg, 3 tablets (600mg) every 6-8 hours as needed for pain, in addition to Tylenol 500 mg, 2 tablets (1,000mg) every 4-6 hours as needed for pain, but not to exceed 3 doses daily (3,000mg).? Wear thumb spica splint as provided. Follow-up with your primary care provider as scheduled on 04/19/2024. You may return back to emergency department any new or worsening symptoms or concerns such as severe worsening pain, swelling, redness that may extend up the arm, fevers, chills. Prescriptions: No Action dextroamphetamine-amphetamine 5 mg tablet 1 tab PO BID docusate sodium [Colace] 100 mg capsule 100 mg PO BID Qty: 20 0RF cholecalciferol (vitamin D3) [Vitamin D3] 50 mcg (2,000 unit) capsule 50 mcg PO DAILY Qty: 90 2RF oxycodone 5 mg tablet 5 mg PO Q8H PRN (Reason: pain) Qty: 10 0RF Rx Instructions: Partial Fill upon patient request. Referrals: Jack Kate MD [Primary Care Provider] - Print Language: Yoruba
[2024-04-14 21:31] LABS: MANUAL DIFF FLAG NO
[2024-04-14 21:33] LABS: Basophils Absolute Auto 0.1 X10*3/uL (0.0-0.2); Basophils Percent Auto 0.9 % (0-2); Eosinophils Absolute Auto 0.1 X10*3/uL (0.0-0.4); Eosinophils Percent Auto 1.9 % (0-4); Hematocrit 38.2 % (42.0-52.0); Hemoglobin 13.3 g/dl (14.0-18.0); Imm Gran Abs Auto 0.01 X10*3/uL (0.00-0.03); Imm Gran Pct Auto 0.2 % (0.0-0.4); Lymphocytes Absolute Auto 1.7 X10*3/uL (1.2-4.9); Lymphocytes Percent Auto 29.9 % (20-40); Mean Corpuscular HGB Conc 34.8 g/dl (31.0-36.0); Mean Corpuscular Hemoglobin 29.7 pg (27.0-33.0); Mean Corpuscular Volume 85.3 fL (80.0-98.0); Mean Platelet Volume 10.2 fL (9.4-12.4); Monocytes Absolute Auto 0.4 X10*3/uL (0.1-1.2); Monocytes Percent Auto 6.4 % (2-11); Neutrophils Absolute Auto 3.5 x10*3/uL (2.0-8.3); Neutrophils Percent Auto 60.7 % (45-73); Platelet Count 234 X10*3/uL (160-400); Red Blood Count 4.48 X10*6/uL (4.60-5.80); Red Cell Distribution Width 11.8 % (11.0-16.0); White Blood Count 5.8 X10*3/uL (4.8-10.8)
[2024-04-14 21:46] LABS: Anion Gap 12 (12-20); Blood Urea Nitrogen 12 mg/dL (9-16); C Reactive Protein < 0.10 mg/dL (< or = 0.50); Calcium 9.6 mg/dL (8.4-10.2); Carbon Dioxide 29 mmol/L (22-29); Chloride 106 mmol/L (96-108); Estimated Glomerular Filt Rate > 60; Glucose Random 81 mg/dL (60-115); Potassium 3.8 mmol/L (3.3-5.1); Sodium 143 mmol/L (135-145)
[2024-04-14 22:19] LABS: Erythrocyte Sedimentation Rate 4 MM/HR (0-15)
[2024-04-14 22:27] VITALS: BP 110/63; PULSE 63; RESP 18; TEMP 36.6; O2SAT 98
[2024-04-14 23:00] VITALS: BP 110/63; PULSE 63; RESP 18; TEMP 36.6; O2SAT 98
== END 2024-04-14 23:00 | disposition home or self-care (01) ==
PROVIDERS: Physician Assistant; Emergency Provider Internal Medicine; PCP Internal Medicine
DX: M19.042 Primary osteoarthritis, left hand (principal)
CPT/HCPCS: 29130; 36415; 73120; 80048; 85025; 85652; 86140; 99283

== ENCOUNTER 2024-04-25 14:27 | Outpatient (AMB) | payer MEDICAID, SELFPAY ==
--- NOTE | 2024-04-25 14:47 | A.SPINEOV_ITS ---
Intake Visit Reasons: 2 weeks evaluation Intake Note: Mr. Nicolas Rucker is here today for a 2 week evaluation. Cardiovascular Radiologic Technologist Required: No Allergies No Known Allergies [No Known Allergies*] Allergy (Verified 04/25/24 14:47) Assessment & Plan Assessment & Plan (1) S/P cervical spinal fusion: Code(s): Z98.1 - Arthrodesis status Category: Medical Plan Jorgito did show for his appointment today, however he was supposed to have a 6 week follow-up and not a 2 week follow-up. I did provide him with the continuation letter for his leave from work as he reports he still has quite a bit of inflammation around the incision site and is slowly beginning to have strength back in his arms. We will follow up with him again in 4 weeks. Coding Level of Care Code Global (91427) Diagnoses S/P cervical spinal fusion Z98.1
== END 2024-04-25 15:09 | disposition home or self-care (01) ==
PROVIDERS: PCP Internal Medicine; Visit Provider Physician Assistant
DX: Z98.1 Arthrodesis status (principal)
CPT/HCPCS: 99024

== ENCOUNTER → 2024-04-25 14:27 | Outpatient (BNVA) | payer MEDICAID, SELFPAY | PROVIDERS: PCP Internal Medicine; Visit Provider Physician Assistant | DX: Z47.89 Encounter for other orthopedic aftercare (principal); Z98.1 Arthrodesis status | CPT/HCPCS: 99212 ==

== ENCOUNTER 2024-05-02 10:59 | Emergency (ER) | payer MEDICAID, SELFPAY ==
[2024-05-02 11:26] VITALS: BP 122/72; PULSE 70; RESP 18; TEMP 36.8; O2SAT 97; BMI 25.0
--- NOTE | 2024-05-02 13:41 | ED_ITS ---
HPI - General Adult General Chief complaint: General Medical Stated complaint: Nose bleed/ Black dot on nose Time Seen by Provider: 05/02/24 12:51 Source: patient and RN notes reviewed Mode of arrival: ambulatory Limitations: no limitations History of Present Illness ED Provider: Chayito Barger PA-C HPI narrative: This is a 44-year-old male, with no known medical problems, who presents [facility] located within [facility] department with nasal concerns. Patient states that he noticed a ?black dot? on the right external narewhich she thought was a blackhead or pimple. He states that he tried popping this area however this did not resolve. He states that he has slight discoloration to his skin which he is concerned about. He also states that he has had increased pressure and pain inside his nose and throughout his face. He also states that he has been smelling foul his nostrils. He denies any fevers, chills, severe headache, chest pain, shortness breath, abdominal pain, nausea, vomiting or diarrhea. He is hoping to follow-up with ear nose and throat, states that he fractured his nose last year and did not follow-up with any specialist. No other complaints or concerns at this time. MD complaint: Nasal concerns Onset (ago): day(s) Severity: moderate Relieving factors: none Exacerbating factors: none Associated symptoms: denies other symptoms Treatments prior to arrival: none Related Data Home Medications ?Medication ?Instructions ?Recorded ?Confirmed dextroamphetamine-amphetamine 5 mg 1 tab PO BID 03/15/24 03/15/24 tablet Previous Rx's ?Medication ?Instructions ?Recorded cholecalciferol (vitamin D3) 50 50 mcg PO DAILY #90 caps 04/17/23 mcg (2,000 unit) capsule (Vitamin D3) docusate sodium 100 mg capsule 100 mg PO BID #20 caps 03/17/24 (Colace) oxycodone 5 mg tablet 5 mg PO Q8H PRN pain #10 tabs 04/07/24 amoxicillin 875 mg-potassium 1 tab PO BID 7 days #14 tabs 05/02/24 clavulanate 125 mg tablet Allergies Allergy/AdvReac Type Severity Reaction Status Date / Time No Known Allergies Allergy Verified 05/02/24 11:28 [No Known Allergies*] Review of Systems Review of Systems: Yes all other systems are reviewed and are negative Constitutional: Constitutional: Reports as per HPI [facility] Past Medical History Medical History Back pain Arthritis PTSD (post-traumatic stress disorder) Left varicocele Hx of bipolar disorder Insomnia Fibromyalgia Vitamin D deficiency Anxiety Depression Surgical History History of hemorrhoidectomy (06/25/23) History of esophagogastroduodenoscopy (EGD) H/O colonoscopy History of surgery on arm Rectal bleeding Family History Family History Maternal Grandmother Diabetes Colon cancer Maternal Aunt Colon cancer Sister Colon polyp Social History Social History Household Members: Family Are you a primary account executive healthcare to a significant other at home: No Do you presently have visiting nurse or other home services: No Alcohol intake: never Patient Tobacco Use Status: Never used Tobacco e-Cigarette/Vaping Use: Never Used Advance Directives: No Advance Directives Information Provided: Yes Do you have a plan to hurt others: No Plan Current occupational status: employed Current occupation: [employer]/ right hand dominant Physical Exam ED Vital Signs: Vital Signs - 24 hr 05/02/24 11:26 05/02/24 13:50 Temperature 98.3 F 98.3 F Pulse Rate 70 70 Respiratory Rate 18 18 Blood Pressure 122/72 122/72 Pulse Oximetry 97 97 Oxygen Delivery Method Room Air Room Air BMI result Body Mass Index 25.0 Const General: cooperative, comfortable and no acute distress Orientation/consciousness: patient oriented x3 Limitations: no limitations HENMT Other: Tenderness palpation along the maxillary sinuses. Nasal turbinates are patent, no erythema No overlying skin changes to the nose. There is a 1 mm round non indurated hypopigmented lesion on the external right nare Head: Yes normal to inspection, Yes normocephalic and Yes atraumatic Ears: hearing grossly normal bilaterally General nose exam: Normal external nose present Face and sinus: Yes normal facial exam Mouth: Normal oral and palatal mucosa present, oropharynx normal and moist mucous membranes Throat: Yes posterior oropharynx normal Eyes General: appearance normal, both eyes and all related structures Eyelids: Yes eyelids normal Conjunctivae: conjunctivae normal Sclerae: sclerae normal Pupils: Equal, round and reactive pupils present EOM: EOMs intact bilaterally Neck Neck: Yes normal visual inspection, Yes full ROM and Yes no lymphadenopathy Lymphatic: no lymphadenopathy noted Chest Chest palpation & inspection: normal inspection of the chest Resp Effort & Inspection: normal respiratory effort and able to speak in complete sentences Auscultation: clear to auscultation bilaterally, no crackles, no rales, no rhonchi and no wheezes Cardio Rate: regular rate Rhythm: regular rhythm Heart sounds: S1 normal heart sound present and S2 normal heart sound present GI Inspection: Yes normal to inspection Skin General skin exam: no rashes or lesions noted Trauma: no lacerations or abrasions Wounds: no wounds Neuro General: patient oriented x3 and moves all extremities Cranial nerves: Yes Equal, round and reactive pupils present Extrem General: Yes normal to inspection Right upper extremity: normal to inspection Left upper extremity: normal to inspection Right lower extremity: normal to inspection Left lower extremity: normal to inspection Medical Decision Making Medical Decision Making MDM Narrative: This is a 44-year-old male who presents emergency department with complaints of sinus pain, foul odor to nasal passages. On arrival, vital signs within normal limits. He is tenderness palpation along the maxillary sinuses. Given symptoms, findings consistent with sinusitis. Discussed findings with patient, and will treat with course of Augmentin. He is nontoxic-appearing, stable, under no distress at this time. Will follow-up with ear nose and throat, he understands and agrees with plan. He was given return precautions. Patient stable for discharge Differential Diagnosis Differential Diagnoses: The differential diagnosis associated with the presentation includes Sinusitis, viral syndrome, URI, nasal polyp Discharge Plan Discharge Clinical Impression: Sinusitis Patient Disposition: Home, Self-Care Instructions: Sinusitis (ED) Additional Instructions: You were seen in the emergency department today. You are exhibiting the start of a sinusitis. This is a bacterial infection that can cause you to have pain, and abnormal smells in your nose. Please take prescribed antibiotic as directed. Follow-up with the sugarcane research technician. Call today to make an appointment. If any new or worsening symptoms occur including but not limited to fevers, chills, worsening pain, please return for re-evaluation. Prescriptions: New amoxicillin-pot clavulanate 875-125 mg tablet 1 tab PO BID 7 Days Qty: 14 0RF No Action dextroamphetamine-amphetamine 5 mg tablet 1 tab PO BID docusate sodium [Colace] 100 mg capsule 100 mg PO BID Qty: 20 0RF cholecalciferol (vitamin D3) [Vitamin D3] 50 mcg (2,000 unit) capsule 50 mcg PO DAILY Qty: 90 2RF oxycodone 5 mg tablet 5 mg PO Q8H PRN (Reason: pain) Qty: 10 0RF Rx Instructions: Partial Fill upon patient request. Referrals: Deni John [Physician] - Interventions: ED Discharge Assessment Last Done: 05/02/24 13:50 Discharge Date/Time: 05/02/24 13:51 Print Language: Macedonian
[2024-05-02 13:50] VITALS: BP 122/72; PULSE 70; RESP 18; TEMP 36.8; O2SAT 97
== END 2024-05-02 13:51 | disposition home or self-care (01) ==
PROVIDERS: Emergency Provider Emergency Medicine; PCP Internal Medicine
DX: J32.9 Chronic sinusitis, unspecified (principal); Z79.899 Other long term (current) drug therapy
CPT/HCPCS: 99282; 99283

== ENCOUNTER 2024-05-24 10:10 | Outpatient (AMB) | payer MEDICAID, SELFPAY ==
--- NOTE | 2024-05-24 10:11 | MHC.OFFVIS ---
Vital Signs 05/24/24 10:13 Height 5 ft 3 in Weight 140 lb BMI 24.8 Intake Visit Reasons: New Prob- L thumb arthritis Intake Note: Jorgito is a 44 yo right hand dominant male who presents today with a new problem; left thumb pain, possible arthritis. Patient denies numbness, tingling, and locking on fingers. Patient states the base of the left thumb swells up and becomes painful. He was given a brace at the ED that helps him. Patient describes pain as 10 on a 0-10 pain scale. He is not taking anything for pain. Patient states he has always had problems with this hand. He recently had surgery on his neck that helped some of his finger pains. Allergies No Known Allergies [No Known Allergies*] Allergy (Verified 05/24/24 10:13) HPI HPI New Prob- L thumb arthritis: Details: Jorgito is a 44 year old right hand dominant man who presents with complaints of pain at the base of the left thumb. He complains of pain in the base of his left thumb, along with some swelling. His symptoms began ~4-5 weeks ago when he was prepping for dinner in the kitchen with his . For several hours he was grasping meet with his left hand to then place a shish kabob secure through the meat. This was repeated over and over during that day, and his thumb was feeling worse and worse. He denied having any pain in this area prior to this episode. He denies any falls, or injuries at the time. He was seen in the ED on 04/14/24 and given a thumb brace. He says this has been somewhat helpful. He denies any numbness, tingling, locking, or catching at this time. He says he used to have issues with numbness to his entire left upper extremity that radiated from his neck, but this has improved since his c-spine surgery on 03/17/24. He has a Hx of Fibromyalgia, bipolar disorder, anxiety, & PTSD. He says he works for the [employer] at the [employer] and does frequent driving at work, and stays active at the gym with weightlifting. He says when he is lifting weights at time he has to keep his thumb extended instead of making a fist to board certified arts therapist. [facility] Medical History Back pain Arthritis PTSD (post-traumatic stress disorder) Left varicocele Hx of bipolar disorder Insomnia Fibromyalgia Vitamin D deficiency Anxiety Depression Surgical History History of hemorrhoidectomy (06/25/23) History of esophagogastroduodenoscopy (EGD) H/O colonoscopy History of surgery on arm Rectal bleeding Family History Maternal Grandmother Diabetes Colon cancer Maternal Aunt Colon cancer Sister Colon polyp Social History (Updated 05/24/24 @ 10:14 by SANDHYA Crow) Household Members: Family Are you a primary respiratory care instructor to a significant other at home: No Do you presently have visiting nurse or other home services: No Alcohol intake: never Patient Tobacco Use Status: Never used Tobacco e-Cigarette/Vaping Use: Never Used Current occupational status: employed 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 Review of Systems Const All systems reviewed & are unremarkable except as noted in HPI and below Physical Exam Vital Signs: BMI result Body Mass Index 24.8 Const General: cooperative, healthy appearing and no acute distress Orientation/consciousness: patient oriented x3 HEENT Head: Yes normocephalic and Yes atraumatic Eyes EOM: EOMs intact bilaterally Resp Effort & Inspection: normal respiratory effort and able to speak in complete sentences Cardio Jugular venous distension: no JVD Skin General skin exam: turgor normal Rashes: no rashes Neuro General: patient oriented x3 Extrem Other: Evaluation of Left Upper Extremity: The patient is alert, oriented, and in no acute distress Neuro: Median, Ulnar, Radial nerves motor and sensory intact and sensation is normal to the tips of all digits Vascular: Cap refill brisk ROM: He can make a fist and extend all his digits No locking or catching Skin: No lacerations or abrasions. General: No Ecchymosis. No Erythema or evidence of infection. Most tender over the left basal joint Also Tender over the EPL tendon as it passes over the basal joint Some swelling over the EPL tendon as it passes over the basal joint Good active extension of the thumb, with good function of the EPL and EPB tendons. No pain with resisted thumb extension No tenderness over the MCP joint No tenderness over the a1 ioana No 1st dorsal compartment tenderness Radiographs: 3 views of the left hand from 04/14/24 were reviewed by me today in clinic. They show an old healed ulnar styloid fracture. Some early arthritic changes in the basal joint. Psych Appearance: grossly normal Affect: normal affect Attitude: cooperative Assessment & Plan Assessment & Plan (1) Pain of left thumb: Code(s): M79.645 - Pain in left finger(s) Category: Medical (2) Fibromyalgia: Code(s): M79.7 - Fibromyalgia Category: Medical (3) S/P cervical spinal fusion: Code(s): Z98.1 - Arthrodesis status Category: Surgical Plan Assessment & Plan: 1. Left basal joint arthralgia Likely from overuse after a day of cooking & repetitive gripping activities about 4 weeks ago. I educated him about this condition I discussed non-operative treatment options I am not recommending an injection at this time, as it is possible this is related to an injury and an injection would impact his healing. I discussed activity modification, they should limit or avoid any heavy or repetitive pinching, gripping, or lifting activities He was fitted for a comfort cool brace to wear with daily activity Of note, He has a hx of Fibromyalgia and underwent C-spine surgery on 03/17/24 for neck pain & numbness which radiated down his left arm into his fingers. This numbness has resolved following surgery He will follow-up in 4-6 weeks to see how he is doing, with X-rays, 3V attn l thumb if he still has pain. We may consider a possible injection at next appointment if his symptoms have not improved. Scribed for Desiree Rob MD by Broderick Mckeon, medical coding auditor, on 05/24/24 at 10:50 AM, EST. Coding Level of Care Code New Pt Level 3 (05393) Diagnoses Pain of left thumb M79.645 Fibromyalgia M79.7 S/P cervical spinal fusion Z98.1
[2024-05-24 10:13] VITALS: BMI 24.8
== END 2024-05-24 11:11 | disposition home or self-care (01) ==
PROVIDERS: PCP Internal Medicine; Visit Provider Orthopaedic Surgery
DX: M18.12 Unilateral primary osteoarthritis of first carpometacarpal joint, left hand (principal); M79.7 Fibromyalgia; Z98.1 Arthrodesis status
CPT/HCPCS: 99203

== ENCOUNTER → 2024-05-24 10:10 | Outpatient (BNVA) | payer MEDICAID, SELFPAY | PROVIDERS: PCP Internal Medicine; Visit Provider Orthopaedic Surgery | DX: M79.645 Pain in left finger(s) (principal); M79.7 Fibromyalgia; Z98.1 Arthrodesis status | CPT/HCPCS: 99202 ==

== ENCOUNTER 2024-05-25 13:18 | Outpatient (REF) | payer MEDICAID, SELFPAY ==
--- NOTE | ~2024-05-25 | XR_ITS ---
EXAMINATION: XR CERVICAL SPINE CLINICAL INFORMATION: Arthrodesis status. COMPARISON: Fluoroscopic images of 03/17/2024, MR cervical spine of 03/02/2024. TECHNIQUE: 4 views of the cervical spine. FINDINGS: There is an interdisc device at C6-C7. Moderate degenerative changes with loss of disc space height at C5-C6. Mild retrolisthesis C3 on C4, and C4 on C5 with extension and flexion. XR/XR cervical spine 4V IMPRESSION: 1. Interdisc device at C6-C7. 2. Moderate degenerative disc disease at C5-C6.
== END 2024-05-25 13:19 | disposition home or self-care (01) ==
LOC: HO.HOSX 13:18
PROVIDERS: PCP Internal Medicine; Visit Provider Neurological Surgery
DX: Z98.1 Arthrodesis status (principal)
CPT/HCPCS: 72050; 99212

== ENCOUNTER 2024-05-25 13:18 | Outpatient (AMB) | payer MEDICAID, SELFPAY ==
--- NOTE | 2024-05-25 13:38 | A.SPINEOV_ITS ---
Intake Visit Reasons: 2nd post op with xrays Intake Note: Mr. Nicolas Rucker is here today for his 2nd post op visit with xrays. Manager Business Planning Required: No Allergies No Known Allergies [No Known Allergies*] Allergy (Verified 05/25/24 13:48) Assessment & Plan Assessment & Plan (1) Status post cervical spinal arthrodesis: Code(s): Z98.1 - Arthrodesis status Category: Surgical Plan Dear colleague On 05/25/2024, I saw for postoperative visit Jorgito Rucker. He is status post total disc arthropathy C6-7 for left cervical radiculopathy. He had a complete recovery. He wants to return to work. X-rays obtained today show good position of the artificial disc with flexion-extension. I wrote him a return to work note without restrictions. He will have another postoperative visit in 6 months. Thank you for allowing me take care of your patient. Elan Cruz MD, PhD Spine Fellowship Trained Neurosurgeon Director, [facility] Orders: Orders XR cervical spine 4V Today Z98.1 - Arthrodesis status Coding Level of Care Code Est Pt Level 2 (03260) Diagnoses Status post cervical spinal arthrodesis Z98.1
== END 2024-05-25 14:02 | disposition home or self-care (01) ==
PROVIDERS: PCP Internal Medicine; Referring Provider Internal Medicine; Visit Provider Neurological Surgery
DX: Z98.1 Arthrodesis status (principal)
CPT/HCPCS: 99024

== ENCOUNTER 2024-10-28 11:31 | Outpatient (AMB) | payer MEDICAID, SELFPAY ==
--- NOTE | 2024-10-28 11:32 | A.SPINEOV_ITS ---
Intake Visit Reasons: 3rd post op 6 month Intake Note: Mr. Nicolas Rucker is here today for his 3rd post op/6 month F/u. Quality Assurance Engineer Required: No Allergies No Known Allergies [No Known Allergies*] Allergy (Verified 10/28/24 11:33) Assessment & Plan Assessment & Plan (1) Status post cervical spinal arthrodesis: Code(s): Z98.1 - Arthrodesis status Category: Medical Plan Mr Deanne Rucker came back in for a 6 month checkup. He is doing excellent, his symptoms have gone, he has returned to full activities in his working 2 jobs. He is very pleased that he had the surgery done. No issues at this time, he can follow up as needed. Total amount of time spent in this visit was 10 minutes in discussion of symptoms, [] imaging results and subsequent plan of care Won Cruz MD,PhD [facility] Coding Level of Care Code Est Pt Level 2 (79610) Diagnoses Status post cervical spinal arthrodesis Z98.1
== END 2024-10-28 13:08 | disposition home or self-care (01) ==
PROVIDERS: PCP Internal Medicine; Visit Provider Physician Assistant
DX: Z98.1 Arthrodesis status (principal)
CPT/HCPCS: 99212

== ENCOUNTER 2024-12-03 12:18 | Outpatient (REF) | payer MEDICAID, SELFPAY ==
--- NOTE | ~2024-12-03 | XR_ITS ---
CLINICAL HISTORY: R44.8 FACIAL PRESSURE Radiographs of the sinuses, 3 views Comparison: None Findings: No fracture or dislocation. The paranasal sinuses and mastoid air cells are clear. Bone mineralization is normal. No soft tissue swelling. Impression: No radiographic evidence of sinusitis. This document has been electronically signed by: Jessika Crawford MD on 12/03/2024 13:11:44
--- OUTSIDE RECORDS SUMMARY | 2024-12-03 12:20 | XMS_ITS | Encounter Summary ---
Author Organization [employer] Address [address] [place] [address] Care Team Providers Care Painter Plate Name Role Phone Jack Mccauley MD Primary Care Provide r Reason for Visit * Reason Comments Walk-In Sore throat/ nose bl eeding Encounter Details Date Type Department Care Team ([facility] st Contact Info) Description 12/03/2024 11:20 AM EST Office Visit [facility] [address] [place] [address] Sore throat (Primary Dx); Facial pressure Social History Tobacco Use Types Packs/Day Years Used Date Smoking Tobacco: Never Passive Smoke Exposure: Never Smokeless Tobacco: Never Depression Answer Date Recorded Patient Health Questionnaire-9 Score 2 06/11/2023 Housing Stability Answer Date Recorded What is your housing situation today? I do not have housing (Staying with others, in a hotel, in a skilled nursing, living outside on the street, on a beach, in a car, or in a park 06/02/[address] you li ve. Do you have problems with any of the following? None of the above 06/02/2024 Food Insecurity Answer Date Recorded Within the past 12 months, y ou worried that your food would run out before you got money to buy more: Sometimes True 2023 Within the past 12 months,th e food you bought just didn't last and you didn't have enough money to get more: Sometimes True 06/08/2024 Transportation Answer Date Recorded In the past 12 months, has l ack of transportation kept you from medical appts, meetings, work or from getting things needed for daily living? No 08/20/2023 Utilities Answer Date Recorded In the past 12 months, has t he electric, gas, oil or water company threatened to shut off services in your home? No 08/20/2023 Depression Answer Date Recorded Patient Health Questionnaire-2 Score 0 06/11/2023 Internet Access Answer Date Recorded Internet Access Q1 Yes 06/27/2024 Internet Access Q2 Not on file 06/27/2024 Sex and Gender Information Value Date Recorded Sex Assigned at Male 08/25/2022 10:19 AM EDT Legal Sex Male 10:19 AM EDT Gender Identity Male 08/25/2022 10:19 AM EDT Sexual Orientation Straight 08/25/2022 10 :19 AM EDT documented as of this encounter Last Filed Vital Signs Vital Sign Reading Time Taken Comments Blood Pressure 131/88 12/03/2024 11:29 AM EST Pulse 78 12/03/2024 11:29 AM EST Temperature 36.8 ??C (98.2 ??F) 12/03/2024 11:[address] Respiratory Rate 18 12/03/2024 11:29 AM EST Oxygen Saturation 99% 12/03/2024 11:29 AM EST Inhaled Oxygen Concentration - - Weight 60.3 kg (133 lb) 12/03/2024 11:29 AM EST Height - - Body Mass Index 24.33 04/19/2024 11:08 AM EDT documented in this encounter Plan of Treatment Scheduled Orders Name Type Priority Associated Diagnoses Orde r Schedule XR Paranasal Sinuess 3+ Views Imaging Routine Facial pressure Expected: 12/03/2024, Expires: 12/03/2025 documented as of this encounter Procedures Procedure Name Priority Date/Time Associated Diagnosis Comments POC MORSE ID NOW STREP A Routine 12/03/2024 11:36 AM EST Sore throat documented in this encounter Results * POCT Rapid Strep A MORSE ID NOW (12/03/2024 11:36 AM EST) Pathologist [facility] Rapid Strep A Screen Negative Negative, None Detected QC Media Lot # [id number] Lot# Expiration Date [id number] Swab 12/03/2024 11:3 6 AM EST Braulio Villalpando MD POINT OF CARE TEST ENTER/EDIT OR DERABLES Final Result documented in this encounter Visit Diagnoses Diagnosis Sore throat- Primary Acute pharyngitis Facial pressure documented in this encounter Additional Health Concerns Assessment Noted Time PHQ-9 Depression Total Score: 2 06/11/20 23 2:47 PM EDT documented as of this encounter Care Teams Painter Plate Relationship Specialty Start Date End Date Jack Mccauley MD [address] [place] [id number] PCP - General Internal Medicine 05/25/15 documented as of this encounter
--- OUTSIDE RECORDS SUMMARY | 2024-12-03 12:20 | XMS_ITS | Encounter Summary ---
Author Organization [employer] Address [address] [place] [address] Care Team Providers Care Pasteuriser Operator Name Role Phone Jack Mccauley MD Primary Care Provide r Reason for Visit * Reason Comments Med Refill Encounter Details Date Type Department Care Team (Late st Contact Info) Description 05/29/2023 Refill [facility] [address] [place] [address] Dayanara Bonds MD [address] [place] [address] Social History Tobacco Use Types Packs/Day Years Used Date Smoking Tobacco: Never Passive Smoke Exposure: Never Smokeless Tobacco: Never Sex and Gender Information Value Date Recorded Sex Assigned at Male 08/25/2022 10:19 AM EDT Legal Sex Male 10:19 AM EDT Gender Identity Male 08/25/2022 10:19 AM EDT Sexual Orientation Straight 08/25/2022 10 :19 AM EDT documented as of this encounter Plan of Treatment Not on file documented as of this encounter Visit Diagnoses Not on filedocumented in this encounter Additional Health Concerns Assessment Noted Time PHQ-9 Depression Total Score: 0 11/04/19 23 2:12 PM EST documented as of this encounter Care Teams Pasteuriser Operator Relationship Specialty Start Date End Date Jack Mccauley MD [address] [place] [address] PCP - General Internal Medicine 05/25/15 documented as of this encounter
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
--- OUTSIDE RECORDS SUMMARY | 2024-12-03 12:21 | XMS_ITS | Clinical Summary ---
Author Organization [facility] Address [address] [place] [address] Care Team Providers Care Systems Administration Analyst Name Role Phone Jack Kate Primary Care Provider + Allergies No known active allergies Medications cyclobenzaprine (FLEXERIL) 10 mg tablet Take 10 mg by mouth 3 times a day as needed. 03/25/2022 Active Active Problems No known active problems Social History Tobacco Use Types Packs/Day Years Used Date Smoking Tobacco: Never Assessed Sex and Gender Information Value Date Recorded Sex Assigned at Not on file Legal Sex Male 6:54 PM EDT Gender Identity Not on file Sexual Orientation Not on file Last Filed Vital Signs Vital Sign Reading Time Taken Comments Blood Pressure - - Pulse - - Temperature - - Respiratory Rate - - Oxygen Saturation - - Inhaled Oxygen Concentration - - Weight 63.5 kg (140 lb) 01/08/2023 1:09 PM EDT Height 160 cm (5' 3 ) 01/08/2023 1:09 PM EDT Body Mass Index 24.8 01/08/2023 1:09 PM EDT Plan of Treatment Health Maintenance Due Date Last Done Comments HIV Screening 1982 Hepatitis C Screening 1982 Varicella Vaccines (1 of 2 - 13+ 2-dose series) 1995 Hepatitis B Vaccines (1 of 3 - 19+ 3-dose series) 2001 COVID-19 Vaccine (2023-2 5 season) 2024 10/30/2021, 02/16/2021, 01/19/2021 Influenza Vaccine (#1) 2024 07/12/2019 Alcohol/Substance Use Screening 10/26/2024 Depression Screening and Follow-Up 10/26/2024 Social Drivers of Health Annual Screening 10/26/2024 DTaP,Tdap,and Td Vaccines (2 - Td or Tdap) 03/18/2031 03/18/2021, 10/18/2013 RSV Vaccine (60+ years old and patients) (1 - 1-dose 75+ series) 2057 Pneumococcal Vaccine: Pediatric (0-5 Years) and At-Risk Patients (6-64 Years) Aged Out No longer eligible based on patient's age to complete this topic Insurance [facility] Care Teams Systems Administration Analyst Relationship Specialty Start Date End Date Jack Kate [address] [place] [phone] PCP - General Internal Medicine 02/04/22
--- OUTSIDE RECORDS SUMMARY | 2024-12-03 12:21 | XMS_ITS | Referral Summary ---
Author Organization [facility] Address [address] [place] [address] Care Team Providers Care Electrical Appliance Servicer Name Role Phone Jack Kate Primary Care [...] 01/08/2023 1:09 PM EDT Plan of Treatment Not on file Insurance [facility] Care Teams Electrical Appliance Servicer Relationship Specialty Start Date End Date Jack Kate [address] [place] [phone] PCP - General Internal Medicine 02/04/22
== END 2024-12-03 12:19 | disposition home or self-care (01) ==
LOC: HO.HMGCX 12:18
PROVIDERS: PCP Internal Medicine; Visit Provider Family Medicine
DX: R44.8 Other symptoms and signs involving general sensations and perceptions (principal)
CPT/HCPCS: 70220

== ENCOUNTER 2024-12-04 07:47 | Emergency (ER) | payer MEDICAID, SELFPAY ==
[2024-12-04 07:48] VITALS: BP 124/89; PULSE 80; RESP 20; TEMP 36.2; O2SAT 97; BMI 23.0
--- OUTSIDE RECORDS SUMMARY | 2024-12-04 08:09 | XMS_ITS | Encounter Summary ---
Author Organization [employer] Address [address] [facility] [address] [place] [address] Care Team Providers Care Field Supervisor Name Role Phone Jack Mccauley MD Primary Care Provide r Reason for Referral * Consultation (Urgent) - Pending Review Specialty Diagnoses / Procedures Referred By Contmelvin t Referred To Contact Otolaryngology Diagnoses Facial pressure Braulio Villalpando MD [address] [place] [phone] Phone: tel: fax: Referral ID Status Reason Start Date Expiration Date Visits Requested Visits Authorized [id number] Pending Review Specialty Services Required 12/03/2024 12/03/2025 1 1 Reason for Visit * Reason Comments Walk-In Sore throat/ nose bl eeding Encounter Details Date Type Department Care Team (Late st Contact Info) Description 12/03/2024 11:20 AM EST Office Visit [facility] [address] [place] [phone] Braulio Villalpando MD [address] [place] [address] [phone] Sore throat (Primary Dx); Facial pressure Social History Tobacco Use Types Packs/Day Years Used Date Smoking Tobacco: Never Passive Smoke Exposure: Never Smokeless Tobacco: Never Depression Answer Date Recorded Patient Health Questionnaire-9 Score 2 06/11/2023 Housing Stability Answer Date Recorded What is your housing situation today? I do not have housing (Staying with others, in a hotel, in a snf, living outside on the street, on a [...] 11:08 AM EDT documented in this encounter Progress Notes * Braulio Villalpando MD - 12/03/2024 11:20 AM EST Subjective History was provided by the patient. Jorgito Rucker is a 44 y.o. male who presents for evaluation of 6-month duration of nasal congestion, facial pressure, and headache. Also with a cracking of left nostril. Reports frequent nosebleed and sore throat as well. Denies F/C. Was seen in [facility] ER on 05/02/2024 for similar concerns. Wastreated with Augmentin 7-day course. States his symptoms became worse after this treatment. Objective Vitals: 12/03/24 1129 BP: 131/88 BP Location: Left arm Patient Position: Sitting BP Cuff Size: Adult Pulse: 78 Resp: 18 Temp: 98.2 ??F (36.8 ??C) TempSrc: Oral SpO2: 99% Weight: 133 lb (60.3 kg) Physical Exam Constitutional: General: He is not in acute distress. Appearance: Normal appearance. He is not ill-appearing, toxic-appearing or diaphoretic. HENT: Head: Normocephalic and atraumatic. Right Ear: Tympanic membrane, ear canal and external ear normal. Left Ear: Tympanic membrane, ear canal and external ear normal. Nose: Congestion present. No rhinorrhea. Comments: Maxillary sinus tenderness bilaterally without edema or deformity; small cracked left nostril; no active bleeding or visible clots within anterior nasal mucosa Mouth/Throat: Mouth: Mucous membranes are moist. Pharynx: Oropharynx is clear. No oropharyngeal exudate or posterior oropharyngeal erythema. Eyes: Extraocular Movements: Extraocular movements intact. Conjunctiva/sclera: Conjunctivae normal. Pupils: Pupils are equal, round, and reactive to light. Musculoskeletal: Cervical back: Normal range of motion and neck supple. Lymphadenopathy: Cervical: No cervical adenopathy. Neurological: Mental Status: He is alert. Office Visit on 12/03/2024 Component Date Value Ref Range Status Rapid Strep A Screen 12/03/2024 Negative Negative, None Detected Final QC Media Lot # 12/03/2024 [id number] Final Lot# Expiration Date 12/03/2024 [id number] Final Jorgito was seen today for walk-in. Diagnoses and all orders for this visit: Sore throat (Primary) - POCT Rapid Strep A MORSE ID NOW Facial pressure - XR Paranasal Sinuess 3+ Views; Future - Referral to ENT; Future Patient presents to [facility] due to ongoing facial pressure and congestion Also with cracking of left nostril area without active bleeding Reports frequent nosebleed and sore throat Previously treated with Augmentin 7-day course from ER (04/2024) However, he states his symptoms became worse after the antibiotic course Patient is frustrated with ongoing symptoms Will check Facial X-ray to evaluate the sinuses Defers any antibiotic treatment at this time Rapid Strep test negative Will refer to ENT for further evaluation Indications for UC/ER use reviewed Advised to contact the clinic if any worsening or persistent symptoms documented in this encounter Plan of Treatment Scheduled Orders Name Type Priority Associated Diagnoses Orde r Schedule XR Paranasal Sinuess 3+ Views Imaging Routine Facial pressure Expected: 12/03/2024, Expires: 12/03/2025 Scheduled Referrals Name Type Priority Associated Diagnoses Orde r Schedule Referral to ENT Outpatient Referral Urgent Facial pressure Expected: 12/03/2024 (Approximate), Expires: 12/03/2025 documented as of this encounter Procedures Procedure Name Priority Date/Time Associated Diagnosis Comments POC MORSE ID NOW STREP A Routine 12/03/2024 11:36 AM EST Sore throat documented in this encounter Results * POCT Rapid Strep A MORSE ID NOW (12/03/2024 11:36 AM EST) Rapid Strep A Screen Negative Negative, None Detected QC Media Lot # [id number] Lot# Expiration Date [id number] Swab 12/03/2024 11:3 6 AM EST us Braulio Villalpando MD POINT OF CARE TEST ENTER/EDIT OR DERABLES Final Result documented in this encounter Visit Diagnoses Diagnosis Sore throat- Primary Acute pharyngitis Facial pressure documented in this encounter Additional Health Concerns Assessment Noted Time PHQ-9 Depression Total Score: 2 06/11/20 23 2:47 PM EDT documented as of this encounter Care Teams Field Supervisor Relationship Specialty Start Date End Date Jack Mccauley MD [address] [place] [phone] PCP - General Internal Medicine 05/25/15 documented as of this encounter
--- OUTSIDE RECORDS SUMMARY | 2024-12-04 08:09 | XMS_ITS | Encounter Summary ---
Author Organization [employer] Address [address] [place] [address] Care Team Providers Care Marketing Team Lead Name Role Phone Jack Mccauley MD Primary Care Provide r Encounter Details Date Type Department Care Team ([facility] st Contact Info) Description 12/03/2024 Orders Only [facility] [address] [place] [address] Braulio Villalpando MD [address] [place] [address] Social History Tobacco Use Types Packs/Day Years Used Date Smoking Tobacco: Never Passive Smoke Exposure: Never Smokeless Tobacco: Never Depression Answer Date Recorded Patient Health Questionnaire-9 Score 2 06/11/2023 Housing Stability Answer Date Recorded What is your housing situation today? I do not have housing (Staying with others, in a hotel, in a halfway, living outside on the street, on a [...] on file documented as of this encounter Procedures Procedure Name Priority Date/Time Associated Diagnosis Comments XR SINUS 3 VIEWS Routine 12/03/2024 1:11 PM EST documented in this encounter Results * XR Sinus 3 Views (12/03/2024 1:11 PM EST) Anatomical Region Laterality Modality Radiographic May ging 12/03/2024 1:11 PM EST Narrative 12/03/2024 1:13 PM EST ? [facility] ?[address] [facility] . ? [place] [address] ?XRay Report ? Signed ? Patient: Nicolas Rucker,Kenny ?MR#: ?? [id number] ? : 1980 ?Acct:[id number] ? Age/Sex: 44 / M ?ADM Date: 12/03/24 ? Loc: HO.[facility]GCX ? Attending Dr: Braulio Villalpando MD ? Ordering Physician: Braulio Villalpando MD ?? Date of Service: 12/03/24 ?? Procedure(s): XR sinus min 3V ?? Accession Number(s): [id number] ? cc: Jack Kate MD; Braulio Villalpando MD ? CLINICAL HISTORY: R44.8 FACIAL PRESSURE ? Radiographs of the sinuses, 3 views ? Comparison: None ? Findings: ?? No fracture or dislocation. The paranasal sinuses and mastoid air cells ?? are clear. Bone mineralization is normal. No soft tissue swelling. ? Impression: ?? No radiographic evidence of sinusitis. ? This document has been electronically signed by: Jessika Crawford MD ?? on 12/03/2024 13:11:44 ? Dictated By: ?Jessika Salas MD ? Signed By: ?<Electronically signed by Jessika Salas MD in OV> ? 12/03/241311 ? DD/ 10 ? TD/TT: 12/03/24 1311 ? Proof Sorter: ? Procedure Note Dondiamondter, Image - 12/03/2024 [facility] [address] [place] [address] [place] [address] XRay Report Signed Patient: Jorgito Mendoza AMR#: [id number] : 1980Acct:[id number] Age/Sex: 44 / MADM Date: 12/03/24 [facility] Dr: Braulio Villalpando MD Ordering Physician: Braulio Villalpando MD Date of Service: 12/03/24 Procedure(s): XR sinus min 3V Accession Number(s): [id number] cc: Jack Kate MD; Braulio Villalpando MD CLINICAL HISTORY: R44.8 FACIAL PRESSURE Radiographs of the sinuses, 3 views Comparison: None Findings: No fracture or dislocation. The paranasal sinuses and mastoid air cells are clear. Bone mineralization is normal. No soft tissue swelling. Impression: No radiographic evidence of sinusitis. This document has been electronically signed by: Jessika Crawford MD on 12/03/2024 13:11:44 Dictated By: Jessika Salas MD Signed By: <Electronically signed by Jessika aSlas MD in OV> 12/03/24 1312 DD/ 1311 TD/TT: 12/03/24 1311 Proof Sorter: Braulio Villalpando MD IMG XR PROCEDURES Edited Result - Final documented in this encounter Visit Diagnoses Not on filedocumented in this encounter Additional Health Concerns Assessment Noted Time PHQ-9 Depression Total Score: 2 06/11/20 23 2:47 PM EDT documented as of this encounter Care Teams Marketing Team Lead Relationship Specialty Start Date End Date Jack Mccauley MD [address] [place] [address] [place] [address] PCP - General Internal Medicine 05/25/15 documented as of this encounter
--- OUTSIDE RECORDS SUMMARY | 2024-12-04 08:09 | XMS_ITS | Encounter Summary ---
Author Organization [employer] Address [address] [facility] 7t [place] [address] Care Team Providers Care Bell Captain Name Role Phone Jack Mccauley MD Primary Care Provide r Reason for Visit * Reason Comments Med Refill Encounter Details Date Type Department Care Team (Late st Contact Info) Description 05/29/2023 Refill [facility] [address] [place] [address] Dayanara Bonds MD [address] [place] [address] Social History Tobacco Use Types Packs/Day Years [...] documented as of this encounter Care Teams Bell Captain Relationship Specialty Start Date End Date Jack Mccauley MD [address] [place] [address] PCP - General Internal Medicine 05/25/15 documented as of this encounter
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
--- OUTSIDE RECORDS SUMMARY | 2024-12-04 08:10 | XMS_ITS | Clinical Summary ---
Author Organization [facility] Address [address] [place] [address] Care Team Providers Care It Risk Analyst Name Role Phone Jack Kate Primary [...] patient's age to complete this topic Insurance [facility] Care Teams It Risk Analyst Relationship Specialty Start Date End Date Jack Kate [address] [place] [phone] PCP - General Internal Medicine 02/04/22
--- OUTSIDE RECORDS SUMMARY | 2024-12-04 08:10 | XMS_ITS | Referral Summary ---
Author Organization [facility] Address [address] [place] [address] Care Team Providers Care Automobile Salesman Name Role Phone Jack Kate Primary Care [...] Plan of Treatment Not on file Insurance [facility] Care Teams Automobile Salesman Relationship Specialty Start Date End Date Jack Kate [address] [place] [phone] PCP - General Internal Medicine 02/04/22
[2024-12-04 08:47] LABS: Influenza A PCR NEGATIVE (Negative); Influenza B PCR NEGATIVE (Negative); Resp Syncy Virus RNA Qual PCR NEGATIVE (Negative); SARS COV2 PCR INHOUSE NEGATIVE (Negative)
--- NOTE | 2024-12-04 09:17 | ED.GENADULT ---
HPI - General Adult General Chief complaint: General Medical Stated complaint: sinus issue Time Seen by Provider: 12/04/24 09:16 Source: patient Mode of arrival: ambulatory Limitations: no limitations History of Present Illness ED Provider: Brianna Suazo PA-C HPI narrative: Patient is a 44 year old assigned male at with a history of fibromyalgia presenting to the emergency department today with left eye itchiness and watering. Patient states that he has been having issues with this for awhile and yesterday was seen at an urgent care where he had an x-ray for his sinuses but he isn't sure what it said. Patient states that in the past he has taken Claritin intermittently. Patient denies any dizziness, lightheadedness, abdominal pain, nausea, vomiting, fever, chills, blurry vision, double vision, loss of vision, chest pain, difficulty breathing, shortness of breath, back pain, night sweats, pain with urination, increased urinary frequency, increased urinary urgency, blood in his urine or stool, syncope or a near syncopal episode, recent trauma or falls, bowel incontinence, bladder incontinence, or any other complaints at this time. Relieving factors: none Exacerbating factors: none Associated symptoms: denies other symptoms Treatments prior to arrival: none Related Data Home Medications ?Medication ?Instructions ?Recorded ?Confirmed dextroamphetamine-amphetamine 5 mg 1 tab PO BID 03/15/24 03/15/24 tablet Previous Rx's ?Medication ?Instructions ?Recorded cholecalciferol (vitamin D3) 50 50 mcg PO DAILY #90 caps 04/17/23 mcg (2,000 unit) capsule (Vitamin D3) docusate sodium 100 mg capsule 100 mg PO BID #20 caps 03/17/24 (Colace) loratadine 10 mg tablet 10 mg PO DAILY #30 tabs 12/04/24 Allergies Allergy/AdvReac Type Severity Reaction Status Date / Time No Known Allergies Allergy Verified 12/04/24 07:54 [No Known Allergies*] Review of Systems Constitutional: Constitutional: Reports no additional constitutional complaints, Denies chills, Denies fever(s) and Denies night sweats Eyes: Eyes: Reports no additional eye complaints, Denies blurry vision, Denies change in vision, Denies diplopia, Denies eye discharge, Reports itchy eyes (left), Denies loss of vision and Denies eye pain Comments: watery left eye ENT: Denies dizziness Cardiovascular: Cardiovascular: Reports no additional cardiovascular complaints, Denies chest pain, Denies lightheadedness, Denies Loss of Consciousness and Denies dyspnea Respiratory: Respiratory: Reports no additional respiratory complaints and Denies dyspnea Gastrointestinal: Gastrointestinal: Reports no additional gastrointestinal complaints, Denies abdominal pain, Denies melena, Denies hematochezia, Denies change in bowel habits and Denies change in stool character Genitourinary: Genitourinary: Reports no additional male genitourinary complaints, Denies hematuria, Denies oliguria, Denies difficulty urinating, Denies dysuria, Denies urinary frequency, Denies urinary hesitancy, Denies urinary incontinence and Denies urinary urgency Musculoskeletal: Musculoskeletal: Reports no additional musculoskeletal complaints, Denies numbness and Denies tingling Neurologic: Denies dizziness, Denies loss of vision, Denies numbness and Denies tingling Psychiatric: Psychiatric: Reports no additional psychiatric complaints Endocrine: Endocrine: Reports no additional endocrine complaints Hematologic/Lymphatic: Hematologic/Lymphatic: Reports no additional hematologic/lymphatic complaints Allergic/Immunologic: Allergic/Immunologic: Reports no additional allergic/immunologic complaints and Reports itchy eyes (left) [facility] Past Medical History Attestation statement: The following information was validated with the patient. Source: old records reviewed and nursing notes reviewed Medical History Back pain Arthritis PTSD (post-traumatic stress disorder) Left varicocele Hx of bipolar disorder Insomnia Fibromyalgia Vitamin D deficiency Anxiety Depression Surgical History History of hemorrhoidectomy (06/25/23) History of esophagogastroduodenoscopy (EGD) H/O colonoscopy History of surgery on arm Rectal bleeding Family History Family History Maternal Grandmother Diabetes Colon cancer Maternal Aunt Colon cancer Sister Colon polyp Social History Social History Household Members: Family Are you a primary date night caregiver to a significant other at home: No Do you presently have visiting nurse or other home services: No Alcohol intake: never Patient Tobacco Use Status: Never used Tobacco e-Cigarette/Vaping Use: Never Used Advance Directives: No Advance Directives Information Provided: No Current occupational status: employed Current occupation: [employer]/ right hand dominant Physical Exam ED Vital Signs: Vital Signs - 24 hr 12/04/24 07:48 12/04/24 09:29 12/04/24 09:30 Temperature 97.2 F 97.2 F 97.2 F Pulse Rate 80 80 80 Respiratory Rate 20 20 20 Blood Pressure 124/89 124/89 124/89 Pulse Oximetry 97 97 97 Oxygen Delivery Method Room Air Room Air Room Air BMI result Body Mass Index 23.0 Const General: cooperative, no acute distress, alert and awake Nutritional Appearance: well nourished Orientation/consciousness: patient oriented x3 Limitations: no limitations HENMT Head: Yes normal to inspection and Yes atraumatic Ears: hearing grossly normal bilaterally and external ears normal General nose exam: Normal external nose present, no nasal discharge noted and no epistaxis Face and sinus: Yes normal facial exam, No abrasion and No laceration Mouth: Normal oral and palatal mucosa present, no drooling and no muffled voice Eyes General: appearance normal, both eyes and all related structures Periorbital: periorbital findings normal Eyelids: Yes eyelids normal Conjunctivae: conjunctival abnormal left conjunctival injection (minimal) Pupils: Equal, round and reactive pupils present EOM: EOMs intact bilaterally Neck Neck: Yes normal visual inspection, Yes full ROM and Yes no lymphadenopathy Chest Chest palpation & inspection: normal inspection of the chest Resp Effort & Inspection: normal respiratory effort and able to speak in complete sentences GI Inspection: Yes normal to inspection Neuro General: patient oriented x3, moves all extremities and CN's II-XI intact bilaterally Cranial nerves: Yes Equal, round and reactive pupils present Cognition (Neuro): normal cognition Extrem General: Yes normal to inspection, Yes full ROM and Yes capillary refill normal Psych Appearance: grossly normal Mental Status: mental status grossly normal Affect: normal affect Attitude: cooperative Thought process: Normal thought process present Thought content: Normal thought content present Insight: Good insight present (Psych) Medications Administered Discontinued Medications Generic Name Dose Route Start Last Admin Trade Name Freq PRN Reason Stop Dose Admin Loratadine 10 mg 12/04/24 09:23 12/04/24 09:26 Loratadine 10 Mg Tablet PO 12/04/24 09:24 10 mg ONCE ONE Administration Medical Decision Making Medical Decision Making MDM Narrative: Patient is a 44 year old assigned male at with a history of fibromyalgia presenting to the emergency department today with left eye itchiness and watering. Patient's physical exam was as noted in the physical exam portion of this note. Patient's sinus x-ray from 12/03/2024 showed no acute process. Patient's clinical presentation is most consistent with allergic conjunctivitis. I explained my physical exam findings as well as all test results to the patient. I answered all questions asked by the patient. I stressed the importance of the patient taking his medication as directed (either prescribed or as the over the counter packaging recommends). I stressed the importance of the patient following up with his primary care provider, an vp global marketing [employer], and an ENT. I stressed the importance of the patient returning to the emergency department immediately if his symptoms were to worsen or if he were to develop any dizziness, shortness of breath, difficulty breathing, chest pain, blurry vision, loss of vision, nausea, vomiting, abdominal pain, fever, chills, back pain, or any other complaints. Patient verbalized agreement and understanding with this treatment plan and discharge. Differential Diagnosis Differential Diagnoses: The differential diagnosis associated with the presentation includes Left allergic conjunctivitis Admission/Observation Consideration of admission/observation: Escalation of care including admission/observation considered Patient would have been admitted to the hospital had his work up had any findings where hospital admission was appropriate and his clinical presentation warranted hospital admission. Lab Data [facility] Lab Attestation statement: I reviewed the patient's lab results. My interpretation of these results are in the MDM Rationale portion of this note. Labs: Lab Results 12/04/24 Range/Units 08:05 Influenza Type A (PCR) NEGATIVE (Negative) Influenza Type B (PCR) NEGATIVE (Negative) RSV RNA Qual (PCR) NEGATIVE (Negative) SARS-CoV-2 RNA (RT-PCR) NEGATIVE (Negative) Discharge Plan Discharge Clinical Impression: Acute allergic conjunctivitis Patient Disposition: Home, Self-Care Instructions: Conjunctivitis (ED) Additional Instructions: Your sinus x-ray was negative for any acute process. Your symptoms are most consistent with allergic conjunctivitis. Follow up with your primary care provider, an ENT specialist, and an vp global marketing [employer]. Return to the emergency department immediately if your symptoms worsen or if you develop any dizziness, shortness of breath, difficulty breathing, chest pain, blurry vision, loss of vision, nausea, vomiting, abdominal pain, fever, chills, back pain, or any other complaints. Prescriptions: New loratadine 10 mg tablet 10 mg PO DAILY Qty: 30 0RF No Action dextroamphetamine-amphetamine 5 mg tablet 1 tab PO BID docusate sodium [Colace] 100 mg capsule 100 mg PO BID Qty: 20 0RF cholecalciferol (vitamin D3) [Vitamin D3] 50 mcg (2,000 unit) capsule 50 mcg PO DAILY Qty: 90 2RF Referrals: [facility] [Provider Group] (Call to establish and follow up with an ENT specialist.) Jonathan Hood MD [Physician] - (Call to establish and follow up with an vp global marketing [employer] Uziel Whelan DO [Physician] - (Call to establish and follow up with an vp global marketing [employer].) Jack Kate MD [Primary Care Provider] - Deni John [Physician] - (Call to establish and follow up with an ENT specialist.) Interventions: ED Discharge Assessment Last Done: 12/04/24 09:30 Discharge Date/Time: 12/04/24 09:30 Print Language: Ecuadorean
[2024-12-04] MEDS: Loratadine 10 MG TABLET PO (09:26)
[2024-12-04 09:29] VITALS: BP 124/89; PULSE 80; RESP 20; TEMP 36.2; O2SAT 97
[2024-12-04 09:30] VITALS: BP 124/89; PULSE 80; RESP 20; TEMP 36.2; O2SAT 97
== END 2024-12-04 09:30 | disposition home or self-care (01) ==
PROVIDERS: Physician Assistant Medical; Emergency Provider Emergency Medicine; PCP Internal Medicine
DX: H10.32 Unspecified acute conjunctivitis, left eye (principal); Z03.818 Encounter for observation for suspected exposure to other biological agents ruled out; Z79.899 Other long term (current) drug therapy
CPT/HCPCS: 0241U; 99282; 99283

== ENCOUNTER 2024-12-08 18:18 | Emergency (ER) | payer MEDICAID, SELFPAY ==
--- NOTE | 2024-12-08 18:36 | ED_ITS ---
HPI - General Adult General Chief complaint: Abdominal Pain Stated complaint: stomach pain/here on 12/04 meds not working Related Data Home Medications ?Medication ?Instructions ?Recorded ?Confirmed dextroamphetamine-amphetamine 5 mg 1 tab PO BID 03/15/24 03/15/24 tablet Previous Rx's ?Medication ?Instructions ?Recorded cholecalciferol (vitamin D3) 50 50 mcg PO DAILY #90 caps 04/17/23 mcg (2,000 unit) capsule (Vitamin D3) docusate sodium 100 mg capsule 100 mg PO BID #20 caps 03/17/24 (Colace) loratadine 10 mg tablet 10 mg PO DAILY #30 tabs 12/04/24 Allergies Allergy/AdvReac Type Severity Reaction Status Date / Time No Known Allergies Allergy Verified 12/08/24 18:40 [No Known Allergies*] [facility] Past Medical History Medical History Back pain Arthritis PTSD (post-traumatic stress disorder) Left varicocele Hx of bipolar disorder Insomnia Fibromyalgia Vitamin D deficiency Anxiety Depression Surgical History History of hemorrhoidectomy (06/25/23) History of esophagogastroduodenoscopy (EGD) H/O colonoscopy History of surgery on arm Rectal bleeding Family History Family History Maternal Grandmother Diabetes Colon cancer Maternal Aunt Colon cancer Sister Colon polyp Social History Social History Household Members: Family Are you a primary childcare aide to a significant other at home: No Do you presently have visiting nurse or other home services: No Alcohol intake: never Patient Tobacco Use Status: Never used Tobacco e-Cigarette/Vaping Use: Never Used Advance Directives: No Advance Directives Information Provided: No Do you have a plan to hurt others: No Plan Current occupational status: employed 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 Patient is a 44 y/o M with history of fibromyalgia presenting to the ED with complaint of LUQ abd pain and constipation. Seen here 12/04 for eye swelling, states that has improved. Losing weight, no appetite, hx of H. pylori. Sees Dr. Gr, nicole appt until January. Denies urinary symptoms. Plan: labs, UA, viral panel Medical Decision Making Lab Data 12/08/24 18:47 12/08/24 18:47 Labs: Lab Results 12/08/24 Range/Units 18:47 WBC 6.6 (4.8-10.8) X10*3/uL RBC 4.87 (4.60-5.80) X10*6/uL Hgb 14.1 (14.0-18.0) g/dl Hct 42.1 (42.0-52.0) % MCV 86.4 (80.0-98.0) fL MCH 29.0 (27.0-33.0) pg MCHC 33.5 (31.0-36.0) g/dl RDW 11.9 (11.0-16.0) % Plt Count 264 (160-400) X10*3/uL MPV 10.1 (9.4-12.4) fL Immature Gran % (Auto) 0.3 (0.0-0.4) % Neut % (Auto) 62.8 (45-73) % Lymph % (Auto) 27.6 (20-40) % Harris % (Auto) 7.5 (2-11) % Eos % (Auto) 0.9 (0-4) % Baso % (Auto) 0.9 (0-2) % Lymph # (Auto) 1.8 (1.2-4.9) X10*3/uL Harris # (Auto) 0.5 (0.1-1.2) X10*3/uL Eos # (Auto) 0.1 (0.0-0.4) X10*3/uL Baso # (Auto) 0.1 (0.0-0.2) X10*3/uL Abs Immat Gran (auto) 0.02 (0.00-0.03) X10*3/uL Absolute Neuts (auto) 4.2 (2.0-8.3) x10*3/uL Absolute Nucleated RBC 0.000 (0.0-0.012) X10*3/uL Nucleated RBC % (auto) 0.0 (0.0-0.2) /100WBC Sodium 141 (135-145) mmol/L Potassium 3.8 (3.3-5.1) mmol/L Chloride 102 (96-108) mmol/L Carbon Dioxide 34 H (22-29) mmol/L Anion Gap 9 L (12-20) BUN 11 (9-16) mg/dL Creatinine 1.02 (0.5-1.4) mg/dL Estim Creat Clear Calc 75.1 Estimated GFR > 60 Random Glucose 74 (60-115) mg/dL Calcium 9.6 (8.4-10.2) mg/dL Total Bilirubin 0.5 (0.0-1.0) mg/dL AST 23 (5-37) U/L ALT 18 (0-40) U/L Alkaline Phosphatase 63 (39-117) U/L Total Protein 7.5 (6.5-8.0) g/dL Albumin 4.5 (3.5-5.0) g/dL Lipase 20 (8-78) U/L Urine Color Yellow Urine Appearance Clear Urine pH 6.5 (5.0-9.0) Ur Specific [place] 1.010 (1.005-1.025) Urine Protein Negative (Neg-Trace) mg/dL Urine Glucose (UA) Negative (Negative) mg/dL Urine Ketones Negative (Negative) mg/dL Urine Blood Negative (Negative) Urine Nitrite Negative (Negative) Ur Leukocyte Esterase Negative (Negative) Influenza Type A (PCR) NEGATIVE (Negative) Influenza Type B (PCR) NEGATIVE (Negative) RSV RNA Qual (PCR) NEGATIVE (Negative) SARS-CoV-2 RNA (RT-PCR) NEGATIVE (Negative) S. pyogenes GrpA JI Negative (Negative) Discharge Plan Discharge Clinical Impression: Abdominal pain Patient Disposition: Left W/O Completing Treatment Prescriptions: No Action dextroamphetamine-amphetamine 5 mg tablet 1 tab PO BID docusate sodium [Colace] 100 mg capsule 100 mg PO BID Qty: 20 0RF loratadine 10 mg tablet 10 mg PO DAILY Qty: 30 0RF cholecalciferol (vitamin D3) [Vitamin D3] 50 mcg (2,000 unit) capsule 50 mcg PO DAILY Qty: 90 2RF Discharge Date/Time: 12/08/24 23:16
[2024-12-08 18:37] VITALS: BP 127/92; PULSE 74; RESP 18; TEMP 36.4; O2SAT 96; BMI 22.0
[2024-12-08 18:52] LABS: MANUAL DIFF FLAG NO
[2024-12-08 18:54] LABS: Basophils Absolute Auto 0.1 X10*3/uL (0.0-0.2); Basophils Percent Auto 0.9 % (0-2); Eosinophils Absolute Auto 0.1 X10*3/uL (0.0-0.4); Eosinophils Percent Auto 0.9 % (0-4); Hematocrit 42.1 % (42.0-52.0); Hemoglobin 14.1 g/dl (14.0-18.0); Imm Gran Abs Auto 0.02 X10*3/uL (0.00-0.03); Imm Gran Pct Auto 0.3 % (0.0-0.4); Lymphocytes Absolute Auto 1.8 X10*3/uL (1.2-4.9); Lymphocytes Percent Auto 27.6 % (20-40); Mean Corpuscular HGB Conc 33.5 g/dl (31.0-36.0); Mean Corpuscular Volume 86.4 fL (80.0-98.0); Mean Platelet Volume 10.1 fL (9.4-12.4); Monocytes Absolute Auto 0.5 X10*3/uL (0.1-1.2); Monocytes Percent Auto 7.5 % (2-11); Neutrophils Absolute Auto 4.2 x10*3/uL (2.0-8.3); Neutrophils Percent Auto 62.8 % (45-73); Platelet Count 264 X10*3/uL (160-400); Red Blood Count 4.87 X10*6/uL (4.60-5.80); Red Cell Distribution Width 11.9 % (11.0-16.0); White Blood Count 6.6 X10*3/uL (4.8-10.8)
[2024-12-08 18:55] LABS: Appearance Urine Clear; Color Urine Yellow; Glucose Urine UA Negative (Negative); Leukocyte Esterase Urine Negative (Negative); Nitrite Urine Negative (Negative); PH 6.5 (5.0-9.0); Urine Blood Negative (Negative); Urine Ketones Negative (Negative); Urine Protein Negative (Neg-Trace)
[2024-12-08 19:00] LABS: IDNOW Serial# 08D9AD1C; Strep A Nucleic Acid Negative (Negative)
[2024-12-08 19:10] LABS: Alanine Aminotransferase 18 U/L (0-40); Albumin Level 4.5 g/dL (3.5-5.0); Alkaline Phosphatase 63 U/L (39-117); Anion Gap 9 (12-20); Aspartate Amino Transferase 23 U/L (5-37); Bilirubin Total 0.5 mg/dL (0.0-1.0); Blood Urea Nitrogen 11 mg/dL (9-16); Calcium 9.6 mg/dL (8.4-10.2); Carbon Dioxide 34 mmol/L (22-29); Chloride 102 mmol/L (96-108); Creatinine Clr Calc Pharmacy 75.1; Estimated Glomerular Filt Rate > 60; Glucose Random 74 mg/dL (60-115); Lipase 20 U/L (8-78); Potassium 3.8 mmol/L (3.3-5.1); Sodium 141 mmol/L (135-145); Total Protein 7.5 g/dL (6.5-8.0)
[2024-12-08 19:37] LABS: Influenza A PCR NEGATIVE (Negative); Influenza B PCR NEGATIVE (Negative); Resp Syncy Virus RNA Qual PCR NEGATIVE (Negative); SARS COV2 PCR INHOUSE NEGATIVE (Negative)
== END 2024-12-08 23:16 | disposition left against medical advice (07) ==
PROVIDERS: Registered Nurse Emergency; Emergency Provider Emergency Medicine; PCP Internal Medicine
DX: R10.12 Left upper quadrant pain (principal); R10.2 Pelvic and perineal pain; K59.00 Constipation, unspecified; Z03.818 Encounter for observation for suspected exposure to other biological agents ruled out; Z79.899 Other long term (current) drug therapy
CPT/HCPCS: 0241U; 80053; 81003; 83690; 85025; 87651; 99282; 99283

== ENCOUNTER 2024-12-10 00:54 | Emergency (ER) | payer MEDICAID, SELFPAY ==
[2024-12-10 01:08] VITALS: BP 125/89; PULSE 68; RESP 14; TEMP 36.4; O2SAT 100; BMI 22.3
--- OUTSIDE RECORDS SUMMARY | 2024-12-10 02:41 | XMS_ITS | Encounter Summary ---
Author Organization [employer] Address [address] [place] [address] Care Team Providers Care Report Clerk Name Role Phone Jack Mccauley MD Primary Care Provide r Encounter Details Date Type Department Care Team (Late st Contact Info) Description 12/04/2024 Orders Only GENERIC EXTERNAL DATA DEPARTMENT Provider, Generic External Data Social History Tobacco Use Types Packs/Day Years Used Date Smoking Tobacco: Never Passive Smoke Exposure: Never Smokeless Tobacco: Never Depression Answer Date Recorded Patient Health Questionnaire-9 Score 2 06/11/2023 Housing Stability Answer Date Recorded What is your housing situation today? I do not have housing (Staying with others, in a hotel, in a care home, living outside on the street, on a [...] Procedure Name Priority Date/Time Associated Diagnosis Comments SARS COV2/INFLUENZA A/B AND RSV RNA QL NAAT Routine 12/04/2024 8:05 AM EST documented in this encounter Results * SARS-CoV-2 RNA, Influenza A/B, and RSV RNA, Ql NAAT (12/04/2024 8:05 AM EST) Influenza A PCR NEGATIVE Negative [facility] Influenza B PCR NEGATIVE Negative [facility] Resp Syncy Virus RNA Qual PCR NEGATIVE Negative [facility] SARS COV2 PCR NEGATIVE Negative [facility] Comment:All test results mus t be correlated with clinical findings.Negative results do not preclude SARS-CoV2, influenza Avirus, influenza B virus and/or RSV infectionand should not be used as the sole basis for treatment orother patient management decisions. Negative results must becombined with clinical observations, patient history, andepidemiological information.This test has not been evaluated for monitoring treatment ofinfection.This test has been authorized by the FDA under an EmergencyUse Authorization (EUA) for use by authorized laboratories.Testing performed on the [employer] GeneXpert utilizingreal-time RT-PCR.All SARS CoV2 and positive influenza A/B results arereported to [facility]. 12/04/2024 8:05 AM EST 12/04/2024 8:07 AM EST us Generic External Data Provider LAB MICROBIOLOGY - GENERAL ORDERABLES Final Result [facility] [address] [place] [phone] documented in this encounter Visit Diagnoses Not on filedocumented in this encounter Additional Health Concerns Assessment Noted Time PHQ-9 Depression Total Score: 2 06/11/20 23 2:47 PM EDT documented as of this encounter Care Teams Report Clerk Relationship Specialty Start Date End Date Jack Mccauley MD [address] [place] [address] PCP - General Internal Medicine 05/25/15 documented as of this encounter
--- OUTSIDE RECORDS SUMMARY | 2024-12-10 02:41 | XMS_ITS | Clinical Summary ---
Author Organization [facility] Address [address] [place] [address] Care Team Providers Care Demolition Crane Operator Name Role Phone Jack Kate Primary Care [...] Vaccine: Pediatric (0-5 Years) and At-Risk Patients (6-50 Years) Aged Out No longer eligible based on patient's age to complete this topic Insurance [facility] Care Teams Demolition Crane Operator Relationship Specialty Start Date End Date Jack Kate [address] [place] [id number] PCP - General Internal Medicine 02/04/22
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
--- OUTSIDE RECORDS SUMMARY | 2024-12-10 02:41 | XMS_ITS | Referral Summary ---
Author Organization [facility] Address [address] [place] [address] Care Team Providers Care Forest Resource Specialist Name Role Phone Jack Kate Primary Care [...] Plan of Treatment Not on file Insurance [facility] Care Teams Forest Resource Specialist Relationship Specialty Start Date End Date Jack Kate [address] [place] [phone] PCP - General Internal Medicine 02/04/22
--- OUTSIDE RECORDS SUMMARY | 2024-12-10 02:41 | XMS_ITS | Encounter Summary ---
Author Organization [employer] Address [address] [place] [address] Care Team Providers Care Dip Lube Operator Name Role Phone Jack Mcaculey MD Primary Care Provide r Encounter Details Date Type Department Care Team ([facility] st Contact Info) Description 12/03/2024 Orders Only [facility] [address] [place] [address] Braulio Villalpando MD [address] [place] [address] Social History Tobacco Use Types Packs/Day Years Used Date Smoking Tobacco: Never Passive Smoke Exposure: Never Smokeless Tobacco: Never Depression Answer Date Recorded Patient Health Questionnaire-9 Score 2 06/11/2023 Housing Stability Answer Date Recorded What is your housing situation today? I do not have housing (Staying with others, in a hotel, in a chcf, living outside on the street, on a [...] EST ? [facility] ?[address] [facility] . ? [place] [address] ?XRay Report ? Signed ? Patient: Nicolas Rucker,Kenny ?MR#: ?? [id number] ? : 1980 ?Acct:[id number] ? Age/Sex: 44 / M ?ADM Date: 12/03/24 ? Loc: HO.HMGCX ? Attending Dr: Braulio Villalpando MD ? Ordering Physician: Braulio Villalpando MD ?? Date of Service: 12/03/24 ?? Procedure(s): XR sinus min 3V ?? Accession Number(s): [id number] ? cc: Jack Kate MD; Braulio Villalpando [...] DD/ 10 ? TD/TT: 12/03/24 1311 ? Artist Color Separation: ? Procedure Note Dondiamondter, Image - 12/03/2024 [facility] [address] [place] [address] [place] [address] XRay Report Signed Patient: Jorgito Mendoza [facility]#: [id number] : 1980Acct:[id number] Age/Sex: 44 / MADM Date: 12/03/24 [facility]: [facility] Attending Dr: Braulio Villalpando MD Ordering Physician: Braulio Villalpando MD Date of Service: 12/03/24 Procedure(s): XR sinus min 3V Accession Number(s): [id number] cc: Jack Kate MD; Braulio Villalpando MD [...] 12/03/24 1312 DD/ 1311 TD/TT: 12/03/24 1311 Artist Color Separation: Braulio Villalpando MD IMG XR PROCEDURES Edited Result - Final documented in this encounter Visit Diagnoses Not on filedocumented in this encounter Additional Health Concerns Assessment Noted Time PHQ-9 Depression Total Score: 2 06/11/20 23 2:47 PM EDT documented as of this encounter Care Teams Dip Lube Operator Relationship Specialty Start Date End Date Jack Mccauley MD [address] [place] [address] [place] [address] PCP - General Internal Medicine 05/25/15 documented as of this encounter
--- OUTSIDE RECORDS SUMMARY | 2024-12-10 02:41 | XMS_ITS | Encounter Summary ---
Author Organization [employer] Address [address] [facility] [address]t [place] [address] Care Team Providers Care Casket Trimmer Name Role Phone Jack Mccauley MD Primary Care Provide r Reason for Visit * Reason Comments Med Refill Encounter Details Date Type Department Care Team (Late st Contact Info) Description 05/29/2023 Refill [facility] [address] [place] [address] Dayanara Bonds MD [address] [place] [address] Social History Tobacco Use Types Packs/Day Years [...] documented as of this encounter Care Teams Casket Trimmer Relationship Specialty Start Date End Date Jack Mccauley MD [address] [place] [address] PCP - General Internal Medicine 05/25/15 documented as of this encounter
--- OUTSIDE RECORDS SUMMARY | 2024-12-10 02:41 | XMS_ITS | Encounter Summary ---
Author Organization [employer] Address [address] [facility] [address] [place] [address] Care Team Providers Care Freight Team Associate Name Role Phone Jack Mccauley MD Primary Care Provide r Encounter Details Date Type Department Care Team (Late st Contact Info) Description 12/08/2024 Orders Only GENERIC EXTERNAL DATA [...] with others, in a hotel, in a group home, living outside on the street, on [...] Procedure Name Priority Date/Time Associated Diagnosis Comments STREP A NUCLEIC ACID Routine 12/08/2024 6:47 PM EST SARS COV2/INFLUENZA A/B AND RSV RNA QL NAAT Routine 12/08/2024 6:47 PM EST CBC WITH AUTO DIFFERENTIAL Routine 12/08/2024 6:47 PM EST URINALYSIS WITH REFLEX MICROSCOPIC Routine 12/08/2024 6:47 PM EST LIPASE Routine 12/08/2024 6:47 PM EST COMPREHENSIVE METABOLIC PANEL Routine 12/08/2024 6:47 PM EST documented in this encounter Results * SARS-CoV-2 RNA, Influenza A/B, and RSV RNA, Ql NAAT (12/08/2024 6:47 PM EST) Influenza A PCR NEGATIVE Negative [facility] Influenza B PCR NEGATIVE Negative [facility] Resp Syncy Virus RNA Qual PCR NEGATIVE Negative [facility] SARS COV2 PCR NEGATIVE Negative [facility] [...] use by authorized laboratories.Testing performed on the [employer] GeneXpert utilizingreal-time RT-PCR.All SARS CoV2 and positive influenza A/B results arereported to [facility]. 12/08/2024 6:47 PM EST 12/08/2024 6:51 PM EST Generic External Data Provider LAB MICROBIOLOGY - GENERAL ORDERABLES Final Result Performing Organization Address [facility]/ZIP Co de Phone Number [facility] [address] [place] [address] [phone] * Lipase (12/08/2024 6:47 PM EST) Pathologist [facility] Lipase 20 8 - 78 U/L [facility] 12/08/2024 6:47 PM EST 12/08/2024 6:51 PM EST Generic External Data Provider LAB BLOOD ORDERAB LES Final Result Performing Organization Address [facility] de Phone Number [facility] [address] [place] [phone] * (ABNORMAL) Comprehensive Metabolic Panel (12/08/2024 6:47 PM EST) Pathologist [facility] Sodium 141 135 - 145 mmol/L [facility] Potassium 3.8 3.3 - 5.1 mmol/L [facility] Chloride 102 96 - 108 mmol/L [facility] Carbon Dioxide 34(H) 22 - 29 mmol/L [facility] Anion Gap 9(L) 12 - 20 [facility] Urea Nitrogen (BUN) 11 9 - 16 mg/dL [facility] Creatinine, Serum 1.02 0.5 - 1.4 mg/dL [facility] Creatinine Clr Calc Pharmacy 75.1 [facility] Comment:eGFR (calculated fro m the MDRD study equation) and eCrCl(calculated from the Cockcroft-Gault equation) are based ondifferent parameters and may not yield comparable results.If eCrCl result is absurd, please check patient'sheight/weight. Estimated Glomerular Filt Rate >60 [facility] Comment:Chronic Kidney Disea se: Estimated GFR < 60 mL/min/1.98m3Fxsdgj Kidney Disease: Estimated GFR < 15 mL/min/1.73m2 Glucose 74 60 - 115 mg/dL [facility] Calcium 9.6 8.4 - 10.2 mg/dL [facility] Bilirubin, Total 0.5 0.0 - 1.0 mg/dL [facility] Aspartate Amino Transferase 23 5 - 37 U/L [facility] Alanine Aminotransferase 18 0 - 40 U/L [facility] Total Protein 7.5 6.5 - 8.0 g/dL [facility] Albumin Level 4.5 3.5 - 5.0 g/dL [facility] Alkaline Phosphatase 63 39 - 117 U/L [facility] 12/08/2024 6:47 PM EST 12/08/2024 6:51 PM EST us Generic External Data Provider LAB BLOOD ORDERAB LES Final Result Performing Organization Address [facility]/ZIP Co de Phone Number [facility] [address] [place] [phone] * Strep A Nucleic Acid (12/08/2024 6:47 PM EST) [employer]NOW SERIAL# [id number] [facility] Strep A Nucleic Acid Negative Negative [facility] Comment:All test results mus t [...] LAB MICROBIOLOGY - GENERAL ORDERABLES Final Result [facility] [address] [place] [phone] * Urinalysis w/reflex microscopic (12/08/2024 6:47 PM EST) Color Urine Yellow [facility] Appearance Urine Clear [facility] PH 6.5 5.0 - 9.0 [facility] Glucose Urine UA Negative Negative mg/dL [facility] Urine Blood Negative Negative [facility] Specific [place] - Urine 1.010 1.005 - 1.025 [facility] Urine Protein Negative Neg-Trace mg/dL [facility] Urine Ketones Negative Negative mg/dL [facility] Nitrite Urine Negative Negative [facility] Leukocyte Esterase Urine Negative Negative [facility] 12/08/2024 6:47 PM EST 12/08/2024 6:51 PM EST Narrative [facility] - 12/08/2024 6:56 PM EST [id number], [employer] us Generic External Data Provider LAB URINE ORDERAB LES Final Result [facility] [address] [place] [address] [phone] * CBC auto differential (12/08/2024 6:47 PM EST) White Blood Count 6.6 4.8 - 10.8 X10*3/uL [facility] Red Blood Count 4.87 4.60 - 5.80 X10*6/uL [facility] Hemoglobin 14.1 14.0 - 18.0 g/dl [facility] Hematocrit 42.1 42.0 - 52.0 % [facility] Mean Corpuscular Volume 86.4 80.0 - 98.0 fL [facility] Mean Corpuscular Hemoglobin 29.0 27.0 - 33.0 pg [facility] Mean Corpuscular HGB Conc 33.5 31.0 - 36.0 g/dl [facility] Red Cell Distribution Width 11.9 11.0 - 16.0 % [facility] Platelet Count 264 160 - 400 X10*3/uL [facility] Mean Platelet Volume 10.1 9.4 - 12.4 fL [facility] Neutrophils Percent Auto 62.8 45 - 73 % [facility] Imm Gran Pct Auto 0.3 0.0 - 0.4 % [facility] Lymphocytes Percent Auto 27.6 20 - 40 % [facility] Monocytes Percent Auto 7.5 2 - 11 % [facility] Eosinophils Percent Auto 0.9 0 - 4 % [facility] Basophils Percent Auto 0.9 0 - 2 % [facility] NRBC Pct Auto 0.0 0.0 - 0.2 /100WBC [facility] Neutrophils Absolute Auto 4.2 2.0 - 8.3 x10*3/uL [facility] Imm Gran Abs Auto 0.02 0.00 - 0.03 X10*3/uL [facility] Lymphocytes Absolute Auto 1.8 1.2 - 4.9 X10*3/uL [facility] Monocytes Absolute Auto 0.5 0.1 - 1.2 X10*3/uL [facility] Eosinophils Absolute Auto 0.1 0.0 - 0.4 X10*3/uL [facility] Basophils Absolute Auto 0.1 0.0 - 0.2 X10*3/uL [facility] NRBC Abs Auto 0.000 0.0 - 0.012 X10*3/uL [facility] 12/08/2024 6:47 PM EST 12/08/2024 6:51 PM EST us Generic External Data Provider LAB BLOOD ORDERAB LES Final Result [facility] [address] [place] [phone] documented in this encounter Visit Diagnoses Not on filedocumented in this encounter Additional Health Concerns Assessment Noted Time PHQ-9 Depression Total Score: 2 06/11/20 23 2:47 PM EDT documented as of this encounter Care Teams Freight Team Associate Relationship Specialty Start Date End Date Jack Mccauley MD [address] [place] [phone] PCP - General Internal Medicine 05/25/15 documented as of this encounter
--- OUTSIDE RECORDS SUMMARY | 2024-12-10 02:41 | XMS_ITS | Encounter Summary ---
Author Organization [employer] Address [address] [facility] [address] [place] [address] Care Team Providers Care Outcomes Manager Name Role Phone Jack Mccauley MD Primary Care Provide r Reason for Referral * Consultation (Urgent) - Closed Specialty Diagnoses / Procedures Referred By Contac t Referred To Contact Otolaryngology Diagnoses Facial pressure Braulio Villalpando MD [address] [place] [phone] Phone: tel: fax: [facility] [address] Phone: tel: fax: Referral ID Status Reason Start Date Expiration Date V isits Requested Visits Authorized [id number] Closed Specialty Services Required 12/03/2024 12/03/2025 6 6 Reason for Visit * Reason Comments Walk-In Sore throat/ nose bl eeding Encounter Details Date Type Department Care Team (Late st Contact Info) Description 12/03/2024 11:20 AM EST Office Visit [facility] [address] [place], [place] [phone] Braulio Villalpando MD [address] [place], [place] [phone] Sore throat (Primary Dx); Facial pressure Social History Tobacco Use Types Packs/Day Years Used Date Smoking Tobacco: Never Passive Smoke Exposure: Never Smokeless Tobacco: Never Depression Answer Date Recorded Patient Health Questionnaire-9 Score 2 06/11/2023 Housing Stability Answer Date Recorded What is your housing situation today? I do not have housing (Staying with others, in a hotel, in a correction, living outside on the street, on a [...] as well. Denies F/C. Was seen in [facility] on 05/02/2024 for similar concerns. Wastreated [...] Detected Final QC Media Lot # 12/03/2024 [id number] Final Lot# Expiration Date 12/03/2024 [id number] Final Jorgito was seen today for walk-in. Diagnoses and all orders for this visit: Sore throat (Primary) - POCT Rapid Strep A MORSE ID NOW Facial pressure - XR Paranasal Sinuess 3+ Views; Future - Referral to ENT; Future Patient presents to [facility] due to ongoing facial pressure and congestion [...] NOW (12/03/2024 11:36 AM EST) Pathologist [facility] Rapid Strep A Screen Negative Negative, None Detected [employer] Media Lot # [id number] Lot# Expiration Date [id number] Swab 12/03/2024 11:3 6 AM EST Braulio Villalpando MD POINT OF CARE TEST ENTER/EDIT OR DERABLES Final Result documented in this encounter Visit Diagnoses Diagnosis Sore throat- Primary Acute pharyngitis Facial pressure documented in this encounter Additional Health Concerns Assessment Noted Time PHQ-9 Depression Total Score: 2 06/11/20 23 2:47 PM EDT documented as of this encounter Care Teams Outcomes Manager Relationship Specialty Start Date End Date Jack Mccauley MD [address] [place] [phone] PCP - General Internal Medicine 05/25/15 documented as of this encounter
--- NOTE | 2024-12-10 02:45 | ED.GENADULT ---
HPI - General Adult General Chief complaint: General Medical Stated complaint: reacting to meds/lips feel numb/feels worse Time Seen by Provider: 12/10/24 03:19 Source: patient Mode of arrival: ambulatory Limitations: no limitations History of Present Illness ED Provider: HPI narrative: Patient has been having itching and burning sensation left lower earlier for last few days no eye discharge also complaining of itching in both eyes patient was seen here few days gone prescribed loratadine Related Data Home Medications ?Medication ?Instructions ?Recorded ?Confirmed dextroamphetamine-amphetamine 5 mg 1 tab PO BID 03/15/24 03/15/24 tablet Previous Rx's ?Medication ?Instructions ?Recorded cholecalciferol (vitamin D3) 50 50 mcg PO DAILY #90 caps 04/17/23 mcg (2,000 unit) capsule (Vitamin D3) docusate sodium 100 mg capsule 100 mg PO BID #20 caps 03/17/24 (Colace) loratadine 10 mg tablet 10 mg PO DAILY #30 tabs 12/04/24 erythromycin 5 mg/gram (0.5 %) eye 0.5 inch ophthalmic (eye) TID #3.5 12/10/24 ointment grams ketotifen fumarate 0.025 % (0.035 1 drp ophthalmic (eye) BID PRN 12/10/24 %) eye drops (Alaway) allergy symptoms #5 mL Allergies Allergy/AdvReac Type Severity Reaction Status Date / Time No Known Allergies Allergy Verified 12/10/24 01:10 [No Known Allergies*] Review of Systems Review of Systems: Yes all other systems are reviewed and are negative PMFSH Past Medical History Medical History Back pain Arthritis PTSD (post-traumatic stress disorder) Left varicocele Hx of bipolar disorder Insomnia Fibromyalgia Vitamin D deficiency Anxiety Depression Surgical History History of hemorrhoidectomy (06/25/23) History of esophagogastroduodenoscopy (EGD) H/O colonoscopy History of surgery on arm Rectal bleeding Family History Family History Maternal Grandmother Diabetes Colon cancer Maternal Aunt Colon cancer Sister Colon polyp Social History Social History Household Members: Family Are you a primary director of critical care to a significant other at home: No Do you presently have visiting nurse or other home services: No Alcohol intake: never Patient Tobacco Use Status: Never used Tobacco Smoked in Last 30 Days: No e-Cigarette/Vaping Use: Never Used Use of substances other than those prescribed or required for medical reasons: No Advance Directives: No Advance Directives Information Provided: Yes Do you have a plan to hurt others: No Plan Current occupational status: employed 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 Oriented X3. No acute distress. Eye: Inflamed left lower eyelid at the hair follicle> blepharitis inflamed conjunctiva no exudates will discharge ENT: Pharynx normal. Oral Mucosa moist Neck: Normal inspection. Neck supple. CVS: Normal heart rate and rhythm. Pulses normal. Respiratory: No respiratory distress. Equal air entry bilateral, no wheezing/rales/rhonchi Skin: Skin warm and dry. Normal skin color. Normal skin turgor. Extremities: No lower extremity edema. Neuro: Oriented X 3. Medications Administered Discontinued Medications Generic Name Dose Route Start Last Admin Trade Name Iris PRN Reason Stop Dose Admin Erythromycin 1 cm 12/10/24 03:51 12/10/24 04:00 Erythromycin Base 0.5% Oph Oin 1 Gm Tube EYE-LEFT 12/10/24 03:52 1 cm ONCE ONE Administration Discharge Plan Discharge Clinical Impression: Blepharitis, Allergic conjunctivitis Patient Disposition: Home, Self-Care Instructions: Blepharitis (ED), Conjunctivitis (ED) Prescriptions: New erythromycin 5 mg/gram (0.5 %) ointment 0.5 inch ophthalmic (eye) TID Qty: 3.5 0RF ketotifen fumarate [Alaway] 0.025 % (0.035 %) drops 1 drp ophthalmic (eye) BID PRN (Reason: allergy symptoms) Qty: 5 0RF Rx Instructions: administer at least 8 hours apart No Action dextroamphetamine-amphetamine 5 mg tablet 1 tab PO BID docusate sodium [Colace] 100 mg capsule 100 mg PO BID Qty: 20 0RF loratadine 10 mg tablet 10 mg PO DAILY Qty: 30 0RF cholecalciferol (vitamin D3) [Vitamin D3] 50 mcg (2,000 unit) capsule 50 mcg PO DAILY Qty: 90 2RF Stand Alone Forms: Work/School Release Interventions: ED Discharge Assessment Last Done: 12/10/24 04:01 Discharge Date/Time: 12/10/24 04:02 Print Language: Sudanese
[2024-12-10 02:47] VITALS: BP 127/55; PULSE 71; RESP 16; TEMP 36.6; O2SAT 98
[2024-12-10] MEDS: Erythromycin Base 0.5% Oph Oin 1 GM TUBE 1 CM EYE-LEFT (04:00)
[2024-12-10 04:01] VITALS: BP 127/55; PULSE 71; RESP 16; TEMP 36.6; O2SAT 98
== END 2024-12-10 04:02 | disposition home or self-care (01) ==
PROVIDERS: Emergency Provider Internal Medicine; PCP Internal Medicine
DX: H01.006 Unspecified blepharitis left eye, unspecified eyelid (principal); H10.12 Acute atopic conjunctivitis, left eye
CPT/HCPCS: 99283; 99284

== ENCOUNTER 2024-12-13 13:32 | Outpatient (AMB) | payer MEDICAID, SELFPAY ==
--- NOTE | 2024-12-13 13:40 | AM.OFFVISNUR ---
Intake Visit Reasons: H PYLORI Intake Note: Patient presents for collection of H Pylori breath test. Patient has been fasting for 1 hour (nothing to eat, drink, no chewing gum or smoking) has not taken any antacid medication for at least 2 weeks and has no allergies to artificial sweeteners.?? Allergies No Known Allergies [No Known Allergies*] Allergy (Verified 12/10/24 01:10) Assessment & Plan Assessment & Plan (1) Epigastric abdominal pain: Code(s): R10.13 - Epigastric pain Category: Medical (2) Weight loss, abnormal: Code(s): R63.4 - Abnormal weight loss Category: Medical Plan Patient presents for collection of H Pylori breath test. Patient has been fasting for 1 hour (nothing to eat, drink, no chewing gum or smoking) has not taken any antacid medication for at least 2 weeks and has no allergies to artificial sweeteners.???This test checks for an overgrowth of bacteria in your stomach. We all have bacteria but some may have more than others. It is treatable. if the test comes back negative there is nothing else to do. If the test result is positive we will treat you with 2 antibiotics and a medication to decrease the acid in your stomach (PPI) for 2 weeks. Two weeks after you have completed the treatment we will retest you to make sure the overgrowth has resolved. Patient Instructions: Process for specimen collection and reason for testing was explained to the patient. Specimen collection. Patient instructed to take a deep breath and then exhale into the blue bag, filling it up as much as possible. Patient instructed to drink a mixture of water and the artificial sweetener with a straw. A 15 minute wait period was observed. Patient instructed to take a deep breath and then exhale into the pink bag, filling it up as much as possible.?? Coding Level of Care Code Est Pt Level 1 (86311) Diagnoses Epigastric abdominal pain R10.13 Weight loss, abnormal R63.4
--- OUTSIDE RECORDS SUMMARY | 2024-12-13 14:28 | XMS_ITS | Encounter Summary ---
Author Organization [employer] Address [address] [facility] [address] [place] [address] Care Team Providers Care Tax Adjuster Name Role Phone Jack Mccauley MD Primary Care Provide r Reason for Visit * Reason Comments Med Refill Encounter Details Date Type Department Care Team (Late st Contact Info) Description 05/29/2023 Refill [facility] [address] [place], [place] [phone] Dayanara Bonds MD [address] [place], [place] [phone] Social History Tobacco Use Types Packs/Day Years Used Date Smoking Tobacco: Never Passive Smoke Exposure: Never Smokeless Tobacco: Never Sex and Gender Information Value Date Recorded Sex Assigned at Male 08/25/2022 10:19 AM EDT Legal Sex Male 10:19 AM EDT Gender Identity Male 08/25/2022 10:19 AM EDT Sexual Orientation Straight 08/25/2022 10 :19 AM EDT documented as of this encounter Plan of Treatment Upcoming Encounters Date Type Department Care Team (Late st Contact Info) Description 12/27/2024 10:30 AM EST Office Visit [facility] [address] [place], [place] [phone] Jack Mccauley MD [address] [place], [place] [phone] documented as of this encounter Visit Diagnoses Not on filedocumented in this encounter Additional Health Concerns Assessment Noted Time PHQ-9 Depression Total Score: 0 11/04/19 23 2:12 PM EST documented as of this encounter Care Teams Tax Adjuster Relationship Specialty Start Date End Date Jack Mccauley MD [address] [place] [phone] PCP - General Internal Medicine 05/25/15 documented as of this encounter
--- OUTSIDE RECORDS SUMMARY | 2024-12-13 14:28 | XMS_ITS | Encounter Summary ---
Author Organization [employer] Address [address] [facility] [address] [place] [address] Care Team Providers Care Wind Turbine Sheet Metal Worker Name Role Phone Jack Mccauley MD Primary [...] with others, in a hotel, in a usp, living outside on the street, on a [...] Description 12/27/2024 10:30 AM EST Office Visit [facility] [address] [place] [phone] Jack Mccauley MD [address] [place] [address] documented as of this encounter Procedures Procedure Name Priority Date/Time Associated Diagnosis Comments SARS COV2/INFLUENZA A/B AND RSV RNA QL NAAT Routine 12/04/2024 8:05 AM EST documented in this encounter Results * SARS-CoV-2 RNA, Influenza A/B, and RSV RNA, Ql NAAT (12/04/2024 8:05 AM EST) Influenza A PCR NEGATIVE Negative [facility] Influenza B PCR NEGATIVE Negative [facility] Resp Syncy Virus RNA Qual PCR NEGATIVE Negative [facility] SARS COV2 PCR NEGATIVE Negative [facility] Comment:All test results mus t [...] use by authorized laboratories.Testing performed on the [email or web address] GeneXpert utilizingreal-time RT-PCR.All SARS CoV2 and positive influenza A/B results arereported to [facility]. 12/04/2024 8:05 AM EST 12/04/2024 8:07 AM EST us Generic External Data Provider LAB MICROBIOLOGY - GENERAL ORDERABLES Final Result [facility] [address] [place] [phone] documented in this encounter Visit Diagnoses Not on filedocumented in this encounter Additional Health Concerns Assessment Noted Time PHQ-9 Depression Total Score: 2 06/11/20 23 2:47 PM EDT documented as of this encounter Care Teams Wind Turbine Sheet Metal Worker Relationship Specialty Start Date End Date Jack Mccauley MD [address] [place] [address] PCP - General Internal Medicine 05/25/15 documented as of this encounter
--- OUTSIDE RECORDS SUMMARY | 2024-12-13 14:28 | XMS_ITS | Referral Summary ---
Author Organization [facility] Address [address] [place] [address] Care Team Providers Care Equipment Engineer Name Role Phone Jack Kate Primary Care [...] Plan of Treatment Not on file Insurance [facility] Care Teams Equipment Engineer Relationship Specialty Start Date End Date Jack Kate [address] [place] [phone] PCP - General Internal Medicine 02/04/22
--- OUTSIDE RECORDS SUMMARY | 2024-12-13 14:28 | XMS_ITS | Encounter Summary ---
Author Organization [employer] Address [address] [place] [address] Care Team Providers Care Chopper Gun Operator Name Role Phone Jack Mccauley MD [...] with others, in a hotel, in a nursing home, living outside on the street, on [...] Description 12/27/2024 10:30 AM EST Office Visit [facility] [address] [place] [address] Jack Mccauley MD [address] [place] [address] documented as of this encounter Procedures Procedure [...] PM EST) Influenza A PCR NEGATIVE Negative [facility] Influenza B PCR NEGATIVE Negative [facility] Resp Syncy Virus RNA Qual PCR NEGATIVE Negative [facility] SARS COV2 PCR NEGATIVE Negative [facility] Comment:All test results mus t [...] use by authorized laboratories.Testing performed on the [employer] GeneXpert utilizingreal-time RT-PCR.All SARS CoV2 and positive influenza A/B results arereported to [facility]. 12/08/2024 6:47 PM EST 12/08/2024 6:51 PM EST Generic External Data Provider LAB MICROBIOLOGY - GENERAL ORDERABLES Final Result Performing Organization Address [facility]/ZIP Co de Phone Number [facility] [address] [place] [phone] * Lipase (12/08/2024 6:47 PM EST) Pathologist [facility] Lipase 20 8 - 78 U/L [facility] 12/08/2024 6:47 PM EST 12/08/2024 6:51 PM EST [employer] External Data Provider LAB BLOOD ORDERAB LES Final Result Performing Organization Address [facility] de Phone Number [facility] [address] [place] [phone] * (ABNORMAL) Comprehensive Metabolic Panel (12/08/2024 6:47 PM EST) Sodium 141 135 - 145 mmol/L [facility] Potassium 3.8 3.3 - 5.1 mmol/L [facility] Chloride 102 96 - 108 mmol/L [facility] Carbon Dioxide 34(H) 22 - 29 mmol/L [facility] Anion Gap 9(L) 12 - 20 [facility] Urea Nitrogen (BUN) 11 9 - 16 mg/dL [facility] Creatinine, Serum 1.02 0.5 - 1.4 mg/dL [facility] Creatinine Clr Calc Pharmacy 75.1 [facility] Comment:eGFR (calculated fro m the MDRD study equation) and eCrCl(calculated from the Cockcroft-Gault equation) are based ondifferent parameters and may not yield comparable results.If eCrCl result is absurd, please check patient'sheight/weight. Estimated Glomerular Filt Rate >60 [facility] Comment:Chronic Kidney Disea se: Estimated GFR < 60 mL/min/1.58t0Hoiovj Kidney Disease: Estimated GFR < 15 mL/min/1.73m2 Glucose 74 60 - 115 mg/dL [facility] Calcium 9.6 8.4 - 10.2 mg/dL [facility] Bilirubin, Total 0.5 0.0 - 1.0 mg/dL [facility] Aspartate Amino Transferase 23 5 - 37 U/L [facility] Alanine Aminotransferase 18 0 - 40 U/L [facility] Total Protein 7.5 6.5 - 8.0 g/dL [facility] Albumin Level 4.5 3.5 - 5.0 g/dL [facility] Alkaline Phosphatase 63 39 - 117 U/L [facility] 12/08/2024 6:47 PM EST 12/08/2024 6:51 PM EST us Generic External Data Provider LAB BLOOD ORDERAB LES Final Result [facility] [address] [place] [phone] * Strep A Nucleic Acid (12/08/2024 6:47 PM EST) [employer]NOW SERIAL# [id number] [facility] Strep A Nucleic Acid Negative Negative [facility] Comment:All test results mus t be [...] GENERAL ORDERABLES Final Result Performing Organization Address [facility] de Phone Number [facility] [address] [place] [phone] * Urinalysis w/reflex microscopic (12/08/2024 6:47 PM EST) Color Urine Yellow [facility] Appearance Urine Clear [facility] PH 6.5 5.0 - 9.0 [facility] Glucose Urine UA Negative Negative mg/dL [facility] Urine Blood Negative Negative [facility] Specific [place] - Urine 1.010 1.005 - 1.025 [facility] Urine Protein Negative Neg-Trace mg/dL [facility] Urine Ketones Negative Negative mg/dL [facility] Nitrite Urine Negative Negative [facility] Leukocyte Esterase Urine Negative Negative [facility] 12/08/2024 6:47 PM EST 12/08/2024 6:51 PM EST Narrative [facility] - 12/08/2024 6:56 PM EST [id number], Clean Catch Generic External Data Provider LAB URINE ORDERAB LES Final Result Performing Organization Address [facility] de Phone Number [facility] [address] [place] [phone] * CBC auto differential (12/08/2024 6:47 PM EST) White Blood Count 6.6 4.8 - 10.8 X10*3/uL [facility] Red Blood Count 4.87 4.60 - 5.80 X10*6/uL [facility] Hemoglobin 14.1 14.0 - 18.0 g/dl [facility] Hematocrit 42.1 42.0 - 52.0 % [facility] Mean Corpuscular Volume 86.4 80.0 - 98.0 fL [facility] Mean Corpuscular Hemoglobin 29.0 27.0 - 33.0 pg [facility] Mean Corpuscular HGB Conc 33.5 31.0 - 36.0 g/dl [facility] Red Cell Distribution Width 11.9 11.0 - 16.0 % [facility] Platelet Count 264 160 - 400 X10*3/uL [facility] Mean Platelet Volume 10.1 9.4 - 12.4 fL [facility] Neutrophils Percent Auto 62.8 45 - 73 % [facility] Imm Gran Pct Auto 0.3 0.0 - 0.4 % [facility] Lymphocytes Percent Auto 27.6 20 - 40 % [facility] Monocytes Percent Auto 7.5 2 - 11 % [facility] Eosinophils Percent Auto 0.9 0 - 4 % [facility] Basophils Percent Auto 0.9 0 - 2 % [facility] NRBC Pct Auto 0.0 0.0 - 0.2 /100WBC [facility] Neutrophils Absolute Auto 4.2 2.0 - 8.3 x10*3/uL [facility] Imm Gran Abs Auto 0.02 0.00 - 0.03 X10*3/uL [facility] Lymphocytes Absolute Auto 1.8 1.2 - 4.9 X10*3/uL [facility] Monocytes Absolute Auto 0.5 0.1 - 1.2 X10*3/uL [facility] Eosinophils Absolute Auto 0.1 0.0 - 0.4 X10*3/uL [facility] Basophils Absolute Auto 0.1 0.0 - 0.2 X10*3/uL [facility] NRBC Abs Auto 0.000 0.0 - 0.012 X10*3/uL [facility] 12/08/2024 6:47 PM EST 12/08/2024 6:51 PM EST us Generic External Data Provider LAB BLOOD ORDERAB LES Final Result [facility] [address] [place] [phone] documented in this encounter Visit Diagnoses Not on filedocumented in this encounter Additional Health Concerns Assessment Noted Time PHQ-9 Depression Total Score: 2 06/11/20 23 2:47 PM EDT documented as of this encounter Care Teams Chopper Gun Operator Relationship Specialty Start Date End Date Jack Mccauley MD [address] [place] [phone] PCP - General Internal Medicine 05/25/15 documented as of this encounter
--- OUTSIDE RECORDS SUMMARY | 2024-12-13 14:28 | XMS_ITS | Clinical Summary ---
Author Organization [facility] Address [address] [place] [address] Care Team Providers Care Surface Logging Systems Logger Name Role Phone Jack Kate Primary Care [...] patient's age to complete this topic Insurance [facility] Care Teams Surface Logging Systems Logger Relationship Specialty Start Date End Date Jack Kate [address] [place] [phone] PCP - General Internal Medicine 02/04/22
--- OUTSIDE RECORDS SUMMARY | 2024-12-13 14:28 | XMS_ITS | Encounter Summary ---
Author Organization [employer] Address [address] [facility] [address] [place] [address] Care Team Providers Care Foam Cutting Supervisor Name Role Phone Jack Mccauley MD Primary Care Provide r Reason for Referral * Consultation (Urgent) - Closed Specialty Diagnoses / Procedures Referred By Contac t Referred To Contact Otolaryngology Diagnoses Facial pressure Braulio Villalpando MD [address] [place] [phone] Phone: tel: fax: [facility] [address] Phone: tel: fax: Referral ID Status Reason Start Date Expiration Date V isits Requested Visits Authorized [id number] Closed Specialty Services Required 12/03/2024 12/03/2025 6 6 Reason for Visit * Reason Comments Walk-In Sore throat/ nose bl eeding Encounter Details Date Type Department Care Team (Late st Contact Info) Description 12/03/2024 11:20 AM EST Office Visit [facility] [address] [place], [place] [phone] Braulio Villalpando MD [address] [place], [place] [phone] Sore throat (Primary Dx); Facial pressure Social History Tobacco Use Types Packs/Day Years Used Date Smoking Tobacco: Never Passive Smoke Exposure: Never Smokeless Tobacco: Never Depression Answer Date Recorded Patient Health Questionnaire-9 Score 2 06/11/2023 Housing Stability Answer Date Recorded What is your housing situation today? I do not have housing (Staying with others, in a hotel, in a fci, living outside on the street, on a [...] as well. Denies F/C. Was seen in [facility] on 05/02/2024 for similar concerns. Wastreated [...] Detected Final QC Media Lot # 12/03/2024 [id number] Final Lot# Expiration Date 12/03/2024 92,[id number] Final Jorgito was seen today for walk-in. Diagnoses and all orders for this visit: Sore throat (Primary) - POCT Rapid Strep A MORSE ID NOW Facial pressure - XR Paranasal Sinuess 3+ Views; Future - Referral to ENT; Future Patient presents to [facility] due to ongoing facial pressure and congestion [...] documented in this encounter Plan of Treatment Upcoming Encounters Date Type Department Care Team (Late st Contact Info) Description 12/27/2024 10:30 AM EST Office Visit [facility] [address] [place] [address] Jack Mccauley MD [address] [place] [address] Scheduled Orders Name Type Priority Associated Diagnoses [...] MORSE ID NOW (12/03/2024 11:36 AM EST) [facility] Rapid Strep A Screen Negative Negative, None Detected QC Media Lot # [id number] Lot# Expiration Date [id number] Swab 12/03/2024 11:3 [...] documented as of this encounter Care Teams Foam Cutting Supervisor Relationship Specialty Start Date End Date Jack Mccauley MD [address] [place] [phone] PCP - General Internal Medicine 05/25/15 documented as of this encounter
--- OUTSIDE RECORDS SUMMARY | 2024-12-13 14:28 | XMS_ITS | Encounter Summary ---
Author Organization [employer] Address [address] [place] [address] Care Team Providers Care Hospice Clinical Supervisor Name Role Phone Jack Mccauley MD Primary Care Provide r Encounter Details Date Type Department Care Team ([facility] st Contact Info) Description 12/03/2024 Orders Only [facility] [address] [place] [address] Braulio Villalpando MD [address] [place] [address] Social History Tobacco Use Types Packs/Day Years Used Date Smoking Tobacco: Never Passive Smoke Exposure: Never Smokeless Tobacco: Never Depression Answer Date Recorded Patient Health Questionnaire-9 Score 2 06/11/2023 Housing Stability Answer Date Recorded What is your housing situation today? I do not have housing (Staying with others, in a hotel, in [place] [facility], living outside on the street, on a [...] Description 12/27/2024 10:30 AM EST Office Visit [facility] [address] [place] [address] Jack Mccauley MD [address] [place] [address] documented as of this encounter Procedures Procedure Name Priority Date/Time Associated Diagnosis Comments XR SINUS 3 VIEWS Routine 12/03/2024 1:11 PM EST documented in this encounter Results * XR Sinus 3 Views (12/03/2024 1:11 PM EST) Anatomical Region Laterality Modality Radiographic May ging 12/03/2024 1:11 PM EST Narrative 12/03/2024 1:13 PM EST ? [facility] ?[address] ? [place] [address] ?XRay Report ? Signed ? Patient: Nicolas Rucker,Kenny ?MR#: ?? [id number] ? : 1980 ?Acct:[id number] ? Age/Sex: 44 / M ?ADM Date: 02/08/25 ? Loc: HO.HMGCX ? Attending Dr: Braulio Villalpando MD ? Ordering Physician: Braulio Villalpando MD ?? Date of Service: 12/03/24 ?? Procedure(s): XR sinus min 3V ?? Accession Number(s): [id number] ? cc: Jack Kate MD; Braulio Villalpando [...] Jessika Salas MD in OV> ? 12/03/24 1312 ? DD/ 1311 ? TD/TT: 12/03/24 1311 ? Health Aid: ? Procedure Note Donoteagleinterpreter, Image - 12/03/2024 [facility] [address] [place] [address] [place] [address] XRay Report Signed Patient: Jorgito Mendoza [facility]#: [id number] : 1980Acct:[id number] Age/Sex: 44 / MADM Date: 12/03/24 Loc: HO.HMGCX Attending Dr: Braulio Villalpando MD Ordering Physician: Braulio Villalpando MD Date of Service: 12/03/24 Procedure(s): XR sinus min 3V Accession Number(s): [id number] cc: Jack Kate MD; Braulio Villalpando MD [...] OV> 12/03/24 1312 DD/ 1311 TD/TT: 12/03/24 131 Health Aid: Braulio Villalpando MD IMG XR PROCEDURES Edited Result - Final documented in this encounter Visit Diagnoses Not on filedocumented in this encounter Additional Health Concerns Assessment Noted Time PHQ-9 Depression Total Score: 2 06/11/20 23 2:47 PM EDT documented as of this encounter Care Teams Hospice Clinical Supervisor Relationship Specialty Start Date End Date Jack Mccauley MD [address] [place] [address] PCP - General Internal Medicine 05/25/15 documented as of this encounter
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
== END 2024-12-13 13:41 | disposition home or self-care (01) ==
LOC: HO.HGI 13:32
PROVIDERS: PCP Internal Medicine; Visit Provider Internal Medicine Gastroenterology
DX: R10.13 Epigastric pain (principal); R63.4 Abnormal weight loss

== ENCOUNTER 2024-12-13 13:32 | Outpatient (REF) | payer MEDICAID, SELFPAY ==
--- OUTSIDE RECORDS SUMMARY | 2024-12-14 10:09 | XMS_ITS | Encounter Summary ---
Author Organization [employer] Address [address] [place] [address] Care Team Providers Care Director Enterprise Sales Name Role Phone Jack Mccauley MD Primary Care Provide r Encounter Details Date Type Department Care Team ([facility] st Contact Info) Description 12/03/2024 Orders Only [facility] [address] [place] [address] Braulio Villalpando MD [address] [place] [address] Social History Tobacco Use Types Packs/Day Years [...] Description 12/27/2024 10:30 AM EST Office Visit [facility] [address] [place] [address] Jack Mccauley MD [address] [place] [address] documented as of this encounter Procedures Procedure Name Priority Date/Time Associated Diagnosis Comments XR SINUS 3 VIEWS Routine 12/03/2024 1:11 PM EST documented in this encounter Results * XR Sinus 3 Views (12/03/2024 1:11 PM EST) Anatomical Region Laterality Modality Radiographic May ging 12/03/2024 1:11 PM EST Narrative 12/03/2024 1:13 PM EST ? [facility] ?[address] ? [place] [address] ?XRay Report ? Signed ? Patient: Nicolas Rucker,Kenny ?MR#: ?? [id number] ? : 1980 ?Acct:[id number] ? Age/Sex: 44 / M ?ADM Date: 02/08/25 ? Loc: HO.[facility]GCX ? Attending Dr: Braulio Villalpando MD ? Ordering Physician: Braulio Villalpando MD ?? Date of Service: 12/03/24 ?? Procedure(s): XR sinus min 3V ?? Accession Number(s): [id number] ? cc: Jack Kate MD; Braulio Villalpando [...] DD/ 1311 ? TD/TT: 12/03/24 1311 ? Painting Machine Operator: ? Procedure Note Donoteagleinterpreter, Image - 12/03/2024 [facility] [address] [place] [address] [place] [address] XRay Report Signed Patient: Jorgito Mendoza [facility]#: [id number] : 1980Acct:[id number] Age/Sex: 44 / MADM Date: 12/03/24 Loc: HO.[facility]GCX Attending Dr: Braulio Villalpando MD Ordering Physician: Braulio Villalpando MD Date of Service: 12/03/24 Procedure(s): XR sinus min 3V Accession Number(s): [id number] cc: Jack Kate MD; Braulio Villalpando MD [...] 12/03/24 1312 DD/ 1311 TD/TT: 12/03/24 131 Painting Machine Operator: Braulio Villalpando MD IMG XR PROCEDURES Edited Result - Final documented in this encounter Visit Diagnoses Not on filedocumented in this encounter Additional Health Concerns Assessment Noted Time PHQ-9 Depression Total Score: 2 06/11/20 23 2:47 PM EDT documented as of this encounter Care Teams Director Enterprise Sales Relationship Specialty Start Date End Date Jack Mccauley MD [address] [place] [address] PCP - General Internal Medicine 05/25/15 documented as of this encounter
--- OUTSIDE RECORDS SUMMARY | 2024-12-14 10:09 | XMS_ITS | Encounter Summary ---
Author Organization [employer] Address [address] [facility] 7t [place] [address] Care Team Providers Care Mud Jack Nozzleman Name Role Phone Jack Mccauley MD Primary Care Provide r Reason for Referral * Consultation (Urgent) - Closed Specialty Diagnoses / Procedures Referred By Contac t Referred To Contact Otolaryngology Diagnoses Facial pressure Braulio Villalpando MD [address] [place] [phone] Phone: tel: fax: [facility] [address] Phone: tel: fax: Referral ID Status Reason Start Date Expiration Date V isits Requested Visits Authorized [id number] Closed Specialty Services Required 12/03/2024 12/03/2025 6 6 Reason for Visit * Reason Comments Walk-In Sore throat/ nose bl eeding Encounter Details Date Type Department Care Team (Late st Contact Info) Description 12/03/2024 11:20 AM EST Office Visit [facility] [address] [place], [place] [phone] Braulio Villalpando MD [address] [place], [place] [phone] Sore throat (Primary Dx); Facial pressure Social History Tobacco Use Types Packs/Day Years Used Date Smoking Tobacco: Never Passive Smoke Exposure: Never Smokeless Tobacco: Never Depression Answer Date Recorded Patient Health Questionnaire-9 Score 2 06/11/2023 Housing Stability Answer Date Recorded What is your housing situation today? I do not have housing (Staying with others, in a hotel, in a assisted, living outside on the street, on a [...] as well. Denies F/C. Was seen in [facility] on 05/02/2024 for [...] Detected Final QC Media Lot # 12/03/2024 [id number] Final Lot# Expiration Date 12/03/2024 92,326 Final Jorgito was seen today for walk-in. Diagnoses and all orders for this visit: Sore throat (Primary) - POCT Rapid Strep A MORSE ID NOW Facial pressure - XR Paranasal Sinuess 3+ Views; Future - Referral to ENT; Future Patient presents to Thursday [facility] due to ongoing facial pressure and congestion [...] Description 12/27/2024 10:30 AM EST Office Visit [facility] [address] [place] [address] Jack Mccauley MD [address] [place] [address] Scheduled Orders Name Type Priority Associated Diagnoses [...] MORSE ID NOW (12/03/2024 11:36 AM EST) [facility] Rapid Strep A Screen Negative Negative, None Detected QC Media Lot # [id number] Lot# Expiration Date 92,326 Swab 12/03/2024 11:3 [...] documented as of this encounter Care Teams Mud Jack Nozzleman Relationship Specialty Start Date End Date Jack Mccauley MD [address] [place] [phone] PCP - General Internal Medicine 05/25/15 documented as of this encounter
--- OUTSIDE RECORDS SUMMARY | 2024-12-14 10:09 | XMS_ITS | Encounter Summary ---
Author Organization [employer] Address [address] [facility] 7t [place] [address] Care Team Providers Care Device Repair Technician Name Role Phone Jack Mccauley MD Primary Care Provide r Reason for Visit * Reason Onset Date Comments Chart Prep 12/14/2024 Encounter Details Date Type Department Care Team ([facility] st Contact Info) Description 12/14/2024 Telephone [facility] [address] [place] [address] Jack Mccauley MD [address] [place] [address] Chart Prep Social History Tobacco Use Types Packs/Day Years Used Date Smoking Tobacco: Never Passive Smoke Exposure: Never Smokeless Tobacco: Never Depression Answer Date Recorded Patient Health Questionnaire-9 Score 2 06/11/2023 Housing Stability Answer Date Recorded What is your housing situation today? I do not have housing (Staying with others, in a hotel, in a retirement, living outside on the street, on a [...] Description 12/27/2024 10:30 AM EST Office Visit [facility] [address] [place] [address] Jack Mccauley MD [address] [place] [address] documented as of this encounter Visit Diagnoses Not on filedocumented in this encounter Additional Health Concerns Assessment Noted Time PHQ-9 Depression Total Score: 2 06/11/20 23 2:47 PM EDT documented as of this encounter Care Teams Device Repair Technician Relationship Specialty Start Date End Date Jack Mccauley MD [address] [place] [address] PCP - General Internal Medicine 05/25/15 documented as of this encounter
--- OUTSIDE RECORDS SUMMARY | 2024-12-14 10:09 | XMS_ITS | Encounter Summary ---
Author Organization [employer] Address [address] [place] [address] Care Team Providers Care Mud Jack Nozzleman [...] with others, in a hotel, in a intermediate, living outside on the street, on a [...] Description 12/27/2024 10:30 AM EST Office Visit [facility] [address] [place] [address] Jack Mccauley MD [address] [place] [address] documented as of this encounter Procedures Procedure [...] Syncy Virus RNA Qual PCR NEGATIVE Negative [facility] SARS COV2 PCR NEGATIVE Negative [facility] Comment:All test results mus t [...] use by authorized laboratories.Testing performed on the [employer] GeneXpert utilizingreal-time RT-PCR.All SARS CoV2 and positive influenza A/B results arereported to [facility]. 12/08/2024 6:47 PM EST 12/08/2024 6:51 PM EST Generic External Data Provider LAB MICROBIOLOGY - GENERAL ORDERABLES Final Result Performing Organization Address [facility]/ZIP Co de Phone Number [facility] [address] [place] [phone] * Lipase (12/08/2024 6:47 PM EST) Pathologist [facility] Lipase 20 8 - 78 U/L [facility] 12/08/2024 6:47 PM EST 12/08/2024 6:51 PM EST Indigoz External Data Provider LAB BLOOD ORDERAB LES Final Result Performing Organization Address [facility] de Phone Number [facility] [address] [place] [address] [phone] * (ABNORMAL) Comprehensive Metabolic Panel (12/08/2024 6:47 PM EST) Sodium 141 135 - 145 mmol/L [facility] Potassium 3.8 3.3 - 5.1 mmol/L [facility] Chloride 102 96 - 108 mmol/L [facility] Carbon Dioxide 34(H) 22 - 29 mmol/L [facility] Anion Gap 9(L) 12 - 20 [facility] Urea Nitrogen (BUN) 11 9 - 16 mg/dL [facility] Creatinine, Serum 1.02 0.5 - 1.4 mg/dL [facility] Creatinine Clr Calc Pharmacy 75.1 [facility] Comment:eGFR (calculated fro m the MDRD study equation) and eCrCl(calculated from the Cockcroft-Gault equation) are based ondifferent parameters and may not yield comparable results.If eCrCl result is absurd, please check patient'sheight/weight. Estimated Glomerular Filt Rate >60 [facility] Comment:Chronic Kidney Disea se: Estimated GFR < 60 mL/min/1.50r4Mmnhge Kidney Disease: Estimated GFR < 15 mL/min/1.73m2 Glucose 74 60 - 115 mg/dL [facility] Calcium 9.6 8.4 - 10.2 mg/dL [facility] Bilirubin, Total 0.5 0.0 - 1.0 mg/dL [facility] Aspartate Amino Transferase 23 5 - 37 U/L [facility] Alanine Aminotransferase 18 0 - 40 U/L [facility] Total Protein 7.5 6.5 - 8.0 g/dL [facility] Albumin Level 4.5 3.5 - 5.0 g/dL [facility] Alkaline Phosphatase 63 39 - 117 U/L [facility] 12/08/2024 6:47 PM EST 12/08/2024 6:51 PM EST us Generic External Data Provider LAB BLOOD ORDERAB LES Final Result [facility] [address] [place] [phone] * Strep A Nucleic Acid (12/08/2024 6:47 PM EST) [employer]NOW SERIAL# [id number] [facility] Strep A Nucleic Acid Negative Negative [facility] Comment:All test results mus t [...] GENERAL ORDERABLES Final Result Performing Organization Address [facility] de Phone Number [facility] [address] [place] [address] [phone] * Urinalysis w/reflex microscopic (12/08/2024 6:47 PM EST) Color Urine Yellow [facility] Appearance Urine Clear [facility] PH 6.5 5.0 - 9.0 [facility] Glucose Urine UA Negative Negative mg/dL [facility] Urine Blood Negative Negative [facility] Specific [place] - Urine 1.010 1.005 - 1.025 [facility] Urine Protein Negative Neg-Trace mg/dL [facility] Urine Ketones Negative Negative mg/dL [facility] Nitrite Urine Negative Negative [facility] Leukocyte Esterase Urine Negative Negative [facility] 12/08/2024 6:47 PM EST 12/08/2024 6:51 PM EST Narrative [facility] - 12/08/2024 6:56 PM EST [id number], Clean Catch Generic External Data Provider LAB URINE ORDERAB LES Final Result Performing Organization Address [facility] de Phone Number [facility] [address] [place] [address] [phone] * CBC auto differential (12/08/2024 6:47 PM EST) White Blood Count 6.6 4.8 - 10.8 X10*3/uL [facility] Red Blood Count 4.87 4.60 - 5.80 X10*6/uL [facility] Hemoglobin 14.1 14.0 - 18.0 g/dl [facility] Hematocrit 42.1 42.0 - 52.0 % [facility] Mean Corpuscular Volume 86.4 80.0 - 98.0 fL [facility] Mean Corpuscular Hemoglobin 29.0 27.0 - 33.0 pg [facility] Mean Corpuscular HGB Conc 33.5 31.0 - 36.0 g/dl [facility] Red Cell Distribution Width 11.9 11.0 - 16.0 % [facility] Platelet Count 264 160 - 400 X10*3/uL [facility] Mean Platelet Volume 10.1 9.4 - 12.4 fL [facility] Neutrophils Percent Auto 62.8 45 - 73 % [facility] Imm Gran Pct Auto 0.3 0.0 - 0.4 % [facility] Lymphocytes Percent Auto 27.6 20 - 40 % [facility] Monocytes Percent Auto 7.5 2 - 11 % [facility] Eosinophils Percent Auto 0.9 0 - 4 % [facility] Basophils Percent Auto 0.9 0 - 2 % [facility] NRBC Pct Auto 0.0 0.0 - 0.2 /100WBC [facility] Neutrophils Absolute Auto 4.2 2.0 - 8.3 x10*3/uL [facility] Imm Gran Abs Auto 0.02 0.00 - 0.03 X10*3/uL [facility] Lymphocytes Absolute Auto 1.8 1.2 - 4.9 X10*3/uL [facility] Monocytes Absolute Auto 0.5 0.1 - 1.2 X10*3/uL [facility] Eosinophils Absolute Auto 0.1 0.0 - 0.4 X10*3/uL [facility] Basophils Absolute Auto 0.1 0.0 - 0.2 X10*3/uL [facility] NRBC Abs Auto 0.000 0.0 - 0.012 X10*3/uL [facility] 12/08/2024 6:47 PM EST 12/08/2024 6:51 PM EST us Generic External Data Provider LAB BLOOD ORDERAB LES Final Result [facility] [address] [place] [phone] documented in this encounter Visit Diagnoses Not on filedocumented in this encounter Additional Health Concerns Assessment Noted Time PHQ-9 Depression Total Score: 2 06/11/20 23 2:47 PM EDT documented as of this encounter Care Teams Mud Jack Nozzleman Relationship Specialty Start Date End Date Jack Mccauley MD [address] [place] [phone] PCP - General Internal Medicine 05/25/15 documented as of this encounter
--- OUTSIDE RECORDS SUMMARY | 2024-12-14 10:09 | XMS_ITS | Encounter Summary ---
Author Organization [employer] Address [address] [place] [address] Care Team Providers Care School Bus Inspector Name Role Phone Jack Mccauley MD Primary Care Provide r Reason for Visit * Reason Comments Med Refill Encounter Details Date Type Department Care Team (Late st Contact Info) Description 05/29/2023 Refill [facility] [address] [place] [address] Dayanara Bonds MD [address] [place], [place] [phone] Social History Tobacco Use Types Packs/Day Years [...] [facility] [address] [place], [place] [phone] Jack Mccauley MD [address] [place], [place] [phone] documented as of this encounter Visit Diagnoses Not on filedocumented in this encounter Additional Health Concerns Assessment Noted Time PHQ-9 Depression Total Score: 0 11/04/19 23 2:12 PM EST documented as of this encounter Care Teams School Bus Inspector Relationship Specialty Start Date End Date Jack Mccauley MD [address] [place] [phone] PCP - General Internal Medicine 05/25/15 documented as of this encounter
--- OUTSIDE RECORDS SUMMARY | 2024-12-14 10:09 | XMS_ITS | Encounter Summary ---
Author Organization [employer] Address [address] [place] [address] Care Team Providers Care Dispenser Operator Name Role Phone Jack Mccauley MD [...] with others, in a hotel, in a jail, living outside on the street, on a [...] 10:30 AM EST Office Visit [facility] [address] [place] [address] Jack Mccauley MD [address] [place] [phone] documented as of this encounter Procedures Procedure Name Priority Date/Time Associated Diagnosis Comments SARS COV2/INFLUENZA A/B AND RSV RNA QL NAAT Routine 12/04/2024 8:05 AM EST documented in this encounter Results * SARS-CoV-2 RNA, Influenza A/B, and RSV RNA, Ql NAAT (12/04/2024 8:05 AM EST) Influenza A PCR NEGATIVE Negative [facility] Influenza B PCR NEGATIVE Negative [facility] Resp Syncy Virus RNA Qual PCR NEGATIVE Negative [facility] SARS COV2 PCR NEGATIVE Negative [facility] Comment:All test results mus t [...] use by authorized laboratories.Testing performed on the [employer] GeneXpert utilizingreal-time RT-PCR.All SARS CoV2 and positive influenza A/B results arereported to [facility]. 12/04/2024 8:05 AM EST 12/04/2024 8:07 AM EST us Generic External Data Provider LAB MICROBIOLOGY - GENERAL ORDERABLES Final Result [facility] [address] [place] [phone] documented in this encounter Visit Diagnoses Not on filedocumented in this encounter Additional Health Concerns Assessment Noted Time PHQ-9 Depression Total Score: 2 06/11/20 23 2:47 PM EDT documented as of this encounter Care Teams Dispenser Operator Relationship Specialty Start Date End Date Jack Mccauley MD [address] [place] [phone] PCP - General Internal Medicine 05/25/15 documented as of this encounter
--- OUTSIDE RECORDS SUMMARY | 2024-12-14 10:10 | XMS_ITS | Referral Summary ---
Author Organization [facility] Address [address] [place] [address] Care Team Providers Care Sales Program Coordinator Name Role Phone Jack Kate Primary Care [...] Plan of Treatment Not on file Insurance [facility] Care Teams Sales Program Coordinator Relationship Specialty Start Date End Date Jack Kate [address] [place] [phone] PCP - General Internal Medicine 02/04/22
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
--- OUTSIDE RECORDS SUMMARY | 2024-12-14 10:10 | XMS_ITS | Clinical Summary ---
Author Organization [facility] Address [address] [place] [address] Care Team Providers Care Health Specialist Name Role Phone Jack Kate Primary [...] patient's age to complete this topic Insurance [facility] Care Teams Health Specialist Relationship Specialty Start Date End Date Jack Kate [address] [place] [phone] PCP - General Internal Medicine 02/04/22
[2024-12-14 10:50] LABS: H Pylori Breath Test Negative (Negative)
== END 2024-12-13 13:33 | disposition home or self-care (01) ==
LOC: HO.LNP 13:32
PROVIDERS: PCP Internal Medicine; Visit Provider Internal Medicine Gastroenterology
DX: R10.13 Epigastric pain (principal); R63.4 Abnormal weight loss
CPT/HCPCS: 83013; 99211

== ENCOUNTER 2024-12-14 10:02 | Outpatient (AMB) | payer MEDICAID, SELFPAY ==
--- NOTE | 2024-12-14 10:21 | A.SPINEOV_ITS ---
Intake Visit Reasons: neck & left shoulder pain Intake Note: Mr. Nicolas Rucker is here today c/o Blurry vision, Left arm and neck pain, dizziness. Special Education Educational Assistant Required: No Allergies No Known Allergies [No Known Allergies*] Allergy (Verified 12/14/24 10:29) Assessment & Plan Assessment & Plan (1) Status post cervical spinal arthrodesis: Code(s): Z98.1 - Arthrodesis status Category: Surgical Plan Dear colleague, On a December 14, 2024, I saw for clinic visit Jorgito Rucker. As you know he underwent a total disc arthropathy C6-7 on 03/17/2024 that relieved his cervical radiculopathy. He comes in complaining of a left upper abdominal quadrant pain that started approximately 1 month ago. He has been to the emergency room 3 times. The pain radiates to his left shoulder. In addition he has blurry vision and 2 incidents of a swollen right eye and then a left eye. No documented fever. On exam, there is pain on palpation in the left upper abdominal quadrant. No neurological deficits. I told the patient that this is an internal medicine problem that needs to be figured out. There is nothing related to the cervical spine surgery that can explain the symptoms. An x-ray of the cervical spine today shows a stable implant. Elan Cruz MD, PhD Spine Fellowship Trained Neurosurgeon Director, [facility] Orders: Orders XR cervical spine 4V Today Z98.1 - Arthrodesis status Coding Level of Care Code Est Pt Level 3 (60453) Diagnoses Status post cervical spinal arthrodesis Z98.1
--- OUTSIDE RECORDS SUMMARY | 2024-12-14 10:32 | XMS_ITS | Referral Summary ---
Author Organization [facility] Address [address] [place] [address] Care Team Providers Care Public Administration Teacher Name Role Phone Jack Kate Primary Care [...] Plan of Treatment Not on file Insurance [facility] Care Teams Public Administration Teacher Relationship Specialty Start Date End Date Jack Kate [address] [place] [phone] PCP - General Internal Medicine 02/04/22
--- OUTSIDE RECORDS SUMMARY | 2024-12-14 10:32 | XMS_ITS | Clinical Summary ---
Author Organization [facility] Address [address] [place] [address] Care Team Providers Care Psych Assistant Name Role Phone Jack Kate Primary Care [...] topic Insurance [facility] Care Teams Psych Assistant Relationship Specialty Start Date End Date Jack Kate [address] [place] [phone] PCP - General Internal Medicine 02/04/22
== END 2024-12-14 11:29 | disposition home or self-care (01) ==
LOC: HO.HNS 10:02
PROVIDERS: PCP Internal Medicine; Visit Provider Neurological Surgery
DX: Z98.1 Arthrodesis status (principal)
CPT/HCPCS: 99213

== ENCOUNTER 2024-12-14 10:02 | Outpatient (REF) | payer MEDICAID, SELFPAY ==
--- NOTE | ~2024-12-14 | XR_ITS ---
EXAMINATION: XR CERVICAL SPINE CLINICAL INFORMATION: Z98.1 - Arthrodesis status COMPARISON: 05/25/2024. TECHNIQUE: 4 views of the cervical spine, inclusive of flexion and extension views, were obtained. FINDINGS: No scoliosis. Normal lordosis. No fracture, compression deformity, traumatic subluxation, or suspicious bone lesion. C1-2 articulation and craniocervical junction are intact and aligned. Disc prosthesis/fusion C6-7. No complication evident. Moderate disc degeneration C5-6. Normal facet alignment. No significant facet arthropathy. Neutral examination demonstrates a trace degenerative 2 mm retrolisthesis C4 on C5. Flexion examination demonstrates reduction of C4-5 retrolisthesis to neutral. Extension examination demonstrates increase of C4-5 retrolisthesis to 3 mm. Possible instability suggested. No prevertebral or paravertebral soft tissue abnormalities. Lung apices clear. Azygos lobe noted. XR/XR cervical spine 4V IMPRESSION: 1. Disc prosthesis/fusion C6-7 without complication. 2. Degenerative disc changes C5-6. 3. Possible mild instability at C4-5 as detailed. Electronically signed by: Andre Garcia MD 12/15/2024 10:02 AM SHELLY BRIDGES
--- OUTSIDE RECORDS SUMMARY | 2024-12-14 11:18 | XMS_ITS | Referral Summary ---
Author Organization [facility] Address [address] [place] [address] Care Team Providers Care Editing Internship Name Role Phone Jack Kate Primary Care [...] Plan of Treatment Not on file Insurance [facility] Care Teams Editing Internship Relationship Specialty Start Date End Date Jack Kate [address] [place] [phone] PCP - General Internal Medicine 02/04/22
--- OUTSIDE RECORDS SUMMARY | 2024-12-14 11:18 | XMS_ITS | Clinical Summary ---
Author Organization [facility] Address [address] [place] [address] Care Team Providers Care Refractory Manager Name Role Phone Jack Kate Primary Care [...] patient's age to complete this topic Insurance [facility] Care Teams Refractory Manager Relationship Specialty Start Date End Date Jack Kate [address] [place] [phone] PCP - General Internal Medicine 02/04/22
== END 2024-12-14 10:03 | disposition home or self-care (01) ==
LOC: HO.HOSX 10:02
PROVIDERS: PCP Internal Medicine; Visit Provider Neurological Surgery
DX: Z98.1 Arthrodesis status (principal)
CPT/HCPCS: 72050; 99212

== ENCOUNTER → 2024-12-14 10:42 | Outpatient (BNV) | payer MEDICAID, SELFPAY | PROVIDERS: PCP Internal Medicine; Visit Provider Radiology Diagnostic Radiology | DX: M54.2 Cervicalgia (principal); M25.512 Pain in left shoulder | CPT/HCPCS: 72050 ==

== ENCOUNTER 2024-12-17 19:12 | Emergency (ER) | payer MEDICAID, SELFPAY ==
--- NOTE | ~2024-12-17 | CT_ITS ---
CLINICAL HISTORY: flank pain CT abdomen and pelvis without contrast Comparison: CT/REG/SR - CT ABDOMEN PELVIS WO IV CON - 01/28/24 00:48 EDT Findings: The lung bases are clear. 1 mm and 2 mm nonobstructing right inferior renal stones. 2 mm nonobstructing left superior renal stone. Gallbladder and solid organs otherwise unremarkable. No bowel obstruction, pneumoperitoneum, or pneumatosis. Distal colonic diverticulosis without diverticulitis. Normal appendix. Grade 1 chronic isthmic L5-S1 spondylolisthesis. Moderate L4-5 disc disease. Moderate foraminal stenoses L4-S1. IMPRESSION: Nonobstructing bilateral nephrolithiasis. This document has been electronically signed by: Nette Hamlin MD on 12/17/2024 20:53:16
[2024-12-17 19:23] VITALS: BP 130/98; PULSE 78; RESP 20; TEMP 36.6; O2SAT 100; BMI 23.3
--- NOTE | 2024-12-17 19:23 | ED_ITS ---
HPI - General Adult General Chief complaint: Urogenital-Male Stated complaint: left side pain Time Seen by Provider: 12/17/24 21:40 Source: patient Mode of arrival: ambulatory Limitations: no limitations History of Present Illness ED Provider: Dr. Evelyn Barrios HPI narrative: Patient is a 44-year-old male with past medical history of fibromyalgia, anxiety, depression, numerous orthopedic/ musculoskeletal complaints. Patient comes to the emergency room complaining of left-sided back pain for 3 weeks or more. Patient complaining of constant flank pain/ left upper quadrant pain. Patient denies any injuries. Patient reports history of kidney stones. In triage, patient told the triage nurse that he feels that his bladder is full unable to urinate. However, patient Was able to urinate here when he provided his urine sample. Patient denies any right-sided back pain. patient denies fever chills, denies hematuria or dysuria. Related Data Home Medications ?Medication ?Instructions ?Recorded ?Confirmed dextroamphetamine-amphetamine 5 mg 1 tab PO BID 03/15/24 03/15/24 tablet Previous Rx's ?Medication ?Instructions ?Recorded cholecalciferol (vitamin D3) 50 50 mcg PO DAILY #90 caps 04/17/23 mcg (2,000 unit) capsule (Vitamin D3) docusate sodium 100 mg capsule 100 mg PO BID #20 caps 03/17/24 (Colace) loratadine 10 mg tablet 10 mg PO DAILY #30 tabs 12/04/24 erythromycin 5 mg/gram (0.5 %) eye 0.5 inch ophthalmic (eye) TID #3.5 12/10/24 ointment grams ketotifen fumarate 0.025 % (0.035 1 drp ophthalmic (eye) BID PRN 12/10/24 %) eye drops (Alaway) allergy symptoms #5 mL cyclobenzaprine 10 mg tablet 10 mg PO TID PRN muscle spasm #10 12/17/24 tabs Allergies Allergy/AdvReac Type Severity Reaction Status Date / Time No Known Allergies Allergy Verified 12/17/24 19:25 [No Known Allergies*] Review of Systems 2 Review of Systems: Constitutional : No Weight loss, No Fever, No Chills, No Night Sweats, No Fatigue, No Malaise ENT/Mouth : No Hearing loss, No Ear Pain, No Nasal Congestion, No Sinus Pain, No Hoarseness, No sore throat, No Rhinorrhea, No Swallowing Difficulty Eyes: No Eye Pain, No Swelling, No Redness, No Foreign Body, No Discharge, No Vision Changes Cardiovascular : No Chest Pain, No SOB, No Dyspnea on Exertion, No Orthopnea, No Edema, No Palpitations Respiratory : No Cough, No Sputum, No Wheezing, No Smoke Exposure, No Dyspnea Gastrointestinal : No Nausea, No Vomiting, No Diarrhea, No Constipation, No abdominal Pain, No Hematochezia, No Melena Genitourinary : no irregular bleeding, No Dysuria, No Urinary Frequency, No Hematuria, No Urinary Incontinence, No Urgency, No Flank Pain, No Urinary Flow Changes, No Hesitancy Musculoskeletal Complaining of left-sided back pain, No Myalgias, No Joint Swelling Skin : No Skin Lesions, No rash Neuro : No Weakness, No Numbness, No Paresthesias, No Loss of Consciousness, No Dizziness, No Headache Psych : No Anxiety/Panic, No Depression, No SI/HI/AH/VH, No Social Issues, Heme/Lymph: No Bruising, No Bleeding,No Lymphadenopathy Endocrine : No Polyuria, No Polydipsia, No Temperature Intolerance [facility] Past Medical History Medical History Back pain Arthritis PTSD (post-traumatic stress disorder) Left varicocele Hx of bipolar disorder Insomnia Fibromyalgia Vitamin D deficiency Anxiety Depression Surgical History History of hemorrhoidectomy (06/25/23) History of esophagogastroduodenoscopy (EGD) H/O colonoscopy History of surgery on arm Rectal bleeding Family History Family History Maternal Grandmother Diabetes Colon cancer Maternal Aunt Colon cancer Sister Colon polyp Social History Social History Household Members: Family Are you a primary critical care nurse to a significant other at home: No Do you presently have visiting nurse or other home services: No Alcohol intake: never Patient Tobacco Use Status: Never used Tobacco e-Cigarette/Vaping Use: Never Used Advance Directives: No Advance Directives Information Provided: No Current occupational status: employed 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 Oriented X3. No acute distress. Eyes: Pupils equal, round and reactive to light. ENT: Pharynx normal. Neck: Normal inspection. Neck supple. No lymph nodes noted. No crepitus CVS: Normal heart rate and rhythm. Pulses normal. Normal S1 and S2 Respiratory: No respiratory distress. Breath sounds normal. No Wheezing. No rales Abdomen: Soft and nontender. No rigidity. No distention. Back: There is a significant difference in palpating the patient's paraspinal muscles in his back. On the left, the muscles are more tense. Spasms present. Skin: Skin warm and dry. Normal skin color. Normal skin turgor. Extremities: No lower extremity edema. No Lacerations. No Rash Neuro: Oriented X 3. No motor deficit. No sensory deficit. Moving all extremities. No slurred speech. CN 2 through 12 grossly intact Psych: calm, cooperative, Course Course Course Narrative: RME performed by Brianna Suazo PA-C. Patient is a 44 year old assigned male at presenting to the emergency department with left flank pain. Detailed physical exam and review of systems are deferred to the internal audit director. Labs and imaging ordered. Patient placed back in the waiting room pending room availability and results. Medications Administered Discontinued Medications Generic Name Dose Route Start Last Admin Trade Name Freq PRN Reason Stop Dose Admin Ketorolac Tromethamine 60 mg 12/17/24 21:49 12/17/24 22:02 Ketorolac Tromethamine 60 Mg/2 Ml Vial IM 12/17/24 21:50 Not Given ONCE ONE Medical Decision Making Medical Decision Making [facility] Narrative: My interpretation of labs: Patient's hematology and chemistry are at baseline. Normal white blood cell count. Patient's chemistry no obvious abnormalities. , LFTs normal. Urinalysis negative for UTI or blood I reviewed patient's past serology reports. A few days ago, patient was tested for H pylori, patient tested negative on December 13 CT scan shows a 1 mm and 2 mm nonobstructive renal stone in the right inferior kidney. No ureterolithiasis I discussed the patient's physical exam labs and imaging with the patient. Patient is upset that nothing emergent appeared. I discussed with the patient that given that he has had back pain for 3 weeks, and his physical exam correlates with musculoskeletal pain, he will need physical therapy. Patient states that he refuses physical therapy. IM medication and muscle relaxants were offered. Patient initially accepted. However, I was informed by the patient's nurse that the patient then declined medications and left. I reviewed patient's past medical record. Patient has been here in the ED 4 times in 1 month for different complaints. Patient has been seen by multiple specialists including rheumatology, pain management, Orthopedics, spine surgery. I also noted that in patient's last visit with Dr. Sosa, patient displayed abnormal behavior. Patient had multiple complaints, none which made sense from a neurological perspective. It was documented that patient had pressured speech, agitated facial expressions, frequent interruptions during conversation and raising his voice Three days ago, patient went to see his neuro spine surgeon with a chief complaining of abdominal pain, patient was asked to follow with his PCP/ internal medicine. Overall, I believe that patient may have anxiety / psychiatric underlying condition, including hypochondriasis versus conversion disorder, possible medication seeking behavior Differential Diagnosis Differential Diagnoses: The differential diagnosis associated with the presentation includes ( As above) Lab Data MDM Lab Attestation statement: I reviewed the patient's lab results. 12/17/24 20:34 12/17/24 20:34 Labs: Lab Results 12/17/24 Range/Units 20:34 WBC 6.9 (4.8-10.8) X10*3/uL RBC 4.63 (4.60-5.80) X10*6/uL Hgb 13.5 L (14.0-18.0) g/dl Hct 39.5 L (42.0-52.0) % MCV 85.3 (80.0-98.0) fL MCH 29.2 (27.0-33.0) pg MCHC 34.2 (31.0-36.0) g/dl RDW 11.9 (11.0-16.0) % Plt Count 233 (160-400) X10*3/uL MPV 10.0 (9.4-12.4) fL Immature Gran % (Auto) 0.1 (0.0-0.4) % Neut % (Auto) 64.2 (45-73) % Lymph % (Auto) 25.1 (20-40) % [place] % (Auto) 7.1 (2-11) % Eos % (Auto) 2.6 (0-4) % Baso % (Auto) 0.9 (0-2) % Lymph # (Auto) 1.7 (1.2-4.9) X10*3/uL [place] # (Auto) 0.5 (0.1-1.2) X10*3/uL Eos # (Auto) 0.2 (0.0-0.4) X10*3/uL Baso # (Auto) 0.1 (0.0-0.2) X10*3/uL Abs Immat Gran (auto) 0.01 (0.00-0.03) X10*3/uL Absolute Neuts (auto) 4.4 (2.0-8.3) x10*3/uL Absolute Nucleated RBC 0.000 (0.0-0.012) X10*3/uL Nucleated RBC % (auto) 0.0 (0.0-0.2) /100WBC Sodium 139 (135-145) mmol/L Potassium 3.8 (3.3-5.1) mmol/L Chloride 104 (96-108) mmol/L Carbon Dioxide 27 (22-29) mmol/L Anion Gap 12 (12-20) BUN 12 (9-16) mg/dL Creatinine 0.87 (0.5-1.4) mg/dL Estim Creat Clear Calc 89.0 Estimated GFR > 60 Random Glucose 89 (60-115) mg/dL Calcium 9.3 (8.4-10.2) mg/dL Magnesium 2.1 (1.6-2.6) mg/dL Total Bilirubin 0.4 (0.0-1.0) mg/dL AST 24 (5-37) U/L ALT 22 (0-40) U/L Alkaline Phosphatase 62 (39-117) U/L Total Protein 7.2 (6.5-8.0) g/dL Albumin 4.2 (3.5-5.0) g/dL Urine Color Yellow Urine Appearance Clear Urine pH 6.5 (5.0-9.0) Ur Specific [place] 1.010 (1.005-1.025) Urine Protein Negative (Neg-Trace) mg/dL Urine Glucose (UA) Negative (Negative) mg/dL Urine Ketones Negative (Negative) mg/dL Urine Blood Negative (Negative) Urine Nitrite Negative (Negative) Ur Leukocyte Esterase Negative (Negative) Independent Interpretation I performed an independent interpretation of an: CT Scan Radiology Impression Discussion of test interpretation with radiology: I have reviewed the radiologist's reading. Radiologist Impression: 1 mm and 2 mm nonobstructing right inferior renal stones. 2 mm nonobstructing left superior renal stone. Gallbladder and solid organs otherwise unremarkable. No bowel obstruction, pneumoperitoneum, or pneumatosis. Distal colonic diverticulosis without diverticulitis. Normal appendix. Grade 1 chronic isthmic L5-S1 spondylolisthesis. Moderate L4-5 disc disease. Moderate foraminal stenoses L4-S1. IMPRESSION: Nonobstructing bilateral nephrolithiasis. Discharge Plan Discharge Clinical Impression: Back pain Patient Disposition: Home, Self-Care Instructions: Back Pain (ED) Additional Instructions: Please follow-up with your primary care physician tomorrow. If you have any worsening or new symptoms, please return to the emergency room or call 911 Prescriptions: New cyclobenzaprine 10 mg tablet 10 mg PO TID PRN (Reason: muscle spasm) Qty: 10 0RF Rx Instructions: do not use this medication before working or driving No Action dextroamphetamine-amphetamine 5 mg tablet 1 tab PO BID docusate sodium [Colace] 100 mg capsule 100 mg PO BID Qty: 20 0RF loratadine 10 mg tablet 10 mg PO DAILY Qty: 30 0RF erythromycin 5 mg/gram (0.5 %) ointment 0.5 inch ophthalmic (eye) TID Qty: 3.5 0RF ketotifen fumarate [[place]away] 0.025 % (0.035 %) drops 1 drp ophthalmic (eye) BID PRN (Reason: allergy symptoms) Qty: 5 0RF Rx Instructions: administer at least 8 hours apart cholecalciferol (vitamin D3) [Vitamin D3] 50 mcg (2,000 unit) capsule 50 mcg PO DAILY Qty: 90 2RF Stand Alone Forms: Work/School Release Interventions: ED Discharge Assessment Last Done: 12/17/24 22:04 Discharge Date/Time: 12/17/24 22:04 Print Language: Angolan
--- NOTE | 2024-12-17 20:35 | MHC.EDTECH ---
Patient brought into triage area,labs and urine obtained and sent to lab.
[2024-12-17 20:41] LABS: Basophils Absolute Auto 0.1 X10*3/uL (0.0-0.2); Basophils Percent Auto 0.9 % (0-2); Eosinophils Absolute Auto 0.2 X10*3/uL (0.0-0.4); Eosinophils Percent Auto 2.6 % (0-4); Hematocrit 39.5 % (42.0-52.0); Hemoglobin 13.5 g/dl (14.0-18.0); Imm Gran Abs Auto 0.01 X10*3/uL (0.00-0.03); Imm Gran Pct Auto 0.1 % (0.0-0.4); Lymphocytes Absolute Auto 1.7 X10*3/uL (1.2-4.9); Lymphocytes Percent Auto 25.1 % (20-40); MANUAL DIFF FLAG NO; Mean Corpuscular HGB Conc 34.2 g/dl (31.0-36.0); Mean Corpuscular Hemoglobin 29.2 pg (27.0-33.0); Mean Corpuscular Volume 85.3 fL (80.0-98.0); Monocytes Absolute Auto 0.5 X10*3/uL (0.1-1.2); Monocytes Percent Auto 7.1 % (2-11); Neutrophils Absolute Auto 4.4 x10*3/uL (2.0-8.3); Neutrophils Percent Auto 64.2 % (45-73); Platelet Count 233 X10*3/uL (160-400); Red Blood Count 4.63 X10*6/uL (4.60-5.80); Red Cell Distribution Width 11.9 % (11.0-16.0); White Blood Count 6.9 X10*3/uL (4.8-10.8)
[2024-12-17 20:43] LABS: Appearance Urine Clear; Color Urine Yellow; Glucose Urine UA Negative (Negative); Leukocyte Esterase Urine Negative (Negative); Nitrite Urine Negative (Negative); PH 6.5 (5.0-9.0); Urine Blood Negative (Negative); Urine Ketones Negative (Negative); Urine Protein Negative (Neg-Trace)
[2024-12-17 20:55] LABS: Alanine Aminotransferase 22 U/L (0-40); Albumin Level 4.2 g/dL (3.5-5.0); Alkaline Phosphatase 62 U/L (39-117); Anion Gap 12 (12-20); Aspartate Amino Transferase 24 U/L (5-37); Bilirubin Total 0.4 mg/dL (0.0-1.0); Blood Urea Nitrogen 12 mg/dL (9-16); Calcium 9.3 mg/dL (8.4-10.2); Carbon Dioxide 27 mmol/L (22-29); Chloride 104 mmol/L (96-108); Estimated Glomerular Filt Rate > 60; Glucose Random 89 mg/dL (60-115); Magnesium 2.1 mg/dL (1.6-2.6); Potassium 3.8 mmol/L (3.3-5.1); Sodium 139 mmol/L (135-145); Total Protein 7.2 g/dL (6.5-8.0)
--- NOTE | 2024-12-17 22:02 | PC.NURSE ---
Pt eval by MD Barrios, refused pain medication. Cleared for dc home.
[2024-12-17 22:04] VITALS: BP 130/98; PULSE 78; RESP 20; TEMP 36.6; O2SAT 100
== END 2024-12-17 22:04 | disposition home or self-care (01) ==
PROVIDERS: Physician Assistant Medical; Emergency Provider Emergency Medicine; PCP Internal Medicine
DX: R10.9 Unspecified abdominal pain (principal); N20.0 Calculus of kidney
CPT/HCPCS: 36415; 74176; 80053; 81003; 83735; 85025; 99282; 99284

== ENCOUNTER → 2024-12-17 19:25 | Outpatient (BNV) | payer MEDICAID, SELFPAY | PROVIDERS: PCP Internal Medicine; Visit Provider Radiology Diagnostic Radiology | DX: N20.0 Calculus of kidney (principal) | CPT/HCPCS: 74176 ==

== ENCOUNTER 2025-02-23 21:00 | Emergency (ER) | payer MEDICAID, SELFPAY ==
--- NOTE | 2025-02-23 21:02 | ECG_ITS ---
Test Reason : chest pain Blood Pressure : */* mmHG Vent. Rate : 64 BPM Atrial Rate : 64 BPM P-R Int : 138 ms QRS Dur : 82 ms QT Int : 390 ms P-R-T Axes : 50 13 26 degrees QTcB Int : 402 ms Normal sinus rhythm Normal ECG When compared with ECG of 10-Jun-2023 16:58, Fusion complexes are no longer Present Premature ventricular complexes are no longer Present Referred By: Generic ED Physician Electronically Signed By: Rusty Guzman
[2025-02-23 21:10] VITALS: BP 145/105; PULSE 77; RESP 14; TEMP 36.8; O2SAT 96; BMI 24.8
[2025-02-23 21:32] LABS: MANUAL DIFF FLAG NO
[2025-02-23 21:33] LABS: Basophils Percent Auto 0.7 % (0-2); Eosinophils Absolute Auto 0.1 X10*3/uL (0.0-0.4); Hematocrit 37.1 % (42.0-52.0); Hemoglobin 12.7 g/dl (14.0-18.0); Imm Gran Abs Auto 0.02 X10*3/uL (0.00-0.03); Imm Gran Pct Auto 0.4 % (0.0-0.4); Lymphocytes Absolute Auto 1.9 X10*3/uL (1.2-4.9); Lymphocytes Percent Auto 33.3 % (20-40); Mean Corpuscular HGB Conc 34.2 g/dl (31.0-36.0); Mean Corpuscular Hemoglobin 29.7 pg (27.0-33.0); Mean Corpuscular Volume 86.9 fL (80.0-98.0); Mean Platelet Volume 9.8 fL (9.4-12.4); Monocytes Absolute Auto 0.5 X10*3/uL (0.1-1.2); Monocytes Percent Auto 8.3 % (2-11); Neutrophils Absolute Auto 3.1 x10*3/uL (2.0-8.3); Neutrophils Percent Auto 55.3 % (45-73); Platelet Count 255 X10*3/uL (160-400); Red Blood Count 4.27 X10*6/uL (4.60-5.80); White Blood Count 5.6 X10*3/uL (4.8-10.8)
[2025-02-23 21:45] LABS: Lipase 20 U/L (8-78)
[2025-02-23 21:47] LABS: Alanine Aminotransferase 78 U/L (0-40); Albumin Level 4.1 g/dL (3.5-5.0); Alkaline Phosphatase 101 U/L (39-117); Anion Gap 14 (12-20); Aspartate Amino Transferase 39 U/L (5-37); Bilirubin Total 0.2 mg/dL (0.0-1.0); Blood Urea Nitrogen 11 mg/dL (9-16); Calcium 9.4 mg/dL (8.4-10.2); Carbon Dioxide 26 mmol/L (22-29); Chloride 105 mmol/L (96-108); Creatinine Clr Calc Pharmacy 103.2; Estimated Glomerular Filt Rate > 60; Glucose Random 102 mg/dL (60-115); Potassium 3.7 mmol/L (3.3-5.1); Sodium 141 mmol/L (135-145); Total Protein 7.2 g/dL (6.5-8.0)
[2025-02-23 21:56] LABS: Troponin-I High Sensitivity < 2.7 ng/L (<3.5-35.0)
--- NOTE | 2025-02-23 23:02 | MHC.EDTECH ---
this tech assumed care of pt @[id number]
--- NOTE | 2025-02-23 23:19 | ED_ITS ---
HPI - Chest Pain General Chief Complaint: Chest Pain Stated Complaint: chest and abd pain Time Seen by Provider: 02/23/25 22:58 Source: patient Mode of arrival: ambulatory Limitations: no limitations History of Present Illness ED Provider: HPI narrative: Patient's history of gastritis H pylori infection 2 years was treated got better for last 2 weeks been having epigastric pain today pain got worse radiating to the midsternum after eating and drinking no nausea no vomiting no cardiac history in the past Related Data Home Medications ?Medication ?Instructions ?Recorded ?Confirmed dextroamphetamine-amphetamine 5 mg 1 tab PO BID 03/15/24 03/15/24 tablet Previous Rx's ?Medication ?Instructions ?Recorded cholecalciferol (vitamin D3) 50 50 mcg PO DAILY #90 caps 04/17/23 mcg (2,000 unit) capsule (Vitamin D3) docusate sodium 100 mg capsule 100 mg PO BID #20 caps 03/17/24 (Colace) loratadine 10 mg tablet 10 mg PO DAILY #30 tabs 12/04/24 erythromycin 5 mg/gram (0.5 %) eye 0.5 inch ophthalmic (eye) TID #3.5 12/10/24 ointment grams ketotifen fumarate 0.025 % (0.035 1 drp ophthalmic (eye) BID PRN 12/10/24 %) eye drops (Alaway) allergy symptoms #5 mL cyclobenzaprine 10 mg tablet 10 mg PO TID PRN muscle spasm #10 12/17/24 tabs pantoprazole 40 mg tablet,delayed 40 mg PO DAILY #30 tabs 02/23/25 release (Protonix) sucralfate 1 gram tablet 1 g PO TID #90 tabs 02/23/25 Allergies Allergy/AdvReac Type Severity Reaction Status Date / Time No Known Allergies Allergy Verified 02/23/25 21:13 [No Known Allergies*] Review of Systems 2 Review of Systems: Yes all other systems are reviewed and are negative PMFSH Past Medical History Medical History Back pain Arthritis PTSD (post-traumatic stress disorder) Left varicocele Hx of bipolar disorder Insomnia Fibromyalgia Vitamin D deficiency Anxiety Depression Surgical History History of hemorrhoidectomy (06/25/23) History of esophagogastroduodenoscopy (EGD) H/O colonoscopy History of surgery on arm Rectal bleeding Family History Family History Maternal Grandmother Diabetes Colon cancer Maternal Aunt Colon cancer Sister Colon polyp Social History Social History Household Members: Family Are you a primary day care center director to a significant other at home: No Do you presently have visiting nurse or other home services: No Alcohol intake: never Patient Tobacco Use Status: Never used Tobacco e-Cigarette/Vaping Use: Never Used Advance Directives: No Advance Directives Information Provided: Yes Do you have a plan to hurt others: No Plan Current occupational status: employed Current occupation: [employer]/ right hand dominant Physical Exam 2 Vital Signs: Vital Signs: Last Vital Signs Temp 98.2 F 02/23/25 21:10 Pulse 77 02/23/25 21:10 Resp 14 02/23/25 21:10 BP 145/105 H 02/23/25 21:10 Pulse Ox 96 02/23/25 21:10 O2 Del Method Room Air 02/23/25 21:10 BMI result Body Mass Index 24.8 Appearance: Alert. Oriented X3. No acute distress. Eyes: No pallor or icterus ENT: Pharynx normal. Oral Mucosa moist Neck: Normal inspection. Neck supple. CVS: Normal heart rate and rhythm. Pulses normal. Respiratory: No respiratory distress. Equal air entry bilateral, no wheezing/rales/rhonchi Abdomen: Soft and epigastric tenderness++ Bowel sounds are present, no mass palpable, no CVA tenderness Skin: Skin warm and dry. Normal skin color. Normal skin turgor. Extremities: No lower extremity edema. No calf tenderness Neuro: Oriented X 3. No motor deficit. No sensory deficit.No cerebellar signs , cranial nerves II-XII intact Medications Administered Discontinued Medications Generic Name Dose Route Start Last Admin Trade Name Freq PRN Reason Stop Dose Admin Al Hydroxide/Mg Hydroxide 30 ml 02/23/25 23:19 02/23/25 23:29 Magnesium Hydrox/Alum Hydrox 30 Ml Oral.Susp PO 02/23/25 23:20 30 ml ONCE ONE Administration Omeprazole 40 mg 02/23/25 23:19 02/23/25 23:29 Omeprazole 40 Mg Capsule.Dr OSORIO 02/23/25 23:20 40 mg ONCE ONE Administration Medical Decision Making Medical Decision Making [facility] Narrative: Patient with history of H pylori infection with no known cardiac history comes here for burning epigastric pain radiating to the mid chest clinical history does have gastritis will prescribe Protonix and sucralfate cardiac enzymes negative EKG without ischemic changes Differential Diagnosis Differential Diagnoses: The differential diagnosis associated with the presentation includes Gastritis/ACS Lab Data [facility] Lab Attestation statement: I reviewed the patient's lab results. 02/23/25 21:27 02/23/25 21:27 Labs: Lab Results 02/23/25 Range/Units 21:27 WBC 5.6 (4.8-10.8) X10*3/uL RBC 4.27 L (4.60-5.80) X10*6/uL Hgb 12.7 L (14.0-18.0) g/dl Hct 37.1 L (42.0-52.0) % MCV 86.9 (80.0-98.0) fL MCH 29.7 (27.0-33.0) pg MCHC 34.2 (31.0-36.0) g/dl RDW 12.0 (11.0-16.0) % Plt Count 255 (160-400) X10*3/uL MPV 9.8 (9.4-12.4) fL Immature Gran % (Auto) 0.4 (0.0-0.4) % Neut % (Auto) 55.3 (45-73) % Lymph % (Auto) 33.3 (20-40) % [place] % (Auto) 8.3 (2-11) % Eos % (Auto) 2.0 (0-4) % Baso % (Auto) 0.7 (0-2) % Lymph # (Auto) 1.9 (1.2-4.9) X10*3/uL [place] # (Auto) 0.5 (0.1-1.2) X10*3/uL Eos # (Auto) 0.1 (0.0-0.4) X10*3/uL Baso # (Auto) 0.0 (0.0-0.2) X10*3/uL Abs Immat Gran (auto) 0.02 (0.00-0.03) X10*3/uL Absolute Neuts (auto) 3.1 (2.0-8.3) x10*3/uL Absolute Nucleated RBC 0.000 (0.0-0.012) X10*3/uL Nucleated RBC % (auto) 0.0 (0.0-0.2) /100WBC Sodium 141 (135-145) mmol/L Potassium 3.7 (3.3-5.1) mmol/L Chloride 105 (96-108) mmol/L Carbon Dioxide 26 (22-29) mmol/L Anion Gap 14 (12-20) BUN 11 (9-16) mg/dL Creatinine 0.75 (0.5-1.4) mg/dL Estim Creat Clear Calc 103.2 Estimated GFR > 60 Random Glucose 102 (60-115) mg/dL Calcium 9.4 (8.4-10.2) mg/dL Total Bilirubin 0.2 (0.0-1.0) mg/dL AST 39 H (5-37) U/L ALT 78 H (0-40) U/L Alkaline Phosphatase 101 (39-117) U/L Troponin I High Sens < 2.7 D (<3.5-35.0) ng/L Total Protein 7.2 (6.5-8.0) g/dL Albumin 4.1 (3.5-5.0) g/dL Lipase 20 (8-78) U/L Independent Interpretation I performed an independent interpretation of an: EKG Interpretation: Your arrival slightly seizure fried rice sick 4 beats per minute normal interval normal axis no acute ST-T changes no acute ischemia Discharge Plan Discharge Clinical Impression: Gastritis Patient Disposition: Home, Self-Care Instructions: Gastritis (ED) Additional Instructions: Avoid fried food Take sucralfate 1 tablet half an hour prior to having meals Protonix daily as prescribed Follow up with automotive drivability technician as scheduled Prescriptions: New pantoprazole [Protonix] 40 mg tablet,delayed release (DR/EC) 40 mg PO DAILY Qty: 30 0RF sucralfate 1 gram tablet 1 g PO TID Qty: 90 0RF No Action dextroamphetamine-amphetamine 5 mg tablet 1 tab PO BID docusate sodium [Colace] 100 mg capsule 100 mg PO BID Qty: 20 0RF loratadine 10 mg tablet 10 mg PO DAILY Qty: 30 0RF erythromycin 5 mg/gram (0.5 %) ointment 0.5 inch ophthalmic (eye) TID Qty: 3.5 0RF ketotifen fumarate [[place]away] 0.025 % (0.035 %) drops 1 drp ophthalmic (eye) BID PRN (Reason: allergy symptoms) Qty: 5 0RF Rx Instructions: administer at least 8 hours apart cyclobenzaprine 10 mg tablet 10 mg PO TID PRN (Reason: muscle spasm) Qty: 10 0RF Rx Instructions: do not use this medication before working or driving cholecalciferol (vitamin D3) [Vitamin D3] 50 mcg (2,000 unit) capsule 50 mcg PO DAILY Qty: 90 2RF Print Language: Italian
[2025-02-23] MEDS: Omeprazole 40 MG CAPSULE.DR PO (23:29)
[2025-02-23] MEDS: Magnesium Hydrox/Alum Hydrox 30 ML ORAL.SUSP PO (23:29)
[2025-02-23 23:30] VITALS: BP 136/84; PULSE 77; RESP 14; TEMP 36.8; O2SAT 99
== END 2025-02-23 23:35 | disposition home or self-care (01) ==
PROVIDERS: Emergency Provider Internal Medicine; PCP Internal Medicine
DX: K29.70 Gastritis, unspecified, without bleeding (principal); R07.89 Other chest pain; R10.2 Pelvic and perineal pain; Z79.899 Other long term (current) drug therapy
CPT/HCPCS: 36415; 80053; 83690; 84484; 85025; 93005; 99283; 99284

== ENCOUNTER → 2025-02-23 21:02 | Outpatient (BNV) | payer MEDICAID, SELFPAY | PROVIDERS: Emergency Provider Internal Medicine; PCP Internal Medicine; Visit Provider Internal Medicine Cardiovascular Disease | DX: R07.9 Chest pain, unspecified (principal) | CPT/HCPCS: 93010 ==

== ENCOUNTER 2025-03-03 10:19 | Outpatient (AMB) | payer MEDICAID, SELFPAY ==
[2025-03-03 10:22] VITALS: BP 117/79; PULSE 68; BMI 24.2
--- NOTE | 2025-03-03 10:22 | A.OFFVIS_ITS ---
Vital Signs 03/03/25 10:22 Height 5 ft 3 in Weight 136 lb 10.986 oz BMI 24.2 BP 117/79 Blood Pressure Location Lt brachial Position Sitting Pulse 68 Intake Visit Reasons: f/u Intake Note: Jorgito mikeraul in the office as a follow up. CC: Pains in the epigastric region. Lower back pains and issues with his appetite. HE states he is concerned because he is over due with his colonoscopy. Allergies No Known Allergies [No Known Allergies*] Allergy (Verified 03/03/25 10:22) HPI HPI f/u: Details: 45 yr old m here for f/u RECAP: Had seen [facility] Had colonoscopy 12/2020 for rectal bleeding with note made of internal hemorrhoids and 15-18 mm semi pedunculated polyp (tubular adenoma) which was removed He was having c/o feels sharp pain in ribs, food is just getting stuck and not going into the stomach, post prandial diarrhea and pain he has noted more blood in the stools as well he has been having issues with constipation, then became more diarrheal, he has been losing sleep and weight due to these sx, I then arranged Rept EGD,colo--09/2022 Endoscopy Findings: erosive duodenitis gastritis esophagitis Colonoscopy Findings: polyp internal hemorrhoids h pylori pos treated with quadruple therapy--subsequent H pylori breath test was negative INTERIM: He noted stomach issues again appetite has been poor pain in epigastrium, worse with greasy foods noted issues with constipation as well no blood in stool no alcohol, tylenol prn, motrin sometimes not taking PPI for a while Labs- mild ASt, ALT elevation recent H pylori was negative He went to ED and had CT - diverticulosis - spinal degeneration - kidney stones- b/l EXAM: GENERAL: The patient is well developed and nontoxic. VITAL SIGNS:see workflow HEENT: Nonicteric sclerae, PERRLA, EOMI. Oropharynx clear. Moist mucous membranes. Conjunctivae appear well perfused. No thyroid mass. CHEST: Chest wall is nontender. HEART: Regular rate and rhythm without murmurs. LUNGS: Clear to auscultation bilaterally. ABDOMEN: Soft, positive bowel sounds, non tender , no organomegaly.no flank tenderness SKIN: No rash, no excessive bruising, petechiae, or purpura. NEUROLOGIC: Cranial nerves II-XII intact without motor/sensory deficit. Psych: nml a/P: Internal hemorrhoids- not an issue tubular adenoma x 2 in the past abdominal pain and altered bowel habit, ? gallstones, or other GI pathology--mild ALT, AST elevation, could be MASH as well PLAN: 1/ US abdomen 2/ advised to stay on low fat diet, and try levsin see if helps 3/ [facility] Back pain Arthritis PTSD (post-traumatic stress disorder) Left varicocele Hx of bipolar disorder Insomnia Fibromyalgia Vitamin D deficiency Anxiety Depression Surgical History History of hemorrhoidectomy (06/25/23) History of esophagogastroduodenoscopy (EGD) H/O colonoscopy History of surgery on arm Rectal bleeding Family History Maternal Grandmother Diabetes Colon cancer Maternal Aunt Colon cancer Sister Colon polyp Social History Household Members: Family Are you a primary healthcare consulting manager to a significant other at home: No Do you presently have visiting nurse or other home services: No Alcohol intake: never Patient Tobacco Use Status: Never used Tobacco e-Cigarette/Vaping Use: Never Used Current occupational status: employed 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
--- OUTSIDE RECORDS SUMMARY | 2025-03-03 10:50 | XMS_ITS | Clinical Summary ---
Author Organization [facility] Address [address] [place] [address] Care Team Providers Care Straddle Truck Operator Name Role Phone Jack Kate Primary [...] (2023-2 5 season) 2024 10/30/2021, 02/16/2021, 01/19/2021 Alcohol/Substance Use Screening 10/26/2024 Depression Screening and Follow-Up 10/26/2024 Social Drivers of Health Annual Screening 10/26/2024 Influenza Vaccine (Season Ended) 2025 07/12/2019 DTaP,Tdap,and Td Vaccines (2 - Td or Tdap) 03/18/2031 03/18/2021, 10/18/2013 RSV Vaccine (60+ years old and patients) (1 - 1-dose 75+ series) 2057 Pneumococcal Vaccine: Pediatric (0-5 Years) and At-Risk Patients (6-50 Years) Aged Out No longer eligible based on patient's age to complete this topic Insurance [facility] [place] [id number] Care Teams Straddle Truck Operator Relationship Specialty Start Date End Date Jack Kate [address] [place] [id number] PCP - General Internal Medicine 02/04/22
--- OUTSIDE RECORDS SUMMARY | 2025-03-03 10:50 | XMS_ITS | Referral Summary ---
Author Organization [facility] Address [address] [place] [address] Care Team Providers Care Granite Polisher Name Role Phone Jack Kate Primary Care [...] Plan of Treatment Not on file Insurance [facility] Care Teams Granite Polisher Relationship Specialty Start Date End Date Jack Kate [address] [place] [phone] PCP - General Internal Medicine 02/04/22
--- OUTSIDE RECORDS SUMMARY | 2025-03-03 10:50 | XMS_ITS | Encounter Summary ---
Author Organization [employer] Address [address] [facility] [address] [place] [address] Care Team Providers Care Bottle Selector Name Role Phone Jack Mccauley MD Primary Care Provide r Elan Cruz Unavailable [phone] Reason for Visit * Reason Comments Med Refill Encounter Details Date Type Department Care Team (Late st Contact Info) Description 05/29/2023 Refill [facility] [address] [place] [address] Dayanara Bonds MD [address] [place], [place] [phone] Social History Tobacco Use Types Packs/Day Years [...] Care Team (Late st Contact Info) Description 05/16/2025 10:15 AM EDT Office Visit [facility] [address] [place], [place] [phone] Jack Mccauley MD [address] [place], [place] [phone] documented as of this encounter Visit Diagnoses Not on filedocumented in this encounter Additional Health Concerns Assessment Noted Time PHQ-9 Depression Total Score: 0 11/04/19 23 2:12 PM EST documented as of this encounter Care Teams Bottle Selector Relationship Specialty Start Date End Date Jack Mccauley MD [address] [place] [id number] PCP - General Internal Medicine 05/25/15 Elan Cruz [address] [place] [address] [address] [place] [address] Neurosurgery 12/27/24 documented as of this encounter
--- OUTSIDE RECORDS SUMMARY | 2025-03-03 10:50 | XMS_ITS | Encounter Summary ---
Author Organization [employer] Address [address] [facility] [address] [place] [address] Care Team Providers Care Property Economist Name Role Phone Jack Mccauley MD Primary Care Provide r Elan Cruz Unavailable [phone] Reason for Visit * Reason Onset Date Comments ER Follow-up 02/27/2025 Encounter Details Date Type Department Care Team (Late st Contact Info) Description 02/27/2025 Telephone [facility] [address] [place], [place] [phone] Jack Mccauley MD [address] [place] [address] ER Follow-up Social History Tobacco Use Types Packs/Day Years Used Date Smoking Tobacco: Never Passive Smoke Exposure: Never Smokeless Tobacco: Never Depression Answer Date Recorded Patient Health Questionnaire-9 Score 3 12/27/2024 Patient Health Questionnaire-9 Score 3 12/27/2024 Last PHQ-9: Questionnaire Data Not on file 0 12/27/2024 Housing Stability Answer Date Recorded What is your housing situation today? I have avtar silverman 12/27/[address] you li ve. Do you have problems with any of the following? None of the above 12/27/2024 Food Insecurity Answer Date Recorded Within the past 12 months, y ou worried that your food would run out before you got money to buy more: Sometimes True 2024 Within the past 12 months,th e food you bought just didn't last and you didn't have enough money to get more: Never True 12/27/2024 Transportation Answer Date Recorded In the past [...] Date Recorded Patient Health Questionnaire-2 Score 0 12/27/2024 Internet Access Answer Date Recorded Internet Access Q1 Yes 06/27/2024 Internet Access Q2 Not on file 06/27/2024 Sex and Gender Information Value Date Recorded Sex Assigned at Male 08/25/2022 10:19 AM EDT Legal Sex Male 10:19 AM EDT Gender Identity Male 08/25/2022 10:19 AM EDT Sexual Orientation Straight 08/25/2022 10 :19 AM EDT documented as of this encounter Miscellaneous Notes * Telephone Encounter - Randee Irwin RN - 02/27/2025 1:41 PM EDT TC to pt for ED status check and not tele health because pt insurance is not active. No answer. VM left. ----- Message from Nurse Frieda Polanco sent at 02/24/2025 10:02 AM EDT ----- Regarding: COMPUTER REPAIRER Telehealth Follow Up Transition of Care Note Jorgito Rucker is going through a recent transition of care. Emergency Room Visit Date: 02/23/2025 @ 11:31pm Facility: [facility] Diagnosis: chest and abd pain Disposition: Discharged home Discharge summary in the chart: Yes Please contact for a telehealth RN visit documented in this encounter Plan of Treatment Upcoming Encounters Date Type Department Care Team (Late st Contact Info) Description 05/16/2025 10:15 AM EDT Office Visit [facility] [address] [place] [address] Jack Mccauley MD [address] [place] [address] documented as of this encounter Visit Diagnoses Not on filedocumented in this encounter Additional Health Concerns Assessment Noted Time PHQ-9 Depression Total Score: 3 12/28/19 10:34 AM EST documented as of this encounter Care Teams Property Economist Relationship Specialty Start Date End Date Jack Mccauley MD [address] [place] [address] PCP - General Internal Medicine 05/25/15 Elan Cruz [address] [place] [address] Neurosurgery 12/27/24 documented as of this encounter
--- OUTSIDE RECORDS SUMMARY | 2025-03-03 10:50 | XMS_ITS | Encounter Summary ---
Author Organization [facility] [employer] Address [address] [facility] [address] [place] [address] Care Team Providers Care Rn Hemo Dialysis Name Role Phone Jack Mccauley MD Primary Care Provide r Elan Cruz Unavailable [phone] Encounter Details Date Type Department Care Team (Latest Contact Info) Description 02/27/2025 Outside Procedure [facility] [address] [place] [address] Aurelio, Sirisha, OD [address] [place] [address] Presbyopia (Primary Dx) Social History Tobacco Use Types Packs/Day Years [...] AM EDT documented as of this encounter Progress Notes * Sirisha Carey OD - 02/27/2025 1:39 PM EDT MH glasses were dispensed, 2 of 2. documented in this encounter Plan of Treatment Upcoming Encounters Date Type Department Care Team (Late st Contact Info) Description 05/16/2025 10:15 AM EDT Office Visit [facility] [address] [place], [place] [phone] Jack Mccauley MD [address] [place] [address] documented as of this encounter Visit Diagnoses Diagnosis Presbyopia- Primary documented in this encounter Additional Health Concerns Assessment Noted Time PHQ-9 Depression Total Score: 3 12/28/19 25 10:34 AM EST documented as of this encounter Care Teams Rn Hemo Dialysis Relationship Specialty Start Date End Date Jack Mccauley MD [address] [place] [address] PCP - General Internal Medicine 05/25/15 Elan Cruz [address] [place] [address] Neurosurgery 12/27/24 documented as of this encounter
--- OUTSIDE RECORDS SUMMARY | 2025-03-03 10:50 | XMS_ITS | Clinical Summary ---
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 prosthesis/fusion C6-7 without complication. ?? 2. Degenerative disc changes C5-6. ?? 3. Possible mild instability at C4-5 as detailed. ? Electronically signed by: ??Andre Garcia MD ??12/15/2024 10:02 AM EST RP ? Dictated By: ?Andre Garcia MD ? Signed By: ?<Electronically signed by Andre Garcia MD in OV> ?12/15/24 1002 ? DD/ 1042 ? TD/TT: 12/14/24 1048 ? Grocery Department Manager: ? Procedure Note Donflorentin, Janeth - 12/15/2024 [facility] [address] [place] [address] XRay Report Signed Patient: Jorgito Mendoza AMR#: [id number] : 1980Acct:[id number] Age/Sex: 44 / MADM Date: 12/14/24 Loc: HO.HOSX Attending Dr: Elan Cruz MD, PhD Ordering Physician: Elan Cruz MD, PhD Date of Service: 12/14/24 Procedure(s): XR cervical spine 4V Accession Number(s): [id number] cc: Jack Kate MD; Elan Cruz MD, PhD EXAMINATION: XR CERVICAL SPINE CLINICAL INFORMATION: Z98.1 - Arthrodesis status COMPARISON: 05/25/2024. TECHNIQUE: 4 views of the cervical spine, inclusive of flexion and extension views, were obtained. FINDINGS: No scoliosis. Normal lordosis. No fracture, compression deformity, traumatic subluxation, or suspicious bone lesion. C1-2 articulation and craniocervical junction are intact and aligned. Disc prosthesis/fusion C6-7. No complication evident. Moderate disc degeneration C5-6. Normal facet alignment. No significant facet arthropathy. Neutral examination demonstrates a trace degenerative 2 mm retrolisthesis C4 on C5. Flexion examination demonstrates reduction of C4-5 retrolisthesis to neutral. Extension examination demonstrates increase of C4-5 retrolisthesis to 3 mm. Possible instability suggested. No prevertebral or paravertebral soft tissue abnormalities. Lung apices clear. Azygos lobe noted. XR/XR cervical spine 4V IMPRESSION: 1. Disc prosthesis/fusion C6-7 without complication. 2. Degenerative disc changes C5-6. 3. Possible mild instability at C4-5 as detailed. Electronically signed by: Andre Garcia MD 12/15/2024 10:02 AM EST RP Dictated By: Andre Garcia MD Signed By: <Electronically signed by Andre Garcia MD in OV> 12/15/24 1002 DD/ 1042 TD/TT: 12/14/24 1048 Grocery Department Manager: [facility] External Provider IMG XR PROCEDURES Final Result * Strep A Nucleic Acid (12/08/2024 6:47 PM EST) IDNOW SERIAL# [id number] [facility] Strep A Nucleic Acid Negative Negative [facility] Comment:All test results mus t be correlated with clinical findings.This test has not been evaluated for monitoring treatment ofinfection.Additional follow-up testing using the culture method isrequired if the result is negative and clinical symptomspersist, or in the event of an acute rheumatic feveroutbreak. 12/08/2024 6:4 7 PM EST 12/08/2024 6:51 PM EST Generic External Data Provider LAB MICROBIOLOGY - GENERAL ORDERABLES Final Result [facility] [address] [place] [phone] * SARS-CoV-2 RNA, Influenza A/B, and RSV RNA, Ql NAAT (12/08/2024 6:47 PM EST) Only the most recent of2 resultswithin the time period is included. Influenza A PCR NEGATIVE Negative [facility] Influenza B PCR NEGATIVE Negative [facility] Resp Syncy Virus RNA Qual PCR NEGATIVE Negative [facility] SARS COV2 PCR NEGATIVE Negative [facility] Comment:All test results mus t [...] use by authorized laboratories.Testing performed on the [employer] GeneXpert utilizingreal-time RT-PCR.All SARS CoV2 and positive influenza A/B results arereported to [facility]. 12/08/2024 6:47 PM EST 12/08/2024 6:51 PM EST [facility] External Data Provider LAB MICROBIOLOGY - GENERAL ORDERABLES Final Result Performing Organization Address [facility] de Phone Number [facility] [address] [place] [phone] * Hepatitis Panel, General (10/06/2022 9:33 AM EST) Pathologist [facility] Hepatitis A IgM Nonreactive Nonreactive [facility] Comment:IgM antibodies to MOHAN V not detected; does not exclude earlyacute or recovered HAV infection. ~Hepatitis B Surface Antibody NONREACTIVE Nonreactive [facility] Comment:Nonreactive: < 8.00 mIU/mL Hepatitis B Core Antibody Nonreactive Nonreactive [facility] Hepatitis C Antibody Nonreactive Nonreactive [facility] Comment:Antibodies to HCV no t detected; does not exclude early acuteHCV infection. Hepatitis B Surface Antigen Negative Negative [facility] 10/06/2022 9:33 AM EST 10/06/2022 9:33 AM EST [facility] External Provider LAB BLO OD ORDERABLES Final Result Performing Organization Address [facility] de [facility] Number [facility] [address] [place] [phone] * LIPID PANEL, STANDARD (06/17/2022 10:44 AM EDT) Chol/HDLC Ratio 2.6 <5.0 (calc) [facility] Cholesterol, Total 140 <200 mg/dL [facility] HDL Cholesterol 54 > OR = 40 mg/dL [facility] LDL Cholesterol 68 mg/dL (calc) [facility] Comment: Reference range: <100 ?? [...] ?? Shabbir BROOKS et al. MEGA. 2013;310(19): 6658-1781 ?? (http://education.[employer].com ([employer])/faq/HDY387) Non-HDL Cholesterol 86 <130 mg/dL (calc) [facility] Comment: For patients with diabetes plus 1 major ASCVD risk ?? factor, treating to a non-HDL-C goal of <100 mg/dL ?? (LDL-C of <70 mg/dL) is considered a therapeutic ?? option. Triglycerides 94 <150 mg/dL [facility] 06/17/2022 10:4 4 AM EDT us Jack Zamorano MD LAB BLOOD ORDERABLES Final Result [facility] [address] * HIV AB/AG (12/01/2019 11:54 AM [...] of detection of this assay. ?? [employer] HIV Ag/Ab Combo assay result and supplemental assay results should be interpreted in conjunction with the patient's clinical presentation, history and other laboratory results. ??If the results are inconsistent with clinical evidence, additional testing is suggested to confirm the result. 12/01/2019 11:5 4 AM EST us Jack Zamorano MD HISTORICAL/NON ORDERA BLE LABS Final Result [facility] [address] from Last 3 Months or Most Recently Relevant to Health Maintenance Insurance [facility] C3 [facility] Care Teams Stone Mason Relationship Specialty Start Date End Date Jack Mccauley MD [address] [place] [phone] PCP - General Internal Medicine 05/25/[address] [place] [address] Neurosurgery 12/27/24
== END 2025-03-03 10:35 | disposition home or self-care (01) ==
LOC: HO.HGI 10:20
PROVIDERS: PCP Internal Medicine; Visit Provider Internal Medicine Gastroenterology
DX: R10.13 Epigastric pain (principal)
CPT/HCPCS: 99214

== ENCOUNTER → 2025-03-03 10:19 | Outpatient (BNVA) | payer MEDICAID, SELFPAY | PROVIDERS: PCP Internal Medicine; Visit Provider Internal Medicine Gastroenterology | DX: R10.13 Epigastric pain (principal) | CPT/HCPCS: 99212 ==

== ENCOUNTER 2025-03-15 09:16 | Outpatient (REF) | payer MEDICAID, SELFPAY ==
--- NOTE | ~2025-03-15 | US_ITS ---
EXAMINATION: US ABDOMEN HISTORY: R10.13 - Epigastric pain TECHNIQUE: Real-time grayscale ultrasound imaging of the abdomen was performed and images were reviewed. COMPARISON: Correlation is made with a CT of the abdomen without contrast dated 12/17/2024. FINDINGS: Liver: The right lobe of the liver measures 16.0 cm in size. The left lobe of the liver measures 8.4 cm in size. The liver demonstrates normal homogeneous echotexture. No focal mass or intrahepatic biliary ductal dilatation is identified. There is normal hepatopedal flow in the portal vein. Gallbladder and biliary tree: The gallbladder is unremarkable, without evidence of calculi, wall thickening, or pericholecystic fluid. There is no sonographic Edouard sign. The common bile duct is normal in caliber measuring 5 mm. Kidneys: The right kidney measures 10.1 cm in length. The left kidney measures 10.3 cm in length. The kidneys are unremarkable, without evidence of masses, hydronephrosis, or calculi. Pancreas: The pancreatic head, neck, and body are unremarkable. The pancreatic tail is obscured by bowel gas. Spleen: The spleen is normal in size and contour, measuring 10.2 cm in length. Abdominal aorta and inferior vena cava: The visualized portions of the abdominal aorta and inferior vena cava are normal in caliber. There is no free fluid in the abdomen. US/US abdomen complete IMPRESSION: Unremarkable abdominal ultrasound. Electronically signed by: Lobo Molina MD 03/15/2025 11:46 AM EDT
--- OUTSIDE RECORDS SUMMARY | 2025-03-15 10:34 | XMS_ITS | Encounter Summary ---
Author Organization [employer] Address [address] [facility] [address] [place] [address] Care Team Providers Care Education And Training Manager Name Role Phone Jack Mccauley MD Primary Care Provide r Elan Cruz Unavailable [phone] Reason for Visit * Reason Comments Med Refill Encounter Details Date Type Department Care Team (Late st Contact Info) Description 05/29/2023 Refill [facility] [address] [place], [place] [phone] Dayanara Bonds MD [address] [place], [place] [phone] Social History Tobacco Use Types Packs/Day Years [...] Description 05/16/2025 10:15 AM EDT Office Visit [facility] [address], [place] [phone] Jack Mccauley MD [address] [place], [place] [phone] documented as of this encounter Visit Diagnoses Not on filedocumented in this encounter Additional Health Concerns Assessment Noted Time PHQ-9 Depression Total Score: 0 11/04/19 23 2:12 PM EST documented as of this encounter Care Teams Education And Training Manager Relationship Specialty Start Date End Date Jack Mccauley MD [address] [place] [phone] PCP - General Internal Medicine 05/25/15 Elan Cruz [address] [place] [address] [address] [place] [phone] Neurosurgery 12/27/24 documented as of this encounter
--- OUTSIDE RECORDS SUMMARY | 2025-03-15 10:34 | XMS_ITS | Clinical Summary ---
Author Organization [facility] Address [address] [place] [address] Care Team Providers Care Marine Engine Machinist Name Role Phone Jack Kate Primary Care [...] patient's age to complete this topic Insurance [facility] [place] [id number] Care Teams Marine Engine Machinist Relationship Specialty Start Date End Date Jack Kate [address] [place] [phone] PCP - General Internal Medicine 02/04/22
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
--- OUTSIDE RECORDS SUMMARY | 2025-03-15 10:34 | XMS_ITS | Referral Summary ---
Author Organization [facility] Address [address] [place] [address] Care Team Providers Care Obstetric Anaesthetist Name Role Phone Jack Kate Primary Care [...] Plan of Treatment Not on file Insurance [facility] Care Teams Obstetric Anaesthetist Relationship Specialty Start Date End Date Jack Kate [address] [place] [phone] PCP - General Internal Medicine 02/04/22
== END 2025-03-15 09:17 | disposition home or self-care (01) ==
LOC: HO.US 09:16
PROVIDERS: PCP Internal Medicine; Visit Provider Internal Medicine Gastroenterology
DX: R10.13 Epigastric pain (principal)
CPT/HCPCS: 76700

== ENCOUNTER → 2025-03-15 09:17 | Outpatient (BNV) | payer MEDICAID, SELFPAY | PROVIDERS: PCP Internal Medicine; Visit Provider Radiology Diagnostic Radiology | DX: R10.13 Epigastric pain (principal) | CPT/HCPCS: 76700 ==

== ENCOUNTER 2025-04-13 07:31 | Day surgery (SDC) | payer MEDICAID, SELFPAY ==
--- OUTSIDE RECORDS SUMMARY | 2025-04-05 16:16 | XMS_ITS | Encounter Summary ---
Author Organization [email or web address] Address [address] [facility] [address] [place] [address] Care Team Providers Care Senior Visual Designer Name Role Phone Jack Mccauley MD Primary Care Provide r Elan Cruz Unavailable [phone] Reason for Visit * Reason Comments Med Refill Encounter Details Date Type Department Care Team (Late st Contact Info) Description 05/29/2023 Refill [facility] [address] [place], [place] [phone] Dayanara Bonds MD [address] [place], [place] [phone] Social History Tobacco Use Types Packs/Day Years [...] EDT Office Visit [facility] [address] [place], [place] [phone] Jack Mccauley MD [address] [place], [place] [phone] documented as of this encounter Visit Diagnoses Not on filedocumented in this encounter Additional Health Concerns Assessment Noted Time PHQ-9 Depression Total Score: 0 11/04/19 23 2:12 PM EST documented as of this encounter Care Teams Senior Visual Designer Relationship Specialty Start Date End Date Jack Mccauley MD [address] [place] [phone] PCP - General Internal Medicine 05/25/15 Elan Cruz [address] [place] [address] [address] [place] [address] Neurosurgery 12/27/24 documented as of this encounter
[2025-04-11 15:08] VITALS: BMI 24.2
--- NOTE | 2025-04-12 10:12 | HO.ANESPROP2 ---
Documented by User: Ludivina Madden NP 04/12/25 10:13 HPI - Anesthesia Eval Consult details Narrative: 45yo M for Upper Endoscopy and Colonoscopy PMF Active Problems Active Problems: All Active Problems Pain of left thumb (Acute) S/P cervical spinal fusion (Acute) Status post cervical spinal arthrodesis (Acute) Left elbow tendonitis (Acute) Mass of left elbow (Acute) Spondylosis of cervical region without myelopathy or radiculopathy (Acute) Closed fracture of distal phalanx of middle finger (Acute) Blurred vision, left eye (Acute) Muscle spasms of neck (Acute) Cervical radiculopathy (Acute) Cervical spondylosis (Acute) Epigastric abdominal pain (Acute) Weight loss, abnormal (Acute) Painful arc syndrome of left shoulder (Acute) Spondylosis of lumbar spine (Acute) Bilateral lumbar radiculopathy (Acute) Pars defect of lumbar spine (Acute) Fibromyalgia (Acute) Tendinitis of left rotator cuff (Acute) Polyarthralgia (Acute) Hemorrhoids (Acute) Tubular adenoma (Acute) Rectal bleeding (Acute) Vitamin D deficiency (Acute) Past Medical History Medical History Back pain Arthritis PTSD (post-traumatic stress disorder) Left varicocele Hx of bipolar disorder Insomnia Fibromyalgia Vitamin D deficiency Anxiety Depression Family History Family History Maternal Grandmother Diabetes Colon cancer Maternal Aunt Colon cancer Sister Colon polyp Family history of problems with anesthesia: No Surgical History Surgical History History of hemorrhoidectomy (06/25/23) History of esophagogastroduodenoscopy (EGD) H/O colonoscopy History of surgery on arm Rectal bleeding History of Problems with Anesthesia: No Social History Social History Household Members: Family Are you a primary day care supervisor to a significant other at home: No Do you presently have visiting nurse or other home services: No Alcohol intake: never Patient Tobacco Use Status: Never used Tobacco e-Cigarette/Vaping Use: Never Used Have you been hit, kicked, punched, or otherwise hurt by someone within the past year? 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 Meds Allergies Allergy/AdvReac Type Severity Reaction Status Date / Time No Known Allergies (No Known Allergy Verified 04/13/25 07:46 Allergies*) Home Medications ?Medication ?Instructions ?Recorded ?Confirmed ?Last Taken ?Type clonazepam 1 mg tablet (Klonopin) 1 mg PO DAILY 03/03/25 04/13/25 Unknown History dextroamphetamine-amphetamine 20 1 tab PO QAM 03/03/25 04/13/25 Unknown History mg tablet zolpidem 10 mg tablet 10 mg PO BEDTIME PRN Insomnia 03/03/25 04/13/25 Unknown History Exam Height,Weight and Vital Signs: Height 5 ft 3 in Weight 62 kg Assessment and Plan Assessment Anesthesia Assessment: Chart Reviewed Final Anesthetic Review Family History of Problems with Anesthesia: No History of Problems with Anesthesia: No Documented by User: Yahir Mcintyre MD 04/13/25 09:24 [facility] Past Medical History Medical History Back pain Arthritis PTSD (post-traumatic stress disorder) Left varicocele Hx of bipolar disorder Insomnia Fibromyalgia Vitamin D deficiency Anxiety Depression Family History Family History Maternal Grandmother Diabetes Colon cancer Maternal Aunt Colon cancer Sister Colon polyp Surgical History Surgical History History of hemorrhoidectomy (06/25/23) History of esophagogastroduodenoscopy (EGD) H/O colonoscopy History of surgery on arm Rectal bleeding Social History Social History Household Members: Family Are you a primary day care supervisor to a significant other at home: No Do you presently have visiting nurse or other home services: No Alcohol intake: never Patient Tobacco Use Status: Never used Tobacco e-Cigarette/Vaping Use: Never Used Have you been hit, kicked, punched, or otherwise hurt by someone within the past year? If so, by whom?: No Are you DNR?: No Advance Directives: No Advance Directives Information Provided: Yes Poor oral hygiene: No Current occupational status: employed Current occupation: [email or web address]/ right hand dominant Meds Allergies Allergy/AdvReac Type Severity Reaction Status Date / Time No Known Allergies (No Known Allergy Verified 04/13/25 07:46 Allergies*) Home Medications ?Medication ?Instructions ?Recorded ?Confirmed ?Last Taken ?Type clonazepam 1 mg tablet (Klonopin) 1 mg PO DAILY 03/03/25 04/13/25 Unknown History dextroamphetamine-amphetamine 20 1 tab PO QAM 03/03/25 04/13/25 Unknown History mg tablet zolpidem 10 mg tablet 10 mg PO BEDTIME PRN Insomnia 03/03/25 04/13/25 Unknown History Exam Airway Mallampati Class: II TM Dist: >3cm Neck ROM: Full Assessment and Plan Assessment Anesthesia Assessment: Anesthesia Plan Discussed Final Anesthetic Review NPO: Yes ASA Class: II Final Preanesthetic Review: No Changes in Pt Med Stat, Meds/Allgs Chart Reviewed, Consent Obtained/Reviewed and Anes Risks/Benef Reviewed Patient Risk: Low Procedure Risk: Low Anesthetic Plan Anesthetic Plan: TIVA Disposition: Standard PACU
[2025-04-13 07:43] VITALS: BMI 24.5
[2025-04-13 07:52] VITALS: BP 110/69; PULSE 76; RESP 18; TEMP 36.6; O2SAT 96
[2025-04-13] MEDS: Lactated Ringers 1,000 ML 100 ML IVCONT (07:52)
--- NOTE | 2025-04-13 08:44 | MHC.SHP ---
Pre-Procedural Eval Section A - 24 Hr Update-Section A only Date of Service: 04/13/25 Section B - Complete if H&P > 30 days Chief Complaint: hx colo polyps,abdominal pain Relevant Family History (Specify if Yes): No Relevant Social History: None Present Medications: see Short Stay Collaborative assessment Medical History: Significant History (Back pain Arthritis PTSD (post-traumatic stress disorder) Left varicocele Hx of bipolar disorder Insomnia Fibromyalgia Vitamin D deficiency Anxiety Depression) History of Previous Operations: Relevant previous surgery/procedure and date(s) ( History of hemorrhoidectomy (06/25/23) History of esophagogastroduodenoscopy (EGD) H/O colonoscopy History of surgery on arm Rectal bleeding) Allergies: Allergies Allergy/AdvReac Type Severity Reaction Status Date / Time No Known Allergies (No Known Allergy Verified 04/13/25 07:46 Allergies*) Review of Systems Sugical H&P ROS: Negative: Constitution, Cardiovascular, Respiratory, Neurological, Psychiatric, Hem-Onc, Allergic/Immunologic, Gastrointestinal, Genitourinary, Musculoskeletal, Integumentary, Endocrine and Eyes/Ears/Nose/Throat Exam Surgical H&P Exam: Normal: HEENT, Normal: Heart, Normal: Lungs, Normal: Extremities, Normal: Abdomen, Normal: Skin and Normal: Neurological Plan Diagnosis/Plan: Unchanged I have reviewed the history and physical and performed a pertinent physical examination on my patient. No changes have occurred unless specified. pusch enteroscopy and colonsocopy with bx Time Spent With Patient Time: Total time managing care of this patient today ____ minutes.
--- NOTE | 2025-04-13 09:31 | HO.OPN-COLON ---
Colonoscopy Operative Note Operative Note Date of Service: 04/13/25 Narrative: Operative Information Procedure Description: EGD, Colonoscopy Indication: abdominal pain Anesthesia: MAC PUSh ENTEROSCOPY AND COLONOSCOPY PROCEDURE NOTE PUSH Enteroscopy Consent: Indications for the procedure and potential complications of bleeding, perforation, reaction to medications and missed diagnosis were discussed with the patient and informed consent was obtained. Instrument: Olympus variable stiffness pediatric scope 190L Monitoring: Vital signs and clinical assessment, continuous EKG monitoring, Pulse oximetry, Carbon Dioxide monitoring and blood pressure monitoring were done throughout the procedure. Procedure: The patient was placed in the left lateral decubitis position and pre-procedure medications were administered and a bite block was placed. The endoscope was inserted into the mouth and advanced under direct vision to the proximal jejunum. A careful inspection was made as the upper endoscope was withdrawn including a retroflexed examination of the proximal stomach; Findings and interventions are described below. Findings: Larynx:normal Esophagus: GE junction at 37 cm, diaphragm hiatus at 39 cm, consistent with 2 cm sliding hiatal hernia, bx taken from distal esophagus Stomach: patchy erythema sheree at pyloric outlet. Biopsies were obtained. Grade 2 flap valve on retroflexed examination of the cardia. Duodenum: mild bulbar duodenitis, bx taken jejunum: nml, bx taken Intervention: Biopsies as noted above, COLONOSCOPY Instrument: Olympus variable stiffness pediatric scope 190L Colonoscopy Monitoring: Vital signs and clinical assessment, continuous EKG monitoring, Pulse oximetry, Carbon Dioxide monitoring and blood pressure monitoring were done throughout the procedure. Colon withdrawal time was 13 minutes. Procedure: The patient was placed in the left lateral decubitis position and pre-procedure medications were administered. After a digital rectal examination of the ano-rectum, the video colonoscope was inserted into the rectum and advanced through the colon to the cecum/TI. The colonoscope was slowly withdrawn in a retrograde panoramic fashion and the colon mucosa was carefully examined including a retroflexed view of the rectum. Findings and interventions are described below. Procedure Difficulty:moderate Findings: Terminal Ileum-normal, bx taken Cecum:normal Ascending Colon: few tics seen Transverse Colon -normal Descending Colon:normal Sigmoid Colon: 4-5 mm sessile polyp removed with cold snare Rectum: Retroflexion with small internal hemorrhoids, grade I, x 2 sessile polyp 4 mm removed with cold forceps Random bx taken from right colo, left colo and rectum Anorectum - normal Colon preparation: [place] Bowel Preparation Scale Right colon; 1-2 Transverse colon: 2 Left colon; 2 (0 = Unprepared colon segment with mucosa not seen due to solid stool that cannot be cleared. 1 = Portion of mucosa of the colon segment seen, but other areas of the colon segment not well seen due to staining, residual stool and/or opaque liquid. 2 = Minor amount of residual staining, small fragments of stool and/or opaque liquid, but mucosa of colon segment seen well. 3 = Entire mucosa of colon segment seen well with no residual staining, small fragments of stool or opaque liquid) Impression and Post Procedure Diagnosis: Endoscopy Findings: gastritis hiatal hernia duodenitis Colonoscopy Findings: diverticulosis colon polyps internal hemorrhoids Plan: Await Pathology results Repeat Colonoscopy in 5 years due to fair prep on right and polyps or earlier if clinically indicated High fiber diet leaflet avoid straining at stool, epsom salts and sitz bath, anusol supps or cream Above findings were reviewed with the patient and relevant handouts were provided if indicated.
[2025-04-13 09:35] VITALS: BP 94/54; PULSE 76; RESP 16; TEMP 36.3; O2SAT 96
[2025-04-13 09:50] VITALS: BP 101/68; PULSE 70; RESP 16; TEMP 36.7; O2SAT 99
== END 2025-04-13 10:33 | disposition home or self-care (01) ==
PROVIDERS: PCP Internal Medicine; Visit Provider Internal Medicine Gastroenterology
PROC: (CPT 45385; principal; 2025-04-13 09:20)
DX: R10.9 Unspecified abdominal pain (principal); D12.5 Benign neoplasm of sigmoid colon; K62.1 Rectal polyp; K57.30 Diverticulosis of large intestine without perforation or abscess without bleeding; K64.0 First degree hemorrhoids; Z86.0101 Personal history of adenomatous and serrated colon polyps; K29.70 Gastritis, unspecified, without bleeding; K29.80 Duodenitis without bleeding; K44.9 Diaphragmatic hernia without obstruction or gangrene; R10.13 Epigastric pain
CPT/HCPCS: 45385; 45380; 43239; 88305; 88313; 88342; J2003; J2704

== ENCOUNTER → 2025-04-13 07:31 | Outpatient (BNV) | payer MEDICAID, SELFPAY | PROVIDERS: PCP Internal Medicine; Visit Provider Internal Medicine Gastroenterology | DX: R10.9 Unspecified abdominal pain (principal); K29.70 Gastritis, unspecified, without bleeding; K29.80 Duodenitis without bleeding; K57.30 Diverticulosis of large intestine without perforation or abscess without bleeding; D12.8 Benign neoplasm of rectum; K64.0 First degree hemorrhoids; D12.5 Benign neoplasm of sigmoid colon | CPT/HCPCS: 43239; 45380; 45385 ==